=== PATIENT | male | born 1960 | race Caucasian/White ===

== ENCOUNTER 2016-10-21 21:00 | Inpatient (IN) ==
[2016-10-21] MEDS ORDERED: Ipratropium/Albuterol Neb 3 ML IH ONE (21:18)
[2016-10-21] MEDS ORDERED: methylPREDNISolone 125 MG/2 ML VIAL IVP ONE (21:18)
--- NOTE | 2016-10-21 21:21 | Emergency Department Note ---
Disposition Clinical Impression: Community acquired pneumonia, Hyponatremia, ARF (acute renal failure), Sepsis, Pleural effusion Disposition: Admitted As Inpatient Condition: Fair Time of Disposition: 22:21 SOB HPI - General Chief Complaint: ED Weakness Stated Complaint: "Needs Oxygen& Fluids" Time Seen by Provider: 10/21/16 21:10 Source: patient Mode of arrival: ambulatory Limitations: no limitations Nursing Notes Reviewed: Yes Vital Signs Reviewed: Yes - History of Present Illness Patient states he has been increasingly short of breath for the last 3 years. Patient states all month he has been having a cough and congestion. Patient states his chest hurts from coughing so much. Patient denies any measured fevers. Patient is a cigarette smoker. Patient states he does not wear any oxygen at home. Patient's not having any abdominal pain, vomiting, or diarrhea. Pt Subjective Complaint: shortness of breath, cough Onset (ago): month(s) - Related Data Allergies Allergy/AdvReac Type Severity Reaction Status Date / Time cefuroxime [From Ceftin] AdvReac Nausea Verified 10/21/16 21:08 All systems ED: reviewed and negative except as stated. Constitutional: Denies: fever, chills, weakness, weight change Eyes: Denies: eye pain, eye discharge, vision change ENT ED: Denies: ear pain, throat pain, dental pain, hearing loss, epistaxis, congestion, dysphagia Cardiovascular: Reports: chest pain. Denies: palpitations, dyspnea on exertion , edema, syncope Respiratory: Reports: cough, dyspnea, wheezes. Denies: hemoptysis, stridor Gastrointestinal: Denies: abdominal pain, nausea, vomiting, diarrhea, constipation, hematemesis, melena, hematochezia Genitourinary: Denies: urgency, dysuria, frequency, hematuria Musculoskeletal: Denies: back pain, neck pain, arthralgia, myalgia Integumentary: Denies: rash, abrasion, lesions Neurological: Denies: headache, weakness, numbness, paresthesias, confusion, abnormal gait, vertigo Psychiatric: Denies: anxiety, depression, suicidal thoughts, homicidal thoughts , auditory hallucinations, visual hallucinations Endocrine: Denies: fatigue Hematological/Lymphatic: Denies: easy bleeding, easy bruising Allergic/Immunologic: Denies: facial swelling, urticaria Past Medical History - Past Medical History Attestation: Yes The following information was validated with the patient. Source: patient Medical history: Reports: COPD Psychiatric history: Reports: anxiety, depression - Social History Smoking Status: Current every day smoker Alcohol use: Reports: none Drug use: Reports: none Physical Exam - General Limitations: no limitations General appearance: alert, in no apparent distress - Head Head exam: atraumatic, normocephalic, normal inspection - Eye Eye exam: Present: normal appearance, PERRL, EOMI - ENT ENT exam: normal exam, normal oropharynx, mucous membranes moist - Expanded ENT Exam External ear exam: Present: normal external inspection Mouth exam: Present: normal external inspection Teeth exam: Present: normal inspection Throat exam: Present: normal inspection - Neck Neck exam: Present: normal inspection, full ROM, trachea midline - Chest Chest inspection: Present: normal inspection, symmetric chest wall rise - Respiratory Respiratory exam: Present: wheezes, other (rhonchi) - Cardiovascular Cardiovascular exam: Present: normal rhythm, tachycardia, normal heart sounds - Abdominal Exam Abdominal exam: Present: soft, Non-Tender. Absent: tenderness, distention, guarding, rebound, rigidity - Extremities Exam Extremities exam: Present: normal inspection, full ROM. Absent: tenderness, pedal edema - Expanded Upper Extremity Exam Shoulder exam: Present: normal inspection, full ROM Arm exam: Present: normal inspection, full ROM Elbow exam: Present: normal inspection, full ROM Forearm/Wrist exam: Present: normal inspection, full ROM Hand exam: Present: normal inspection, full ROM Vascular exam: Normal: capillary refill, radial pulse - Expanded Lower Extremity Exam Hip/Pelvis exam: Present: normal inspection, full ROM Upper leg exam: Present: normal inspection, full ROM Knee exam: Present: normal inspection, full ROM Lower leg exam: Present: normal inspection, full ROM Ankle exam: Present: normal inspection, full ROM Foot/toe exam: Present: normal inspection, full ROM Neurovascular/Tendon exam: Absent: motor deficit, sensory deficit, tendon deficit - Back Exam Back exam: Present: normal inspection, full ROM. Absent: tenderness - Neurological Exam Neurological exam: Present: alert, oriented X3 - Expanded Neurological Exam Patient oriented to: Present: person, place, time Coma Scale Eye Opening: Spontaneous Coma Scale Motor Response: Obeys Commands Coma Scale Verbal Response: Oriented Coma Scale Total: 15 - Psychiatric Psychiatric exam: Present: normal affect, normal mood - Skin Skin exam: Present: warm, dry, intact, pallor, other (chase-pale color) Course - Consultations Consultation #1: Pt had an abnormal EKG we notified the interventionalist and we will fax the EKGs for his opinion as pt has diffuse ST elevation but no reciprocal changes. Time: 21:30 Consultation #2: I spoke with Dr. Devlin and he states this is more likely pericarditis. Time: 21:40 Consultation #3: I spoke with Dr. Agusto cast to admit to the ICU. Time: 22:20 Vital Signs Temperature 97.6 F 10/21/16 21:02 Pulse Rate 125 10/21/16 21:02 Respiratory Rate 24 10/21/16 21:02 Blood Pressure 94/68 10/21/16 21:02 O2 Sat by Pulse Oximetry 99 10/21/16 21:02 Temperature 97.6 F 10/21/16 21:02 Pulse Rate 125 10/21/16 21:02 Respiratory Rate 24 10/21/16 21:02 Blood Pressure 94/68 10/21/16 21:02 O2 Sat by Pulse Oximetry 99 10/21/16 21:02 Oxygen Delivery Oxygen Delivery Room Air Shortness of Breath/Dyspnea - Medical Records Medical records reviewed: Yes I reviewed the patient's medical records. - Lab Data Lab results reviewed: Yes I reviewed the patient's lab results. Result diagrams: 10/21/16 21:20 10/21/16 21:20 Lab Results 10/21/16 10/21/16 10/21/16 Range/Units 21:20 21:20 21:20 WBC 38.8 H* (4.3-11.1) K/mcL RBC 4.81 (4.19-5.50) M/mcL Hgb 14.1 (12.9-16.9) g/dL Hct 40.6 (37.5-50.1) % MCV 84.4 (83.0-100.0) fL MCH 29.3 (28.0-33.3) pg MCHC 34.7 (31.6-35.5) g/dL RDW 13.4 (11.5-14.5) % Plt Count 590 H (140-400) K/mcL MPV 10.2 (9.4-12.4) fL Immature Gran % Test Not Performed Seg Neutrophils % 86.0 % Band Neutrophils % 2.0 (0-4) % Lymphocytes % 4.0 % Monocytes % 8.0 % Eosinophils % Test Not Performed Basophils % Test Not Performed Neutrophils # 34.1 H (1.6-8.9) K/mcL Lymphocytes # 1.6 (0.6-4.6) K/mcL Monocytes # 3.1 H (0.0-1.3) K/mcL Eosinophils # Test Not Performed Basophils # Test Not Performed Platelet Estimate Increased H (Normal) Large Platelets Present A (Not Present) Anisocytosis 1+ A (Not Present) PT 14.6 H (9.4-12.1) Seconds INR 1.3 APTT 31.0 (26.0-36.0) Seconds D-Dimer 7345 H (0-500) ng/mLFEU Sodium 119 L* (136-145) mEq/L Potassium 4.5 (3.5-4.5) mEq/L Chloride 80 L (98-109) mEq/L Carbon Dioxide 19 (19-29) mEq/L BUN 52 H (8-26) mg/dL Creatinine 2.16 H (0.72-1.25) mg/dL Est GFR ( Amer) 39 L (> 60) Est GFR (Non-Af Amer) 32 L (> 60) BUN/Creatinine Ratio 24 (6-26) Glucose 137 H (70-99) mg/dL Calculated Osmolality 264 L (280-300) Lactic Acid (0.5-2.2) mmol/L Calcium 9.9 (8.6-10.8) mg/dL Troponin I (0-0.03) ng/mL B-Natriuretic Peptide (0-100) pg/mL 10/21/16 10/21/16 10/21/16 Range/Units 21:20 21:20 21:29 WBC (4.3-11.1) K/mcL RBC (4.19-5.50) M/mcL Hgb (12.9-16.9) g/dL Hct (37.5-50.1) % MCV (83.0-100.0) fL MCH (28.0-33.3) pg MCHC (31.6-35.5) g/dL RDW (11.5-14.5) % Plt Count (140-400) K/mcL MPV (9.4-12.4) fL Immature Gran % Seg Neutrophils % % Band Neutrophils % (0-4) % Lymphocytes % % Monocytes % % Eosinophils % Basophils % Neutrophils # (1.6-8.9) K/mcL Lymphocytes # (0.6-4.6) K/mcL Monocytes # (0.0-1.3) K/mcL Eosinophils # Basophils # Platelet Estimate (Normal) Large Platelets (Not Present) Anisocytosis (Not Present) PT (9.4-12.1) Seconds INR APTT (26.0-36.0) Seconds D-Dimer (0-500) ng/mLFEU Sodium (136-145) mEq/L Potassium (3.5-4.5) mEq/L Chloride (98-109) mEq/L Carbon Dioxide (19-29) mEq/L BUN (8-26) mg/dL Creatinine (0.72-1.25) mg/dL Est GFR ( Amer) (> 60) Est GFR (Non-Af Amer) (> 60) BUN/Creatinine Ratio (6-26) Glucose (70-99) mg/dL Calculated Osmolality (280-300) Lactic Acid 3.6 H (0.5-2.2) mmol/L Calcium (8.6-10.8) mg/dL Troponin I 0.02 (0-0.03) ng/mL B-Natriuretic Peptide 263 H (0-100) pg/mL - Radiology Data Radiology results reviewed: Yes I reviewed the patient's radiology results. - EKG Data EKG attestation: Yes I reviewed and interpreted this EKG. EKG shows normal: Reports: sinus rhythm Rate: Reports: tachycardia Rhythm: Reports: NSR Interpretation: Reports: pericarditis
[2016-10-21 21:27] LABS: Hematocrit 40.6 % (37.5-50.1); Hemoglobin 14.1 g/dL (12.9-16.9); Mean Corpuscular HGB Conc 34.7 g/dL (31.6-35.5); Mean Corpuscular Hemoglobin 29.3 pg (28.0-33.3); Mean Corpuscular Volume 84.4 fL (83.0-100.0); Mean Platelet Volume 10.2 fL (9.4-12.4); Platelet Count 590 K/mcL (140-400); Red Blood Count 4.81 M/mcL (4.19-5.50); Red Cell Distribution Width 13.4 % (11.5-14.5)
[2016-10-21 21:35] LABS: INR 1.3; Prothrombin Time 14.6 Seconds (9.4-12.1)
[2016-10-21 21:40] LABS: Calcium 9.9 mg/dL (8.6-10.8); Potassium 4.5 mEq/L (3.5-4.5)
[2016-10-21] MEDS: 0.9 % Sodium Chloride 1,000 ML IV SCH (21:43)
[2016-10-21] MEDS ORDERED: Levofloxacin 750 MG/150 ML 750 MG/150 ML BAG IVPB ONE (21:50)
[2016-10-21 21:58] LABS: Lymphocytes # 1.6 K/mcL (0.6-4.6); Monocytes # 3.1 K/mcL (0.0-1.3); Neutrophils # 34.1 K/mcL (1.6-8.9)
[2016-10-21 21:59] LABS: Anisocytosis 1+ (Not Present); Large Platelets Present (Not Present); Platelet Estimate Increased (Normal)
[2016-10-21] MEDS ORDERED: 0.9 % Sodium Chloride 1,000 ML IV SCH (22:00)
[2016-10-21] MEDS ORDERED: *HR* LORazepam 2 MG/ML VIAL IVP PRN (22:19)
[2016-10-21] MEDS ORDERED: Acetaminophen 650 MG RECTAL SUPP RC PRN (22:19)
[2016-10-21] MEDS ORDERED: Naloxone 0.4 MG/ML INJ IVP PRN (22:19)
[2016-10-21] MEDS ORDERED: Acetaminophen 325 MG TABLET PO PRN (22:19)
[2016-10-21] MEDS ORDERED: Ondansetron 4 MG/2 ML VIAL IVP PRN (22:19)
[2016-10-21] MEDS ORDERED: Lidocaine -MPF 1% 2 ML VIAL ID PRN (22:28)
[2016-10-21] MEDS ORDERED: Albuterol 2.5 MG/3 ML NEBULIZER IH PRN (22:28)
[2016-10-21] MEDS ORDERED: Vancomycin 1,000 MG in D5% in Water 250 ML IVPB SCH (23:00)
[2016-10-21 23:30] LABS: Ethanol < 10 mg/dL (0-10)
[2016-10-21 23:30] LABS: Phosphorous 7.2 mg/dL (2.3-4.7)
[2016-10-21 23:31] LABS: Ionized Calcium 0.93 mmol/L (1.15-1.35)
[2016-10-21] MEDS ORDERED: Calcium Gluconate 2,000 MG in D5% in Water 100 ML IVPB ONE (23:50)
[2016-10-21 23:54] LABS: Thyroid Stimulating Hormone 1.475 mcIU/mL (0.350-4.840)
[2016-10-22] MEDS: Piperacillin/Tazobactam 3.375 GM in D5% in Water (Mini-Bag+) 100 ML IVPB SCH ×4 (00:07→23:29)
[2016-10-22] MEDS: *HR* Morphine 2 MG/ML SYRINGE IVP PRN ×3 (00:07→10:04)
[2016-10-22] MEDS: Vancomycin 1,000 MG in D5% in Water 250 ML IVPB SCH ×2 (00:08→23:30)
--- NOTE | 2016-10-22 00:31 | Internal Med History&Physical ---
<Chinmay Sheppard - Last Filed: 10/22/16 02:12> Date of Encounter: 10/22/16 Time of Encounter: 00:00 Assessment and Plan (1) Severe sepsis Current visit: Yes Status: Acute The patient meets criteria for severe sepsis with elevated white count of 38.8, elevated heart rate of 125, and elevated respiratory rate of 24. Source of infection is community acquired pneumonia. The patient was hypotensive upon arrival with a blood pressure of 94/68. The patient's lactic acid is 3.6. The patient received 2 L of fluid in the emergency department and is receiving a 3rd leader currently at a rate of 100 mL per hour. The patient received a dose of Levaquin and a dose of Solu-Medrol on the emergency department. Additionally received one dose of vancomycin upon arrival to the ICU, will continue with pharmacy dosing. Continue course of vancomycin, Levaquin and Zosyn pending cultures. 2 sets of blood cultures have been drawn. Sputum cultures ordered. Legionella antigen, strep pneumoniae antigen, and respiratory infection panel ordered as well. (2) Pleural effusion Current visit: Yes Status: Acute Chronic and progressive on the right side. CT of the chest demonstrated a mass in the right infra-hilar region resulting in obstruction of the right lower lobe and right middle lobe bronchi with collapse of the right middle lobe and right lower lobes. The mass is difficult to measure, but approximately 4.2 cm. There is bulky mediastinal and sub carinal lymphadenopathy noted. Small right supraclavicular lymph nodes are noted. There is a large loculated right pleural effusion. There is moderate pericardial effusion. Consult to pulmonology. Chest x-ray demonstrated large right pleural effusion unassociated atelectasis which has increased in size since August. X-ray August had demonstrated a right pleural effusion which at that time had increased in size as well. (3) Community acquired pneumonia Current visit: Yes Status: Acute This patient meets severe sepsis criteria, and has a history of alcoholism with 10 drinks per day reported for the past 4 to 5 years. Will treat at this time with Levaquin, Zosyn, and vancomycin due to the patient' s clinical status. (4) ARF (acute renal failure) Current visit: Yes Status: Acute Acute kidney injury likely secondary to dehydration. Urinalysis ordered. Alarcon catheter ordered. Urinary tox screen Renal and bladder ultrasound to assess for urinary retention and kidney abnormalities. Will follow patients electrolytes closely as well. Qualifiers: Acute renal failure type: unspecified Qualified Code(s): N17.9 - Acute kidney failure, unspecified (5) Hyponatremia Current visit: Yes Status: Acute Patient is not exhibiting any signs of altered mental status despite having current sodium of 119. Will monitor the patient closely with slow repletion through normal saline. Consider SIADH. (6) COPD (chronic obstructive pulmonary disease) Current visit: Yes Status: Acute In acute exacerbation secondary to community acquired pneumonia. Patient will have continued doses antibiotics for community acquired pneumonia. Patient will receive continued doses of steroids and duo neb treatments. Qualifiers: COPD type: emphysema Emphysema type: unspecified Qualified Code(s): J43.9 - Emphysema, unspecified (7) Pericarditis Current visit: Yes Status: Acute Moderate pericardial effusion present, likely malignant effusion. Qualifiers: Pericarditis type: other type Chronicity: unspecified Qualified Code(s): I31.8 - Other specified diseases of pericardium (8) Alcohol abuse Current visit: Yes Status: Acute Patient reports no alcohol use in the past 2 weeks due to his recent illness. He does not appear to be exhibiting any symptoms of withdrawal at this time. Will continue to monitor. (9) DVT prophylaxis Current visit: Yes Status: Acute Patient will receive 5000 units SQ Heparin Q8HR (10) Tobacco abuse Current visit: Yes Status: Acute Internal Medicine - H&P: HPI Chief complaint: Difficulty in breathing Admitted From: Emergency Dept Plans for Post Hospital Care: Home History of present illness: Mr. Hill is a 56 year old male with past medical history is significant for COPD and asthma who presented to the emergency department with worsening shortness of breath. He states that he is been short of breath for the past 3 years which has been gradually increasing. He additionally has had a cough and congestion for the past month. He states that the cough has been intermittently productive of a whitish yellow sputum. He denies any hemoptysis. The patient is not on any home oxygen. The patient reports that his shortness of breath has been so severe in the last 2 days that he has stopped smoking. Prior to those 2 days he has smoked 1.5 to 2 packs for many years. He reports no alcohol use in the last 2 weeks, but prior to that was drinking 10 cans of beer per day for the past 4 to 5 years. Over the last week he has been having some chest pain that is substernal and radiates to both shoulders, this pain is worse with inspiration and radiates to the neck as well. The pain is worse with coughing. The patient reports that he is been having fevers, chills, night sweats. He has been experiencing nausea with vomiting from past Sunday to Saturday 10/20. The vomiting is described as being food contents without any red or green discoloration. The nausea was so severe that he states he was unable to keep down much fluids during that time. He notes decreased urination and a darkening of his urine, but no dysuria. The patient reports recent constipation that is so severe that straining was causing him to become nauseated. Additionally notes some lightheadedness and blurriness in his vision over the past week. He denies headache, sore throat, ear pain, abdominal pain, diarrhea, focal numbness and tingling. The patient receives a chest x-ray in early August which demonstrated a right pleural effusion was progressive and right lung atelectasis. Upon arrival today repeat x-ray demonstrates the right pleural effusion is continuing to increase in size with continued atelectasis. Past Med Surg Social Fam HX - Past Medical History Medical history: asthma, COPD Psychiatric history: anxiety, depression - Past Surgical History Surgical History: orthopedic, other (Lumbar spinal surgeries in 2001 and 2002) - Social History Smoking Status: Current every day smoker Alcohol use: recent (2 weeks ago the patient was drinking 10 beers per day for the past 4 to 5 years) Drug use: none - Family History Mother Living Status: Hx Family Cardiac Disorders: Yes (Vascular and heart disease) Father Living Status: Still Living Hx Family Respiratory Disorders: Yes (COPD) Internal Medicine - H&P: Meds Unable To Obtain [Unable to Obtain] 10/22/16 [History] Allergies cefuroxime [From Ceftin] Adverse Reaction (Verified 10/21/16 21:08) Nausea All Systems PM: A 10-system review of systems was performed and is negative for pertinent findings except as documented above in the HPI. - Constitutional Constitutional: chills, fatigue, fever(s), lethargy, night sweats, weakness - EENT Eyes: blurry vision, no loss of vision, no pain Ears: no ear discharge, no ear pain, no tinnitus Nose, mouth and throat: no dysphagia, no nasal discharge, no neck pain, no sore throat - Cardiovascular Cardiovascular ROS IM: chest pain, lightheadedness, no irregular heart rhythm, no palpitations, no syncope - Respiratory Respiratory: cough, dyspnea, chest congestion, pain with cough - Gastrointestinal Gastrointestinal: constipation, no abdominal pain, no diarrhea - Genitourinary Genitourinary ROS male: no urinary urgency Additional comments: Decreased urinary frequency and darkening of urine color. - Musculoskeletal Musculoskeletal ROS IM: no numbness, no tingling - Integumentary Integumentary IM: no rash, no unusual bruising - Constitutional Vitals: Temp Pulse Resp BP Pulse Ox 0 F L 125 22 115/88 99 10/21/16 22:51 10/21/16 21:02 10/21/16 22:51 10/21/16 22:51 10/21/16 21:02 General appearance: Present: disheveled, A&O X 3 Exam: Moderately distressed - Head Head exam: Present: atraumatic, normocephalic - Eye Eye exam: Present: PERRL, conjuntiva pink, sclera anicteric Pupils: Present: PERRL - Neck Neck exam general surgery: Present: supple, trachea midline - Respiratory Respiratory exam: Present: decreased breath sounds (Right middle and right lower lung dasilva), rales, tachypnea. Absent: accessory muscle use - Cardiovascular Cardiovascular exam: Present: +S1, +S2, tachycardia. Absent: diastolic murmur, gallop, rubs, systolic murmur - GI/Abdominal GI/Abdominal exam: Present: hepatomegaly, normal bowel sounds, soft, tenderness (In epigastric region and right upper quadrant). Absent: distended, guarding, hernia, rebound, rigid - Extremities Exam Extremities exam: Present: warm, radial pulses palpable and symetrical. Absent : calf tenderness, cyanotic, pedal edema - Neurological Exam Neurological exam: Present: CN II-XII intact, oriented X3, no focal deficits. Absent: pronater drift, facial droop, speech deficit - Skin Skin exam: Present: dry, intact Additional comments: Bruising over the left great toe Internal Med - H&P Results - Labs CBC & Chem 7: 10/21/16 21:20 10/21/16 21:20 Labs: Cardiac Enzymes 10/21/16 Range/Units 22:48 Troponin I 0.02 (0-0.03) ng/mL - Attending Attestation I examined this patient and my medical decision-making was reviewed with the ADDING MACHINE MECHANIC/PA/Advanced Practice Nurse/Resident Physician. I agree with the documented findings, disposition and treatment plan as described except to the extent set forth below. <Chavo Liz - Last Filed: 10/23/16 04:50> Date of Encounter: 10/22/16 Assessment and Plan (1) Acute on chronic respiratory failure with hypoxia and hypercapnia Current visit: Yes Status: Acute . (2) Systemic inflammatory response syndrome (SIRS) associated with organ dysfunction Current visit: Yes Status: Acute . (3) Severe sepsis with acute organ dysfunction Current visit: Yes Status: Acute . (4) Septic shock Current visit: Yes Status: Acute . (5) Hypovolemic shock Current visit: Yes Status: Acute . (6) Acute pericarditis Current visit: Yes Status: Acute . Qualifiers: Pericarditis type: unspecified type Qualified Code(s): I30.9 - Acute pericarditis, unspecified (7) Pericardial effusion with cardiac tamponade Current visit: Yes Status: Acute . (8) Paraneoplastic syndrome Current visit: Yes Status: Acute . (9) Sepsis with multi-organ dysfunction Current visit: Yes Status: Acute . (10) Chest pain, rule out acute myocardial infarction Current visit: Yes Status: Acute . (11) Chest pain with moderate risk of acute coronary syndrome Current visit: Yes Status: Acute . (12) Acute chest wall pain Current visit: Yes Status: Acute . (13) ARF (acute renal failure) Current visit: Yes Status: Acute Qualifiers: Acute renal failure type: unspecified Qualified Code(s): N17.9 - Acute kidney failure, unspecified (14) Alcohol abuse Current visit: Yes Status: Acute (15) COPD (chronic obstructive pulmonary disease) Current visit: Yes Status: Acute Qualifiers: COPD type: emphysema Emphysema type: unspecified Qualified Code(s): J43.9 - Emphysema, unspecified (16) Community acquired pneumonia Current visit: Yes Status: Acute (17) Hyponatremia with decreased serum osmolality Current visit: Yes Status: Acute . (18) Mass of right lung Current visit: Yes Status: Acute . (19) Pericardial effusion, acute Current visit: Yes Status: Acute . (20) Pericarditis Current visit: Yes Status: Acute Qualifiers: Pericarditis type: other type Chronicity: unspecified Qualified Code(s): I31.8 - Other specified diseases of pericardium (21) Pleural effusion Current visit: Yes Status: Acute (22) Pneumonia, organism unspecified Current visit: Yes Status: Acute . (23) Severe sepsis Current visit: Yes Status: Acute (24) Tobacco abuse Current visit: Yes Status: Chronic (25) Postobstructive pneumonia Current visit: Yes Status: Acute . (26) COPD exacerbation Current visit: Yes Status: Acute . Internal Medicine - H&P: HPI History of present illness: Mr. Hill is a 56 year old male The patient was visited and interviewed and examined. I examined this patient and my medical decision-making was reviewed with the Resident Physician. I agree with the documented findings, disposition and treatment plan as described except to the extent set forth below. Cumulative laboratory and radiographic data were reviewed and considered and discussed. Pertinent ancillary medical records including ECW and PCI documentation, when available, was reviewed and considered. Given the patient's presenting concerns, past medical history, clinical findings and symptoms, he is admitted at this time to undergo further evaluation and disposition. Orders were written as per the computerized physician order checker system. All Systems PM: A 10-system review of systems was performed and is negative for pertinent findings except as documented above in the HPI. - Constitutional Vitals: Temp Pulse Resp BP Pulse Ox 97.8 F 104 16 136/99 95 10/23/16 00:00 10/23/16 03:00 10/23/16 03:50 10/23/16 03:00 10/23/16 03:50 Internal Med - H&P Results - Labs CBC & Chem 7: 10/22/16 11:10 10/22/16 11:10 Labs: Short CBC 10/22/16 10/22/16 Range/Units 05:08 11:10 WBC 33.1 H* 34.0 H* (4.3-11.1) K/mcL Hgb 12.8 L 12.1 L (12.9-16.9) g/dL Hct 37.4 L 34.8 L (37.5-50.1) % Plt Count 532 H 500 H (140-400) K/mcL Neutrophils # 30.2 H 31.1 H (1.6-8.9) K/mcL BMP 10/22/16 11:10 Sodium 120 L* Potassium 3.8 Chloride 89 L Carbon Dioxide 15 L BUN 47 H Creatinine 1.65 H Glucose 287 H Calcium 8.9 Cardiac Enzymes 10/22/16 Range/Units 05:08 Troponin I 0.00 (0-0.03) ng/mL Liver Function 10/22/16 10/22/16 Range/Units 05:08 11:10 Total Bilirubin 0.5 0.4 (0.2-1.2) mg/dL Direct Bilirubin 0.4 0.3 (0.0-0.5) mg/dL AST 188 H 100 H (5-34) Units/L ALT 49 41 (0-55) Units/L Alkaline Phosphatase 165 H 151 H (38-126) Units/L Albumin 1.6 L 1.7 L (3.5-5.0) g/dL - ABG Interpretation ABG results: 10/22/16 00:55 ABG pH 7.43 ABG pCO2 28 L ABG pO2 111 H ABG HCO3 18.6 L ABG Total CO2 19.5 L ABG O2 Saturation 98 ABG Base Excess -4.4 L - Impressions Vital Signs Temp Pulse Resp BP Pulse Ox 10/23/16 03:50 16 95 10/23/16 03:00 104 15 136/99 96 10/23/16 02:00 94 16 103/78 96 10/23/16 01:00 104 12 129/96 98 10/23/16 00:00 97.8 F 105 19 117/88 96 10/22/16 23:00 106 19 130/92 96 10/22/16 22:37 16 97 10/22/16 22:00 95 19 97/82 97 10/22/16 21:00 96 19 96/71 97 10/22/16 20:00 112 20 118/99 96 10/22/16 19:00 97.6 F 95 20 111/82 97 10/22/16 18:00 98 20 105/77 96 10/22/16 17:00 107 20 150/110 97 10/22/16 16:22 97.7 F 10/22/16 16:00 110 20 129/93 95 10/22/16 15:32 20 97 10/22/16 15:00 113 22 150/103 95 10/22/16 14:00 112 19 143/95 98 10/22/16 13:00 114 21 135/98 97 10/22/16 12:27 96.7 F L 10/22/16 12:00 114 21 158/105 96 10/22/16 11:00 121 24 116/100 96 10/22/16 10:53 16 97 10/22/16 10:00 111 18 151/102 96 10/22/16 09:00 116 21 139/80 96 10/22/16 08:00 97.8 F 108 20 123/89 96 10/22/16 06:48 97.8 F 10/22/16 06:00 111 22 125/90 97 10/22/16 05:15 20 98 10/22/16 05:00 105 18 117/97 97 10/22/16 04:41 98.4 F Intake and Output 10/22/16 10/22/16 10/23/16 15:59 23:59 07:59 Intake Total 220 / 220 1500 / 1500 250 / 250 Output Total 500 / 500 1650 / 1650 825 / 825 Balance -280 / -280 -150 / -150 -575 / -575 Intake: IV Fluids 100 / 100 1400 / 1400 250 / 250 0.9 % Sodium Chloride 1, 1300 / 1300 000 ML @ 150 mls/hr IV CONT [facility] Rx#:[id number] Zosyn 3.375 GM In 100 / 100 100 / 100 Dextrose 5% (Minibag+) 100 ML 100 ML @ 25 mls/hr IVPB Q8HR [facility] Rx#: [id number] Vancocin 1,000 MG In 250 / 250 Dextrose 5% 250 ML @ 167 mls/hr IVPB Q24H [facility] Rx#: [id number] Oral 120 / 120 100 / 100 0 / 0 Output: Urine 500 / 500 1650 / 1650 825 / 825 Other: Meal Breakfast Weight 64.1 kg Short CBC 10/22/16 10/22/16 Range/Units 11:10 05:08 WBC 34.0 H* 33.1 H* (4.3-11.1) K/mcL Hgb 12.1 L 12.8 L (12.9-16.9) g/dL Hct 34.8 L 37.4 L (37.5-50.1) % Plt Count 500 H 532 H (140-400) K/mcL Neutrophils # 31.1 H 30.2 H (1.6-8.9) K/mcL BMP 10/22/16 Range/Units 11:10 Sodium 120 L* (136-145) mEq/L Potassium 3.8 (3.5-4.5) mEq/L Chloride 89 L (98-109) mEq/L Carbon Dioxide 15 L (19-29) mEq/L BUN 47 H (8-26) mg/dL Creatinine 1.65 H (0.72-1.25) mg/dL Glucose 287 H (70-99) mg/dL Calcium 8.9 (8.6-10.8) mg/dL Cardiac Enzymes 10/22/16 Range/Units 05:08 Troponin I 0.00 (0-0.03) ng/mL Liver Function 10/22/16 10/22/16 Range/Units 11:10 05:08 Total Bilirubin 0.4 0.5 (0.2-1.2) mg/dL Direct Bilirubin 0.3 0.4 (0.0-0.5) mg/dL AST 100 H 188 H (5-34) Units/L ALT 41 49 (0-55) Units/L Alkaline Phosphatase 151 H 165 H (38-126) Units/L Albumin 1.7 L 1.6 L (3.5-5.0) g/dL 10/22/16 00:55 ABG pH 7.43 ABG pCO2 28 L ABG pO2 111 H ABG HCO3 18.6 L ABG Total CO2 19.5 L ABG O2 Saturation 98 ABG Base Excess -4.4 L Abnormal lab results WBC 34.0 K/mcL (4.3-11.1) H* 10/22/16 11:10 RBC 4.11 M/mcL (4.19-5.50) L 10/22/16 11:10 Hgb 12.1 g/dL (12.9-16.9) L 10/22/16 11:10 Hct 34.8 % (37.5-50.1) L 10/22/16 11:10 Plt Count 500 K/mcL (140-400) H 10/22/16 11:10 Neutrophils # 31.1 K/mcL (1.6-8.9) H 10/22/16 11:10 Toxic Vacuolation Present (Not Present) A 10/22/16 11:10 Platelet Estimate Increased (Normal) H 10/22/16 11:10 Large Platelets Present (Not Present) A 10/21/16 21:20 Anisocytosis 1+ (Not Present) A 10/21/16 21:20 PT 15.6 Seconds (9.4-12.1) H 10/22/16 05:08 D-Dimer 7345 ng/mLFEU (0-500) H 10/21/16 21:20 ABG pCO2 28 mmHg (35-45) L 10/22/16 00:55 ABG pO2 111 mmHg (85-104) H 10/22/16 00:55 ABG HCO3 18.6 mEQ/L (21-27) L 10/22/16 00:55 ABG Total CO2 19.5 mEq/L (20-26) L 10/22/16 00:55 ABG Base Excess -4.4 mEq/L (-2.0 to 3.0) L 10/22/16 00:55 Sodium 120 mEq/L (136-145) L* 10/22/16 11:10 Chloride 89 mEq/L (98-109) L 10/22/16 11:10 Carbon Dioxide 15 mEq/L (19-29) L 10/22/16 11:10 BUN 47 mg/dL (8-26) H 10/22/16 11:10 Creatinine 1.65 mg/dL (0.72-1.25) H 10/22/16 11:10 Est GFR ( Amer) 53 (> 60) L 10/22/16 11:10 Est GFR (Non-Af Amer) 44 (> 60) L 10/22/16 11:10 BUN/Creatinine Ratio 28 (6-26) H 10/22/16 11:10 Glucose 287 mg/dL (70-99) H 10/22/16 11:10 POC Glucose 163 (58-89) H 10/21/16 23:17 Calculated Osmolality 273 (280-300) L 10/22/16 11:10 Lactic Acid 2.7 mmol/L (0.5-2.2) H 10/22/16 11:00 Ionized Calcium 0.93 mmol/L (1.15-1.35) L 10/21/16 22:55 Phosphorus 7.2 mg/dL (2.3-4.7) H 10/21/16 22:47 AST 100 Units/L (5-34) H 10/22/16 11:10 Alkaline Phosphatase 151 Units/L (38-126) H 10/22/16 11:10 B-Natriuretic Peptide 263 pg/mL (0-100) H 10/21/16 21:20 Serum Total Protein 5.7 g/dL (6.0-8.3) L 10/22/16 11:10 Albumin 1.7 g/dL (3.5-5.0) L 10/22/16 11:10 Globulin 4.0 g/dL (2.4-3.5) H 10/22/16 11:10 Albumin/Globulin Ratio 0.4 (1.1-2.2) L 10/22/16 11:10 Urine Clarity Cloudy (Clear) A 10/22/16 02:30 Ur Specific [place] 1.009 (1.010-1.025) L 10/22/16 02:30 Urine Microscopic RBC 5-15 per hpf (0-3) H 10/22/16 02:30 Urine Microscopic WBC 50-100 per hpf (0-3) H 10/22/16 02:30 Ur Squamous Epith Cells Many per lpf (None-Few) H 10/22/16 02:30 Hyaline Casts Moderate per lpf (None-Few) H 10/22/16 02:30 Urine Osmolality 234 mOsm/kg (300-1090) L 10/22/16 11:30 Protein/Creatinin Ratio < 0.24 mg/mg (0-0.20) H 10/22/16 11:30 Urine Opiates Screen Positive ng/mL (Pvavyg=812) H 10/22/16 06:34 Strep pneumoniae (PCR) DETECTED (Not Detect) A 10/21/16 21:25 Allergies Allergy/AdvReac Type Severity Reaction Status Date / Time cefuroxime [From Ceftin] AdvReac Nausea Verified 10/21/16 21:08 Laboratory Results WBC 34.0 K/mcL (4.3-11.1) H* 10/22/16 11:10 RBC 4.11 M/mcL (4.19-5.50) L 10/22/16 11:10 Hgb 12.1 g/dL (12.9-16.9) L 10/22/16 11:10 Hct 34.8 % (37.5-50.1) L 10/22/16 11:10 MCV 84.7 fL (83.0-100.0) 10/22/16 11:10 MCH 29.4 pg (28.0-33.3) 10/22/16 11:10 MCHC 34.8 g/dL (31.6-35.5) 10/22/16 11:10 RDW 13.4 % (11.5-14.5) 10/22/16 11:10 Plt Count 500 K/mcL (140-400) H 10/22/16 11:10 MPV 10.2 fL (9.4-12.4) 10/22/16 11:10 Immature Gran % 3.0 % (0-4) 10/22/16 11:10 Seg Neutrophils % 91.4 % 10/22/16 11:10 Band Neutrophils % 2.0 % (0-4) 10/21/16 21:20 Lymphocytes % 1.9 % 10/22/16 11:10 Monocytes % 3.2 % 10/22/16 11:10 Eosinophils % 0.0 % 10/22/16 11:10 Basophils % 0.5 % 10/22/16 11:10 Neutrophils # 31.1 K/mcL (1.6-8.9) H 10/22/16 11:10 Lymphocytes # 0.7 K/mcL (0.6-4.6) 10/22/16 11:10 Monocytes # 1.1 K/mcL (0.0-1.3) 10/22/16 11:10 Eosinophils # 0.0 K/mcL (0.0-0.6) 10/22/16 11:10 Basophils # 0.2 K/mcL (0.0-0.2) 10/22/16 11:10 Toxic Vacuolation Present (Not Present) A 10/22/16 11:10 Platelet Estimate Increased (Normal) H 10/22/16 11:10 Large Platelets Present (Not Present) A 10/21/16 21:20 Immature Plt Fraction 5.5 % (1.1-6.1) 10/22/16 11:10 Anisocytosis 1+ (Not Present) A 10/21/16 21:20 PT 15.6 Seconds (9.4-12.1) H 10/22/16 05:08 INR 1.4 10/22/16 05:08 APTT 29.4 Seconds (26.0-36.0) 10/22/16 11:10 D-Dimer 7345 ng/mLFEU (0-500) H 10/21/16 21:20 ABG pH 7.43 pH Units (7.32-7.45) 10/22/16 00:55 ABG pCO2 28 mmHg (35-45) L 10/22/16 00:55 ABG pO2 111 mmHg (85-104) H 10/22/16 00:55 ABG HCO3 18.6 mEQ/L (21-27) L 10/22/16 00:55 ABG Total CO2 19.5 mEq/L (20-26) L 10/22/16 00:55 ABG O2 Saturation 98 % (95-98) 10/22/16 00:55 ABG Base Excess -4.4 mEq/L (-2.0 to 3.0) L 10/22/16 00:55 Blood Gas Modality NC 10/22/16 00:55 Inspired O2 36 % 10/22/16 00:55 Sodium 120 mEq/L (136-145) L* 10/22/16 11:10 Potassium 3.8 mEq/L (3.5-4.5) 10/22/16 11:10 Chloride 89 mEq/L (98-109) L 10/22/16 11:10 Carbon Dioxide 15 mEq/L (19-29) L 10/22/16 11:10 BUN 47 mg/dL (8-26) H 10/22/16 11:10 Creatinine 1.65 mg/dL (0.72-1.25) H 10/22/16 11:10 Est GFR ( Amer) 53 (> 60) L 10/22/16 11:10 Est GFR (Non-Af Amer) 44 (> 60) L 10/22/16 11:10 BUN/Creatinine Ratio 28 (6-26) H 10/22/16 11:10 Glucose 287 mg/dL (70-99) H 10/22/16 11:10 POC Glucose 163 (58-89) H 10/21/16 23:17 Calculated Osmolality 273 (280-300) L 10/22/16 11:10 Lactic Acid 2.7 mmol/L (0.5-2.2) H 10/22/16 11:00 Calcium 8.9 mg/dL (8.6-10.8) 10/22/16 11:10 Ionized Calcium 0.93 mmol/L (1.15-1.35) L 10/21/16 22:55 Phosphorus 7.2 mg/dL (2.3-4.7) H 10/21/16 22:47 Magnesium 2.0 mg/dL (1.6-2.6) 10/21/16 22:47 Total Bilirubin 0.4 mg/dL (0.2-1.2) 10/22/16 11:10 Direct Bilirubin 0.3 mg/dL (0.0-0.5) 10/22/16 11:10 Indirect Bilirubin 0.1 mg/dL (0.0-1.2) 10/22/16 11:10 AST 100 Units/L (5-34) H 10/22/16 11:10 ALT 41 Units/L (0-55) 10/22/16 11:10 Alkaline Phosphatase 151 Units/L (38-126) H 10/22/16 11:10 Troponin I 0.00 ng/mL (0-0.03) 10/22/16 05:08 B-Natriuretic Peptide 263 pg/mL (0-100) H 10/21/16 21:20 Serum Total Protein 5.7 g/dL (6.0-8.3) L 10/22/16 11:10 Albumin 1.7 g/dL (3.5-5.0) L 10/22/16 11:10 Globulin 4.0 g/dL (2.4-3.5) H 10/22/16 11:10 Albumin/Globulin Ratio 0.4 (1.1-2.2) L 10/22/16 11:10 Amylase 34 Units/L (25-125) 10/22/16 05:08 Lipase 38 Units/L (8-78) 10/22/16 05:08 TSH 1.475 mcIU/mL (0.350-4.840) 10/21/16 22:55 Urine Color Yellow (Yellow) 10/22/16 02:30 Urine Clarity Cloudy (Clear) A 10/22/16 02:30 Urine pH 6.0 pH Units (5.0-8.0) 10/22/16 02:30 Ur Specific [place] 1.009 (1.010-1.025) L 10/22/16 02:30 Urine Protein Negative mg/dL (Neg-Trace) 10/22/16 02:30 Urine Glucose (UA) Normal mg/dL (Normal) 10/22/16 02:30 Urine Ketones Negative mg/dL (Negative) 10/22/16 02:30 Urine Blood Negative (Negative) 10/22/16 02:30 Urine Nitrite Negative (Negative) 10/22/16 02:30 Urine Bilirubin Negative (Negative) 10/22/16 02:30 Urine Urobilinogen Normal mg/dL (Normal) 10/22/16 02:30 Ur Leukocyte Esterase Negative (Negative) 10/22/16 02:30 Urine Microscopic RBC 5-15 per hpf (0-3) H 10/22/16 02:30 Urine Microscopic WBC 50-100 per hpf (0-3) H 10/22/16 02:30 Ur Squamous Epith Cells Many per lpf (None-Few) H 10/22/16 02:30 Urine Bacteria None Seen per hpf (None-Few) 10/22/16 02:30 Hyaline Casts Moderate per lpf (None-Few) H 10/22/16 02:30 Urine Osmolality 234 mOsm/kg (300-1090) L 10/22/16 11:30 Urine Creatinine 29 mg/dL 10/22/16 11:30 Protein/Creatinin Ratio < 0.24 mg/mg (0-0.20) H 10/22/16 11:30 Urine Sodium < 20.0 mEq/L 10/22/16 11:30 Urine Total Protein < 7 mg/dL (1-14) 10/22/16 11:30 Urine Opiates Screen Positive ng/mL (Ayhrtf=128) H 10/22/16 06:34 Ur Barbiturates Screen Negative ng/mL (Bduzdh=910) 10/22/16 06:34 Ur Phencyclidine Scrn Negative ng/mL (Cutoff=25) 10/22/16 06:34 Ur Amphetamines Screen Negative ng/mL (Umboxn=7490) 10/22/16 06:34 U Benzodiazepines Scrn Negative ng/mL (Jewmkw=[id number]) 10/22/16 06:34 Urine Cocaine Screen Negative ng/mL (Cutoff= 300) 10/22/16 06:34 U Marijuana (THC) Screen Negative ng/mL (Cutoff = 50) 10/22/16 06:34 Ethyl Alcohol < 10 mg/dL (0-10) 10/21/16 22:55 A. baumannii (TEM-PCR) Not Detected (Not Detect) 10/21/16 21:25 Chlamy pneumoniae PCR Not Detected (Not Detect) 10/22/16 06:08 Adenovirus (PCR) Not Detected (Not Detect) 10/22/16 06:08 B. pertussis DNA (PCR) Not Detected (Not Detect) 10/22/16 06:08 Ronda albicans (PCR) Not Detected (Not Detect) 10/21/16 21:25 C. glabrata (PCR) Not Detected (Not Detect) 10/21/16 21:25 C. krusei (PCR) Not Detected (Not Detect) 10/21/16 21:25 C. parapsilosis (PCR) Not Detected (Not Detect) 10/21/16 21:25 C. tropicalis (PCR) Not Detected (Not Detect) 10/21/16 21:25 Coronavirus OC43 (PCR) Not Detected (Not Detect) 10/22/16 06:08 Coronavirus HKU1 (PCR) Not Detected (Not Detect) 10/22/16 06:08 Coronavirus 229E (PCR) Not Detected (Not Detect) 10/22/16 06:08 Coronavirus NL63 (PCR) Not Detected (Not Detect) 10/22/16 06:08 Enterobacteriac sp PCR Not Detected (Not Detect) 10/21/16 21:25 E. cloacae complex PCR Not Detected (Not Detect) 10/21/16 21:25 Enterococcus sp PCR Not Detected (Not Detect) 10/21/16 21:25 E. coli (PCR) Not Detected (Not Detect) 10/21/16 21:25 H. influenzae DNA Not Detected (Not Detect) 10/21/16 21:25 Human Metapneumovirus Not Detected (Not Detect) 10/22/16 06:08 Influenza A (H1) PCR Not Detected (Not Detect) 10/22/16 06:08 Influ A (H1N1/09) PCR Not Detected (Not Detect) 10/22/16 06:08 Influenza A (H3) PCR Not Detected (Not Detect) 10/22/16 06:08 Influenza A Untype (PCR) Not Detected (Not Detect) 10/22/16 06:08 Influenza Type B (PCR) Not Detected (Not Detect) 10/22/16 06:08 Klebsiella oxytoca PCR Not Detected (Not Detect) 10/21/16 21:25 Klebsiella pneumoniae Not Detected (Not Detect) 10/21/16 21:25 Listeria (PCR) Not Detected (Not Detect) 10/21/16 21:25 M.pneumoniae DNA (PCR) Not Detected (Not Detect) 10/22/16 06:08 N. meningitidis (PCR) Not Detected (Not Detect) 10/21/16 21:25 Parainfluenza 1 (PCR) Not Detected (Not Detect) 10/22/16 06:08 Parainfluenza 2 (PCR) Not Detected (Not Detect) 10/22/16 06:08 Parainfluenza 3 (PCR) Not Detected (Not Detect) 10/22/16 06:08 Parainfluenza 4 (PCR) Not Detected (Not Detect) 10/22/16 06:08 Proteus species (PCR) Not Detected (Not Detect) 10/21/16 21:25 RSV (PCR) Not Detected (Not Detect) 10/22/16 06:08 Entero/Rhino (PCR) Not Detected (Not Detect) 10/22/16 06:08 Serratia marcescens PCR Not Detected (Not Detect) 10/21/16 21:25 Staphylococcus sp PCR Not Detected (Not Detect) 10/21/16 21:25 Staph aureus (PCR) Not Detected (Not Detect) 10/21/16 21:25 MRS (TEM-PCR) N/A (Not Detect) 10/21/16 21:25 Streptococcus sp PCR DETECTED (Not Detect) 10/21/16 21:25 Group A Strep DNA Not Detected (Not Detect) 10/21/16 21:25 Group B Strep (PCR) Not Detected (Not Detect) 10/21/16 21:25 Strep pneumoniae (PCR) DETECTED (Not Detect) A 10/21/16 21:25 P. aeruginosa (TEM-PCR) Not Detected (Not Detect) 10/21/16 21:25 VRE (PCR) N/A (Not Detect) 10/21/16 21:25 KPC (blaKPC) Detect PCR N/A (Not Detect) 10/21/16 21:25 Blood Type A NEGATIVE 10/21/16 22:48 Antibody Screen NEGATIVE 10/21/16 22:48 Crossmatch See Detail 10/21/16 22:48 Impressions Chest X-Ray 10/21/16 21:18 IMPRESSION: 1. Large right pleural effusion and associated atelectasis which has increased in size compared with previous exam. D/ / Andrews Hahn MD / Andrews Hahn MD Interpreting Provider: Andrews Hahn MD Chest CT 10/21/16 22:19 IMPRESSION: 1. There is a mass within the right infrahilar region resulting in obstruction of the right lower lobe and right middle lobe bronchi with collapse of the right middle lobe and right lower lobes. The mass is difficult to measure due to surrounding atelectasis, however proximally measures 4.2 cm. 2. Bulky mediastinal and subcarinal lymphadenopathy is noted. Small right supraclavicular lymph nodes are noted. 3. There is a large loculated right pleural effusion. 4. There is a moderate pericardial effusion. D/ / Isabelle Yañez MD / Isabelle Yañez MD Interpreting Provider: Isabelle Yañez MD
[2016-10-22] MEDS: Metoclopramide 10 MG/2 ML VIAL IVP SCH ×5 (00:40→23:29)
[2016-10-22] MEDS: 0.9 % Sodium Chloride 1,000 ML IV SCH ×4 (00:40→18:06)
[2016-10-22] MEDS: methylPREDNISolone 125 MG/2 ML VIAL IVP SCH ×5 (00:41→23:29)
[2016-10-22] MEDS: *HR* Heparin 5,000 UNIT/ML VIAL SQ SCH ×4 (00:41→23:29)
[2016-10-22] MEDS: 0.9 % Sodium Chloride 1,000 ML IVC SCH ×2 (00:42→00:44)
[2016-10-22] MEDS: Ipratropium/Albuterol Neb 3 ML IH SCH ×5 (00:50→22:37)
[2016-10-22] MEDS ORDERED: *HR* OxyCODONE Immed Rel 5 MG TABLET PO PRN (01:02)
[2016-10-22 01:06] LABS: ABG Base Excess -4.4 mEq/L (-2.0 to 3.0); ABG HCO3 18.6 mEQ/L (21-27); ABG Oxygen Saturation 98 % (95-98); ABG PCO2 28 mmHg (35-45); ABG PH 7.43 pH Units (7.32-7.45); ABG PO2 111 mmHg (85-104); ABG TCO2 19.5 mEq/L (20-26)
[2016-10-22 01:08] LABS: Blood Gas FiO2 36 %
[2016-10-22 02:40] LABS: Bilirubin,Urine Negative (Negative); Blood,Urine Negative (Negative); Clarity,Urine Cloudy (Clear); Color,Urine Yellow (Yellow); Glucose,Urine (UA) Normal (Normal); Ketones,Urine Negative (Negative); Leukocyte Esterase,Urine Negative (Negative); Nitrite,Urine Negative (Negative); Protein,Urine Negative (Neg-Trace); Specific Gravity,Urine 1.009 (1.010-1.025); Urobilinogen,Urine Normal (Normal)
[2016-10-22 02:41] LABS: Bacteria,Urine None Seen per hpf (None-Few); Squamous Epithelial Cell,Urine Many per lpf (None-Few); WBC,Urine 50-100 per hpf (0-3)
[2016-10-22 02:51] LABS: Hyaline Casts,Urine Moderate per lpf (None-Few)
[2016-10-22 05:34] LABS: INR 1.4; Monocytes % 2.5 %; Prothrombin Time 15.6 Seconds (9.4-12.1)
[2016-10-22 05:35] LABS: Basophils # 0.1 K/mcL (0.0-0.2); Basophils % 0.4 %; Hematocrit 37.4 % (37.5-50.1); Hemoglobin 12.8 g/dL (12.9-16.9); Immature Granulocytes % 3.8 % (0-4); Lymphocytes # 0.7 K/mcL (0.6-4.6); Lymphocytes % 2.2 %; Mean Corpuscular HGB Conc 34.2 g/dL (31.6-35.5); Mean Corpuscular Hemoglobin 29.1 pg (28.0-33.3); Mean Platelet Volume 10.3 fL (9.4-12.4); Monocytes # 0.8 K/mcL (0.0-1.3); Platelet Count 532 K/mcL (140-400); Red Cell Distribution Width 13.4 % (11.5-14.5); Segmented Neutrophils % 91.1 %
[2016-10-22 05:42] LABS: Albumin/Globulin Ratio 0.4 (1.1-2.2); Bilirubin,Direct 0.4 mg/dL (0.0-0.5); Bilirubin,Indirect 0.1 mg/dL (0.0-1.2); Bilirubin,Total 0.5 mg/dL (0.2-1.2); Globulin 4.2 g/dL (2.4-3.5); Total Protein 5.8 g/dL (6.0-8.3)
[2016-10-22 05:50] LABS: Albumin 1.6 g/dL (3.5-5.0)
[2016-10-22 05:55] LABS: Amylase 34 Units/L (25-125); Lipase 38 Units/L (8-78)
[2016-10-22] MEDS ORDERED: Famotidine 20 MG/2 ML VIAL IVP SCH (06:00)
[2016-10-22 06:16] LABS: Neutrophils # 30.2 K/mcL (1.6-8.9)
[2016-10-22 06:19] LABS: Platelet Estimate Increased (Normal)
[2016-10-22] MEDS ORDERED: *HR* LORazepam 2 MG/ML VIAL IVP PRN ×2 (06:24)
[2016-10-22] MEDS ORDERED: *HR* Promethazine 25 MG/ML VIAL IVP PRN (06:24)
[2016-10-22 06:57] LABS: Amphetamine Screen,Urine Negative ng/mL (Cutoff=1000); Barbiturate Screen,Urine Negative ng/mL (Cutoff=200); Benzodiazepines Screen,Urine Negative ng/mL (Cutoff=200); Cannabinoid Screen,Urine Negative ng/mL (Cutoff = 50); Cocaine Screen,Urine Negative ng/mL (Cutoff= 300); Opiate Screen,Urine Positive ng/mL (Cutoff=300); Phencyclidine Screen,Urine Negative ng/mL (Cutoff=25)
[2016-10-22 07:31] LABS: Adenovirus Not Detected (Not Detect); Bordetella Pertussis Not Detected (Not Detect); Chlamydophila pneumoniae Not Detected (Not Detect); Coronavirus 229E Not Detected (Not Detect); Coronavirus HKU1 Not Detected (Not Detect); Coronavirus NL63 Not Detected (Not Detect); Coronavirus OC43 Not Detected (Not Detect); Human Metapneumovirus Not Detected (Not Detect); Human Rhinovirus/Enterovirus Not Detected (Not Detect); Influenza A Subtype 2009 H1 Not Detected (Not Detect); Influenza A Untypeable Not Detected (Not Detect); Influenza B Not Detected (Not Detect); Mycoplasma pneumoniae Not Detected (Not Detect); Parainfluenza Virus 1 Not Detected (Not Detect); Parainfluenza Virus 2 Not Detected (Not Detect); Parainfluenza Virus 3 Not Detected (Not Detect); Parainfluenza Virus 4 Not Detected (Not Detect); Respiratory Syncytial Virus Not Detected (Not Detect)
[2016-10-22] MEDS ORDERED: Levofloxacin 750 MG/150 ML 750 MG/150 ML BAG IVPB SCH (09:00)
[2016-10-22] MEDS ORDERED: Aminoglycoside Consult 1 EACH MC ONE (09:02)
[2016-10-22] MEDS: Nystatin SUSP 5 ML UD.LIQ PO SCH ×4 (09:42→20:05)
[2016-10-22] MEDS: Folic Acid 1 MG TABLET PO SCH (09:42)
[2016-10-22] MEDS: Vitamin B Complex/Vit C/Vit E 1 EACH TABLET PO SCH (09:42)
[2016-10-22] MEDS: Thiamine (B-1) 100 MG TABLET PO SCH (09:42)
[2016-10-22] MEDS: Nicotine 21 MG PATCH.TD24 TD SCH (09:42)
--- NOTE | 2016-10-22 10:07 | Cardiothoracic Consult Note ---
Date of Encounter: 10/22/16 Time of Encounter: 10:05 Assessment and Plan (1) Pericarditis Current Visit: Yes Status: Acute The assessment and plan as outlined above was discussed with the patient and/or family members who expressed understanding and agreement. All questions were answered. The patient has a significant pericardial effusion which is most likely malignant. He also has a significant right pleural effusion that is associated with a hilar mass invading the mediastinum that is unresectable. He does have elevated white blood cell count and is on antibiotics for pneumonia. I feel this was best be treated in the OR with pericardial window with biopsy and right chest tube placement. The patient will also eventually need bronchoscopy with biopsy of the right hilar mass. I recommended that the patient have this today. However, the patient refused and wishes to wait until tomorrow to gain strength and feel less fatigue. He does have some risk of sudden and he realizes this and still wishes to wait. Risks of surgery include , infection, stroke, myocardial infarction, bleeding, recurrent pericardial or pleural effusion, lack of a diagnosis, DVT, pneumonia and pulmonary embolism. The patient has no questions and does wish to proceed, but wishes to wait until tomorrow Qualifiers: Pericarditis type: other type Chronicity: unspecified Qualified Code(s): I31.8 - Other specified diseases of pericardium - History of Present Illness History of present illness: Mr. Hill is a 56 year old male History of present illness. Patient is a 56-year-old gentleman who has a history of smoking 2 packs of cigarettes per day. He presented with fatigue, shortness of breath and mild hypotension. He responded well to IV fluids and was admitted and placed on antibiotics. CT scan of the chest and echocardiogram revealed a moderate pericardial effusion. He also has a large hilar mass that is invading the mediastinum and is clearly unresectable. He also has a large right pleural effusion. Past medical history is notable for lumbar spine surgery 2. He is on no medications at home. He is allergic to cephalosporins. Social history he lives in [place] with his son. He drinks 10-12 beers per day and is at high risk for DTs. He smokes 2 packs of cigarettes per day. Family history is noncontributory. Review of systems is negative. Past Med Surg Social Fam HX - Past Medical History Medical history: asthma, COPD Psychiatric history: anxiety, depression - Past Surgical History Surgical History: orthopedic, other (Lumbar spinal surgeries in 2001 and 2002) - Social History Smoking Status: Current every day smoker Alcohol use: recent (2 weeks ago the patient was drinking 10 beers per day for the past 4 to 5 years) Drug use: none - Family History Mother History Unknown: Yes Age: 66 Family Member Ethnicity: Non- Living Status: Cause of : Heart Disease Hx Family Cardiac Disorders: Yes (Vascular and heart disease) Father Living Status: Still Living Hx Family Respiratory Disorders: Yes (COPD) Medications and Allergies Allergies cefuroxime [From Ceftin] Adverse Reaction (Verified 10/21/16 21:08) Nausea All Systems Review: A 10-system review of systems was performed and is negative for pertinent findings except as documented above in the HPI. Physical Examination Vital Signs, Last 4 Hours Temp Pulse Resp BP Pulse Ox 10/22/16 09:00 116 21 139/80 96 10/22/16 08:00 97.8 F 108 20 123/89 96 10/22/16 06:48 97.8 F Pupils are equal, round and reactive to light and accommodation. He states that he has poor eyesight in both eyes. No oral lesions. Neck is supple. Trachea in the midline. No thyromegaly or carotid bruits. Mild to no jugular venous distention. Lungs have decreased breath sounds over the right lower lobe. This is associated with dullness to percussion. Heart is in a sinus tachycardia. Good heart tones. No murmurs, gallops or rubs. Mild pulses paradoxus of 5-10. Abdomen is benign. No tenderness, rebound or guarding. No hepatosplenomegaly or masses. Extremities without edema. 1+ pulses. Cranial nerves, motor and sensory intact. Results 10/22/16 05:08 10/21/16 21:20 Lab Results, Last 24 hours 10/21/16 10/21/16 10/21/16 22:47 22:48 22:55 WBC Hgb Hct Plt Count INR Magnesium 2.0 Total Bilirubin AST ALT Alkaline Phosphatase Troponin I 0.02 Amylase Lipase TSH 1.475 10/22/16 10/22/16 10/22/16 05:08 05:08 05:08 WBC 33.1 H* Hgb 12.8 L Hct 37.4 L Plt Count 532 H INR 1.4 Magnesium Total Bilirubin AST ALT Alkaline Phosphatase Troponin I 0.00 Amylase Lipase TSH 10/22/16 10/22/16 05:08 05:08 WBC Hgb Hct Plt Count INR Magnesium Total Bilirubin 0.5 AST 188 H ALT 49 Alkaline Phosphatase 165 H Troponin I Amylase 34 Lipase 38 TSH Consult Discharge Plan - Plan Referrals: Ernestina Armenta, RICHIE [Primary Care Provider] -
--- NOTE | 2016-10-22 10:23 | Pulmonology Consult Note ---
Date of Encounter: 10/22/16 Time of Encounter: 07:30 Assessment and Plan (1) Severe sepsis Current Visit: Yes Status: Acute Patient with evidence of organs dysfunction and blood pressure is stabilizing with the fluid. Source possibly pneumonia which I suspect postobstructive pneumonia and is on broad-spectrum antibiotics. Follow-up on the lactic acid level and increase fluid rate. (2) Pericardial effusion, acute Current Visit: Yes Status: Acute This is most likely malignant and discussed with the cardiothoracic as well as jackerman. I measured his Pulses paradoxicus at the bedside which was about 10 mmHg. Also reviewed his echocardiogram with Dr. Huynh. There is also evidence of volume depletion. Dr. Huynh offered him pericardial window, but patient declined at this time and he wants to wait until tomorrow. If his condition deteriorate nurse was instructed to contact Dr. Huynh immediately. Plan for pericardial window tomorrow. Thank you for the consult and patient needs to stay in the ICU for close monitoring since his condition could deteriorate. Critical care time 35 minutes. (3) COPD exacerbation Current Visit: Yes Status: Acute Patient has history of smoking and I will add Symbicort in addition to his antibiotics and systemic steroids. (4) Mass of right lung Current Visit: Yes Status: Acute I suspect this is malignant and offered him bronchoscopy but he declined. (5) Pneumonia, organism unspecified Current Visit: Yes Status: Acute (6) ARF (acute renal failure) Current Visit: Yes Status: Acute This is possibly from fluid depletion and continue resuscitation with fluid. Qualifiers: Acute renal failure type: unspecified Qualified Code(s): N17.9 - Acute kidney failure, unspecified (7) Pleural effusion Current Visit: Yes Status: Acute I suspect this is malignant and offered thoracentesis and he declined. Plan he will have a chest tube tomorrow with Dr. Huynh. Fluid can be sent for cytology. (8) Postobstructive pneumonia Current Visit: Yes Status: Suspected Again, offered him bronchoscopy but he declined we will continue current antibiotics. (9) Hyponatremia with decreased serum osmolality Current Visit: Yes Status: Acute I suspect this is from fluid depletion and also could be from SIADH. Urine will be sent for sodium and osmolality. (10) Tobacco abuse Current Visit: Yes Status: Chronic Advised patient to quit smoking. History of Present Illness Consult date: 10/22/16 Requesting physician: Chinmay Sheppard Reason for consult: dyspnea, pleural effusion Chief complaint: Shortness of breath History of present illness: This is a pleasant 56-year-old male with significant smoking history and history of COPD who presented to emergency room with worsening of his baseline shortness of breath and had CT chest with significant abnormalities including pericardial effusion, lung mass, and right-sided pleural effusion. Patient does not feel good and tired with poor appetite and lack of energy. He is not on oxygen. He still smokes tobacco about 2 packs per day for many years. He also has history of alcohol use and he has been experiencing some chest pain which radiated to both shoulders and worsen with taking deep breath and coughing. Patient denies any fever or chills and no night sweats. No history of TB in the past. He has history of wheezing and not sure how much weight he lost. He denies any hemoptysis. Past Med Surg Social Fam HX - Past Medical History Medical history: asthma, COPD Psychiatric history: anxiety, depression - Past Surgical History Surgical History: orthopedic, other (Lumbar spinal surgeries in 2001 and 2002) - Social History Smoking Status: Current every day smoker Alcohol use: recent (2 weeks ago the patient was drinking 10 beers per day for the past 4 to 5 years) Drug use: none - Family History Mother History Unknown: Yes Age: 66 Family Member Ethnicity: Non- Living Status: Cause of : Heart Disease Hx Family Cardiac Disorders: Yes (Vascular and heart disease) Father Living Status: Still Living Hx Family Respiratory Disorders: Yes (COPD) Medications and Allergies Allergies cefuroxime [From Ceftin] Adverse Reaction (Verified 10/21/16 21:08) Nausea All Systems: A 10-system review of systems was performed and is negative for pertinent findings except as documented above in the HPI. Physical Examination Vital Signs: Vital Signs, Last 4 Hours Temp Pulse Resp BP Pulse Ox 10/22/16 09:00 116 21 139/80 96 10/22/16 08:00 97.8 F 108 20 123/89 96 10/22/16 06:48 97.8 F General appearance: lethargic, appears uncomfortable Eyes: nonicteric ENT: oropharynx moist Mallampati (class): 2 Neck: supple Effort: mildly labored Inspection: normal Auscultation: left: rhonchi, right: diminished breath sounds Percussion: right: not dull Cardiovascular: regular rate and rhythm Gastrointestinal: normoactive bowel sounds, soft, tender Integumentary: normal Extremities: no cyanosis, no edema normal mental status, non-focal exam depressed Results - Laboratory Findings CBC and BMP: 10/22/16 05:08 10/21/16 21:20 ABG ABG pH 7.43 pH Units (7.32-7.45) 10/22/16 00:55 ABG pCO2 28 mmHg (35-45) L 10/22/16 00:55 ABG pO2 111 mmHg (85-104) H 10/22/16 00:55 ABG O2 Saturation 98 % (95-98) 10/22/16 00:55 PT/INR, D-dimer PT 15.6 Seconds (9.4-12.1) H 10/22/16 05:08 D-Dimer 7345 ng/mLFEU (0-500) H 10/21/16 21:20 Abnormal lab findings: Abnormal lab results WBC 33.1 K/mcL (4.3-11.1) H* 10/22/16 05:08 Hgb 12.8 g/dL (12.9-16.9) L 10/22/16 05:08 Hct 37.4 % (37.5-50.1) L 10/22/16 05:08 Plt Count 532 K/mcL (140-400) H 10/22/16 05:08 Neutrophils # 30.2 K/mcL (1.6-8.9) H 10/22/16 05:08 Platelet Estimate Increased (Normal) H 10/22/16 05:08 Large Platelets Present (Not Present) A 10/21/16 21:20 Anisocytosis 1+ (Not Present) A 10/21/16 21:20 PT 15.6 Seconds (9.4-12.1) H 10/22/16 05:08 D-Dimer 7345 ng/mLFEU (0-500) H 10/21/16 21:20 ABG pCO2 28 mmHg (35-45) L 10/22/16 00:55 ABG pO2 111 mmHg (85-104) H 10/22/16 00:55 ABG HCO3 18.6 mEQ/L (21-27) L 10/22/16 00:55 ABG Total CO2 19.5 mEq/L (20-26) L 10/22/16 00:55 ABG Base Excess -4.4 mEq/L (-2.0 to 3.0) L 10/22/16 00:55 Sodium 119 mEq/L (136-145) L* 10/21/16 21:20 Chloride 80 mEq/L (98-109) L 10/21/16 21:20 BUN 52 mg/dL (8-26) H 10/21/16 21:20 Creatinine 2.16 mg/dL (0.72-1.25) H 10/21/16 21:20 Est GFR ( Amer) 39 (> 60) L 10/21/16 21:20 Est GFR (Non-Af Amer) 32 (> 60) L 10/21/16 21:20 Glucose 137 mg/dL (70-99) H 10/21/16 21:20 POC Glucose 163 (58-89) H 10/21/16 23:17 Calculated Osmolality 264 (280-300) L 10/21/16 21:20 Lactic Acid 3.9 mmol/L (0.5-2.2) H 10/22/16 05:08 Ionized Calcium 0.93 mmol/L (1.15-1.35) L 10/21/16 22:55 Phosphorus 7.2 mg/dL (2.3-4.7) H 10/21/16 22:47 AST 188 Units/L (5-34) H 10/22/16 05:08 Alkaline Phosphatase 165 Units/L (38-126) H 10/22/16 05:08 B-Natriuretic Peptide 263 pg/mL (0-100) H 10/21/16 21:20 Serum Total Protein 5.8 g/dL (6.0-8.3) L 10/22/16 05:08 Albumin 1.6 g/dL (3.5-5.0) L 10/22/16 05:08 Globulin 4.2 g/dL (2.4-3.5) H 10/22/16 05:08 Albumin/Globulin Ratio 0.4 (1.1-2.2) L 10/22/16 05:08 Urine Clarity Cloudy (Clear) A 10/22/16 02:30 Ur Specific Letha 1.009 (1.010-1.025) L 10/22/16 02:30 Urine Microscopic RBC 5-15 per hpf (0-3) H 10/22/16 02:30 Urine Microscopic WBC 50-100 per hpf (0-3) H 10/22/16 02:30 Ur Squamous Epith Cells Many per lpf (None-Few) H 10/22/16 02:30 Hyaline Casts Moderate per lpf (None-Few) H 10/22/16 02:30 Urine Opiates Screen Positive ng/mL (Ybnfhf=764) H 10/22/16 06:34 - Microbiology Findings Microbiology Findings: Microbiology, Last 48 Hours 10/22/16 06:34 Legionella Antigen - Final Urine,Clean Catch Streptococcus pneumoniae Antigen (M - Final - Diagnostic Findings CT scan - chest: report reviewed, image reviewed - Clinical Findings Intake & Output: Intake & Output 10/21/16 10/22/16 10/22/16 23:59 07:59 15:59 Intake Total 1000 / 1000 2320 / 2320 120 / 120 Output Total 600 / 600 Balance 1000 / 1000 1720 / 1720 120 / 120 Consult Discharge Plan - Plan Referrals: Ernestina Armenta, [facility] [Primary Care Provider] -
[2016-10-22] MEDS ORDERED: 0.9 % Sodium Chloride 1,000 ML IV SCH (10:46)
--- NOTE | 2016-10-22 10:59 | ECHO - Doppler Report ---
Echocardiogram Name: Gallo Hill Date of Study: 10/22/2016 Date: 1960 Ht: Medical Record#: [id number] Age: 56 Wt: 132.0 lb Gender: Male BSA: Order #: [id number] Location: [facility] Room #: IC3 Reading Physician: Robert Talbert DO, KRISTIN CASPER FASNC Casino Gaming Inspector: Savana Arora Ordering Physician: Chavo Liz MD Primary Physician: Ernestina Armenta CNP Indications: Pericardial effusion/Pericarditis Impressions: Sinus tachycardia. LVEF 60%. Normal LV chamber size, wall thickness and function. Mild left ventricular diastolic dysfunction. Right ventriclular systolic appears normal in function. No significant valvular dysfunction. Unable to estimate RVSP due to lack of TR jet. There is a large pericardial effusion present, which is largest inferiorly and laterally. There is 2D evidence of tamponade with collapse of the RV in late diastole and collaspe of the RA in systole. Findings communicated to Drs. Chow and Lino. Left Ventricular Wall Motion: Rest Echo Findings All wall segments showed normal motion. Findings: Study Quality * Technically adequate exam. ECG Findings * Sinus tachycardia. Left Ventricle * LVEF 60%. * Normal LV chamber size, wall thickness and function. * Mild left ventricular diastolic dysfunction. Right Ventricle * Right ventricular systolic function appears normal in function. Left Atrium * Normal left atrial size. Right Atrium * Normal right atrial size. Interatrial Septum * No evidence of PFO by color Doppler. Aortic Valve * Aortic valve not well visualized. * Trileaflet aortic valve. * No aortic regurgitation. * No aortic stenosis. Mitral Valve * Normal mitral valve structure and function. * No mitral regurgitation. * No mitral stenosis. Tricuspid Valve * Normal tricuspid valve structure and function. * No tricuspid regurgitation. * Unable to estimate RVSP due to lack of TR jet. Pulmonic Valve * Pulmonic valve not well visualized. * No pulmonic regurgitation. Aorta * Normally sized aortic root. Pericardium * There is a large pericardial effusion present, which is largest inferiorly and laterally. * There is 2D evidence of tamponade with collapse of the RV in late diastole and collaspe of the RA in systole. IVC * Normal IVC dimensions with less than 50% collapse. History History of Smoking Years 43 Packs 2 Family History of CAD Measurements: BP: 125/ 90 2D Normal Values RVIDd: 2.70 cm <2.7 cm IVSd: 1.00 cm 0.6 - 1.0 cm LVIDd: 3.80 cm 3.7 - 5.6 cm LVPWd: 1.10 cm 0.6 - 1.1 cm LVIDs: 2.60 cm 1.5 - 3.6 cm LA: 3.60 cm 2.0 - 4.0cm LA volume: 23 Mitral Valve Peak E' Lat Elan:4.78 cm/s Peak E' Med Elan:5.85 cm/s E/E' Lat Ratio:12.9 E/E' Med Ratio:10.5 Updated by Robert Talbert DO, FACYanni, KRISTIN, KEVIN on 10/22/2016 10:49:43 AM electronically signed on 10/22/2016 10:53:36 AM with status of Final Wall Motion Owen: 1=Normal, 2=Hypokinesis, 3=Akinesis, 4=Dyskinesis, 5=Aneurysmal, 6=Hyperkinetic, X=Not Visualized (Blank)=Missing
[2016-10-22 11:19] LABS: Basophils # 0.2 K/mcL (0.0-0.2); Basophils % 0.5 %; Hematocrit 34.8 % (37.5-50.1); Hemoglobin 12.1 g/dL (12.9-16.9); Immature Platelets 5.5 % (1.1-6.1); Lymphocytes % 1.9 %; Mean Corpuscular HGB Conc 34.8 g/dL (31.6-35.5); Mean Corpuscular Hemoglobin 29.4 pg (28.0-33.3); Mean Corpuscular Volume 84.7 fL (83.0-100.0); Mean Platelet Volume 10.2 fL (9.4-12.4); Monocytes # 1.1 K/mcL (0.0-1.3); Monocytes % 3.2 %; Neutrophils # 31.1 K/mcL (1.6-8.9); Platelet Count 500 K/mcL (140-400); Red Blood Count 4.11 M/mcL (4.19-5.50); Red Cell Distribution Width 13.4 % (11.5-14.5); Segmented Neutrophils % 91.4 %
[2016-10-22 11:23] LABS: Lymphocytes # 0.7 K/mcL (0.6-4.6)
[2016-10-22 11:32] LABS: Albumin/Globulin Ratio 0.4 (1.1-2.2); Bilirubin,Direct 0.3 mg/dL (0.0-0.5); Bilirubin,Indirect 0.1 mg/dL (0.0-1.2); Bilirubin,Total 0.4 mg/dL (0.2-1.2); Calcium 8.9 mg/dL (8.6-10.8); Potassium 3.8 mEq/L (3.5-4.5); Total Protein 5.7 g/dL (6.0-8.3)
[2016-10-22 11:37] LABS: Albumin 1.7 g/dL (3.5-5.0)
[2016-10-22 11:51] LABS: Platelet Estimate Increased (Normal); Toxic Vacuolation Present (Not Present)
[2016-10-22 11:57] LABS: Creatinine,Urine 29 mg/dL
[2016-10-22 11:58] LABS: Protein/Creatinine Ratio,Urine < 0.24 mg/mg (0-0.20); Sodium, Urine < 20.0 mEq/L
[2016-10-22 12:09] LABS: Acinetobacter baumannii by PCR Not Detected (Not Detect); Candida albicans by PCR Not Detected (Not Detect); Candida glabrata by PCR Not Detected (Not Detect); Candida krusei by PCR Not Detected (Not Detect); Candida parapsilosis by PCR Not Detected (Not Detect); Candida tropicalis by PCR Not Detected (Not Detect); Enterococcus by PCR Not Detected (Not Detect); Escherichia coli by PCR Not Detected (Not Detect); Klebsiella oxytoca by PCR Not Detected (Not Detect); Klebsiella pneumoniae by PCR Not Detected (Not Detect); Pseudomonas aeruginosa by PCR Not Detected (Not Detect); Serratia marcescens by PCR Not Detected (Not Detect); Staphylococcus aureus by PCR Not Detected (Not Detect); Streptococcus agalactiae(B)PCR Not Detected (Not Detect); Streptococcus by PCR ***DETECTED*** (Not Detect); Streptococcus pneumoniae PCR ***DETECTED*** (Not Detect); Streptococcus pyogenes (A) PCR Not Detected (Not Detect)
[2016-10-22 13:27] LABS: Osmolality,Urine 234 mOsm/kg (300-1090)
[2016-10-22] MEDS: *HR* LORazepam 2 MG/ML VIAL IVP PRN (15:22)
[2016-10-22] MEDS: Famotidine 20 MG/2 ML VIAL IVP SCH (17:00)
[2016-10-22] MEDS ORDERED: Sennosides 8.6 MG TABLET PO SCH (21:00)
[2016-10-22] MEDS: Budesonide/Formoterol 160/4.5 MDI IH SCH (22:37)
[2016-10-23] MEDS: Ipratropium/Albuterol Neb 3 ML IH SCH ×6 (03:50→23:10)
[2016-10-23] MEDS: *HR* LORazepam 2 MG/ML VIAL IVP PRN (05:24)
[2016-10-23 05:36] LABS: Hematocrit 32.8 % (37.5-50.1); Hemoglobin 11.4 g/dL (12.9-16.9); Mean Corpuscular HGB Conc 34.8 g/dL (31.6-35.5); Mean Corpuscular Hemoglobin 29.5 pg (28.0-33.3); Mean Corpuscular Volume 84.8 fL (83.0-100.0); Mean Platelet Volume 9.9 fL (9.4-12.4); Platelet Count 454 K/mcL (140-400); Red Blood Count 3.87 M/mcL (4.19-5.50); Red Cell Distribution Width 13.7 % (11.5-14.5)
[2016-10-23] MEDS ORDERED: Amiodarone Premix 360 MG/200 ML BAG IVC STA (05:37)
[2016-10-23] MEDS ORDERED: Amiodarone Premix 150 MG/100 ML BAG IVPB STA (05:37)
[2016-10-23 05:40] LABS: INR 1.5; Prothrombin Time 16.3 Seconds (9.4-12.1)
[2016-10-23] MEDS ORDERED: Amiodarone Premix 150 MG/100 ML BAG IVPB ONE (05:45)
[2016-10-23 05:48] LABS: BUN/Creatinine Ratio 31 (6-26); Blood Urea Nitrogen 39 mg/dL (8-26); Calcium 9.2 mg/dL (8.6-10.8); Carbon Dioxide 16 mEq/L (19-29); Chloride 95 mEq/L (98-109); Glucose 237 mg/dL (70-99); Osmolality,Calculated 273 (280-300); Potassium 3.6 mEq/L (3.5-4.5); Sodium 123 mEq/L (136-145); eGFR For African Americans > 60 (> 60); eGFR For Non-African Americans > 60 (> 60)
[2016-10-23] MEDS ORDERED: Clindamycin 600 MG/50 ML 600 MG/50 ML IV.SOLN IVPB ONE ×2 (06:00→13:04)
[2016-10-23] MEDS ORDERED: Doxycycline 100 MG in 0.9 % Sodium Chloride Mini Bag 100 ML IVPB SCH (06:00)
[2016-10-23] MEDS: 0.9 % Sodium Chloride 1,000 ML IV SCH (06:11)
[2016-10-23 06:12] LABS: Large Platelets Present (Not Present); Lymphocytes # 1.3 K/mcL (0.6-4.6); Monocytes # 0.6 K/mcL (0.0-1.3); Neutrophils # 29.4 K/mcL (1.6-8.9)
[2016-10-23 06:13] LABS: Burr Cells 1+ (Not Present); Helmet Cells Present (Not Present)
[2016-10-23 06:15] LABS: Tear Drop Cells 1+ (Not Present)
[2016-10-23] MEDS: Famotidine 20 MG/2 ML VIAL IVP SCH (07:53)
[2016-10-23] MEDS: *HR* Heparin 5,000 UNIT/ML VIAL SQ SCH (07:53)
[2016-10-23] MEDS: Nystatin SUSP 5 ML UD.LIQ PO SCH ×4 (07:53→20:43)
[2016-10-23] MEDS: Piperacillin/Tazobactam 3.375 GM in D5% in Water (Mini-Bag+) 100 ML IVPB SCH (07:53)
[2016-10-23] MEDS: methylPREDNISolone 125 MG/2 ML VIAL IVP SCH ×3 (07:53→18:05)
[2016-10-23] MEDS: Folic Acid 1 MG TABLET PO SCH (07:54)
[2016-10-23] MEDS: Nicotine 21 MG PATCH.TD24 TD SCH (07:54)
[2016-10-23] MEDS: Thiamine (B-1) 100 MG TABLET PO SCH (07:55)
[2016-10-23] MEDS: Vitamin B Complex/Vit C/Vit E 1 EACH TABLET PO SCH (07:55)
[2016-10-23] MEDS ORDERED: Ipratropium/Albuterol Neb 3 ML IH PRN ×2 (08:02→16:25)
[2016-10-23] MEDS: Budesonide/Formoterol 160/4.5 MDI IH SCH ×2 (09:44→20:15)
[2016-10-23] MEDS ORDERED: *HR* Rocuronium Bromide 50 MG/5 ML VIAL ONE (09:47)
[2016-10-23] MEDS ORDERED: *HR* FentaNYL (PF) 250 MCG/5 ML VIAL ONE (09:48)
[2016-10-23] MEDS ORDERED: *HR* Etomidate 20 MG/10 ML AMPUL IVP ONE (09:48)
[2016-10-23] MEDS ORDERED: *HR* Midazolam HCl 5 MG/5 ML VIAL IVP ONE (09:48)
--- NOTE | 2016-10-23 09:59 | Pulmonology Progress Note ---
<MelanieBassam W - Last Filed: 10/23/16 13:06> Date of Encounter: 10/23/16 Objective PUL Vital signs: Last Vital Signs Temp 98.2 F 10/23/16 06:59 Pulse 144 10/23/16 09:00 Resp 22 10/23/16 09:46 BP 114/86 10/23/16 09:00 Pulse Ox 96 10/23/16 09:46 Results - Laboratory Findings CBC and BMP: 10/23/16 05:27 10/23/16 05:27 ABG ABG pH 7.43 pH Units (7.32-7.45) 10/22/16 00:55 ABG pCO2 28 mmHg (35-45) L 10/22/16 00:55 ABG pO2 111 mmHg (85-104) H 10/22/16 00:55 ABG O2 Saturation 98 % (95-98) 10/22/16 00:55 PT/INR, D-dimer PT 16.3 Seconds (9.4-12.1) H 10/23/16 05:27 D-Dimer 7345 ng/mLFEU (0-500) H 10/21/16 21:20 Abnormal lab findings: Abnormal lab results WBC 31.3 K/mcL (4.3-11.1) H* 10/23/16 05:27 RBC 3.87 M/mcL (4.19-5.50) L 10/23/16 05:27 Hgb 11.4 g/dL (12.9-16.9) L 10/23/16 05:27 Hct 32.8 % (37.5-50.1) L 10/23/16 05:27 Plt Count 454 K/mcL (140-400) H 10/23/16 05:27 Band Neutrophils % 18.0 % (0-4) H 10/23/16 05:27 Neutrophils # 29.4 K/mcL (1.6-8.9) H 10/23/16 05:27 Toxic Vacuolation Present (Not Present) A 10/22/16 11:10 Platelet Estimate Slight increase (Normal) H 10/23/16 05:27 Large Platelets Present (Not Present) A 10/23/16 05:27 Anisocytosis 1+ (Not Present) A 10/21/16 21:20 Tear Drop Cells 1+ (Not Present) A 10/23/16 05:27 Helmet Cells Present (Not Present) A 10/23/16 05:27 Rosetta Cells 1+ (Not Present) A 10/23/16 05:27 PT 16.3 Seconds (9.4-12.1) H 10/23/16 05:27 D-Dimer 7345 ng/mLFEU (0-500) H 10/21/16 21:20 ABG pCO2 28 mmHg (35-45) L 10/22/16 00:55 ABG pO2 111 mmHg (85-104) H 10/22/16 00:55 ABG HCO3 18.6 mEQ/L (21-27) L 10/22/16 00:55 ABG Total CO2 19.5 mEq/L (20-26) L 10/22/16 00:55 ABG Base Excess -4.4 mEq/L (-2.0 to 3.0) L 10/22/16 00:55 Sodium 123 mEq/L (136-145) L 10/23/16 05:27 Chloride 95 mEq/L (98-109) L 10/23/16 05:27 Carbon Dioxide 16 mEq/L (19-29) L 10/23/16 05:27 BUN 39 mg/dL (8-26) H 10/23/16 05:27 BUN/Creatinine Ratio 31 (6-26) H 10/23/16 05:27 Glucose 237 mg/dL (70-99) H 10/23/16 05:27 POC Glucose 163 (58-89) H 10/21/16 23:17 Calculated Osmolality 273 (280-300) L 10/23/16 05:27 Ionized Calcium 0.93 mmol/L (1.15-1.35) L 10/21/16 22:55 Phosphorus 7.2 mg/dL (2.3-4.7) H 10/21/16 22:47 AST 100 Units/L (5-34) H 10/22/16 11:10 Alkaline Phosphatase 151 Units/L (38-126) H 10/22/16 11:10 B-Natriuretic Peptide 263 pg/mL (0-100) H 10/21/16 21:20 Serum Total Protein 5.7 g/dL (6.0-8.3) L 10/22/16 11:10 Albumin 1.7 g/dL (3.5-5.0) L 10/22/16 11:10 Globulin 4.0 g/dL (2.4-3.5) H 10/22/16 11:10 Albumin/Globulin Ratio 0.4 (1.1-2.2) L 10/22/16 11:10 Urine Clarity Cloudy (Clear) A 10/22/16 02:30 Ur Specific [place] 1.009 (1.010-1.025) L 10/22/16 02:30 Urine Microscopic RBC 5-15 per hpf (0-3) H 10/22/16 02:30 Urine Microscopic WBC 50-100 per hpf (0-3) H 10/22/16 02:30 Ur Squamous Epith Cells Many per lpf (None-Few) H 10/22/16 02:30 Hyaline Casts Moderate per lpf (None-Few) H 10/22/16 02:30 Urine Osmolality 234 mOsm/kg (300-1090) L 10/22/16 11:30 Protein/Creatinin Ratio < 0.24 mg/mg (0-0.20) H 10/22/16 11:30 Urine Opiates Screen Positive ng/mL (Tpgcbw=975) H 10/22/16 06:34 Strep pneumoniae (PCR) DETECTED (Not Detect) A 10/21/16 21:25 - Microbiology Findings Microbiology Findings: Microbiology, Last 48 Hours 10/22/16 06:34 Legionella Antigen - Final Urine,Clean Catch Streptococcus pneumoniae Antigen (M - Final - Clinical Findings Intake & Output: Intake & Output 10/22/16 10/23/16 10/23/16 23:59 07:59 15:59 Intake Total 1500 / 1500 1600 / 1600 Output Total 1650 / 1650 825 / 825 150 / 150 Balance -150 / -150 775 / 775 -150 / -150 Weight 64.1 kg Consult Discharge Plan - Plan Referrals: Ernestina Armenta, BANKRUPTCY JUDGE [Primary Care Provider] - - Attending Attestation I examined this patient and my medical decision-making was reviewed with the HAIR CUTTER/PA/Advanced Practice Nurse/Resident Physician. I agree with the documented findings, disposition and treatment plan as described except to the extent set forth below. I spent 35minutes of Critical Care time with this patient. It involved decision making of high complexity to assess, manipulate, and support vital organ system failure and/or to prevent further life threatening deterioration of the patient's condition. The time involved in the performance of separately reportable procedures was not counted toward critical care time. Patient seen and examined at bedside Labs, radiology, chart personally reviewed. All lines examined without evidence of infection. Neuro: Awake and alert. history of EtOH abuse. Monitor for withdrawal using CIWA Pulm: excellent O2 sat% on 2LNC wean to keep Sat%>88% Likely Lung CA with right pleural effusion. CAP on abx. Likely underlying COPD cont bronchodilators Cards: Pericardial Effusion with tamponade physiology BP stable. Afib with RVR on Amiodarone. Plan for Pericardial window and chest tube today FEN-GI: NPO for now pending surgery. cont H2 maureen Renal: Hyponatremia (asymptomatic) likely acute hypovolemia (now post fluid resusciation) with chronic SIADH (lung malignancy) stop IV saline now goal even to slightly positive today prior to surgery. Will likely need fluid restriction after. ID: Strep Pneumo PNA on ABx transition to Ceftriaxone from Pip/Tazo. (allergy to Cephalopsporin was not true allergy). Severe sepsis treating underlying cause Heme/Onc: DVT prophylaxis with Heparin, Lung ca with mass may need bronch if fluid cytology negative Endo: Glucose monitored. cont SSI as needed for goal 140-180 Integ: skin care per CASH SPECIALIST protocol to prevent ulcers CODE: Full. Girlfriend, father and brother updated at bedside today. <Joel Bailey - Last Filed: 10/23/16 14:12> Date of Encounter: 10/23/16 Time of Encounter: 09:59 Assessment and Plan (1) Pericardial effusion, acute Current Visit: Yes Status: Acute Likely malignant, patient had initially refused surgery for pericardial window however his as agreeable today. CT surgery has been consulted, will take patient to surgery today. (2) Severe sepsis Current Visit: Yes Status: Acute Likely related to post obstructive pneumonia due to strep pneumoniae. Lactic Acid has normalized, continue IV fluids, abx. (3) ARF (acute renal failure) Current Visit: Yes Status: Acute Likely related to hypoperfusion. Renal function has improved with IV hydration. Good urine output. Will continue to monitor. Qualifiers: Acute renal failure type: unspecified Qualified Code(s): N17.9 - Acute kidney failure, unspecified (4) Hyponatremia with decreased serum osmolality Current Visit: Yes Status: Acute Fluid depletion and/or SIADH in the setting of possible lung CA. Improved slightly from last night. Continue to monitor (5) Mass of right lung Current Visit: Yes Status: Acute Concenring for malignancy. At this time patient is refusing bronchoscopy. Hopefully we will get a diagnosis from the pericardial fluid, if not we will likely suggest bronchoscopy (6) COPD exacerbation Current Visit: Yes Status: Acute Continue antibiotics, steroids, bronchodilators. (7) DVT prophylaxis Current Visit: Yes Status: Acute Heparin 5000u SQ q8h Subjective Principal diagnosis: Pericardial effusion Interval history: Patient seen and examined at bedside. Patient reports feeling somewhat better this morning, states his shortness of breath is slightly improved today. He denies fever, chills, chest pain, cough. Objective PUL Vital signs: Last Vital Signs Temp 98.2 F 10/23/16 06:59 Pulse 144 10/23/16 09:00 Resp 22 10/23/16 09:46 BP 114/86 10/23/16 09:00 Pulse Ox 96 10/23/16 09:46 General appearance: no acute distress ENT: oropharynx dry Auscultation: bilateral: diminished breath sounds Cardiovascular: irregular rhythm (distant heart sounds), other (distant) Gastrointestinal: normoactive bowel sounds, soft, non-tender, non-distended Extremities: no cyanosis, no edema, no clubbing normal mental status, non-focal exam anxious, depressed Results - Laboratory Findings CBC and BMP: 10/23/16 05:27 10/23/16 05:27 ABG ABG pH 7.43 pH Units (7.32-7.45) 10/22/16 00:55 ABG pCO2 28 mmHg (35-45) L 10/22/16 00:55 ABG pO2 111 mmHg (85-104) H 10/22/16 00:55 ABG O2 Saturation 98 % (95-98) 10/22/16 00:55 PT/INR, D-dimer PT 16.3 Seconds (9.4-12.1) H 10/23/16 05:27 D-Dimer 7345 ng/mLFEU (0-500) H 10/21/16 21:20 Abnormal lab findings: Abnormal lab results WBC 31.3 K/mcL (4.3-11.1) H* 10/23/16 05:27 RBC 3.87 M/mcL (4.19-5.50) L 10/23/16 05:27 Hgb 11.4 g/dL (12.9-16.9) L 10/23/16 05:27 Hct 32.8 % (37.5-50.1) L 10/23/16 05:27 Plt Count 454 K/mcL (140-400) H 10/23/16 05:27 Band Neutrophils % 18.0 % (0-4) H 10/23/16 05:27 Neutrophils # 29.4 K/mcL (1.6-8.9) H 10/23/16 05:27 Toxic Vacuolation Present (Not Present) A 10/22/16 11:10 Platelet Estimate Slight increase (Normal) H 10/23/16 05:27 Large Platelets Present (Not Present) A 10/23/16 05:27 Anisocytosis 1+ (Not Present) A 10/21/16 21:20 Tear Drop Cells 1+ (Not Present) A 10/23/16 05:27 Helmet Cells Present (Not Present) A 10/23/16 05:27 Rosetta Cells 1+ (Not Present) A 10/23/16 05:27 PT 16.3 Seconds (9.4-12.1) H 10/23/16 05:27 D-Dimer 7345 ng/mLFEU (0-500) H 10/21/16 21:20 ABG pCO2 28 mmHg (35-45) L 10/22/16 00:55 ABG pO2 111 mmHg (85-104) H 10/22/16 00:55 ABG HCO3 18.6 mEQ/L (21-27) L 10/22/16 00:55 ABG Total CO2 19.5 mEq/L (20-26) L 10/22/16 00:55 ABG Base Excess -4.4 mEq/L (-2.0 to 3.0) L 10/22/16 00:55 Sodium 123 mEq/L (136-145) L 10/23/16 05:27 Chloride 95 mEq/L (98-109) L 10/23/16 05:27 Carbon Dioxide 16 mEq/L (19-29) L 10/23/16 05:27 BUN 39 mg/dL (8-26) H 10/23/16 05:27 BUN/Creatinine Ratio 31 (6-26) H 10/23/16 05:27 Glucose 237 mg/dL (70-99) H 10/23/16 05:27 POC Glucose 163 (58-89) H 10/21/16 23:17 Calculated Osmolality 273 (280-300) L 10/23/16 05:27 Ionized Calcium 0.93 mmol/L (1.15-1.35) L 10/21/16 22:55 Phosphorus 7.2 mg/dL (2.3-4.7) H 10/21/16 22:47 AST 100 Units/L (5-34) H 10/22/16 11:10 Alkaline Phosphatase 151 Units/L (38-126) H 10/22/16 11:10 B-Natriuretic Peptide 263 pg/mL (0-100) H 10/21/16 21:20 Serum Total Protein 5.7 g/dL (6.0-8.3) L 10/22/16 11:10 Albumin 1.7 g/dL (3.5-5.0) L 10/22/16 11:10 Globulin 4.0 g/dL (2.4-3.5) H 10/22/16 11:10 Albumin/Globulin Ratio 0.4 (1.1-2.2) L 10/22/16 11:10 Urine Clarity Cloudy (Clear) A 10/22/16 02:30 Ur Specific [place] 1.009 (1.010-1.025) L 10/22/16 02:30 Urine Microscopic RBC 5-15 per hpf (0-3) H 10/22/16 02:30 Urine Microscopic WBC 50-100 per hpf (0-3) H 10/22/16 02:30 Ur Squamous Epith Cells Many per lpf (None-Few) H 10/22/16 02:30 Hyaline Casts Moderate per lpf (None-Few) H 10/22/16 02:30 Urine Osmolality 234 mOsm/kg (300-1090) L 10/22/16 11:30 Protein/Creatinin Ratio < 0.24 mg/mg (0-0.20) H 10/22/16 11:30 Urine Opiates Screen Positive ng/mL (Lctvhl=250) H 10/22/16 06:34 Strep pneumoniae (PCR) DETECTED (Not Detect) A 10/21/16 21:25 - Microbiology Findings Microbiology Findings: Microbiology, Last 48 Hours 10/22/16 06:34 Legionella Antigen - Final Urine,Clean Catch Streptococcus pneumoniae Antigen (M - Final - Clinical Findings Intake & Output: Intake & Output 10/22/16 10/23/16 10/23/16 23:59 07:59 15:59 Intake Total 1500 / 1500 1600 / 1600 Output Total 1650 / 1650 825 / 825 150 / 150 Balance -150 / -150 775 / 775 -150 / -150 Weight 64.1 kg
--- NOTE | 2016-10-23 10:09 | Anesthesia Evaluation PreOp ---
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: Other (depreesion and anxxiety) Other Medical History: Other (currently septic) Anesthesia History: No Prior Anesthetic Complications (history lumbar surgery) Alcohol Use: heavy (10-12 beers daily for 4-5 years), recent (2 weeks ago the patient was drinking 10 beers per day for the past 4 to 5 years) Drug use: none Medications and Allergies Acetaminophen [Tylenol] 650 mg PO Q6HR PRN #90 tablet 11/01/16 [Rx] Amiodarone [Cordarone] 200 mg PO BID #180 tablet 11/01/16 [Rx] Amlodipine [Norvasc] 10 mg PO DAILY #90 tablet 11/01/16 [Rx] Artificial Tears SOLN [Akwa Tears] 2 drop BOTH EYES QID #1 bottle 11/01/16 [Rx] Bisacodyl [Dulcolax] 5 mg PO DAILY PRN #30 tablet 11/01/16 [Rx] Budesonide/Formoterol 160/4.5 [Symbicort 160/4.5] 2 puff IH BIDR #1 inhaler 02/12 [Rx] Cephalexin [Keflex] 500 mg PO TID #30 capsule 11/01/16 [Rx] Cyanocobalamin (B-12) [Vitamin B12] 1,000 mcg PO DAILY #90 tablet 11/01/16 [Rx] Folic Acid 1 mg PO DAILY #90 tablet 11/01/16 [Rx] Ipratropium/Albuterol Neb [Duoneb] 3 ml IH TID #270 inhsol 11/01/16 [Rx] Lactobacillus [Culturelle] 1 each PO BID #30 cap.sprink 11/01/16 [Rx] Nicotine Patch [Nicoderm] 14 mg TD DAILY #30 patch.td24 11/01/16 [Rx] Omeprazole [PriLOSEC] 20 mg PO DAILY@0730 #30 capsule. 11/01/16 [Rx] OxyCODONE/APAP 5/325 [Percocet 5/325 MG] 1 each PO Q4HR PRN #40 tablet 11/01/16 [Rx] Polyethylene Glycol 3350 [MiraLAX] 17 gm PO DAILY PRN #30 powd.pack 11/01/16 [Rx ] PredniSONE 20 mg PO DAILY #11 tablet 11/01/16 [Rx] Vitamin B Complex/Vit C/Vit E [Stresstab] 1 each PO DAILY #90 tablet 11/01/16 [ Rx] Allergies cefuroxime [From Ceftin] Adverse Reaction (Verified 10/21/16 21:08) Nausea - Meds/Allergy Pre-op Review Medications Reviewed: Yes Allergies Reviewed: Yes Beta Blockers on Current Med List: No Anesthesia Results - Labs 10/31/16 05:42 10/31/16 05:42 - Imaging Additional studies: CT chest shows medistinal mass and large loculated right pleural effusion Echo shows EF60% without tamponade Anesthesia Exam Selected Entries 10/23/16 09:00 Pulse Rate 144 Respiratory Rate 20 Blood Pressure 114/86 O2 Sat by Pulse Oximetry 98 Oxygen Flow Rate (LPM) 2 NPO (# of Hours): 8 Pain Scale: 0 Pain Scale Used: Numeric (1 - 10) - Cardiac Rhythm: Irregular (afib) Murmur: None JVD: Yes (mild) - Pulmonary Breath Sounds: left Rhonchi (decresed RLL) Respiratory Effort: Symmetrical Anesthesia Assess/Plan ASA Score: 4 Modified Dilip Scale for Level of Consciousness: Cooperative, oriented, and tranquil Anesthetic Plan: General Monitoring Plan: Standard Monitors Recovery Plan: ICU ([place] maybe required based on clinical development. Discussed risk of GA and lines. Questions answered. Agrees to proceed.)
[2016-10-23] MEDS ORDERED: D5% in Water 1,000 ML IV PRN ×2 (11:10→16:25)
[2016-10-23] MEDS ORDERED: Dextrose Gel 15 GM PO PRN ×4 (11:10→16:25)
[2016-10-23] MEDS ORDERED: *HR* Dextrose 50 % in Water (Syg) 50 ML SYRINGE IVP PRN ×2 (11:10→16:25)
--- NOTE | 2016-10-23 11:38 | Electrocardiograph Report ---
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
[2016-10-23] MEDS: Amiodarone Premix 360 MG/200 ML BAG IVC STA ×2 (12:00→23:46)
[2016-10-23] MEDS ORDERED: Insulin LISPRO 300 UNITS/3 ML VIAL SQ SCH (12:00)
[2016-10-23] MEDS ORDERED: Dexamethasone 4 MG/ML VIAL ONE (13:42)
[2016-10-23] MEDS ORDERED: Ondansetron 4 MG/2 ML VIAL ONE (13:42)
--- NOTE | 2016-10-23 14:07 | Electrocardiograph Report ---
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
[2016-10-23] MEDS ORDERED: Lacri-Lube 3.5 GM TUBE BOTH EYES PRN ×2 (14:18→16:25)
[2016-10-23] MEDS ORDERED: Dexmedetomidine HCl 400 MCG/100 ML MLS IVC ONE (14:18)
--- NOTE | 2016-10-23 14:25 | Operative Note ---
Date of procedure: 10/23/16 Procedure in Detail: Preoperative diagnosis. Pericardial effusion and right pleural effusion. Postoperative diagnosis. Same. Surgery. Pericardial window with drainage of 250 mL of pussy fluid and pericardial biopsy. Right chest tube with drainage of 850 mL of purulent fluid. Surgeon. Dr. Nicolás Huynh. Anesthesia. Dr. Charles Hdz. Patient is a 56-year-old gentleman who presented with shortness of breath. Echocardiogram and CT scan revealed a large pericardial effusion with early tamponade. CT scan of the chest revealed a large right pleural effusion. He also appeared to have a right hilar mass invading the mediastinum. He did have a history of smoking 2 packs of cigarettes per day. He also drank 12 beers per day. I originally consulted on the patient yesterday and recommended pericardial window. However, the patient refused. He was brought to the operating room today where he underwent a general anesthetic. The chest was prepped and draped in standard fashion. A standard incision was made over the lower sternum over the xiphoid into the midline epigastrium. The xiphoid was grasped with a tonsil clamp and removed with the Bovie electric coagulation. A retractor was placed underneath the distal sternum and dissection began up to the pericardium. The pericardium was quite thickened. It was entered with a 15 blade. 250-300 mL of gross pus was obtained. This was cultured both aerobically and anaerobically. It was also cultured for TB and fungus. We also sent some fluid for cytology. 2 pericardial biopsies were taken by grasping the pericardium and removing with the Metzenbaum scissors. These were sent for permanent section. A single angled 32 chest tube was left in the pericardial well. The fascia was closed with a #1 Vicryl. Subcutaneous tissues with a 2-0 Vicryl. Skin was closed with a 3-0 Vicryl subcuticular stitch. A right chest tube was then inserted. An incision was made in the anterior axillary line. This was carried down above the rib into the intercostal space. A finger was inserted and there were no adhesions. Gross pus was obtained. This was cultured aerobically and anaerobically. We also sent fluid for cytology. A #32 chest tube was inserted and a total of 850 mL of gross pus was obtained. The chest tube was sewn to the skin with a 2-0 silk suture. The wounds were then dressed and the patient was returned to intensive care unit in critical condition.
[2016-10-23] MEDS ORDERED: FentaNYL (PF) 1,000 MCG in 0.9 % Sodium Chloride 80 ML IVC SCH (14:30)
[2016-10-23] MEDS ORDERED: Dexmedetomidine HCl 400 MCG/100 ML MLS IVC SCH (14:30)
[2016-10-23 14:39] LABS: ABG Base Excess -5.2 mEq/L (-2.0 to 3.0); ABG HCO3 20.6 mEQ/L (21-27); ABG Oxygen Saturation 100 % (95-98); ABG PCO2 40 mmHg (35-45); ABG PH 7.32 pH Units (7.32-7.45); ABG PO2 200 mmHg (85-104); ABG TCO2 21.8 mEq/L (20-26)
[2016-10-23 14:40] LABS: Blood Gas FiO2 50 %; Blood Gas PEEP 5 cm H2O; Blood Gas Respiration Rate 16; Blood Gas VT 450 cc
[2016-10-23] MEDS ORDERED: Lacri-Lube 3.5 GM TUBE BOTH EYES SCH (16:00)
[2016-10-23] MEDS ORDERED: 0.9 % Sodium Chloride 500 ML ONE (16:04)
[2016-10-23] MEDS ORDERED: *HR* Morphine 2 MG/ML SYRINGE IVP PRN (16:25)
[2016-10-23] MEDS ORDERED: *HR* OxyCODONE Immed Rel 5 MG TABLET PO PRN (16:25)
[2016-10-23] MEDS ORDERED: Acetaminophen 650 MG RECTAL SUPP RC PRN (16:25)
[2016-10-23] MEDS ORDERED: *HR* Promethazine 25 MG/ML VIAL IVP PRN (16:25)
[2016-10-23] MEDS ORDERED: Naloxone 0.4 MG/ML INJ IVP PRN ×2 (16:25)
[2016-10-23] MEDS ORDERED: Acetaminophen 325 MG TABLET PO PRN (16:25)
[2016-10-23] MEDS ORDERED: Lidocaine -MPF 1% 2 ML VIAL ID PRN (16:25)
[2016-10-23] MEDS ORDERED: *HR* LORazepam 2 MG/ML VIAL IVP PRN ×3 (16:25)
[2016-10-23] MEDS ORDERED: 0.9 % Sodium Chloride 500 ML IVC PRN (16:32)
[2016-10-23] MEDS: FentaNYL (PF) 1,000 MCG in 0.9 % Sodium Chloride 80 ML IVC SCH (16:37)
[2016-10-23] MEDS: Dexmedetomidine HCl 400 MCG/100 ML MLS IVC SCH (16:38)
[2016-10-23 17:15] LABS: Hematocrit 30.8 % (37.5-50.1); Hemoglobin 10.6 g/dL (12.9-16.9); Mean Corpuscular HGB Conc 34.4 g/dL (31.6-35.5); Mean Corpuscular Hemoglobin 29.4 pg (28.0-33.3); Mean Corpuscular Volume 85.3 fL (83.0-100.0); Nucleated Red Blood Cells 0.1 /100 WBC (0); Platelet Count 387 K/mcL (140-400); Red Blood Count 3.61 M/mcL (4.19-5.50); Red Cell Distribution Width 13.7 % (11.5-14.5)
[2016-10-23 17:30] LABS: Neutrophils # 23.9 K/mcL (1.6-8.9); Platelet Estimate Increased (Normal)
--- NOTE | 2016-10-23 17:48 | Electrocardiograph Report ---
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
--- NOTE | 2016-10-23 17:54 | Electrocardiograph Report ---
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
[2016-10-23] MEDS ORDERED: Famotidine 20 MG/2 ML VIAL IVP SCH (18:00)
[2016-10-23] MEDS: Insulin LISPRO 300 UNITS/3 ML VIAL SQ SCH (18:06)
[2016-10-23] MEDS: Albuterol 2.5 MG/3 ML NEBULIZER IH SCH ×3 (18:20→23:08)
[2016-10-23] MEDS: Sennosides 8.6 MG TABLET PO SCH (20:43)
[2016-10-23] MEDS: Clindamycin 900 MG/50 ML 900 MG/50 ML IV.SOLN IVPB SCH (20:47)
[2016-10-23] MEDS: Chlorhexidine Rinse 15 ML MOUTHWASH MM SCH (20:47)
[2016-10-23] MEDS: Lacri-Lube 3.5 GM TUBE BOTH EYES SCH (20:47)
[2016-10-23] MEDS ORDERED: Chlorhexidine Rinse 15 ML MOUTHWASH MM SCH (21:00)
[2016-10-24] MEDS: Clindamycin 900 MG/50 ML 900 MG/50 ML IV.SOLN IVPB SCH (00:30)
[2016-10-24] MEDS: Insulin LISPRO 300 UNITS/3 ML VIAL SQ SCH ×4 (00:30→18:06)
[2016-10-24] MEDS: *HR* Heparin 5,000 UNIT/ML VIAL SQ SCH ×3 (00:30→17:20)
[2016-10-24] MEDS: methylPREDNISolone 125 MG/2 ML VIAL IVP SCH ×4 (00:31→18:09)
[2016-10-24] MEDS: Dexmedetomidine HCl 400 MCG/100 ML MLS IVC SCH ×2 (00:31→14:07)
[2016-10-24] MEDS: Lacri-Lube 3.5 GM TUBE BOTH EYES SCH ×6 (01:30→21:25)
[2016-10-24] MEDS: FentaNYL (PF) 1,000 MCG in 0.9 % Sodium Chloride 80 ML IVC SCH (01:31)
[2016-10-24] MEDS: Albuterol 2.5 MG/3 ML NEBULIZER IH SCH ×6 (03:19→23:30)
[2016-10-24] MEDS: Ipratropium/Albuterol Neb 3 ML IH SCH ×2 (04:20→10:43)
[2016-10-24 04:29] LABS: Hematocrit 34.7 % (37.5-50.1); Hemoglobin 11.9 g/dL (12.9-16.9); Mean Corpuscular HGB Conc 34.3 g/dL (31.6-35.5); Mean Corpuscular Hemoglobin 29.4 pg (28.0-33.3); Mean Corpuscular Volume 85.7 fL (83.0-100.0); Platelet Count 344 K/mcL (140-400); Red Blood Count 4.05 M/mcL (4.19-5.50); Red Cell Distribution Width 13.8 % (11.5-14.5)
[2016-10-24 04:40] LABS: INR 1.5; Prothrombin Time 15.8 Seconds (9.4-12.1)
[2016-10-24 04:42] LABS: Alanine Aminotransferase 29 Units/L (0-55); Albumin/Globulin Ratio 0.4 (1.1-2.2); Alkaline Phosphatase 123 Units/L (38-126); Aspartate Amino Transferase 34 Units/L (5-34); BUN/Creatinine Ratio 33 (6-26); Bilirubin,Total 0.3 mg/dL (0.2-1.2); Blood Urea Nitrogen 39 mg/dL (8-26); Calcium 9.2 mg/dL (8.6-10.8); Carbon Dioxide 20 mEq/L (19-29); Chloride 99 mEq/L (98-109); Globulin 3.8 g/dL (2.4-3.5); Glucose 231 mg/dL (70-99); Magnesium 1.9 mg/dL (1.6-2.6); Osmolality,Calculated 283 (280-300); Potassium 3.4 mEq/L (3.5-4.5); Sodium 128 mEq/L (136-145); Total Protein 5.5 g/dL (6.0-8.3); eGFR For African Americans > 60 (> 60); eGFR For Non-African Americans > 60 (> 60)
[2016-10-24 04:43] LABS: Albumin 1.7 g/dL (3.5-5.0)
[2016-10-24 04:52] LABS: Ionized Calcium 1.27 mmol/L (1.15-1.35)
[2016-10-24 05:21] LABS: Large Platelets Present (Not Present); Lymphocytes # 0.4 K/mcL (0.6-4.6); Monocytes # 0.4 K/mcL (0.0-1.3); Neutrophils # 16.7 K/mcL (1.6-8.9); Platelet Estimate Normal (Normal)
[2016-10-24 06:18] LABS: ABG Base Excess -4.2 mEq/L (-2.0 to 3.0); ABG Oxygen Saturation 97 % (95-98); ABG PCO2 38 mmHg (35-45); ABG PH 7.35 pH Units (7.32-7.45); ABG PO2 95 mmHg (85-104); ABG TCO2 22.2 mEq/L (20-26)
[2016-10-24 06:19] LABS: Blood Gas FiO2 30 %
--- NOTE | 2016-10-24 06:46 | Pulmonology Progress Note ---
<Joel Bailey - Last Filed: 10/24/16 14:10> Date of Encounter: 10/24/16 Time of Encounter: 14:10 Assessment and Plan (1) Pericardial effusion, acute Current Visit: Yes Status: Acute Postop day 1 pericardial window. Mediastinal drainage tube is in place. Vinny pus was encountered in the pericardium. Fluid analysis is pending. Patient is hemodynamically stable. Further management per cardiothoracic surgery. (2) Severe sepsis Current Visit: Yes Status: Acute Likely related to post obstructive pneumonia due to strep pneumoniae. Lactic Acid has normalized, continue IV fluids, Rocephin. (3) ARF (acute renal failure) Current Visit: Yes Status: Acute Likely related to hypoperfusion. Renal function has normalized with IV hydration. Good urine output. Will continue to monitor. Qualifiers: Acute renal failure type: unspecified Qualified Code(s): N17.9 - Acute kidney failure, unspecified (4) Hyponatremia with decreased serum osmolality Current Visit: Yes Status: Acute Fluid depletion and/or SIADH in the setting of possible lung CA. Improved slightly from last night. Continue to monitor (5) Mass of right lung Current Visit: Yes Status: Acute Concenring for malignancy. Patient had bronchoscopy today. This was concerning for malignancy. Biopsies taken and been sent to pathology for analysis. (6) COPD exacerbation Current Visit: Yes Status: Acute Continue antibiotics, steroids, bronchodilators. (7) DVT prophylaxis Current Visit: Yes Status: Acute Heparin 5000u SQ q8h Subjective Principal diagnosis: Pericardial effusion Interval history: Patient seen and examined at bedside. Patient is intubated and sedated. He is minimally responsive to verbal stimuli and will follow commands. He does not appear to be in any acute distress. Objective PUL Vital signs: Last Vital Signs Temp 97.3 F L 10/24/16 04:00 Pulse 64 10/24/16 06:00 Resp 16 10/24/16 06:00 BP 105/79 10/24/16 06:00 Pulse Ox 97 10/24/16 06:00 General appearance: no acute distress ENT: oropharynx moist Auscultation: right: diminished breath sounds Cardiovascular: regular rate and rhythm Gastrointestinal: normoactive bowel sounds, soft, non-tender, non-distended Extremities: no cyanosis, no edema, no clubbing unable to assess due to mental status Ventilator Settings Ventilator Settings: Ventilator Settings, Last 8 Hours Ventilator Mode VC+ Ventilator Mode VC+ Ventilator Mode VC+ Ventilator Mode VC+ Ventilator Mode VC+ Ventilator Mode VC+ Ventilator Mode VC+ Ventilator Mode VC+ Ventilator Tidal Volume 450 Setting Ventilator Tidal Volume 450 Setting Ventilator Tidal Volume 450 Setting Ventilator Tidal Volume 450 Setting Ventilator Tidal Volume 450 Setting Ventilator Tidal Volume 450 Setting Ventilator Tidal Volume 450 Setting Ventilator Tidal Volume 450 Setting Ventilator Respiratory Rate 16 Setting Ventilator Respiratory Rate 16 Setting Ventilator Respiratory Rate 16 Setting Ventilator Respiratory Rate 16 Setting Ventilator Respiratory Rate 16 Setting Ventilator Respiratory Rate 16 Setting Ventilator Respiratory Rate 16 Setting Ventilator Respiratory Rate 16 Setting Actual Respiratory Rate 22 Actual Respiratory Rate 16 Actual Respiratory Rate 16 Actual Respiratory Rate 16 Actual Respiratory Rate 16 Positive End Expiratory 5 Pressure Positive End Expiratory 5 Pressure Positive End Expiratory 5 Pressure Positive End Expiratory 5 Pressure Positive End Expiratory 5 Pressure Positive End Expiratory 5 Pressure Positive End Expiratory 5 Pressure Positive End Expiratory 5 Pressure Peak Inspiratory Airway 31 Pressure Peak Inspiratory Airway 92 Pressure Peak Inspiratory Airway 23 Pressure Peak Inspiratory Airway 23 Pressure Peak Inspiratory Airway 23 Pressure Results - Laboratory Findings CBC and BMP: 10/24/16 04:20 10/24/16 04:20 ABG ABG pH 7.35 pH Units (7.32-7.45) 10/24/16 06:10 ABG pCO2 38 mmHg (35-45) 10/24/16 06:10 ABG pO2 95 mmHg (85-104) 10/24/16 06:10 ABG O2 Saturation 97 % (95-98) 10/24/16 06:10 PT/INR, D-dimer PT 15.8 Seconds (9.4-12.1) H 10/24/16 04:20 D-Dimer 7345 ng/mLFEU (0-500) H 10/21/16 21:20 Abnormal lab findings: Abnormal lab results WBC 17.8 K/mcL (4.3-11.1) H 10/24/16 04:20 RBC 4.05 M/mcL (4.19-5.50) L 10/24/16 04:20 Hgb 11.9 g/dL (12.9-16.9) L 10/24/16 04:20 Hct 34.7 % (37.5-50.1) L 10/24/16 04:20 Myelocytes % 2.0 % (0) H 10/24/16 04:20 Neutrophils # 16.7 K/mcL (1.6-8.9) H 10/24/16 04:20 Lymphocytes # 0.4 K/mcL (0.6-4.6) L 10/24/16 04:20 Nucleated RBCs/100 WBC 0.1 /100 WBC (0) H 10/23/16 17:07 Toxic Vacuolation Present (Not Present) A 10/22/16 11:10 Large Platelets Present (Not Present) A 10/24/16 04:20 Anisocytosis 1+ (Not Present) A 10/21/16 21:20 Tear Drop Cells 1+ (Not Present) A 10/23/16 05:27 Helmet Cells Present (Not Present) A 10/23/16 05:27 Spangler Cells 1+ (Not Present) A 10/23/16 05:27 PT 15.8 Seconds (9.4-12.1) H 10/24/16 04:20 D-Dimer 7345 ng/mLFEU (0-500) H 10/21/16 21:20 ABG Base Excess -4.2 mEq/L (-2.0 to 3.0) L 10/24/16 06:10 Sodium 128 mEq/L (136-145) L 10/24/16 04:20 Potassium 3.4 mEq/L (3.5-4.5) L 10/24/16 04:20 BUN 39 mg/dL (8-26) H 10/24/16 04:20 BUN/Creatinine Ratio 33 (6-26) H 10/24/16 04:20 Glucose 231 mg/dL (70-99) H 10/24/16 04:20 POC Glucose 213 (58-89) H 10/23/16 23:54 B-Natriuretic Peptide 263 pg/mL (0-100) H 10/21/16 21:20 Serum Total Protein 5.5 g/dL (6.0-8.3) L 10/24/16 04:20 Albumin 1.7 g/dL (3.5-5.0) L 10/24/16 04:20 Globulin 3.8 g/dL (2.4-3.5) H 10/24/16 04:20 Albumin/Globulin Ratio 0.4 (1.1-2.2) L 10/24/16 04:20 Urine Clarity Cloudy (Clear) A 10/22/16 02:30 Ur Specific [place] 1.009 (1.010-1.025) L 10/22/16 02:30 Urine Microscopic RBC 5-15 per hpf (0-3) H 10/22/16 02:30 Urine Microscopic WBC 50-100 per hpf (0-3) H 10/22/16 02:30 Ur Squamous Epith Cells Many per lpf (None-Few) H 10/22/16 02:30 Hyaline Casts Moderate per lpf (None-Few) H 10/22/16 02:30 Urine Osmolality 234 mOsm/kg (300-1090) L 10/22/16 11:30 Protein/Creatinin Ratio < 0.24 mg/mg (0-0.20) H 10/22/16 11:30 Urine Opiates Screen Positive ng/mL (Ktrgru=425) H 10/22/16 06:34 Strep pneumoniae (PCR) DETECTED (Not Detect) A 10/21/16 21:25 - Microbiology Findings Microbiology Findings: Microbiology, Last 48 Hours 10/22/16 11:10 Blood Culture - Preliminary Peripheral Venipuncture No growth. 10/22/16 11:10 Blood Culture - Preliminary Peripheral Venipuncture No growth. 10/23/16 13:20 Body Fluid Culture - Preliminary Pericardial Fluid 10/23/16 13:20 Body Fluid Culture - Preliminary Pleural Fluid 10/22/16 06:34 Legionella Antigen - Final Urine,Clean Catch Streptococcus pneumoniae Antigen (M - Final - Clinical Findings Intake & Output: Intake & Output 10/23/16 10/23/16 10/24/16 15:59 23:59 07:59 Intake Total 300 / 300 250 / 250 304 / 304 Output Total 200 / 200 870 / 870 600 / 600 Balance 100 / 100 -620 / -620 -296 / -296 Weight 64.1 kg - VTE Documentation of Mechanical Device: Intermittent pneumatic compression device Consult Discharge Plan - Plan Referrals: Ernestina Armenta, RICHIE [Primary Care Provider] - <Bassam Navarro - Last Filed: 10/24/16 19:30> Objective PUL Vital signs: Last Vital Signs Temp 96.3 F L 10/24/16 07:22 Pulse 57 10/24/16 09:00 Resp 16 10/24/16 09:25 BP 105/79 10/24/16 09:00 Pulse Ox 99 10/24/16 09:25 Ventilator Settings Ventilator Settings: Ventilator Settings, Last 8 Hours Ventilator Mode VC+ Ventilator Mode VC+ Ventilator Mode VC+ Ventilator Mode VC+ Ventilator Mode VC+ Ventilator Mode VC+ Ventilator Mode VC+ Ventilator Tidal Volume 450 Setting Ventilator Tidal Volume 450 Setting Ventilator Tidal Volume 450 Setting Ventilator Tidal Volume 450 Setting Ventilator Tidal Volume 450 Setting Ventilator Tidal Volume 450 Setting Ventilator Tidal Volume 450 Setting Ventilator Respiratory Rate 16 Setting Ventilator Respiratory Rate 16 Setting Ventilator Respiratory Rate 16 Setting Ventilator Respiratory Rate 16 Setting Ventilator Respiratory Rate 16 Setting Ventilator Respiratory Rate 16 Setting Ventilator Respiratory Rate 16 Setting Actual Respiratory Rate 16 Actual Respiratory Rate 27 Actual Respiratory Rate 22 Actual Respiratory Rate 16 Positive End Expiratory 5 Pressure Positive End Expiratory 5 Pressure Positive End Expiratory 5 Pressure Positive End Expiratory 5 Pressure Positive End Expiratory 5 Pressure Positive End Expiratory 5 Pressure Positive End Expiratory 5 Pressure Peak Inspiratory Airway 26 Pressure Peak Inspiratory Airway 25 Pressure Peak Inspiratory Airway 31 Pressure Peak Inspiratory Airway 92 Pressure Results - Laboratory Findings CBC and BMP: 10/24/16 04:20 10/24/16 04:20 ABG ABG pH 7.35 pH Units (7.32-7.45) 10/24/16 06:10 ABG pCO2 38 mmHg (35-45) 10/24/16 06:10 ABG pO2 95 mmHg (85-104) 10/24/16 06:10 ABG O2 Saturation 97 % (95-98) 10/24/16 06:10 PT/INR, D-dimer PT 15.8 Seconds (9.4-12.1) H 10/24/16 04:20 D-Dimer 7345 ng/mLFEU (0-500) H 10/21/16 21:20 Abnormal lab findings: Abnormal lab results WBC 17.8 K/mcL (4.3-11.1) H 10/24/16 04:20 RBC 4.05 M/mcL (4.19-5.50) L 10/24/16 04:20 Hgb 11.9 g/dL (12.9-16.9) L 10/24/16 04:20 Hct 34.7 % (37.5-50.1) L 10/24/16 04:20 Myelocytes % 2.0 % (0) H 10/24/16 04:20 Neutrophils # 16.7 K/mcL (1.6-8.9) H 10/24/16 04:20 Lymphocytes # 0.4 K/mcL (0.6-4.6) L 10/24/16 04:20 Nucleated RBCs/100 WBC 0.1 /100 WBC (0) H 10/23/16 17:07 Toxic Vacuolation Present (Not Present) A 10/22/16 11:10 Large Platelets Present (Not Present) A 10/24/16 04:20 Anisocytosis 1+ (Not Present) A 10/21/16 21:20 Tear Drop Cells 1+ (Not Present) A 10/23/16 05:27 Helmet Cells Present (Not Present) A 10/23/16 05:27 Spangler Cells 1+ (Not Present) A 10/23/16 05:27 PT 15.8 Seconds (9.4-12.1) H 10/24/16 04:20 D-Dimer 7345 ng/mLFEU (0-500) H 10/21/16 21:20 ABG Base Excess -4.2 mEq/L (-2.0 to 3.0) L 10/24/16 06:10 Sodium 128 mEq/L (136-145) L 10/24/16 04:20 Potassium 3.4 mEq/L (3.5-4.5) L 10/24/16 04:20 BUN 39 mg/dL (8-26) H 10/24/16 04:20 BUN/Creatinine Ratio 33 (6-26) H 10/24/16 04:20 Glucose 231 mg/dL (70-99) H 10/24/16 04:20 POC Glucose 213 (58-89) H 10/23/16 23:54 B-Natriuretic Peptide 263 pg/mL (0-100) H 10/21/16 21:20 Serum Total Protein 5.5 g/dL (6.0-8.3) L 10/24/16 04:20 Albumin 1.7 g/dL (3.5-5.0) L 10/24/16 04:20 Globulin 3.8 g/dL (2.4-3.5) H 10/24/16 04:20 Albumin/Globulin Ratio 0.4 (1.1-2.2) L 10/24/16 04:20 Urine Clarity Cloudy (Clear) A 10/22/16 02:30 Ur Specific [place] 1.009 (1.010-1.025) L 10/22/16 02:30 Urine Microscopic RBC 5-15 per hpf (0-3) H 10/22/16 02:30 Urine Microscopic WBC 50-100 per hpf (0-3) H 10/22/16 02:30 Ur Squamous Epith Cells Many per lpf (None-Few) H 10/22/16 02:30 Hyaline Casts Moderate per lpf (None-Few) H 10/22/16 02:30 Urine Osmolality 234 mOsm/kg (300-1090) L 10/22/16 11:30 Protein/Creatinin Ratio < 0.24 mg/mg (0-0.20) H 10/22/16 11:30 Urine Opiates Screen Positive ng/mL (Szylmg=848) H 10/22/16 06:34 Strep pneumoniae (PCR) DETECTED (Not Detect) A 10/21/16 21:25 - Microbiology Findings Microbiology Findings: Microbiology, Last 48 Hours 10/22/16 11:10 Blood Culture - Preliminary Peripheral Venipuncture No growth. 10/22/16 11:10 Blood Culture - Preliminary Peripheral Venipuncture No growth. 10/23/16 13:20 Body Fluid Culture - Preliminary Pericardial Fluid 10/23/16 13:20 Body Fluid Culture - Preliminary Pleural Fluid 10/22/16 06:34 Legionella Antigen - Final Urine,Clean Catch Streptococcus pneumoniae Antigen (M - Final - Clinical Findings Intake & Output: Intake & Output 10/23/16 10/24/16 10/24/16 23:59 07:59 15:59 Intake Total 250 / 250 304 / 304 Output Total 870 / 870 600 / 600 Balance -620 / -620 -296 / -296 - Attending Attestation I examined this patient and my medical decision-making was reviewed with the SOCIOLOGY TEACHER/PA/Advanced Practice Nurse/Resident Physician. I agree with the documented findings, disposition and treatment plan as described except to the extent set forth below. I spent 35 minutes of Critical Care time with this patient. It involved decision making of high complexity to assess, manipulate, and support vital organ system failure and/or to prevent further life threatening deterioration of the patient's condition. The time involved in the performance of separately reportable procedures was not counted toward critical care time. Patient seen and examined at bedside Labs, radiology, chart personally reviewed. All lines examined without evidence of infection. Neuro: Sedated on vent. history of EtOH abuse cont to monitor for withdrawal. Pulm: difficult to liberate post op. Remains intuated with acceptable oxygenation. Vinny pus (empyema) with right chest tube placed. Plan for for bronch today with mass biopsy likely extubation after. Cards: Pericardial Effusion with tamponade physiology BP stable. Sandy now converted on amiodarone transition to PO. PEricardial drain in place. CTS following FEN-GI: NPO for now. cont GI prophylaxis Renal: Hyponatremia (asymptomatic) improving likely acute hypovolemia (now post fluid resusciation) with chronic SIADH (lung malignancy) goal even to slightly positive today ID: Strep Pneumo PNA (jean sensitive) with empyema and pericardial infection.Ceftriaxone Severe sepsis treating underlying cause (overall improving on ABx) repeat CT scan in 48 hours Heme/Onc: DVT prophylaxis with Heparin, Possible lung mass (?lung ca in longtime smoker) bronch today for mass biopsy Endo: Glucose monitored. cont SSI as needed for goal 140-180 Integ: skin care per CLINICAL LABORATORY MEDICAL DIRECTOR protocol to prevent ulcers CODE: Full. Family updated at bedside. (Sons and Girlfriend)
[2016-10-24] MEDS ORDERED: Amiodarone Premix 360 MG/200 ML BAG IVC ONE ×2 (07:18→19:00)
--- NOTE | 2016-10-24 07:22 | Cardiothoracic Progress Note ---
Date of Encounter: 10/24/16 Time of Encounter: 07:20 - Assessment and plan (1) Pericarditis Current Visit: Yes Status: Acute Hopefully, the patient can be extubated today. He can switch to by mouth amiodarone once he is extubated and taking by mouth well. Qualifiers: Pericarditis type: other type Chronicity: unspecified Qualified Code(s): I31.8 - Other specified diseases of pericardium - Subjective Interval history: The patient is intubated and sedated. Vital Signs, Last 4 Hours Temp Pulse Resp BP Pulse Ox 10/24/16 06:00 64 16 105/79 97 10/24/16 05:38 22 108/74 98 10/24/16 05:00 62 10 108/74 98 10/24/16 04:00 97.3 F L 62 16 122/83 98 10/24/16 03:30 64 16 108/82 99 Oxgyen Flow Rate Oxygen Flow Rate (LPM) 2 Clinical Data, last 8 Hours Output, Chest Tube Drainage 30 Amount [Right Lateral Chest] Output, Chest Tube Drainage 30 Amount [Right Lateral Chest] Output, Chest Tube Drainage 5 Amount [Mediastinal #1] Output, Chest Tube Drainage 10 Amount [Mediastinal #1] Weight 10/22/16 10/23/16 10/24/16 23:59 23:59 23:59 Weight 64.1 kg 64.1 kg Lungs have improved breath sounds over the right lung. Heart is in a normal sinus rhythm on an amiodarone drip. Chest x-ray reveals improved aeration of the right lung field. - Labs 10/24/16 04:20 10/24/16 04:20 Lab Results, Last 24 hours 10/23/16 10/24/16 10/24/16 17:07 04:20 04:20 WBC 26.0 H 17.8 H Hgb 10.6 L 11.9 L Hct 30.8 L 34.7 L Plt Count 387 344 INR 1.5 Sodium Potassium Chloride Carbon Dioxide BUN Creatinine Glucose Calcium Magnesium Total Bilirubin AST ALT Alkaline Phosphatase 10/24/16 04:20 WBC Hgb Hct Plt Count INR Sodium 128 L Potassium 3.4 L Chloride 99 Carbon Dioxide 20 BUN 39 H Creatinine 1.18 Glucose 231 H Calcium 9.2 Magnesium 1.9 Total Bilirubin 0.3 AST 34 ALT 29 Alkaline Phosphatase 123 - VTE Documentation of Mechanical Device: Intermittent pneumatic compression device Consult Discharge Plan - Plan Referrals: Ernestina Armenta CNP [Primary Care Provider] -
[2016-10-24] MEDS: Budesonide/Formoterol 160/4.5 MDI IH SCH ×2 (07:47→20:10)
[2016-10-24] MEDS: Folic Acid 1 MG TABLET PO SCH (08:22)
[2016-10-24] MEDS: Pantoprazole 40 MG VIAL IVP SCH (08:30)
[2016-10-24] MEDS: Nystatin SUSP 5 ML UD.LIQ PO SCH ×4 (08:30→21:26)
[2016-10-24] MEDS: Chlorhexidine Rinse 15 ML MOUTHWASH MM SCH ×2 (08:30→21:26)
[2016-10-24] MEDS: Nicotine 21 MG PATCH.TD24 TD SCH (08:31)
[2016-10-24] MEDS ORDERED: Pantoprazole 40 MG VIAL IVP SCH (09:00)
[2016-10-24] MEDS ORDERED: Levofloxacin 750 MG/150 ML 750 MG/150 ML BAG IVPB SCH (09:00)
[2016-10-24] MEDS: Vitamin B Complex/Vit C/Vit E 1 EACH TABLET PO SCH (10:20)
[2016-10-24] MEDS: Thiamine (B-1) 100 MG TABLET PO SCH (10:21)
--- NOTE | 2016-10-24 11:29 | Anesthesia Evaluation Post Op ---
Date of Encounter: 10/24/16 Time of Encounter: :27 - Vital Signs Vital Signs: Selected Entries 10/24/16 11:00 10/24/16 11:12 Pulse Rate 54 Respiratory Rate 16 Blood Pressure 99/75 O2 Sat by Pulse Oximetry 99 Oxygen Delivery Method Mechanical Ventilation Fraction of Inspired Oxygen 30 Oxygen Flow Rate (LPM) 2 - Lungs Lungs: Rhonchi - Airway Airway: Intubated - Cardiovascular Regular Rate - Mental Status Mental Status: Sedated - Pain Pain Scale: 0 Pain Scale used: Numeric (1 - 10) - Nausea Vomiting Nausea Vomiting: Unable to assess - Hydration Hydration: NPO, Alarcon catheter (Patient will remain intubated until bronchoscopy is done later today. Still with collapse of 2 lobes of right lung.)
[2016-10-24] MEDS ORDERED: *HR* Midazolam HCl 5 MG/5 ML VIAL IVP ONE (13:28)
--- NOTE | 2016-10-24 13:48 | Pre-Sedation Evaluation ---
Pre-sedation evaluation - Pre-sedation checklist Date of procedure: 10/23/16 Procedure: bronch Recent Vitals: Last Vital Signs Temp 96.3 F L 10/24/16 07:22 Pulse 62 10/24/16 13:00 Resp 16 10/24/16 13:00 BP 125/89 10/24/16 13:00 Pulse Ox 99 10/24/16 13:00 H&P (including ROS) documented in medical record: Yes (currently intubated and sedated in ICU) Previous reaction to sedatives/anesthetics: No Dietary Status: No solid food in preceding 4 hrs and no liquid in preceding 2 hrs (currently intubated) Possible difficult airway: No ASA Classification *see protocol: CLASS III-Severe systemic disease Plan of Care: Pt appropriate candidate for procedure/moderate/conscious sedation , Risks/benefits of procedure/sedation discussed w/ patient/family (consent obtained from family )
[2016-10-24] MEDS ORDERED: *HR* EPINEPHrine 1 MG/10 ML SYRINGE INTRATRACH PRN (14:11)
[2016-10-24] MEDS: Sennosides 8.6 MG TABLET PO SCH (21:26)
[2016-10-25] MEDS: Lacri-Lube 3.5 GM TUBE BOTH EYES SCH ×4 (00:14→12:00)
[2016-10-25] MEDS: methylPREDNISolone 125 MG/2 ML VIAL IVP SCH ×4 (00:24→18:34)
[2016-10-25] MEDS: *HR* Heparin 5,000 UNIT/ML VIAL SQ SCH ×3 (00:25→16:14)
[2016-10-25] MEDS: Insulin LISPRO 300 UNITS/3 ML VIAL SQ SCH ×4 (00:29→22:21)
[2016-10-25 03:53] LABS: Hematocrit 39.5 % (37.5-50.1); Hemoglobin 12.9 g/dL (12.9-16.9); Mean Corpuscular HGB Conc 32.7 g/dL (31.6-35.5); Mean Corpuscular Hemoglobin 28.4 pg (28.0-33.3); Mean Platelet Volume 10.4 fL (9.4-12.4); Nucleated Red Blood Cells 0.1 /100 WBC (0); Platelet Count 363 K/mcL (140-400); Red Blood Count 4.54 M/mcL (4.19-5.50); Red Cell Distribution Width 13.9 % (11.5-14.5)
[2016-10-25 04:05] LABS: Alanine Aminotransferase 27 Units/L (0-55); Albumin/Globulin Ratio 0.5 (1.1-2.2); Alkaline Phosphatase 122 Units/L (38-126); Aspartate Amino Transferase 38 Units/L (5-34); BUN/Creatinine Ratio 37 (6-26); Bilirubin,Total 0.4 mg/dL (0.2-1.2); Blood Urea Nitrogen 36 mg/dL (8-26); Calcium 9.6 mg/dL (8.6-10.8); Carbon Dioxide 25 mEq/L (19-29); Chloride 99 mEq/L (98-109); Globulin 3.6 g/dL (2.4-3.5); Glucose 169 mg/dL (70-99); Osmolality,Calculated 286 (280-300); Potassium 3.2 mEq/L (3.5-4.5); Sodium 132 mEq/L (136-145); Total Protein 5.4 g/dL (6.0-8.3); eGFR For African Americans > 60 (> 60); eGFR For Non-African Americans > 60 (> 60)
[2016-10-25 04:10] LABS: Albumin 1.8 g/dL (3.5-5.0)
[2016-10-25] MEDS: Albuterol 2.5 MG/3 ML NEBULIZER IH SCH ×7 (04:29→23:59)
[2016-10-25 04:33] LABS: Lymphocytes # 2.5 K/mcL (0.6-4.6); Monocytes # 0.5 K/mcL (0.0-1.3); Neutrophils # 21.2 K/mcL (1.6-8.9)
[2016-10-25 04:34] LABS: Platelet Estimate Normal (Normal); Toxic Granulation Present (Not Present)
[2016-10-25 04:35] LABS: Polychromasia 1+ (Not Present); Tear Drop Cells 1+ (Not Present)
[2016-10-25 04:36] LABS: Large Platelets Present (Not Present); Macrocytosis Present (Not Present)
--- NOTE | 2016-10-25 07:15 | Cardiothoracic Progress Note ---
Date of Encounter: 10/25/16 Time of Encounter: 07:13 - Assessment and plan (1) Pericarditis Current Visit: Yes Status: Acute We will switch the patient from an amiodarone drip to by mouth amiodarone we will continue chest tube suction and await the results of yesterday's biopsies. Qualifiers: Pericarditis type: other type Chronicity: unspecified Qualified Code(s): I31.8 - Other specified diseases of pericardium - Subjective Interval history: The patient is extubated. He complains of generalized fatigue and weakness. Vital Signs, Last 4 Hours Temp Pulse Resp BP Pulse Ox 10/25/16 06:00 76 15 113/83 98 10/25/16 05:00 76 17 109/76 98 10/25/16 04:30 16 139/91 99 10/25/16 04:00 97.5 F L 87 16 139/91 99 Oxgyen Flow Rate Oxygen Flow Rate (LPM) 2 Clinical Data, last 8 Hours Output, Chest Tube Drainage 50 Amount [Right Lateral Chest] Output, Chest Tube Drainage 20 Amount [Right Lateral Chest] Output, Chest Tube Drainage 10 Amount [Mediastinal #1] Output, Chest Tube Drainage 16 Amount [Mediastinal #1] Output, Chest Tube Drainage 16 Amount [Mediastinal #1] Weight 10/23/16 10/24/16 10/25/16 23:59 23:59 23:59 Weight 64.1 kg Lungs are clear to percussion and auscultation. Heart is in a normal sinus rhythm on an amiodarone drip. All incisions are healing well without signs of infection. Chest tube drainage is minimal. - Labs 10/25/16 03:16 10/25/16 03:16 Lab Results, Last 24 hours 10/25/16 10/25/16 03:16 03:16 WBC 24.7 H Hgb 12.9 Hct 39.5 Plt Count 363 Sodium 132 L Potassium 3.2 L Chloride 99 Carbon Dioxide 25 BUN 36 H Creatinine 0.98 Glucose 169 H Calcium 9.6 Magnesium 2.0 Total Bilirubin 0.4 AST 38 H ALT 27 Alkaline Phosphatase 122 - VTE Documentation of Mechanical Device: Intermittent pneumatic compression device Consult Discharge Plan - Plan Referrals: Ernestina Armenta CNP [Primary Care Provider] -
[2016-10-25] MEDS: Budesonide/Formoterol 160/4.5 MDI IH SCH ×3 (07:57→19:32)
[2016-10-25] MEDS ORDERED: *HR* Amiodarone 200 MG TABLET PO SCH (09:00)
[2016-10-25] MEDS: Nystatin SUSP 5 ML UD.LIQ PO SCH ×4 (09:06→20:13)
[2016-10-25] MEDS: Pantoprazole 40 MG VIAL IVP SCH (09:06)
[2016-10-25] MEDS: Chlorhexidine Rinse 15 ML MOUTHWASH MM SCH (09:06)
[2016-10-25] MEDS: Folic Acid 1 MG TABLET PO SCH (09:07)
[2016-10-25] MEDS: Thiamine (B-1) 100 MG TABLET PO SCH (09:08)
[2016-10-25] MEDS: *HR* OxyCODONE/APAP 5/325 TABLET PO PRN ×2 (09:08→14:53)
[2016-10-25] MEDS: Vitamin B Complex/Vit C/Vit E 1 EACH TABLET PO SCH (09:09)
[2016-10-25] MEDS: Nicotine 21 MG PATCH.TD24 TD SCH (09:10)
[2016-10-25] MEDS ORDERED: Mag Hydrox/Al Hydrox/Simeth 30 ML UDC PO PRN ×2 (11:47→19:26)
--- NOTE | 2016-10-25 12:03 | Pulmonology Progress Note ---
Date of Encounter: 10/25/16 Time of Encounter: 12:01 Assessment and Plan (1) Acute on chronic respiratory failure with hypoxia and hypercapnia Current Visit: Yes Status: Acute wean Fio2 to keep O2 sats >89 to 92% currently requiring 2-3L NC02 (2) Alcohol abuse Current Visit: Yes Status: Acute heavy drinker monitor on CIWA for withdrawal (3) COPD (chronic obstructive pulmonary disease) Current Visit: Yes Status: Acute cont bronchodilators. no indication for steroids acutely f/u outpatient for PFTs smoking cessation Qualifiers: COPD type: emphysema Emphysema type: unspecified Qualified Code(s): J43.9 - Emphysema, unspecified (4) DVT prophylaxis Current Visit: Yes Status: Acute cont DVT prophylaxis with heparin (5) Mass of right lung Current Visit: Yes Status: Acute s/p bronch which showed significant tumor invasion into the RM and RLL lobe Biopsy + brushing + BAL obtained results pending (6) Pericardial effusion with cardiac tamponade Current Visit: Yes Status: Acute infected pericardial effsuion s/p chest tube drainage CTS managing drains (7) Postobstructive pneumonia Current Visit: Yes Status: Acute possible cause of Empyema and infected perdicardial sac. May be candidate for tumor dubulking if infection fails to clear. (8) Severe sepsis Current Visit: Yes Status: Acute improving on antibiotics white count slightly elevated from yesterday Cordero sensitive Strep PNa Cont Ceftriaxone (9) Tobacco abuse Current Visit: Yes Status: Chronic counselled on smoking cessation Subjective Principal diagnosis: Pericardial effusion Interval history: Liberated from vent yesterday after bronch no untoward effects s/t bronch c/o of heartburn today but otherwise pain controlled Objective PUL Vital signs: Last Vital Signs Temp 97.5 F L 10/25/16 07:54 Pulse 85 10/25/16 11:00 Resp 18 10/25/16 11:57 BP 139/88 10/25/16 11:00 Pulse Ox 96 10/25/16 11:57 General appearance: no acute distress ENT: oropharynx dry Neck: no lymphadenopathy Effort: normal Auscultation: right: diminished breath sounds (pericardial and pleural chest tube in satisfactory position ) Cardiovascular: regular rate and rhythm Gastrointestinal: normoactive bowel sounds Integumentary: normal Extremities: no edema normal mental status, non-focal exam mood appropriate Results - Laboratory Findings CBC and BMP: 10/25/16 03:16 10/25/16 03:16 ABG ABG pH 7.35 pH Units (7.32-7.45) 10/24/16 06:10 ABG pCO2 38 mmHg (35-45) 10/24/16 06:10 ABG pO2 95 mmHg (85-104) 10/24/16 06:10 ABG O2 Saturation 97 % (95-98) 10/24/16 06:10 PT/INR, D-dimer PT 15.8 Seconds (9.4-12.1) H 10/24/16 04:20 D-Dimer 7345 ng/mLFEU (0-500) H 10/21/16 21:20 Abnormal lab findings: Abnormal lab results WBC 24.7 K/mcL (4.3-11.1) H 10/25/16 03:16 Myelocytes % 2.0 % (0) H 10/25/16 03:16 Neutrophils # 21.2 K/mcL (1.6-8.9) H 10/25/16 03:16 Nucleated RBCs/100 WBC 0.1 /100 WBC (0) H 10/25/16 03:16 Toxic Granulation Present (Not Present) A 10/25/16 03:16 Toxic Vacuolation Present (Not Present) A 10/22/16 11:10 Large Platelets Present (Not Present) A 10/25/16 03:16 Polychromasia 1+ (Not Present) A 10/25/16 03:16 Anisocytosis 1+ (Not Present) A 10/21/16 21:20 Macrocytosis Present (Not Present) A 10/25/16 03:16 Tear Drop Cells 1+ (Not Present) A 10/25/16 03:16 Helmet Cells Present (Not Present) A 10/23/16 05:27 Rosetta Cells 1+ (Not Present) A 10/23/16 05:27 PT 15.8 Seconds (9.4-12.1) H 10/24/16 04:20 D-Dimer 7345 ng/mLFEU (0-500) H 10/21/16 21:20 ABG Base Excess -4.2 mEq/L (-2.0 to 3.0) L 10/24/16 06:10 Sodium 132 mEq/L (136-145) L 10/25/16 03:16 Potassium 3.2 mEq/L (3.5-4.5) L 10/25/16 03:16 BUN 36 mg/dL (8-26) H 10/25/16 03:16 BUN/Creatinine Ratio 37 (6-26) H 10/25/16 03:16 Glucose 169 mg/dL (70-99) H 10/25/16 03:16 POC Glucose 213 (58-89) H 10/25/16 00:17 AST 38 Units/L (5-34) H 10/25/16 03:16 B-Natriuretic Peptide 263 pg/mL (0-100) H 10/21/16 21:20 Serum Total Protein 5.4 g/dL (6.0-8.3) L 10/25/16 03:16 Albumin 1.8 g/dL (3.5-5.0) L 10/25/16 03:16 Globulin 3.6 g/dL (2.4-3.5) H 10/25/16 03:16 Albumin/Globulin Ratio 0.5 (1.1-2.2) L 10/25/16 03:16 Urine Clarity Cloudy (Clear) A 10/22/16 02:30 Ur Specific [place] 1.009 (1.010-1.025) L 10/22/16 02:30 Urine Microscopic RBC 5-15 per hpf (0-3) H 10/22/16 02:30 Urine Microscopic WBC 50-100 per hpf (0-3) H 10/22/16 02:30 Ur Squamous Epith Cells Many per lpf (None-Few) H 10/22/16 02:30 Hyaline Casts Moderate per lpf (None-Few) H 10/22/16 02:30 Urine Osmolality 234 mOsm/kg (300-1090) L 10/22/16 11:30 Protein/Creatinin Ratio < 0.24 mg/mg (0-0.20) H 10/22/16 11:30 Urine Opiates Screen Positive ng/mL (Nhquxy=162) H 10/22/16 06:34 Strep pneumoniae (PCR) DETECTED (Not Detect) A 10/21/16 21:25 - Microbiology Findings Microbiology Findings: Microbiology, Last 48 Hours 10/23/16 13:20 Body Fluid Culture - Preliminary Pericardial Fluid No growth. 10/23/16 13:20 Body Fluid Culture - Preliminary Pleural Fluid 10/23/16 13:20 Acid Fast Stain - Final Pericardial Fluid 10/22/16 11:10 Blood Culture - Preliminary Peripheral Venipuncture No growth. 10/22/16 11:10 Blood Culture - Preliminary Peripheral Venipuncture No growth. - Clinical Findings Intake & Output: Intake & Output 10/24/16 10/25/16 10/25/16 23:59 07:59 15:59 Intake Total 85 / 85 202 / 202 237 / 237 Output Total 432 / 432 762 / 762 Balance -347 / -347 -560 / -560 207 / 207 - VTE Documentation of Mechanical Device: Intermittent pneumatic compression device Consult Discharge Plan - Plan Referrals: Ernestina Armenta, RICHIE [Primary Care Provider] -
[2016-10-25] MEDS ORDERED: *HR* LORazepam 2 MG/ML VIAL IVP PRN (16:50)
[2016-10-25] MEDS ORDERED: Insulin LISPRO 300 UNITS/3 ML VIAL SQ SCH (17:00)
[2016-10-25] MEDS ORDERED: *HR* Dextrose 50 % in Water (Syg) 50 ML SYRINGE IVP PRN (19:26)
[2016-10-25] MEDS ORDERED: *HR* Promethazine 25 MG/ML VIAL IVP PRN (19:26)
[2016-10-25] MEDS ORDERED: 0.9 % Sodium Chloride 500 ML IVC PRN (19:26)
[2016-10-25] MEDS ORDERED: D5% in Water 1,000 ML IV PRN (19:26)
[2016-10-25] MEDS ORDERED: Ipratropium/Albuterol Neb 3 ML IH PRN (19:26)
[2016-10-25] MEDS ORDERED: Naloxone 0.4 MG/ML INJ IVP PRN (19:26)
[2016-10-25] MEDS ORDERED: Acetaminophen 325 MG TABLET PO PRN (19:26)
[2016-10-25] MEDS ORDERED: Dextrose Gel 15 GM PO PRN ×2 (19:26)
[2016-10-25] MEDS: *HR* OxyCODONE Immed Rel 5 MG TABLET PO PRN (20:12)
[2016-10-25] MEDS: Sennosides 8.6 MG TABLET PO SCH (20:12)
[2016-10-25] MEDS: *HR* Amiodarone 200 MG TABLET PO SCH (20:13)
[2016-10-25] MEDS: *HR* Morphine 2 MG/ML SYRINGE IVP PRN (22:49)
[2016-10-26] MEDS: *HR* LORazepam 2 MG/ML VIAL IVP PRN (00:16)
[2016-10-26] MEDS: *HR* Heparin 5,000 UNIT/ML VIAL SQ SCH ×4 (00:17→23:57)
[2016-10-26] MEDS: methylPREDNISolone 125 MG/2 ML VIAL IVP SCH ×2 (00:17→06:19)
[2016-10-26] MEDS: Albuterol 2.5 MG/3 ML NEBULIZER IH SCH ×5 (03:27→21:25)
[2016-10-26 03:53] LABS: Basophils % 0.1 %; Hematocrit 38.5 % (37.5-50.1); Hemoglobin 12.9 g/dL (12.9-16.9); Immature Granulocytes % 7.1 % (0-4); Lymphocytes # 0.6 K/mcL (0.6-4.6); Lymphocytes % 2.5 %; Mean Corpuscular HGB Conc 33.5 g/dL (31.6-35.5); Mean Corpuscular Hemoglobin 29.1 pg (28.0-33.3); Mean Corpuscular Volume 86.7 fL (83.0-100.0); Mean Platelet Volume 9.8 fL (9.4-12.4); Monocytes # 0.9 K/mcL (0.0-1.3); Monocytes % 3.6 %; Neutrophils # 21.1 K/mcL (1.6-8.9); Nucleated Red Blood Cells 0.1 /100 WBC (0); Platelet Count 277 K/mcL (140-400); Red Blood Count 4.44 M/mcL (4.19-5.50); Red Cell Distribution Width 14.2 % (11.5-14.5); Segmented Neutrophils % 86.7 %
[2016-10-26 04:10] LABS: BUN/Creatinine Ratio 34 (6-26); Blood Urea Nitrogen 30 mg/dL (8-26); Calcium 9.5 mg/dL (8.6-10.8); Carbon Dioxide 28 mEq/L (19-29); Chloride 101 mEq/L (98-109); Glucose 169 mg/dL (70-99); Magnesium 1.9 mg/dL (1.6-2.6); Osmolality,Calculated 288 (280-300); Potassium 3.9 mEq/L (3.5-4.5); Sodium 134 mEq/L (136-145); eGFR For African Americans > 60 (> 60); eGFR For Non-African Americans > 60 (> 60)
[2016-10-26 04:36] LABS: Large Platelets Present (Not Present); Macrocytosis Present (Not Present); Platelet Estimate Normal (Normal); Polychromasia 1+ (Not Present); Toxic Granulation Present (Not Present)
[2016-10-26] MEDS: Budesonide/Formoterol 160/4.5 MDI IH SCH ×2 (07:36→21:25)
[2016-10-26] MEDS: Nicotine 21 MG PATCH.TD24 TD SCH (08:17)
[2016-10-26] MEDS: Nystatin SUSP 5 ML UD.LIQ PO SCH ×4 (08:17→21:57)
[2016-10-26] MEDS: *HR* Amiodarone 200 MG TABLET PO SCH ×2 (08:19→21:57)
[2016-10-26] MEDS: Vitamin B Complex/Vit C/Vit E 1 EACH TABLET PO SCH (08:19)
[2016-10-26] MEDS: Folic Acid 1 MG TABLET PO SCH (08:19)
[2016-10-26] MEDS: Insulin LISPRO 300 UNITS/3 ML VIAL SQ SCH ×4 (08:20→21:58)
[2016-10-26] MEDS: *HR* OxyCODONE Immed Rel 5 MG TABLET PO PRN ×2 (08:37→22:03)
--- NOTE | 2016-10-26 08:49 | Cardiothoracic Progress Note ---
Date of Encounter: 10/26/16 Time of Encounter: 08:47 - Assessment and plan (1) Pericardial effusion with cardiac tamponade Current Visit: Yes Status: Acute The patient is recovering well from his subxiphoid pericardial window and right chest tube insertion performed for a pericardial effusion with early tamponade physiology and large right pleural effusion respectively. The patient underwent a fiberoptic bronchoscopy with biopsy of the right sided endobronchial lesion; however, the pathology is pending. The chest tubes will remain in place for several days it will allow for complete drainage of the pericardial effusion and right pleural effusion. The assessment and plan as outlined above was discussed with the patient and/or family members who expressed understanding and agreement. All questions were answered. - Subjective Procedure(s) Performed: POD#3 S/P Subxiphoid pericardial window, right chest tube insertion Interval history: The patient is sitting upright in his hospital bed. He has mild respiratory distress; however, his oxygen saturation is 93%. Vital Signs, Last 4 Hours Temp Pulse Resp BP Pulse Ox 10/26/16 07:38 14 93 L 10/26/16 07:23 97.6 F 10/26/16 07:20 97.5 F L 90 14 122/76 93 L 10/26/16 07:00 90 10/26/16 06:00 82 12 94/60 96 Oxgyen Flow Rate Oxygen Flow Rate (LPM) 2 Clinical Data, last 8 Hours Output, Chest Tube Drainage 0 Amount [Right Lateral Chest] Output, Chest Tube Drainage 0 Amount [Right Lateral Chest] Output, Chest Tube Drainage 0 Amount [Mediastinal #1] Output, Chest Tube Drainage 0 Amount [Mediastinal #1] Weight 10/24/16 10/25/16 10/26/16 23:59 23:59 23:59 Weight 63 kg - Physical Examination General: Conversant, No Apparent Distress Neck: No JVD, Normal carotid pulses Cardiac: Reg Rate and Rhythm, Normal S1 and S2, No Murmur Incision: No signs of infection, Dry/intact dressing Chest tubes: Minimal drainage, Other (No air leak.) Lungs: Normal Breath Sounds (Left lung dasilva.), Other (Wheezes and rhonchi in the right lung field.) Neuro: Alert and responsive, No focal deficits noted Vascular: Normal capillary refill Extremities: No Clubbing, No Cyanosis, No Edema - Labs 10/26/16 03:42 10/26/16 03:42 Lab Results, Last 24 hours 10/26/16 10/26/16 03:42 03:42 WBC 24.3 H Hgb 12.9 Hct 38.5 Plt Count 277 Sodium 134 L Potassium 3.9 Chloride 101 Carbon Dioxide 28 BUN 30 H Creatinine 0.87 Glucose 169 H Calcium 9.5 Magnesium 1.9 - VTE Documentation of Mechanical Device: Intermittent pneumatic compression device Consult Discharge Plan - Plan Referrals: Ernestina Armenta, [employer] [Primary Care Provider] -
[2016-10-26] MEDS ORDERED: Pantoprazole 40 MG VIAL IVP SCH (09:00)
[2016-10-26] MEDS ORDERED: Thiamine (B-1) 100 MG TABLET PO SCH (09:00)
--- NOTE | 2016-10-26 09:11 | Pulmonology Progress Note ---
Date of Encounter: 10/26/16 Time of Encounter: 09:08 Assessment and Plan (1) Acute on chronic respiratory failure with hypoxia and hypercapnia Current Visit: Yes Status: Acute wean Fio2 to keep O2 sats >89 to 92% currently requiring 2-3L NC02 (2) Alcohol abuse Current Visit: Yes Status: Acute heavy drinker monitor on CIWA for withdrawal (3) COPD (chronic obstructive pulmonary disease) Current Visit: Yes Status: Acute cont bronchodilators. more wheezing on exam today start steroids f/u outpatient for PFTs smoking cessation Qualifiers: COPD type: emphysema Emphysema type: unspecified Qualified Code(s): J43.9 - Emphysema, unspecified (4) DVT prophylaxis Current Visit: Yes Status: Acute cont DVT prophylaxis with heparin (5) Mass of right lung Current Visit: Yes Status: Acute s/p bronch which showed significant tumor invasion into the RM and RLL lobe Biopsy + brushing + BAL obtained results pending (6) Pericardial effusion with cardiac tamponade Current Visit: Yes Status: Acute infected pericardial effsuion s/p chest tube drainage CTS managing drains (7) Postobstructive pneumonia Current Visit: Yes Status: Acute possible cause of Empyema and infected perdicardial sac. May be candidate for tumor dubulking if infection fails to clear. Repeat CT today (8) Severe sepsis Current Visit: Yes Status: Acute improving on antibiotics white count slightly elevated from yesterday Cordero sensitive Strep PNa Cont Ceftriaxone (9) Tobacco abuse Current Visit: Yes Status: Chronic counselled on smoking cessation Subjective Principal diagnosis: Pericardial effusion Interval history: No acute events overnight heartburn is improving Good oxygen saturation on minimal O2 Minimal drainage from chest tubes Inadequately controlled took by mouth yesterday Objective PUL Vital signs: Last Vital Signs Temp 97.6 F 10/26/16 07:23 Pulse 90 10/26/16 07:20 Resp 14 10/26/16 07:38 BP 122/76 10/26/16 07:20 Pulse Ox 93 L 10/26/16 07:38 General appearance: no acute distress ENT: oropharynx moist Auscultation: right: wheezes, bilateral: diminished breath sounds (r>>L), other (chest tubes x 2 noted in satisfactory position ) Cardiovascular: regular rate and rhythm Integumentary: normal normal mental status, non-focal exam Results - Laboratory Findings CBC and BMP: 10/26/16 03:42 10/26/16 03:42 ABG ABG pH 7.35 pH Units (7.32-7.45) 10/24/16 06:10 ABG pCO2 38 mmHg (35-45) 10/24/16 06:10 ABG pO2 95 mmHg (85-104) 10/24/16 06:10 ABG O2 Saturation 97 % (95-98) 10/24/16 06:10 PT/INR, D-dimer PT 15.8 Seconds (9.4-12.1) H 10/24/16 04:20 D-Dimer 7345 ng/mLFEU (0-500) H 10/21/16 21:20 Abnormal lab findings: Abnormal lab results WBC 24.3 K/mcL (4.3-11.1) H 10/26/16 03:42 Immature Gran % 7.1 % (0-4) H 10/26/16 03:42 Myelocytes % 2.0 % (0) H 10/25/16 03:16 Neutrophils # 21.1 K/mcL (1.6-8.9) H 10/26/16 03:42 Nucleated RBCs/100 WBC 0.1 /100 WBC (0) H 10/26/16 03:42 Toxic Granulation Present (Not Present) A 10/26/16 03:42 Toxic Vacuolation Present (Not Present) A 10/22/16 11:10 Large Platelets Present (Not Present) A 10/26/16 03:42 Polychromasia 1+ (Not Present) A 10/26/16 03:42 Anisocytosis 1+ (Not Present) A 10/21/16 21:20 Macrocytosis Present (Not Present) A 10/26/16 03:42 Tear Drop Cells 1+ (Not Present) A 10/25/16 03:16 Helmet Cells Present (Not Present) A 10/23/16 05:27 Rosetta Cells 1+ (Not Present) A 10/23/16 05:27 PT 15.8 Seconds (9.4-12.1) H 10/24/16 04:20 D-Dimer 7345 ng/mLFEU (0-500) H 10/21/16 21:20 ABG Base Excess -4.2 mEq/L (-2.0 to 3.0) L 10/24/16 06:10 Sodium 134 mEq/L (136-145) L 10/26/16 03:42 BUN 30 mg/dL (8-26) H 10/26/16 03:42 BUN/Creatinine Ratio 34 (6-26) H 10/26/16 03:42 Glucose 169 mg/dL (70-99) H 10/26/16 03:42 POC Glucose 162 (58-89) H 10/25/16 22:17 AST 38 Units/L (5-34) H 10/25/16 03:16 B-Natriuretic Peptide 263 pg/mL (0-100) H 10/21/16 21:20 Serum Total Protein 5.4 g/dL (6.0-8.3) L 10/25/16 03:16 Albumin 1.8 g/dL (3.5-5.0) L 10/25/16 03:16 Globulin 3.6 g/dL (2.4-3.5) H 10/25/16 03:16 Albumin/Globulin Ratio 0.5 (1.1-2.2) L 10/25/16 03:16 Urine Clarity Cloudy (Clear) A 10/22/16 02:30 Ur Specific [place] 1.009 (1.010-1.025) L 10/22/16 02:30 Urine Microscopic RBC 5-15 per hpf (0-3) H 10/22/16 02:30 Urine Microscopic WBC 50-100 per hpf (0-3) H 10/22/16 02:30 Ur Squamous Epith Cells Many per lpf (None-Few) H 10/22/16 02:30 Hyaline Casts Moderate per lpf (None-Few) H 10/22/16 02:30 Urine Osmolality 234 mOsm/kg (300-1090) L 10/22/16 11:30 Protein/Creatinin Ratio < 0.24 mg/mg (0-0.20) H 10/22/16 11:30 Urine Opiates Screen Positive ng/mL (Udgqzp=864) H 10/22/16 06:34 Strep pneumoniae (PCR) DETECTED (Not Detect) A 10/21/16 21:25 - Microbiology Findings Microbiology Findings: Microbiology, Last 48 Hours 10/23/16 13:20 Body Fluid Culture - Preliminary Pleural Fluid Gram Positive Cocci 10/23/16 13:20 Body Fluid Culture - Final Pericardial Fluid No growth. 10/23/16 13:20 Acid Fast Stain - Final Pericardial Fluid 10/22/16 11:10 Blood Culture - Preliminary Peripheral Venipuncture No growth. 10/22/16 11:10 Blood Culture - Preliminary Peripheral Venipuncture No growth. - Clinical Findings Intake & Output: Intake & Output 10/25/16 10/26/16 10/26/16 23:59 07:59 15:59 Intake Total 360 / 360 50 / 50 Output Total 555 / 555 400 / 400 Balance -195 / -195 -350 / -350 Weight 63 kg - VTE Documentation of Mechanical Device: Intermittent pneumatic compression device Consult Discharge Plan - Plan Referrals: Ernestina Armenta, [employer] [Primary Care Provider] -
[2016-10-26] MEDS: *HR* Morphine 2 MG/ML SYRINGE IVP PRN (12:30)
[2016-10-26] MEDS: predniSONE 20 MG TABLET PO SCH (12:30)
[2016-10-26] MEDS: *HR* OxyCODONE/APAP 5/325 TABLET PO PRN ×2 (12:31→16:56)
--- NOTE | 2016-10-26 15:49 | Event Note ---
Date of Encounter: 10/26/16 Time of Encounter: 15:48 Signout was provided to the admitting hospitalist, Dr. Clark, who accepted the patient for transfer.
--- NOTE | 2016-10-26 18:40 | Oncology Inp Consult Note ---
Date of Encounter: 10/26/16 Time of Encounter: 18:32 - Data of Consult Patient: new to practice Consult date: 10/26/16 Requesting Physician: Melecio Goldsmith MD Primary Care Provider: Ernestina Armenta - Consult Narrative Reason for consult: Lung cancer History of present illness: Mr. Hill is a 56 gentleman seen in consultation regarding newly diagnosed right-sided lung cancer. Patient is somewhat of a poor historian and unable to give specific details of his clinical record. In any event, he presented 10/21/16 with progressive shortness of breath. Chest x-ray to evaluate his symptoms showed right-sided pleural effusion associated with atelectasis. Chest CT revealed: 4.2 cm right infrahilar mass with obstruction of the right lower lobe and middle lobe bronchi resulting in collapse of the middle and lower lobes. Bulky mediastinal and subcarinal lymphadenopathy. Small right supraclavicular lymph nodes noted. Past lobulated right-sided pleural effusion. Moderate pericardial effusion. He had a pericardial window placed 10/23/[address] Huynh with finding of 250 cc of purulent pericardial drainage. Pericardial biopsy showed reactive changes with no evidence of malignancy. Analysis of pleural fluid was similarly negative for malignancy. 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 Patient seen and examined the patient. Chart review for details of ongoing care by hospital team. The hospital team was kind enough to discuss patient's case with me at the time of requesting consultation regarding his clinical background. He was transferred out of the ICU earlier today following improvement in his overall clinical condition. He previously required intubation/mechanical ventilation for respiratory failure. He reports feeling somewhat better versus initial presentation. He still has percutaneous drain tubes from his pericardial window. He is not having any acute complaints. He denies any prior diagnosis of malignancy. He admits more than [id number] smoking history up until recent hospitalization. He is also regularly concerned about 10 beers a day for the last several years. Based on his disease extent, we obtain staging scans including CT abdomen and pelvis with contrast today which showed cortical destructive lytic lesion in the right anterior superior iliac spine suspicious for metastasis. Bone scan and brain MRI have been ordered and pending. Repeat chest CT 10/26/16 showed improvement in pleural and pericardial effusion. Progressive right upper lobe volume loss in associated airway obstruction. Poorly defined hypodense mass in the consolidated right lower lobe. Abscess versus neoplasm in the differential. Narrowing of left pleural effusion. Mild patchy dependent left lung airspace disease. Rest of past medical, surgical, family, social history detailed below and verified with patient today. Review of systems: 12 point review of systems performed with patient and positive findings noted in history of present illness. All other systems are negative: Physical exam: Vital Signs Temp 97.5 F L 10/26/16 16:21 Pulse 98 10/26/16 16:21 Resp 16 10/26/16 16:21 BP 135/97 10/26/16 16:21 Pulse Ox 95 10/26/16 16:21 GENERAL: * Alert and oriented, acutely ill appearing. * Mental Status: Affect appropriate for circumstances HEENT: * Sclerae anicteric. No mucositis or thrush. * No other oral or pharyngeal lesions or erythema. Skin: * No rashes or petechiae. * No evidence of skin malignancy Lymph nodes: * No cervical, supraclavicular, axillary, or inguinal adenopathy. Lungs: * Clear to auscultation bilaterally. * Clear to percussion bilaterally. Cardiovascular: * Regular rate and rhythm. * No gallops, murmurs, or rubs. Abdomen: * Soft, clean, dry dressing over epigastric/anterior abdominal wall inside a pericardial window. * No organomegaly or masses palpable. Extremities: * No edema. No calf swelling or tenderness. * No joint deformity. Neurologic: * Alert, * normal gait; * Globally weak appearing, no focal weakness or sensory abnormalities. Results: Laboratory Last Values WBC 24.3 K/mcL (4.3-11.1) H 10/26/16 03:42 RBC 4.44 M/mcL (4.19-5.50) 10/26/16 03:42 Hgb 12.9 g/dL (12.9-16.9) 10/26/16 03:42 Hct 38.5 % (37.5-50.1) 10/26/16 03:42 MCV 86.7 fL (83.0-100.0) 10/26/16 03:42 MCH 29.1 pg (28.0-33.3) 10/26/16 03:42 MCHC 33.5 g/dL (31.6-35.5) 10/26/16 03:42 RDW 14.2 % (11.5-14.5) 10/26/16 03:42 Plt Count 277 K/mcL (140-400) 10/26/16 03:42 MPV 9.8 fL (9.4-12.4) 10/26/16 03:42 Immature Gran % 7.1 % (0-4) H 10/26/16 03:42 Seg Neutrophils % 86.7 % 10/26/16 03:42 Band Neutrophils % 2.0 % (0-4) 10/25/16 03:16 Lymphocytes % 2.5 % 10/26/16 03:42 Monocytes % 3.6 % 10/26/16 03:42 Eosinophils % 0.0 % 10/26/16 03:42 Basophils % 0.1 % 10/26/16 03:42 Myelocytes % 2.0 % (0) H 10/25/16 03:16 Neutrophils # 21.1 K/mcL (1.6-8.9) H 10/26/16 03:42 Lymphocytes # 0.6 K/mcL (0.6-4.6) 10/26/16 03:42 Monocytes # 0.9 K/mcL (0.0-1.3) 10/26/16 03:42 Eosinophils # 0.0 K/mcL (0.0-0.6) 10/26/16 03:42 Basophils # 0.0 K/mcL (0.0-0.2) 10/26/16 03:42 Nucleated RBCs/100 WBC 0.1 /100 WBC (0) H 10/26/16 03:42 Toxic Granulation Present (Not Present) A 10/26/16 03:42 Toxic Vacuolation Present (Not Present) A 10/22/16 11:10 Platelet Estimate Normal (Normal) 10/26/16 03:42 Large Platelets Present (Not Present) A 10/26/16 03:42 Immature Plt Fraction 5.5 % (1.1-6.1) 10/22/16 11:10 Polychromasia 1+ (Not Present) A 10/26/16 03:42 Anisocytosis 1+ (Not Present) A 10/21/16 21:20 Macrocytosis Present (Not Present) A 10/26/16 03:42 Tear Drop Cells 1+ (Not Present) A 10/25/16 03:16 Helmet Cells Present (Not Present) A 10/23/16 05:27 Rosetta Cells 1+ (Not Present) A 10/23/16 05:27 PT 15.8 Seconds (9.4-12.1) H 10/24/16 04:20 INR 1.5 10/24/16 04:20 APTT 29.4 Seconds (26.0-36.0) 10/22/16 11:10 D-Dimer 7345 ng/mLFEU (0-500) H 10/21/16 21:20 ABG pH 7.35 pH Units (7.32-7.45) 10/24/16 06:10 ABG pCO2 38 mmHg (35-45) 10/24/16 06:10 ABG pO2 95 mmHg (85-104) 10/24/16 06:10 ABG HCO3 21.0 mEQ/L (21-27) 10/24/16 06:10 ABG Total CO2 22.2 mEq/L (20-26) 10/24/16 06:10 ABG O2 Saturation 97 % (95-98) 10/24/16 06:10 ABG Base Excess -4.2 mEq/L (-2.0 to 3.0) L 10/24/16 06:10 Respiration Rate 16 10/23/16 14:20 Blood Gas Modality VC+ 10/24/16 06:10 Inspired O2 30 % 10/24/16 06:10 Tidal Volume 450 cc 10/23/16 14:20 PEEP 5 cm H2O 10/23/16 14:20 Sodium 134 mEq/L (136-145) L 10/26/16 03:42 Potassium 3.9 mEq/L (3.5-4.5) 10/26/16 03:42 Chloride 101 mEq/L (98-109) 10/26/16 03:42 Carbon Dioxide 28 mEq/L (19-29) 10/26/16 03:42 BUN 30 mg/dL (8-26) H 10/26/16 03:42 Creatinine 0.87 mg/dL (0.72-1.25) 10/26/16 03:42 Est GFR ( Amer) > 60 (> 60) 10/26/16 03:42 Est GFR (Non-Af Amer) > 60 (> 60) 10/26/16 03:42 BUN/Creatinine Ratio 34 (6-26) H 10/26/16 03:42 Glucose 169 mg/dL (70-99) H 10/26/16 03:42 POC Glucose 182 (58-89) H 10/26/16 11:44 Calculated Osmolality 288 (280-300) 10/26/16 03:42 Lactic Acid 1.8 mmol/L (0.5-2.2) 10/24/16 04:20 Calcium 9.5 mg/dL (8.6-10.8) 10/26/16 03:42 Ionized Calcium 1.27 mmol/L (1.15-1.35) 10/24/16 04:20 Phosphorus 4.0 mg/dL (2.3-4.7) 10/26/16 03:42 Magnesium 1.9 mg/dL (1.6-2.6) 10/26/16 03:42 Total Bilirubin 0.4 mg/dL (0.2-1.2) 10/25/16 03:16 Direct Bilirubin 0.3 mg/dL (0.0-0.5) 10/22/16 11:10 Indirect Bilirubin 0.1 mg/dL (0.0-1.2) 10/22/16 11:10 AST 38 Units/L (5-34) H 10/25/16 03:16 ALT 27 Units/L (0-55) 10/25/16 03:16 Alkaline Phosphatase 122 Units/L (38-126) 10/25/16 03:16 Troponin I 0.00 ng/mL (0-0.03) 10/23/16 05:27 B-Natriuretic Peptide 263 pg/mL (0-100) H 10/21/16 21:20 Serum Total Protein 5.4 g/dL (6.0-8.3) L 10/25/16 03:16 Albumin 1.8 g/dL (3.5-5.0) L 10/25/16 03:16 Globulin 3.6 g/dL (2.4-3.5) H 10/25/16 03:16 Albumin/Globulin Ratio 0.5 (1.1-2.2) L 10/25/16 03:16 Amylase 34 Units/L (25-125) 10/22/16 05:08 Lipase 38 Units/L (8-78) 10/22/16 05:08 TSH 1.475 mcIU/mL (0.350-4.840) 10/21/16 22:55 Random Cortisol 7.1 mcg/dl 10/23/16 11:19 Urine Color Yellow (Yellow) 10/22/16 02:30 Urine Clarity Cloudy (Clear) A 10/22/16 02:30 Urine pH 6.0 pH Units (5.0-8.0) 10/22/16 02:30 Ur Specific [place] 1.009 (1.010-1.025) L 10/22/16 02:30 Urine Protein Negative mg/dL (Neg-Trace) 10/22/16 02:30 Urine Glucose (UA) Normal mg/dL (Normal) 10/22/16 02:30 Urine Ketones Negative mg/dL (Negative) 10/22/16 02:30 Urine Blood Negative (Negative) 10/22/16 02:30 Urine Nitrite Negative (Negative) 10/22/16 02:30 Urine Bilirubin Negative (Negative) 10/22/16 02:30 Urine Urobilinogen Normal mg/dL (Normal) 10/22/16 02:30 Ur Leukocyte Esterase Negative (Negative) 10/22/16 02:30 Urine Microscopic RBC 5-15 per hpf (0-3) H 10/22/16 02:30 Urine Microscopic WBC 50-100 per hpf (0-3) H 10/22/16 02:30 Ur Squamous Epith Cells Many per lpf (None-Few) H 10/22/16 02:30 Urine Bacteria None Seen per hpf (None-Few) 10/22/16 02:30 Hyaline Casts Moderate per lpf (None-Few) H 10/22/16 02:30 Urine Osmolality 234 mOsm/kg (300-1090) L 10/22/16 11:30 Urine Creatinine 29 mg/dL 10/22/16 11:30 Protein/Creatinin Ratio < 0.24 mg/mg (0-0.20) H 10/22/16 11:30 Urine Sodium < 20.0 mEq/L 10/22/16 11:30 Urine Total Protein < 7 mg/dL (1-14) 10/22/16 11:30 Urine Opiates Screen Positive ng/mL (Srnzcx=536) H 10/22/16 06:34 Ur Barbiturates Screen Negative ng/mL (Qsvhga=879) 10/22/16 06:34 Ur Phencyclidine Scrn Negative ng/mL (Cutoff=25) 10/22/16 06:34 Ur Amphetamines Screen Negative ng/mL (Embmuy=6354) 10/22/16 06:34 U Benzodiazepines Scrn Negative ng/mL (Shsvqv=015) 10/22/16 06:34 Urine Cocaine Screen Negative ng/mL (Cutoff= 300) 10/22/16 06:34 U Marijuana (THC) Screen Negative ng/mL (Cutoff = 50) 10/22/16 06:34 Ethyl Alcohol < 10 mg/dL (0-10) 10/21/16 22:55 A. baumannii (TEM-PCR) Not Detected (Not Detect) 10/21/16 21:25 Chlamy pneumoniae PCR Not Detected (Not Detect) 10/22/16 06:08 Adenovirus (PCR) Not Detected (Not Detect) 10/22/16 06:08 B. pertussis DNA (PCR) Not Detected (Not Detect) 10/22/16 06:08 Ronda albicans (PCR) Not Detected (Not Detect) 10/21/16 21:25 C. glabrata (PCR) Not Detected (Not Detect) 10/21/16 21:25 C. krusei (PCR) Not Detected (Not Detect) 10/21/16 21:25 C. parapsilosis (PCR) Not Detected (Not Detect) 10/21/16 21:25 C. tropicalis (PCR) Not Detected (Not Detect) 10/21/16 21:25 Coronavirus OC43 (PCR) Not Detected (Not Detect) 10/22/16 06:08 Coronavirus HKU1 (PCR) Not Detected (Not Detect) 10/22/16 06:08 Coronavirus 229E (PCR) Not Detected (Not Detect) 10/22/16 06:08 Coronavirus NL63 (PCR) Not Detected (Not Detect) 10/22/16 06:08 Enterobacteriac sp PCR Not Detected (Not Detect) 10/21/16 21:25 E. cloacae complex PCR Not Detected (Not Detect) 10/21/16 21:25 Enterococcus sp PCR Not Detected (Not Detect) 10/21/16 21:25 E. coli (PCR) Not Detected (Not Detect) 10/21/16 21:25 H. influenzae DNA Not Detected (Not Detect) 10/21/16 21:25 Human Metapneumovirus Not Detected (Not Detect) 10/22/16 06:08 Influenza A (H1) PCR Not Detected (Not Detect) 10/22/16 06:08 Influ A (H1N1/09) PCR Not Detected (Not Detect) 10/22/16 06:08 Influenza A (H3) PCR Not Detected (Not Detect) 10/22/16 06:08 Influenza A Untype (PCR) Not Detected (Not Detect) 10/22/16 06:08 Influenza Type B (PCR) Not Detected (Not Detect) 10/22/16 06:08 Klebsiella oxytoca PCR Not Detected (Not Detect) 10/21/16 21:25 Klebsiella pneumoniae Not Detected (Not Detect) 10/21/16 21:25 Listeria (PCR) Not Detected (Not Detect) 10/21/16 21:25 M.pneumoniae DNA (PCR) Not Detected (Not Detect) 10/22/16 06:08 N. meningitidis (PCR) Not Detected (Not Detect) 10/21/16 21:25 Parainfluenza 1 (PCR) Not Detected (Not Detect) 10/22/16 06:08 Parainfluenza 2 (PCR) Not Detected (Not Detect) 10/22/16 06:08 Parainfluenza 3 (PCR) Not Detected (Not Detect) 10/22/16 06:08 Parainfluenza 4 (PCR) Not Detected (Not Detect) 10/22/16 06:08 Proteus species (PCR) Not Detected (Not Detect) 10/21/16 21:25 RSV (PCR) Not Detected (Not Detect) 10/22/16 06:08 Entero/Rhino (PCR) Not Detected (Not Detect) 10/22/16 06:08 Serratia marcescens PCR Not Detected (Not Detect) 10/21/16 21:25 Staphylococcus sp PCR Not Detected (Not Detect) 10/21/16 21:25 Staph aureus (PCR) Not Detected (Not Detect) 10/21/16 21:25 MRS (TEM-PCR) N/A (Not Detect) 10/21/16 21:25 Streptococcus sp PCR DETECTED (Not Detect) 10/21/16 21:25 Group A Strep DNA Not Detected (Not Detect) 10/21/16 21:25 Group B Strep (PCR) Not Detected (Not Detect) 10/21/16 21:25 Strep pneumoniae (PCR) DETECTED (Not Detect) A 10/21/16 21:25 P. aeruginosa (TEM-PCR) Not Detected (Not Detect) 10/21/16 21:25 VRE (PCR) N/A (Not Detect) 10/21/16 21:25 KPC (blaKPC) Detect PCR N/A (Not Detect) 10/21/16 21:25 Blood Type A NEGATIVE 10/21/16 22:48 Antibody Screen NEGATIVE 10/21/16 22:48 Crossmatch See Detail 10/21/16 22:48 Radiographic studies: I personally reviewed and interpreted patient's most recent imaging studies dated 10/21-. I discussed the findings with the patient today. Retroperitoneum Ultrasound 10/23/16 09:30 IMPRESSION: Kidneys are normal in echogenicity. No hydronephrosis. Prostate is mildly enlarged. Small residual postvoid volume. Bladder wall appears thickened and somewhat nodular along the right. Findings may be postobstructive in etiology and represent diverticula however underlying lesion cannot be excluded. This can be better evaluated with cystoscopy or CT urogram with contrast. D/ / Vivian Weber MD / iVvian Weber MD Interpreting Provider: Vivian Weber MD Chest X-Ray 10/24/16 06:00 IMPRESSION: 1. Stable support lines and tubes. 2. Moderate right pleural effusion and right lower lung airspace disease have mildly improved since the prior examination. D/ : / 10/24/2016 07:28:12 Chivo Carmona MD / earnold Interpreting Provider: Chivo Carmona MD Chest CT 10/26/16 11:00 IMPRESSION: Pericardial and right pleural collection substantially decreased in size. Progressive right lower lobe volume loss and airway obstruction. Poorly defined hypodense mass in the consolidated right lower lobe, abscess or neoplasm. There is now a small layering left pleural effusion. Mild patchy dependent left lung airspace disease. D/ / Gaensh Steel MD / Ganesh Steel MD Interpreting Provider: Ganesh Steel MD Abdomen/Pelvis CT 10/26/16 13:54 IMPRESSION: No definite evidence of intra-abdominal/intrapelvic metastatic disease. No evidence of lymphadenopathy. Cortically destructive lytic lesion of the right anterior superior iliac spine likely representing a metastatic lesion from lung cancer. Nonspecific fluid in the dependent pelvis with mild inflammatory changes of the right retroperitoneum and right paracolic gutter of uncertain etiology. This may be sympathetic to the right lung base findings. Grade 2 anterolisthesis of L5 on S1 with prior posterior fusion of L4 through S1. Please see separate chest CT report for discussion of right lung base findings including an empyema and possible pulmonary abscess versus necrotic right lower lobe mass. Mediastinal drain with pneumomediastinum. Pericardial effusion. D/ / 10/26/2016 16:41:32 Andrés Pino MD / ander Interpreting Provider: Andrés Pino MD Impression/recommendations: Right-sided lung cancer: I had a detailed discussion with patient regarding that your history and we discussed NCCN guidelines for management of his newly diagnosed left lung cancer. There is concern about a right iliac wing cortical destructive lesion which likely malignant until proven otherwise. Bone scan and brain MRI is pending for complete staging We discussed the importance of definitive staging for treatment recommendation in prognostication. I offered to set up CT-guided biopsy by IR for his bone lesion but he wants to hold for now while he recovers from his more pressing acute problems. I think is reasonable. We discussed options for management of his lung cancer including: If he is determined to have metastatic disease, treatment intent becomes palliative. In spite of that, he would be an appropriate candidate for palliative systemic therapy with the possibility of good disease control and survival prolongation. If he is determined to have clinically localized on local regionally confined disease, he may be an appropriate candidate for potentially curative, multimodality therapy including definitive concurrent chemoradiation. I'm not certain if you be an appropriate surgical candidate due to his medical comorbidities and underlying COPD but a PFT may be helpful in determining. This will need to be done once patient recovers from his current acute problems and can be arranged as an outpatient. Lung abscess: Likely superimposed on his lung malignancy. He is making steady, incremental improvement. Most recent chest CT shows improvement with ongoing management. Once he is medically optimal, we will consider starting antineoplastic therapy patient desires. If he is making steady clinical progress, I do not believe we need with a complete resolution of his abscess prior to starting treatment. Respiratory failure: Multifactorial etiology with contribution from lung cancer, underlying COPD, lung abscess, right-sided pleural effusion. Pleural effusion cytologically negative for malignancy Fortunately, he is making steady, incremental improvement and he is doing well post extubation. We'll follow along with hospital team. Pericardial effusion: Cytology negative for malignancy on pericardial fluid and biopsy. He has a pericardial window in place. He is being followed by CT surgery. Appreciate their input and will follow along. We'll follow the patient along side you during this hospitalization but please do not hesitate to call regarding interval hematologic questions as they arise. Upon discharge, we'll arrange for outpatient follow-up with oncology for ongoing discussion regarding management of his lung cancer. Thank you for your excellent ongoing care for allowing us to see him while in- house. This report was created using voice recognition software and may contain errors. It was signed but not edited to expedite communication. Past Med Surg Social Fam HX - Past Medical History Medical history: asthma, COPD Psychiatric history: anxiety, depression - Past Surgical History Surgical History: orthopedic, other (Lumbar spinal surgeries in 2001 and 2002) - Social History Smoking Status: Current every day smoker Alcohol use: heavy (10-12 beers daily for 4-5 years), recent (2 weeks ago the patient was drinking 10 beers per day for the past 4 to 5 years) Drug use: none - Family History Mother History Unknown: Yes Age: 66 Family Member Ethnicity: Non- Living Status: Cause of : Heart Disease Hx Family Cardiac Disorders: Yes (Vascular and heart disease) Father Living Status: Still Living Hx Family Respiratory Disorders: Yes (COPD) Medications and Allergies No Known Home Drugs 10/23/16 [History] Allergies cefuroxime [From Ceftin] Adverse Reaction (Verified 10/21/16 21:08) Nausea Oncology - Exam - Constitutional Vitals: Temp Pulse Resp BP Pulse Ox 97.5 F L 98 16 135/97 95 10/26/16 16:21 10/26/16 16:21 10/26/16 16:21 10/26/16 16:21 10/26/16 16:21 Oncology - Results - Labs Labs: Short CBC 10/26/16 Range/Units 03:42 WBC 24.3 H (4.3-11.1) K/mcL Hgb 12.9 (12.9-16.9) g/dL Hct 38.5 (37.5-50.1) % Plt Count 277 (140-400) K/mcL Neutrophils # 21.1 H (1.6-8.9) K/mcL BMP 10/26/16 03:42 Sodium 134 L Potassium 3.9 Chloride 101 Carbon Dioxide 28 BUN 30 H Creatinine 0.87 Glucose 169 H Calcium 9.5 Consult Discharge Plan - Plan Referrals: Ernestina Armenta, RADIOLOGY RN [Primary Care Provider] -
[2016-10-26] MEDS: Sennosides 8.6 MG TABLET PO SCH (21:57)
[2016-10-27] MEDS: Albuterol 2.5 MG/3 ML NEBULIZER IH SCH ×7 (00:49→23:38)
[2016-10-27 03:25] LABS: Basophils % 0.7 %; Mean Corpuscular HGB Conc 32.7 g/dL (31.6-35.5)
[2016-10-27 03:27] LABS: Basophils # 0.2 K/mcL (0.0-0.2); Hematocrit 39.5 % (37.5-50.1); Hemoglobin 12.9 g/dL (12.9-16.9); Lymphocytes # 0.6 K/mcL (0.6-4.6); Lymphocytes % 2.4 %; Mean Corpuscular Hemoglobin 29.2 pg (28.0-33.3); Mean Corpuscular Volume 89.4 fL (83.0-100.0); Mean Platelet Volume 9.9 fL (9.4-12.4); Monocytes % 3.8 %; Neutrophils # 22.7 K/mcL (1.6-8.9); Platelet Count 222 K/mcL (140-400); Red Blood Count 4.42 M/mcL (4.19-5.50); Red Cell Distribution Width 14.5 % (11.5-14.5); Segmented Neutrophils % 88.1 %
[2016-10-27 03:30] LABS: BUN/Creatinine Ratio 33 (6-26); Blood Urea Nitrogen 28 mg/dL (8-26); Calcium 9.4 mg/dL (8.6-10.8); Carbon Dioxide 27 mEq/L (19-29); Chloride 101 mEq/L (98-109); Glucose 147 mg/dL (70-99); Osmolality,Calculated 282 (280-300); Potassium 4.7 mEq/L (3.5-4.5); Sodium 132 mEq/L (136-145); eGFR For African Americans > 60 (> 60); eGFR For Non-African Americans > 60 (> 60)
[2016-10-27 04:12] LABS: Platelet Estimate Normal (Normal)
--- NOTE | 2016-10-27 07:09 | Cardiothoracic Progress Note ---
Date of Encounter: 10/27/16 Time of Encounter: 07:07 - Assessment and plan (1) Pericardial effusion with cardiac tamponade Current Visit: Yes Status: Acute The patient is recovering well from his subxiphoid pericardial window and right chest tube insertion performed for a pericardial effusion with early tamponade physiology and large right pleural effusion respectively. The patient underwent a fiberoptic bronchoscopy with biopsy of the right sided endobronchial lesion. 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 The chest tubes will remain in place for several days it will allow for complete drainage of the pericardial effusion and right pleural effusion. The assessment and plan as outlined above was discussed with the patient and/or family members who expressed understanding and agreement. All questions were answered. - Subjective Procedure(s) Performed: POD#4 S/P Subxiphoid pericardial window, right chest tube insertion Interval history: The patient is resting comfortably in his hospital bed. He has mild respiratory distress; however, his oxygen saturation is 93%. Vital Signs, Last 4 Hours Resp Pulse Ox 10/27/16 03:58 18 92 L Oxgyen Flow Rate Oxygen Flow Rate (LPM) 2 Clinical Data, last 8 Hours Output, Chest Tube Drainage 20 Amount [Right Lateral Chest] Output, Chest Tube Drainage 0 Amount [Right Lateral Chest] Output, Chest Tube Drainage 20 Amount [Mediastinal #1] Output, Urine Amount 200 Output, Urine Amount 300 Weight 10/25/16 10/26/16 10/27/16 23:59 23:59 23:59 Weight 63 kg 63.5 kg - Physical Examination General: Conversant, No Apparent Distress Neck: No JVD, Normal carotid pulses Cardiac: Reg Rate and Rhythm, Normal S1 and S2, No Murmur Incision: No signs of infection, Dry/intact dressing Chest tubes: Minimal drainage, Other (No air leak in right chest tube.) Lungs: Normal Breath Sounds (Left lung dasilva.), Decreased breath sounds (Right lung dasilva.) Neuro: Alert and responsive, No focal deficits noted Vascular: Normal capillary refill Musculoskeletal: No Chest Wall Tenderness Extremities: No Clubbing, No Cyanosis, No Edema - Labs 10/27/16 03:02 10/27/16 03:02 Lab Results, Last 24 hours 10/27/16 10/27/16 03:02 03:02 WBC 25.8 H Hgb 12.9 Hct 39.5 Plt Count 222 Sodium 132 L Potassium 4.7 H Chloride 101 Carbon Dioxide 27 BUN 28 H Creatinine 0.86 Glucose 147 H Calcium 9.4 - Imaging Chest Xray: image reviewed (No pneumothorax. No change in right pleural effusion /atelectasis.) - VTE Documentation of Mechanical Device: Intermittent pneumatic compression device Consult Discharge Plan - Plan Referrals: Ernestina Armenta CNP [Primary Care Provider] -
--- NOTE | 2016-10-27 07:36 | Pulmonology Progress Note ---
Date of Encounter: 10/27/16 Time of Encounter: 07:36 Assessment and Plan (1) Acute on chronic respiratory failure with hypoxia and hypercapnia Current Visit: Yes Status: Acute wean Fio2 to keep O2 sats >89 to 92% currently requiring 2-3L NC02 (2) Alcohol abuse Current Visit: Yes Status: Acute heavy drinker monitor on CIWA for withdrawal (3) COPD (chronic obstructive pulmonary disease) Current Visit: Yes Status: Acute cont bronchodilators. cont steroids smoking cessation Qualifiers: COPD type: emphysema Emphysema type: unspecified Qualified Code(s): J43.9 - Emphysema, unspecified (4) DVT prophylaxis Current Visit: Yes Status: Acute cont DVT prophylaxis with heparin (5) Mass of right lung Current Visit: Yes Status: Acute + for Squamous Cell CA ONcology consulted (6) Pericardial effusion with cardiac tamponade Current Visit: Yes Status: Acute infected pericardial effsuion s/p chest tube drainage CTS managing drains (7) Postobstructive pneumonia Current Visit: Yes Status: Acute possible cause of Empyema and infected perdicardial sac. May be candidate for tumor dubulking if infection fails to clear. Repeat CT shows general overall improvement in empyema CTS managing chest tube removal Cont ABx (rocephin) (8) Severe sepsis Current Visit: Yes Status: Acute improving on antibiotics white count slightly elevated from yesterday [place] sensitive Strep PNa Cont Ceftriaxone (9) Tobacco abuse Current Visit: Yes Status: Chronic counselled on smoking cessation Subjective Principal diagnosis: Pericardial effusion Interval history: Transferred out of ICU yesterday to SDU for ongoing care sitting up in chair feels overall like he is improving denies significant cough appetite is improving pain is controlled. Objective PUL Vital signs: Last Vital Signs Temp 97.8 F 10/27/16 07:10 Pulse 86 10/27/16 07:10 Resp 16 10/27/16 07:10 BP 147/101 10/27/16 07:10 Pulse Ox 93 L 10/27/16 07:10 General appearance: no acute distress Auscultation: bilateral: diminished breath sounds Cardiovascular: regular rate and rhythm Gastrointestinal: normoactive bowel sounds normal mental status, non-focal exam Results - Laboratory Findings CBC and BMP: 10/27/16 03:02 10/27/16 03:02 ABG ABG pH 7.35 pH Units (7.32-7.45) 10/24/16 06:10 ABG pCO2 38 mmHg (35-45) 10/24/16 06:10 ABG pO2 95 mmHg (85-104) 10/24/16 06:10 ABG O2 Saturation 97 % (95-98) 10/24/16 06:10 PT/INR, D-dimer PT 15.8 Seconds (9.4-12.1) H 10/24/16 04:20 D-Dimer 7345 ng/mLFEU (0-500) H 10/21/16 21:20 Abnormal lab findings: Abnormal lab results WBC 25.8 K/mcL (4.3-11.1) H 10/27/16 03:02 Immature Gran % 5.0 % (0-4) H 10/27/16 03:02 Myelocytes % 2.0 % (0) H 10/25/16 03:16 Neutrophils # 22.7 K/mcL (1.6-8.9) H 10/27/16 03:02 Nucleated RBCs/100 WBC 0.1 /100 WBC (0) H 10/26/16 03:42 Toxic Granulation Present (Not Present) A 10/26/16 03:42 Toxic Vacuolation Present (Not Present) A 10/22/16 11:10 Large Platelets Present (Not Present) A 10/26/16 03:42 Polychromasia 1+ (Not Present) A 10/26/16 03:42 Anisocytosis 1+ (Not Present) A 10/21/16 21:20 Macrocytosis Present (Not Present) A 10/26/16 03:42 Tear Drop Cells 1+ (Not Present) A 10/25/16 03:16 Helmet Cells Present (Not Present) A 10/23/16 05:27 [place] Cells 1+ (Not Present) A 10/23/16 05:27 PT 15.8 Seconds (9.4-12.1) H 10/24/16 04:20 D-Dimer 7345 ng/mLFEU (0-500) H 10/21/16 21:20 ABG Base Excess -4.2 mEq/L (-2.0 to 3.0) L 10/24/16 06:10 Sodium 132 mEq/L (136-145) L 10/27/16 03:02 Potassium 4.7 mEq/L (3.5-4.5) H 10/27/16 03:02 BUN 28 mg/dL (8-26) H 10/27/16 03:02 BUN/Creatinine Ratio 33 (6-26) H 10/27/16 03:02 Glucose 147 mg/dL (70-99) H 10/27/16 03:02 POC Glucose 104 (58-89) H 10/26/16 19:40 AST 38 Units/L (5-34) H 10/25/16 03:16 B-Natriuretic Peptide 263 pg/mL (0-100) H 10/21/16 21:20 Serum Total Protein 5.4 g/dL (6.0-8.3) L 10/25/16 03:16 Albumin 1.8 g/dL (3.5-5.0) L 10/25/16 03:16 Globulin 3.6 g/dL (2.4-3.5) H 10/25/16 03:16 Albumin/Globulin Ratio 0.5 (1.1-2.2) L 10/25/16 03:16 Urine Clarity Cloudy (Clear) A 10/22/16 02:30 Ur Specific [place] 1.009 (1.010-1.025) L 10/22/16 02:30 Urine Microscopic RBC 5-15 per hpf (0-3) H 10/22/16 02:30 Urine Microscopic WBC 50-100 per hpf (0-3) H 10/22/16 02:30 Ur Squamous Epith Cells Many per lpf (None-Few) H 10/22/16 02:30 Hyaline Casts Moderate per lpf (None-Few) H 10/22/16 02:30 Urine Osmolality 234 mOsm/kg (300-1090) L 10/22/16 11:30 Protein/Creatinin Ratio < 0.24 mg/mg (0-0.20) H 10/22/16 11:30 Urine Opiates Screen Positive ng/mL (Xxtewb=002) H 10/22/16 06:34 Strep pneumoniae (PCR) DETECTED (Not Detect) A 10/21/16 21:25 - Microbiology Findings Microbiology Findings: Microbiology, Last 48 Hours 10/22/16 06:08 Respiratory Virus Culture - Preliminary Nasopharyngeal 10/23/16 13:20 Body Fluid Culture - Final Pleural Fluid Streptococcus pneumoniae 10/23/16 13:20 Anaerobic Culture - Preliminary Pericardial Fluid At this time, no anaerobic growth is present. The culture will be finalized after 5 days of incubation. 10/23/16 13:20 Anaerobic Culture - Preliminary Pleural Fluid At this time, no anaerobic growth is present. The culture will be finalized after 5 days of incubation. 10/23/16 13:20 Body Fluid Culture - Final Pericardial Fluid No growth. - Diagnostic Findings Chest x-ray: report reviewed, image reviewed - Clinical Findings Intake & Output: Intake & Output 10/26/16 10/26/16 10/27/16 15:59 23:59 07:59 Intake Total 340 / 340 240 / 240 120 / 120 Output Total 200 / 200 120 / 120 520 / 520 Balance 140 / 140 120 / 120 -400 / -400 Weight 63.5 kg - VTE Documentation of Mechanical Device: Intermittent pneumatic compression device Consult Discharge Plan - Plan Referrals: Ernestina Armenta, RICHIE [Primary Care Provider] - Dante Gonzalez MD [Partnered Physician] - 11/10/16 10:10 am
[2016-10-27] MEDS: Budesonide/Formoterol 160/4.5 MDI IH SCH ×2 (07:44→20:49)
[2016-10-27] MEDS: *HR* OxyCODONE/APAP 5/325 TABLET PO PRN ×3 (08:45→23:54)
[2016-10-27] MEDS: predniSONE 20 MG TABLET PO SCH (08:45)
[2016-10-27] MEDS: Vitamin B Complex/Vit C/Vit E 1 EACH TABLET PO SCH (08:45)
[2016-10-27] MEDS: Folic Acid 1 MG TABLET PO SCH (08:45)
[2016-10-27] MEDS: *HR* Amiodarone 200 MG TABLET PO SCH ×2 (08:45→21:16)
[2016-10-27] MEDS: Nystatin SUSP 5 ML UD.LIQ PO SCH ×4 (08:46→21:17)
[2016-10-27] MEDS: *HR* Heparin 5,000 UNIT/ML VIAL SQ SCH ×3 (08:46→23:54)
[2016-10-27] MEDS: Nicotine 21 MG PATCH.TD24 TD SCH (08:47)
[2016-10-27] MEDS: Insulin LISPRO 300 UNITS/3 ML VIAL SQ SCH ×4 (09:03→21:17)
[2016-10-27] MEDS: *HR* LORazepam 2 MG/ML VIAL IVP PRN ×2 (12:26→21:39)
[2016-10-27] MEDS: amLODIPine 5 MG TABLET PO SCH (12:32)
--- NOTE | 2016-10-27 16:05 | Internal Med Progress Note ---
Date of Encounter: 10/27/16 Time of Encounter: 11:10 - Assessment and plan (1) Squamous cell lung cancer Current Visit: Yes Status: Acute Assessment and plan: Recently diagnosed with bone mets to calvarium, sacrum Oncology has been consulted, will follow recommendations Qualifiers: Laterality: right Qualified Code(s): C34.91 - Malignant neoplasm of unspecified part of right bronchus or lung (2) Acute on chronic respiratory failure with hypoxia and hypercapnia Current Visit: Yes Status: Acute Assessment and plan: Improving, continue nasal O2 (3) Alcohol abuse Current Visit: Yes Status: Chronic (4) COPD exacerbation Current Visit: Yes Status: Acute Assessment and plan: Continue steroids, nebs already on ceftraixone for post-obstructive pnemonia, already received Vanco, Zosyn, Levoflox at time of admission Continue ceftriaxone (5) Pneumonia, organism unspecified Current Visit: Yes Status: Acute Assessment and plan: As above Empyema with Chest tube, CTS following (6) Pericardial effusion with cardiac tamponade Current Visit: Yes Status: Acute Assessment and plan: Being followed by CTS (7) Severe sepsis Current Visit: Yes Status: Acute Assessment and plan: Secondary to pneumonia, pleural fluid and blood culture with jean-sensitive strep pneumoniae Afebrile Leukocytosis possibly increased from yesterday from steroids Will continue to monitor (8) Hypertension Current Visit: Yes Status: Acute Assessment and plan: Trend in BP elevation noted May be secondary to steroids as patient denies prior hx of same Started on amlodipine 5mg Continue to monitor and titrate prn Qualifiers: Hypertension type: essential hypertension Qualified Code(s): I10 - Essential (primary) hypertension (9) Tobacco abuse Current Visit: Yes Status: Chronic - Subjective Interval history: 56 Y/O M admittd 10/21 for acute on chronic respiratory failure ,severe sepsis secondary to post-obstructive pneumonia with empyema and infected pericardial effusion Patient is s/p pericardiotomy with chest tube drainage, s/p fibreoptic bronchoscopy with pathology results of lung mass as Squamous cell CA Bone scan with scalp, spine and sacral mets Chronic medical conditions include alcohol abuse, tobacco abuse, COPD He is seen at bedside with family Reports being very anxious of his diagnoses Denies any new symptoms Brain MRI showed multiple focal areas of acute/early subacute right cerebellar and supratentorial lesiona, right frontal calvarial metastasis with extraosseus extension to incvove the dura overlying the right frontal lobe, there is no mass effect. Bone scan with suspicion for sacral mets. - Constitutional Vitals: Temp Pulse Resp BP Pulse Ox 97.5 F L 89 18 135/95 95 10/27/16 15:25 10/27/16 15:25 10/27/16 15:25 10/27/16 15:25 10/27/16 15:25 General appearance: Present: disheveled, A&O X 3 - Head Additional comments: Right frontal bone swelling - Eye Eye exam: Present: PERRL, conjuntiva pink, sclera anicteric - ENT ENT exam: Present: mucous membranes moist - Neck Neck exam general surgery: Present: normal inspection - Respiratory Additional comments: Chest wall with wound dressing, extending to the upper abdominal wall region. Wound dressing is clean and dry. Chest tube draining serosanguinous fluid Right side auscultation with diffuse rhonchi. Left lung clear to auscultation - Cardiovascular Cardiovascular exam: Present: +S1, +S2. Absent: rubs - GI/Abdominal GI/Abdominal exam: Present: soft, no peritoneal signs. Absent: tenderness - Extremities Exam Extremities exam: Present: warm, radial pulses palpable and symetrical. Absent : calf tenderness, cyanotic, pedal edema - Neurological Exam Neurological exam: Present: CN II-XII intact, oriented X3, no focal deficits. Absent: pronater drift, facial droop, speech deficit - Skin Skin exam: Present: dry, intact Internal Medicine: Result - Labs CBC & Chem 7: 10/27/16 03:02 10/27/16 03:02 Labs: Short CBC 10/27/16 Range/Units 03:02 WBC 25.8 H (4.3-11.1) K/mcL Hgb 12.9 (12.9-16.9) g/dL Hct 39.5 (37.5-50.1) % Plt Count 222 (140-400) K/mcL Neutrophils # 22.7 H (1.6-8.9) K/mcL BMP 10/27/16 03:02 Sodium 132 L Potassium 4.7 H Chloride 101 Carbon Dioxide 27 BUN 28 H Creatinine 0.86 Glucose 147 H Calcium 9.4 - ABG Interpretation ABG results: ABG ABG pH 7.35 pH Units (7.32-7.45) 10/24/16 06:10 ABG pCO2 38 mmHg (35-45) 10/24/16 06:10 ABG pO2 95 mmHg (85-104) 10/24/16 06:10 ABG O2 Saturation 97 % (95-98) 10/24/16 06:10 PT/INR, D-dimer PT 15.8 Seconds (9.4-12.1) H 10/24/16 04:20 D-Dimer 7345 ng/mLFEU (0-500) H 10/21/16 21:20 - Impressions Impressions Brain MRI 10/26/16 13:15 IMPRESSION: 1. Multiple focal areas of acute/early subacute infarction in the right cerebellum and supratentorial parenchyma bilaterally. Given bilaterality, findings are suspicious for thromboembolic phenomenon from a central source. No associated hemorrhage. 2. Right frontal calvarial metastasis with extraosseous extension to involve the dura overlying the right frontal lobe. Additionally, there is extraosseous extension to the right frontal scalp. No associated mass effect on the brain parenchyma or midline shift. 3. No evidence of brain parenchymal metastatic disease. The findings were sent to the Radiology Results Communication Center at 12:06 pm on 10/27/2016to be communicated to a licensed caregiver. D/ / 10/27/2016 12:15:15 Onur Casillas MD / debbi Interpreting Provider: Onur Casillas MD Abdomen/Pelvis CT 10/26/16 13:54 IMPRESSION: No definite evidence of intra-abdominal/intrapelvic metastatic disease. No evidence of lymphadenopathy. Cortically destructive lytic lesion of the right anterior superior iliac spine likely representing a metastatic lesion from lung cancer. Nonspecific fluid in the dependent pelvis with mild inflammatory changes of the right retroperitoneum and right paracolic gutter of uncertain etiology. This may be sympathetic to the right lung base findings. Grade 2 anterolisthesis of L5 on S1 with prior posterior fusion of L4 through S1. Please see separate chest CT report for discussion of right lung base findings including an empyema and possible pulmonary abscess versus necrotic right lower lobe mass. Mediastinal drain with pneumomediastinum. Pericardial effusion. D/ / 10/26/2016 16:41:32 Andrés Pino MD / ander Interpreting Provider: Andrés Pino MD Bone Scan Nuclear Medicine 10/27/16 06:00 IMPRESSION: Multifocal right frontal skull activity is seen, which in the absence of prior surgery, is suspicious for metastatic disease. Activity at the midline upper sacrum, compatible with focal degenerative change or metastatic focus. Multifocal degenerative changes are otherwise seen at the shoulders, elbows, left wrist. D/ / Wyatt Littlejohn MD / Wyatt Littlejohn MD Interpreting Provider: Wyatt Littlejohn MD Chest X-Ray 10/27/16 06:00 IMPRESSION: 1. Extubated. D/ / Cosmo Steward MD / Cosmo Steward MD Interpreting Provider: Cosmo Steward MD - VTE Documentation of Mechanical Device: Intermittent pneumatic compression device Consult Discharge Plan - Plan Referrals: Ernestina Armenta CNP [Primary Care Provider] - Dante Gonzalez MD [Partnered Physician] - 11/10/16 10:10 am
[2016-10-27] MEDS: Sennosides 8.6 MG TABLET PO SCH (21:16)
[2016-10-28] MEDS: *HR* OxyCODONE/APAP 5/325 TABLET PO PRN ×3 (04:14→22:11)
[2016-10-28] MEDS: *HR* LORazepam 2 MG/ML VIAL IVP PRN ×3 (04:15→22:10)
[2016-10-28 04:39] LABS: Basophils # 0.1 K/mcL (0.0-0.2); Basophils % 0.5 %; Hematocrit 39.6 % (37.5-50.1); Immature Granulocytes % 4.2 % (0-4); Lymphocytes # 0.6 K/mcL (0.6-4.6); Lymphocytes % 2.4 %; Mean Corpuscular HGB Conc 32.8 g/dL (31.6-35.5); Mean Corpuscular Hemoglobin 29.1 pg (28.0-33.3); Mean Corpuscular Volume 88.6 fL (83.0-100.0); Monocytes # 0.9 K/mcL (0.0-1.3); Monocytes % 3.7 %; Neutrophils # 21.1 K/mcL (1.6-8.9); Platelet Count 192 K/mcL (140-400); Red Blood Count 4.47 M/mcL (4.19-5.50); Red Cell Distribution Width 14.6 % (11.5-14.5); Segmented Neutrophils % 89.2 %
[2016-10-28] MEDS: Albuterol 2.5 MG/3 ML NEBULIZER IH SCH ×6 (04:39→23:03)
[2016-10-28 04:51] LABS: BUN/Creatinine Ratio 30 (6-26); Blood Urea Nitrogen 25 mg/dL (8-26); Carbon Dioxide 27 mEq/L (19-29); Chloride 100 mEq/L (98-109); Glucose 179 mg/dL (70-99); Osmolality,Calculated 287 (280-300); Potassium 4.7 mEq/L (3.5-4.5); Sodium 134 mEq/L (136-145); eGFR For African Americans > 60 (> 60); eGFR For Non-African Americans > 60 (> 60)
[2016-10-28 04:59] LABS: Platelet Estimate Normal (Normal)
[2016-10-28] MEDS: Insulin LISPRO 300 UNITS/3 ML VIAL SQ SCH ×4 (07:47→20:46)
[2016-10-28] MEDS: *HR* Heparin 5,000 UNIT/ML VIAL SQ SCH ×3 (07:47→22:10)
[2016-10-28] MEDS: Folic Acid 1 MG TABLET PO SCH (07:48)
[2016-10-28] MEDS: amLODIPine 5 MG TABLET PO SCH (07:48)
[2016-10-28] MEDS: predniSONE 20 MG TABLET PO SCH (07:48)
[2016-10-28] MEDS: *HR* Amiodarone 200 MG TABLET PO SCH ×2 (07:48→20:47)
[2016-10-28] MEDS: Nicotine 21 MG PATCH.TD24 TD SCH (07:48)
[2016-10-28] MEDS: Vitamin B Complex/Vit C/Vit E 1 EACH TABLET PO SCH (07:48)
[2016-10-28] MEDS: Nystatin SUSP 5 ML UD.LIQ PO SCH ×4 (07:49→20:47)
--- NOTE | 2016-10-28 08:31 | Cardiothoracic Progress Note ---
Date of Encounter: 10/28/16 Time of Encounter: 08:27 - Assessment and plan (1) Pericardial effusion with cardiac tamponade Current Visit: Yes Status: Acute The patient is recovering well from his subxiphoid pericardial window and right chest tube insertion performed for a pericardial effusion with early tamponade physiology and large right pleural effusion respectively. The chest tubes will remain in place for several days it will allow for complete drainage of the pericardial effusion and right pleural effusion. The patient underwent a fiberoptic bronchoscopy with biopsy of the right sided endobronchial lesion. 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 Further staging workup including bone scan and MRI reveal possible metastatic disease to the right anterior superior iliac spine and the right frontal lobe respectively. The patient is being followed by oncology at this point and they will direct further treatment. The assessment and plan as outlined above was discussed with the patient and/ or family members who expressed understanding and agreement. All questions were answered. - Subjective Procedure(s) Performed: POD#5 S/P Subxiphoid pericardial window, right chest tube insertion Interval history: The patient is resting comfortably in his hospital bed. He has no respiratory distress. Vital Signs, Last 4 Hours Temp Pulse Resp BP Pulse Ox 10/28/16 08:00 80 10/28/16 07:05 97.6 F 79 18 124/77 94 L Oxgyen Flow Rate Oxygen Flow Rate (LPM) 1 Clinical Data, last 8 Hours Output, Chest Tube Drainage 60 Amount [Right Lateral Chest] Output, Chest Tube Drainage 40 Amount [Right Lateral Chest] Output, Chest Tube Drainage 0 Amount [Mediastinal #1] Output, Chest Tube Drainage 0 Amount [Mediastinal #1] Weight 10/26/16 10/27/16 10/28/16 23:59 23:59 23:59 Weight 63 kg 63.5 kg 63.9 kg - Physical Examination General: Conversant, No Apparent Distress Neck: No JVD, Normal carotid pulses Cardiac: Reg Rate and Rhythm, Normal S1 and S2, No Murmur Incision: No signs of infection, Dry/intact dressing Chest tubes: Minimal drainage, Other (No air leak.) Lungs: Normal Breath Sounds (Left lung dasilva.), Decreased breath sounds (Right lung dasilva.) Neuro: Alert and responsive, No focal deficits noted Vascular: Normal capillary refill Extremities: No Clubbing, No Cyanosis, No Edema - Labs 10/28/16 04:20 10/28/16 04:20 Lab Results, Last 24 hours 10/28/16 10/28/16 04:20 04:20 WBC 23.7 H Hgb 13.0 Hct 39.6 Plt Count 192 Sodium 134 L Potassium 4.7 H Chloride 100 Carbon Dioxide 27 BUN 25 Creatinine 0.83 Glucose 179 H Calcium 9.0 - Imaging Chest Xray: image reviewed (Small right basilar pneumothorax. No change in right lower lung field atelectasis.) - VTE Documentation of Mechanical Device: Intermittent pneumatic compression device Consult Discharge Plan - Plan Referrals: Ernestina Armenta CNP [Primary Care Provider] - Dante Gonzalez MD [Partnered Physician] - 11/10/16 10:10 am
[2016-10-28] MEDS: Budesonide/Formoterol 160/4.5 MDI IH SCH ×2 (08:48→20:30)
[2016-10-28] MEDS: *HR* OxyCODONE Immed Rel 5 MG TABLET PO PRN (10:10)
--- NOTE | 2016-10-28 11:29 | Internal Med Progress Note ---
Date of Encounter: 10/28/16 Time of Encounter: 08:40 - Assessment and plan (1) Squamous cell lung cancer Current Visit: Yes Status: Acute Assessment and plan: Recently diagnosed with bone mets to calvarium, sacrum Oncology has been consulted and will follow up in office for definitive management Qualifiers: Laterality: right Qualified Code(s): C34.91 - Malignant neoplasm of unspecified part of right bronchus or lung (2) Acute on chronic respiratory failure with hypoxia and hypercapnia Current Visit: Yes Status: Acute Assessment and plan: Improving, continue nasal O2 (3) Alcohol abuse Current Visit: Yes Status: Chronic Assessment and plan: NO current signs of withdrawal, no history of withdrawal Monitor for withdrawal (4) COPD exacerbation Current Visit: Yes Status: Acute Assessment and plan: Continue steroids, nebs already on ceftriaxone for post-obstructive pneumonia, already received Vanco, Zosyn, Levoflox at time of admission Continue ceftriaxone (5) Pneumonia, organism unspecified Current Visit: Yes Status: Acute Assessment and plan: As above Empyema with Chest tube, CTS following (6) Pericardial effusion with cardiac tamponade Current Visit: Yes Status: Acute Assessment and plan: Being followed by CTS (7) Severe sepsis Current Visit: Yes Status: Acute Assessment and plan: Secondary to pneumonia, pleural fluid and blood culture with jean-sensitive strep pneumoniae Afebrile Leukocytosis improved, elevated possibly from steroids Will continue to monitor (8) Hypertension Current Visit: Yes Status: Acute Assessment and plan: Continue amlodipine Qualifiers: Hypertension type: essential hypertension Qualified Code(s): I10 - Essential (primary) hypertension (9) Tobacco abuse Current Visit: Yes Status: Chronic - Subjective Interval history: 56 Y/O M admitted 10/21 for acute on chronic respiratory failure ,severe sepsis secondary to post-obstructive pneumonia with empyema and infected pericardial effusion Patient is s/p pericardiotomy with chest tube drainage, s/p fibreoptic bronchoscopy with pathology results of lung mass as Squamous cell CA Bone scan with scalp, spine and sacral mets Chronic medical conditions include alcohol abuse, tobacco abuse, COPD He is seen at bedside with no new complains - Constitutional Vitals: Temp Pulse Resp BP Pulse Ox 97.4 F L 90 18 131/89 94 L 10/28/16 11:10 10/28/16 11:10 10/28/16 11:10 10/28/16 11:10 10/28/16 11:10 General appearance: Present: A&O X 3, pleasant, no acute distress - Head Head exam: Present: atraumatic, normocephalic - Eye Eye exam: Present: PERRL, conjuntiva pink, sclera anicteric Pupils: Present: PERRL - Neck Neck exam general surgery: Present: supple, trachea midline. Absent: lymphadenopathy - Respiratory Additional comments: Chest wall and abdominal wall wound dressings clean and dry Left lung dasilva are clear to auscultation Right lung field with rhonchi - Cardiovascular Cardiovascular exam: Present: RRR, +S1, +S2. Absent: diastolic murmur, gallop, rubs, systolic murmur - GI/Abdominal GI/Abdominal exam: Present: normal bowel sounds, soft, no peritoneal signs. Absent: distended, tenderness - Extremities Exam Extremities exam: Present: warm, radial pulses palpable and symetrical. Absent : calf tenderness, cyanotic, pedal edema - Neurological Exam Neurological exam: Present: alert, CN II-XII intact, oriented X3, no focal deficits. Absent: pronater drift, facial droop, speech deficit - Skin Skin exam: Present: dry, intact Internal Medicine: Result - Labs CBC & Chem 7: 10/28/16 04:20 10/28/16 04:20 Labs: Short CBC 10/28/16 Range/Units 04:20 WBC 23.7 H (4.3-11.1) K/mcL Hgb 13.0 (12.9-16.9) g/dL Hct 39.6 (37.5-50.1) % Plt Count 192 (140-400) K/mcL Neutrophils # 21.1 H (1.6-8.9) K/mcL BMP 10/28/16 04:20 Sodium 134 L Potassium 4.7 H Chloride 100 Carbon Dioxide 27 BUN 25 Creatinine 0.83 Glucose 179 H Calcium 9.0 - ABG Interpretation ABG results: ABG ABG pH 7.35 pH Units (7.32-7.45) 10/24/16 06:10 ABG pCO2 38 mmHg (35-45) 10/24/16 06:10 ABG pO2 95 mmHg (85-104) 10/24/16 06:10 ABG O2 Saturation 97 % (95-98) 10/24/16 06:10 PT/INR, D-dimer PT 15.8 Seconds (9.4-12.1) H 10/24/16 04:20 D-Dimer 7345 ng/mLFEU (0-500) H 10/21/16 21:20 - Impressions Impressions Brain MRI 10/26/16 13:15 IMPRESSION: 1. Multiple focal areas of acute/early subacute infarction in the right cerebellum and supratentorial parenchyma bilaterally. Given bilaterality, findings are suspicious for thromboembolic phenomenon from a central source. No associated hemorrhage. 2. Right frontal calvarial metastasis with extraosseous extension to involve the dura overlying the right frontal lobe. Additionally, there is extraosseous extension to the right frontal scalp. No associated mass effect on the brain parenchyma or midline shift. 3. No evidence of brain parenchymal metastatic disease. The findings were sent to the Radiology Results Communication Center at 12:06 pm on 10/27/2016to be communicated to a licensed caregiver. D/ / 10/27/2016 12:15:15 Onur Casillas MD / debbi Interpreting Provider: Onur Casillas MD Abdomen/Pelvis CT 10/26/16 13:54 IMPRESSION: No definite evidence of intra-abdominal/intrapelvic metastatic disease. No evidence of lymphadenopathy. Cortically destructive lytic lesion of the right anterior superior iliac spine likely representing a metastatic lesion from lung cancer. Nonspecific fluid in the dependent pelvis with mild inflammatory changes of the right retroperitoneum and right paracolic gutter of uncertain etiology. This may be sympathetic to the right lung base findings. Grade 2 anterolisthesis of L5 on S1 with prior posterior fusion of L4 through S1. Please see separate chest CT report for discussion of right lung base findings including an empyema and possible pulmonary abscess versus necrotic right lower lobe mass. Mediastinal drain with pneumomediastinum. Pericardial effusion. D/ / 10/26/2016 16:41:32 Andrés Pino MD / ander Interpreting Provider: Andrés Pino MD Chest X-Ray 10/28/16 06:00 IMPRESSION: Persistent right basilar atelectasis. New small right basilar pneumothorax D/ / Narinder Shen MD / Narinder Shen MD Interpreting Provider: Narinder Shen MD - VTE Documentation of Mechanical Device: Intermittent pneumatic compression device Consult Discharge Plan - Plan Referrals: Ernestina Armenta CNP [Primary Care Provider] - Dante Gonzalez MD [Partnered Physician] - 11/10/16 10:10 am
[2016-10-28] MEDS: Sennosides 8.6 MG TABLET PO SCH (20:47)
[2016-10-29] MEDS: Albuterol 2.5 MG/3 ML NEBULIZER IH SCH ×6 (03:45→23:15)
[2016-10-29 05:48] LABS: Basophils % 0.3 %
[2016-10-29 05:50] LABS: Basophils # 0.1 K/mcL (0.0-0.2); Hematocrit 40.1 % (37.5-50.1); Hemoglobin 13.1 g/dL (12.9-16.9); Immature Granulocytes % 3.5 % (0-4); Lymphocytes # 0.6 K/mcL (0.6-4.6); Lymphocytes % 2.3 %; Mean Corpuscular HGB Conc 32.7 g/dL (31.6-35.5); Mean Corpuscular Volume 88.9 fL (83.0-100.0); Monocytes # 1.1 K/mcL (0.0-1.3); Monocytes % 4.2 %; Neutrophils # 24.2 K/mcL (1.6-8.9); Platelet Count 193 K/mcL (140-400); Red Blood Count 4.51 M/mcL (4.19-5.50); Red Cell Distribution Width 14.6 % (11.5-14.5); Segmented Neutrophils % 89.7 %
[2016-10-29 06:03] LABS: BUN/Creatinine Ratio 29 (6-26); Blood Urea Nitrogen 22 mg/dL (8-26); Carbon Dioxide 26 mEq/L (19-29); Chloride 99 mEq/L (98-109); Glucose 184 mg/dL (70-99); Osmolality,Calculated 282 (280-300); Potassium 4.7 mEq/L (3.5-4.5); Sodium 132 mEq/L (136-145); eGFR For African Americans > 60 (> 60); eGFR For Non-African Americans > 60 (> 60)
[2016-10-29 06:21] LABS: Platelet Estimate Normal (Normal); Toxic Granulation Present (Not Present)
[2016-10-29] MEDS: *HR* Amiodarone 200 MG TABLET PO SCH ×2 (08:04→20:25)
[2016-10-29] MEDS: predniSONE 20 MG TABLET PO SCH (08:04)
[2016-10-29] MEDS: Folic Acid 1 MG TABLET PO SCH (08:04)
[2016-10-29] MEDS: Vitamin B Complex/Vit C/Vit E 1 EACH TABLET PO SCH (08:04)
[2016-10-29] MEDS: amLODIPine 5 MG TABLET PO SCH (08:04)
[2016-10-29] MEDS: *HR* Heparin 5,000 UNIT/ML VIAL SQ SCH ×3 (08:05→23:40)
[2016-10-29] MEDS: Nicotine 21 MG PATCH.TD24 TD SCH (08:05)
[2016-10-29] MEDS: Nystatin SUSP 5 ML UD.LIQ PO SCH ×4 (08:05→20:25)
[2016-10-29] MEDS: *HR* OxyCODONE/APAP 5/325 TABLET PO PRN ×2 (08:05→12:34)
[2016-10-29] MEDS: Insulin LISPRO 300 UNITS/3 ML VIAL SQ SCH ×4 (08:06→20:26)
[2016-10-29] MEDS: Budesonide/Formoterol 160/4.5 MDI IH SCH ×2 (10:19→19:47)
--- NOTE | 2016-10-29 11:38 | Cardiothoracic Progress Note ---
Date of Encounter: 10/29/16 Time of Encounter: 11:36 - Assessment and plan (1) Pericardial effusion with cardiac tamponade Current Visit: Yes Status: Acute The patient is recovering well from his subxiphoid pericardial window and right chest tube insertion performed for a pericardial effusion with early tamponade physiology and large right pleural effusion respectively. The chest tube drainage is minimal and the chest tubes were placed to waterseal. The patient underwent a fiberoptic bronchoscopy with biopsy of the right sided endobronchial lesion. 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 Further staging workup including bone scan and MRI reveal possible metastatic disease to the right anterior superior iliac spine and the right frontal lobe respectively. The patient is being followed by oncology at this point and they will direct further treatment. The assessment and plan as outlined above was discussed with the patient and/ or family members who expressed understanding and agreement. All questions were answered. - Subjective Procedure(s) Performed: POD#6 S/P Subxiphoid pericardial window, right chest tube insertion Interval history: The patient is resting comfortably in his hospital bed. He has no respiratory distress. Vital Signs, Last 4 Hours Temp Pulse Resp BP Pulse Ox 10/29/16 10:19 16 95 10/29/16 07:50 87 95 10/29/16 07:44 97.4 F L 87 16 141/88 94 L Oxgyen Flow Rate Oxygen Flow Rate (LPM) 1.5 Clinical Data, last 8 Hours Output, Chest Tube Drainage 30 Amount [Right Lateral Chest] Output, Chest Tube Drainage 90 Amount [Right Lateral Chest] Output, Chest Tube Drainage 10 Amount [Mediastinal #1] Output, Chest Tube Drainage 10 Amount [Mediastinal #1] Output, Urine Amount 275 Output, Urine Amount 200 Weight 10/27/16 10/28/16 10/29/16 23:59 23:59 23:59 Weight 63.5 kg 63.9 kg - Physical Examination General: Conversant, No Apparent Distress Neck: No JVD, Normal carotid pulses Cardiac: Reg Rate and Rhythm Incision: No signs of infection, Dry/intact dressing Chest tubes: Minimal drainage, Other (No air leak.) Lungs: Normal Breath Sounds (Left lung dasilva.), Decreased breath sounds (Right lung dasilva.) Neuro: Alert and responsive, No focal deficits noted Vascular: Normal capillary refill Musculoskeletal: No Chest Wall Tenderness Extremities: No Clubbing, No Cyanosis, No Edema - Labs 10/29/16 05:24 10/29/16 05:24 Lab Results, Last 24 hours 10/29/16 10/29/16 05:24 05:24 WBC 27.0 H Hgb 13.1 Hct 40.1 Plt Count 193 Sodium 132 L Potassium 4.7 H Chloride 99 Carbon Dioxide 26 BUN 22 Creatinine 0.77 Glucose 184 H Calcium 9.0 - Imaging Chest Xray: image reviewed (No change in right pneumothorax.) - VTE Documentation of Mechanical Device: Intermittent pneumatic compression device Consult Discharge Plan - Plan Referrals: Ernestina Armenta CNP [Primary Care Provider] - Dante Gonzalez MD [Partnered Physician] - 11/10/16 10:10 am
--- NOTE | 2016-10-29 14:13 | Internal Med Progress Note ---
Date of Encounter: 10/29/16 Time of Encounter: 09:10 - Assessment and plan (1) Squamous cell lung cancer Current Visit: Yes Status: Acute Assessment and plan: Recently diagnosed with bone mets to calvarium, sacrum Oncology has been consulted and will follow up in office for definitive management Qualifiers: Laterality: right Qualified Code(s): C34.91 - Malignant neoplasm of unspecified part of right bronchus or lung (2) Acute on chronic respiratory failure with hypoxia and hypercapnia Current Visit: Yes Status: Acute Assessment and plan: Improving, continue nasal O2 SW follow up needed for ECF placement (3) Alcohol abuse Current Visit: Yes Status: Chronic Assessment and plan: NO current signs of withdrawal, no history of withdrawal Monitor for withdrawal (4) COPD exacerbation Current Visit: Yes Status: Acute Assessment and plan: Continue steroids, nebs already on ceftriaxone for post-obstructive pneumonia, already received Vanco, Zosyn, Levoflox at time of admission Continue ceftriaxone-Day 5 (5) Pneumonia, organism unspecified Current Visit: Yes Status: Acute Assessment and plan: As above Empyema with Chest tube, CTS following (6) Pericardial effusion with cardiac tamponade Current Visit: Yes Status: Acute Assessment and plan: Being followed by CTS (7) Severe sepsis Current Visit: Yes Status: Acute Assessment and plan: Secondary to pneumonia, pleural fluid and blood culture with jean-sensitive strep pneumoniae Afebrile Leukocytosis improved, elevated possibly from steroids Will continue to monitor (8) Hypertension Current Visit: Yes Status: Acute Assessment and plan: Continue amlodipine Qualifiers: Hypertension type: essential hypertension Qualified Code(s): I10 - Essential (primary) hypertension (9) Tobacco abuse Current Visit: Yes Status: Chronic - Subjective Interval history: 56 Y/O M admitted 10/21 for acute on chronic respiratory failure ,severe sepsis secondary to post-obstructive pneumonia with empyema and infected pericardial effusion Patient is s/p pericardiotomy with chest tube drainage, s/p fibreoptic bronchoscopy with pathology results of lung mass as Squamous cell CA Bone scan with scalp, spine and sacral mets Chronic medical conditions include alcohol abuse, tobacco abuse, COPD He is seen at bedside this morning with no new complains - Constitutional Vitals: Temp Pulse Resp BP Pulse Ox 97.8 F 94 16 138/95 95 10/29/16 11:35 10/29/16 13:30 10/29/16 11:35 10/29/16 11:35 10/29/16 13:30 General appearance: Present: A&O X 3, pleasant, no acute distress - Head Head exam: Present: normocephalic Additional comments: Right frontal bone mass - Eye Eye exam: Present: PERRL, conjuntiva pink, sclera anicteric Pupils: Present: PERRL - Neck Neck exam general surgery: Present: supple, trachea midline. Absent: lymphadenopathy - Respiratory Additional comments: Chest tubes with minimal drainage Right lung zones with rhonchi and wheezng Left lung field is clear - Cardiovascular Cardiovascular exam: Present: RRR, +S1, +S2. Absent: diastolic murmur, gallop, rubs, systolic murmur - GI/Abdominal GI/Abdominal exam: Present: normal bowel sounds, soft, no peritoneal signs. Absent: distended, tenderness - Extremities Exam Extremities exam: Present: warm, radial pulses palpable and symetrical. Absent : calf tenderness, cyanotic, pedal edema - Neurological Exam Neurological exam: Present: CN II-XII intact, oriented X3, no focal deficits. Absent: pronater drift, facial droop, speech deficit - Skin Skin exam: Present: dry Internal Medicine: Result - Labs CBC & Chem 7: 10/29/16 05:24 10/29/16 05:24 Labs: Short CBC 10/29/16 Range/Units 05:24 WBC 27.0 H (4.3-11.1) K/mcL Hgb 13.1 (12.9-16.9) g/dL Hct 40.1 (37.5-50.1) % Plt Count 193 (140-400) K/mcL Neutrophils # 24.2 H (1.6-8.9) K/mcL BMP 10/29/16 05:24 Sodium 132 L Potassium 4.7 H Chloride 99 Carbon Dioxide 26 BUN 22 Creatinine 0.77 Glucose 184 H Calcium 9.0 - ABG Interpretation ABG results: ABG ABG pH 7.35 pH Units (7.32-7.45) 10/24/16 06:10 ABG pCO2 38 mmHg (35-45) 10/24/16 06:10 ABG pO2 95 mmHg (85-104) 10/24/16 06:10 ABG O2 Saturation 97 % (95-98) 10/24/16 06:10 PT/INR, D-dimer PT 15.8 Seconds (9.4-12.1) H 10/24/16 04:20 D-Dimer 7345 ng/mLFEU (0-500) H 10/21/16 21:20 - Impressions Impressions Chest X-Ray 10/29/16 06:00 IMPRESSION: No change. D/ / 10/29/2016 10:11:55 Sanchez Page MD / earnold Interpreting Provider: Sanchez Page MD - VTE Documentation of Mechanical Device: Intermittent pneumatic compression device Consult Discharge Plan - Plan Referrals: Ernestina Armenta CNP [Primary Care Provider] - Dante Gonzalez MD [Partnered Physician] - 11/10/16 10:10 am
[2016-10-29] MEDS: *HR* Morphine 2 MG/ML SYRINGE IVP PRN ×2 (15:50→20:25)
[2016-10-29] MEDS: Sennosides 8.6 MG TABLET PO SCH (20:25)
[2016-10-30] MEDS: Albuterol 2.5 MG/3 ML NEBULIZER IH SCH ×6 (04:41→23:00)
--- NOTE | 2016-10-30 07:14 | Cardiothoracic Progress Note ---
Date of Encounter: 10/30/16 Time of Encounter: 07:11 - Assessment and plan (1) Pericardial effusion with cardiac tamponade Current Visit: Yes Status: Acute The patient is recovering well from his subxiphoid pericardial window and right chest tube insertion performed for a pericardial effusion with early tamponade physiology and large right pleural effusion respectively. The chest tube drainage is minimal and the chest tubes were placed to waterseal. Unfortunately , the pleural effusion has not drained completely. I will speak with Dr. Chow today about possible thoracotomy and decortication, though this may not be the best approach since the right lower lobe and right middle lobe may not completely reexpand due to the endobronchial lesion. The patient underwent a fiberoptic bronchoscopy with biopsy of the right sided endobronchial lesion. 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 Further staging workup including bone scan and MRI reveal possible metastatic disease to the right anterior superior iliac spine and the right frontal lobe respectively. The patient is being followed by oncology at this point and they will direct further treatment. The assessment and plan as outlined above was discussed with the patient and/ or family members who expressed understanding and agreement. All questions were answered. - Subjective Procedure(s) Performed: POD#7 S/P Subxiphoid pericardial window, right chest tube insertion Interval history: The patient is resting comfortably in his hospital bed. He has no respiratory distress. Vital Signs, Last 4 Hours Temp Pulse Resp BP Pulse Ox 10/30/16 03:22 97.4 F L 86 16 134/88 95 Oxgyen Flow Rate Oxygen Flow Rate (LPM) 1.5 Clinical Data, last 8 Hours Output, Chest Tube Drainage 70 Amount [Right Lateral Chest] Output, Chest Tube Drainage 30 Amount [Right Lateral Chest] Output, Chest Tube Drainage 10 Amount [Mediastinal #1] Output, Chest Tube Drainage 10 Amount [Mediastinal #1] Output, Urine Amount 140 Output, Urine Amount 225 Output, Urine Amount 225 Weight 10/28/16 10/29/16 10/30/16 23:59 23:59 23:59 Weight 63.9 kg 64.6 kg - Physical Examination General: Conversant, No Apparent Distress Neck: No JVD, Normal carotid pulses Cardiac: Reg Rate and Rhythm, Normal S1 and S2, No Murmur Incision: No signs of infection, Dry/intact dressing Chest tubes: Minimal drainage, Other (Small air leak in right chest tube with cough.) Lungs: Normal Breath Sounds (Left lung dasilva.), Decreased breath sounds (Right lung dasilva.) Neuro: Alert and responsive, No focal deficits noted Vascular: Normal capillary refill Extremities: No Clubbing, No Cyanosis, No Edema - Labs 10/29/16 05:24 10/29/16 05:24 - Imaging Chest Xray: report reviewed (No significant change in right basal/lateral pneumothorax. No significant change in right pleural effusion.) - VTE Documentation of Mechanical Device: Intermittent pneumatic compression device Consult Discharge Plan - Plan Referrals: Ernestina Armenta CNP [Primary Care Provider] - Dante Gonzalez MD [Partnered Physician] - 11/10/16 10:10 am
[2016-10-30 07:18] LABS: BUN/Creatinine Ratio 23 (6-26); Blood Urea Nitrogen 18 mg/dL (8-26); Calcium 9.1 mg/dL (8.6-10.8); Carbon Dioxide 31 mEq/L (19-29); Chloride 94 mEq/L (98-109); Glucose 103 mg/dL (70-99); Osmolality,Calculated 274 (280-300); Potassium 5.1 mEq/L (3.5-4.5); Sodium 131 mEq/L (136-145); eGFR For African Americans > 60 (> 60); eGFR For Non-African Americans > 60 (> 60)
[2016-10-30] MEDS: *HR* OxyCODONE/APAP 5/325 TABLET PO PRN ×3 (07:52→17:55)
[2016-10-30] MEDS: Vitamin B Complex/Vit C/Vit E 1 EACH TABLET PO SCH (07:53)
[2016-10-30] MEDS: Folic Acid 1 MG TABLET PO SCH (07:53)
[2016-10-30] MEDS: Nicotine 14 MG PATCH.TD24 TD SCH (07:53)
[2016-10-30] MEDS: *HR* Amiodarone 200 MG TABLET PO SCH ×2 (07:54→21:09)
[2016-10-30] MEDS: predniSONE 20 MG TABLET PO SCH (07:54)
[2016-10-30] MEDS: *HR* Heparin 5,000 UNIT/ML VIAL SQ SCH ×2 (07:55→17:52)
[2016-10-30] MEDS: amLODIPine 5 MG TABLET PO SCH ×2 (07:55→15:58)
[2016-10-30] MEDS: Nystatin SUSP 5 ML UD.LIQ PO SCH ×4 (07:57→21:11)
[2016-10-30] MEDS: Artificial Tears SOLN 15 ML BOTTLE BOTH EYES SCH ×4 (07:59→21:11)
[2016-10-30 08:09] LABS: Basophils # 0.1 K/mcL (0.0-0.2); Basophils % 0.3 %; Eosinophils % 0.1 %; Hemoglobin 13.7 g/dL (12.9-16.9); Immature Granulocytes % 2.4 % (0-4); Lymphocytes # 0.7 K/mcL (0.6-4.6); Lymphocytes % 2.7 %; Mean Corpuscular HGB Conc 32.6 g/dL (31.6-35.5); Mean Corpuscular Hemoglobin 29.5 pg (28.0-33.3); Mean Corpuscular Volume 90.3 fL (83.0-100.0); Mean Platelet Volume 10.5 fL (9.4-12.4); Monocytes % 4.3 %; Neutrophils # 21.8 K/mcL (1.6-8.9); Platelet Count 203 K/mcL (140-400); Red Blood Count 4.65 M/mcL (4.19-5.50); Red Cell Distribution Width 14.8 % (11.5-14.5); Segmented Neutrophils % 90.2 %
[2016-10-30] MEDS: Budesonide/Formoterol 160/4.5 MDI IH SCH ×2 (08:26→20:41)
[2016-10-30 08:50] LABS: Platelet Estimate Normal (Normal)
--- NOTE | 2016-10-30 09:41 | Pulmonology Progress Note ---
Date of Encounter: 10/30/16 Time of Encounter: 07:40 Assessment and Plan (1) Squamous cell lung cancer Current Visit: Yes Status: Acute Patient has endobronchial lesion, discussed with Dr. Hensley, will repeat CT chest and explained to patient about de-bulking tumor. Oncology has seen patient. Will have further recommendations after CT chest. Qualifiers: Laterality: right Qualified Code(s): C34.91 - Malignant neoplasm of unspecified part of right bronchus or lung (2) Pericardial effusion, acute Current Visit: Yes Status: Acute (3) Mass of right lung Current Visit: Yes Status: Acute (4) Pleural effusion Current Visit: Yes Status: Acute (5) Postobstructive pneumonia Current Visit: Yes Status: Acute (6) Tobacco abuse Current Visit: Yes Status: Chronic (7) COPD (chronic obstructive pulmonary disease) Current Visit: Yes Status: Chronic Continue bronchodilators Qualifiers: COPD type: emphysema Emphysema type: unspecified Qualified Code(s): J43.9 - Emphysema, unspecified Subjective Principal diagnosis: Pericardial effusion Interval history: Patient has pain, but feel slightly better Objective PUL Vital signs: Last Vital Signs Temp 97.7 F 10/30/16 07:49 Pulse 88 10/30/16 08:11 Resp 18 10/30/16 08:26 BP 144/97 10/30/16 07:49 Pulse Ox 100 10/30/16 08:26 General appearance: appears uncomfortable Eyes: nonicteric ENT: oropharynx moist Neck: supple Effort: normal Auscultation: bilateral: rhonchi (chest tube) Cardiovascular: regular rate and rhythm Gastrointestinal: normoactive bowel sounds, soft Extremities: no cyanosis, edema normal mental status, non-focal exam depressed Results - Laboratory Findings CBC and BMP: 10/30/16 06:43 10/30/16 06:43 ABG ABG pH 7.35 pH Units (7.32-7.45) 10/24/16 06:10 ABG pCO2 38 mmHg (35-45) 10/24/16 06:10 ABG pO2 95 mmHg (85-104) 10/24/16 06:10 ABG O2 Saturation 97 % (95-98) 10/24/16 06:10 PT/INR, D-dimer PT 15.8 Seconds (9.4-12.1) H 10/24/16 04:20 D-Dimer 7345 ng/mLFEU (0-500) H 10/21/16 21:20 Abnormal lab findings: Abnormal lab results WBC 24.2 K/mcL (4.3-11.1) H 10/30/16 06:43 RDW 14.8 % (11.5-14.5) H 10/30/16 06:43 Myelocytes % 2.0 % (0) H 10/25/16 03:16 Neutrophils # 21.8 K/mcL (1.6-8.9) H 10/30/16 06:43 Nucleated RBCs/100 WBC 0.1 /100 WBC (0) H 10/26/16 03:42 Toxic Granulation Present (Not Present) A 10/29/16 05:24 Toxic Vacuolation Present (Not Present) A 10/22/16 11:10 Large Platelets Present (Not Present) A 10/26/16 03:42 Polychromasia 1+ (Not Present) A 10/26/16 03:42 Anisocytosis 1+ (Not Present) A 10/21/16 21:20 Macrocytosis Present (Not Present) A 10/26/16 03:42 Tear Drop Cells 1+ (Not Present) A 10/25/16 03:16 Helmet Cells Present (Not Present) A 10/23/16 05:27 Vernon Cells 1+ (Not Present) A 10/23/16 05:27 PT 15.8 Seconds (9.4-12.1) H 10/24/16 04:20 D-Dimer 7345 ng/mLFEU (0-500) H 10/21/16 21:20 ABG Base Excess -4.2 mEq/L (-2.0 to 3.0) L 10/24/16 06:10 Sodium 131 mEq/L (136-145) L 10/30/16 06:43 Potassium 5.1 mEq/L (3.5-4.5) H 10/30/16 06:43 Chloride 94 mEq/L (98-109) L 10/30/16 06:43 Carbon Dioxide 31 mEq/L (19-29) H 10/30/16 06:43 Glucose 103 mg/dL (70-99) H 10/30/16 06:43 POC Glucose 174 (58-89) H 10/29/16 20:23 Calculated Osmolality 274 (280-300) L 10/30/16 06:43 AST 38 Units/L (5-34) H 10/25/16 03:16 B-Natriuretic Peptide 263 pg/mL (0-100) H 10/21/16 21:20 Serum Total Protein 5.4 g/dL (6.0-8.3) L 10/25/16 03:16 Albumin 1.8 g/dL (3.5-5.0) L 10/25/16 03:16 Globulin 3.6 g/dL (2.4-3.5) H 10/25/16 03:16 Albumin/Globulin Ratio 0.5 (1.1-2.2) L 10/25/16 03:16 Urine Clarity Cloudy (Clear) A 10/22/16 02:30 Ur Specific Paia 1.009 (1.010-1.025) L 10/22/16 02:30 Urine Microscopic RBC 5-15 per hpf (0-3) H 10/22/16 02:30 Urine Microscopic WBC 50-100 per hpf (0-3) H 10/22/16 02:30 Ur Squamous Epith Cells Many per lpf (None-Few) H 10/22/16 02:30 Hyaline Casts Moderate per lpf (None-Few) H 10/22/16 02:30 Urine Osmolality 234 mOsm/kg (300-1090) L 10/22/16 11:30 Protein/Creatinin Ratio < 0.24 mg/mg (0-0.20) H 10/22/16 11:30 Urine Opiates Screen Positive ng/mL (Dmcqbm=120) H 10/22/16 06:34 Strep pneumoniae (PCR) DETECTED (Not Detect) A 10/21/16 21:25 - Microbiology Findings Microbiology Findings: Microbiology, Last 48 Hours 10/23/16 13:20 Anaerobic Culture - Final Pericardial Fluid No anaerobes were recovered. 10/23/16 13:20 Anaerobic Culture - Final Pleural Fluid No anaerobes were recovered. 10/22/16 11:10 Blood Culture - Final Peripheral Venipuncture No growth. 10/22/16 11:10 Blood Culture - Final Peripheral Venipuncture No growth. - Clinical Findings Intake & Output: Intake & Output 10/29/16 10/30/16 10/30/16 23:59 07:59 15:59 Intake Total 200 / 200 460 / 460 Output Total 415 / 415 445 / 445 Balance -215 / -215 Weight 64.6 kg - VTE Documentation of Mechanical Device: Intermittent pneumatic compression device Consult Discharge Plan - Plan Referrals: Ernestina Armenta CNP [Primary Care Provider] - Dante Gonzalez MD [Partnered Physician] - 11/10/16 10:10 am
[2016-10-30] MEDS: Insulin LISPRO 300 UNITS/3 ML VIAL SQ SCH ×3 (10:11→17:08)
--- NOTE | 2016-10-30 13:43 | Internal Med Progress Note ---
Date of Encounter: 10/30/16 Time of Encounter: 09:00 - Assessment and plan (1) Squamous cell lung cancer Current Visit: Yes Status: Acute Assessment and plan: Recently diagnosed with bone mets to calvarium, sacrum Oncology has been consulted and will follow up in office for definitive management Per [facility] ant CTS today, patient may need tumor debulking Will continue to follow Qualifiers: Laterality: right Qualified Code(s): C34.91 - Malignant neoplasm of unspecified part of right bronchus or lung (2) Acute on chronic respiratory failure with hypoxia and hypercapnia Current Visit: Yes Status: Acute Assessment and plan: Improving, continue nasal O2 SW follow up needed for ECF placement (3) Alcohol abuse Current Visit: Yes Status: Chronic Assessment and plan: NO current signs of withdrawal, no history of withdrawal Monitor for withdrawal (4) COPD exacerbation Current Visit: Yes Status: Acute Assessment and plan: Continue steroids, nebs already on ceftriaxone for post-obstructive pneumonia, already received Vanco, Zosyn, Levoflox at time of admission Continue ceftriaxone-Day 6 (5) Pneumonia, organism unspecified Current Visit: Yes Status: Acute Assessment and plan: As above Empyema with Chest tube, CTS following (6) Pericardial effusion with cardiac tamponade Current Visit: Yes Status: Acute Assessment and plan: Being followed by CTS (7) Severe sepsis Current Visit: Yes Status: Acute Assessment and plan: Secondary to pneumonia, pleural fluid and blood culture with jean-sensitive strep pneumoniae Afebrile Leukocytosis improved, elevated possibly from steroids Will continue to monitor (8) Hypertension Current Visit: Yes Status: Acute Assessment and plan: Continue amlodipine Qualifiers: Hypertension type: essential hypertension Qualified Code(s): I10 - Essential (primary) hypertension (9) Tobacco abuse Current Visit: Yes Status: Chronic - Subjective Interval history: 56 Y/O M admitted 10/21 for acute on chronic respiratory failure ,severe sepsis secondary to post-obstructive pneumonia with empyema and infected pericardial effusion Patient is s/p pericardiotomy with chest tube drainage, s/p fibreoptic bronchoscopy with pathology results of lung mass as Squamous cell CA Bone scan with scalp, spine and sacral mets Chronic medical conditions include alcohol abuse, tobacco abuse, COPD He is seen at bedside this morning with no new complains - Constitutional Vitals: Temp Pulse Resp BP Pulse Ox 98.6 F 91 18 142/89 95 10/30/16 11:14 01/02/17 11:49 10/30/16 11:58 10/30/16 11:14 10/30/16 11:58 General appearance: Present: A&O X 3, pleasant, no acute distress - Head Head exam: Present: atraumatic, normocephalic Additional comments: Right frontal bone swelling - Eye Eye exam: Present: PERRL, conjuntiva pink, sclera anicteric - ENT ENT exam: Present: mucous membranes moist - Neck Neck exam general surgery: Present: normal inspection - Respiratory Additional comments: Hayes wall and midline abdominal wall wound dressings clean and dry. Chest tubes not draining, connected to suction. No chest wall tenderness. Right breath sounds diminished Left breath sounds clear to auscultation - Cardiovascular Cardiovascular exam: Present: RRR, +S1, +S2. Absent: diastolic murmur, gallop, rubs, systolic murmur - GI/Abdominal GI/Abdominal exam: Present: normal bowel sounds, soft, no peritoneal signs. Absent: distended, tenderness - Extremities Exam Extremities exam: Present: warm, radial pulses palpable and symetrical. Absent : calf tenderness, cyanotic, pedal edema - Neurological Exam Neurological exam: Present: CN II-XII intact, oriented X3, no focal deficits. Absent: pronater drift, facial droop, speech deficit - Skin Skin exam: Present: dry, intact Internal Medicine: Result - Labs CBC & Chem 7: 10/30/16 06:43 10/30/16 06:43 Labs: Short CBC 10/30/16 Range/Units 06:43 WBC 24.2 H (4.3-11.1) K/mcL Hgb 13.7 (12.9-16.9) g/dL Hct 42.0 (37.5-50.1) % Plt Count 203 (140-400) K/mcL Neutrophils # 21.8 H (1.6-8.9) K/mcL BMP 10/30/16 06:43 Sodium 131 L Potassium 5.1 H Chloride 94 L Carbon Dioxide 31 H BUN 18 Creatinine 0.77 Glucose 103 H Calcium 9.1 - ABG Interpretation ABG results: ABG ABG pH 7.35 pH Units (7.32-7.45) 10/24/16 06:10 ABG pCO2 38 mmHg (35-45) 10/24/16 06:10 ABG pO2 95 mmHg (85-104) 10/24/16 06:10 ABG O2 Saturation 97 % (95-98) 10/24/16 06:10 PT/INR, D-dimer PT 15.8 Seconds (9.4-12.1) H 10/24/16 04:20 D-Dimer 7345 ng/mLFEU (0-500) H 10/21/16 21:20 - Impressions Impressions Chest X-Ray 10/30/16 06:00 IMPRESSION: Moderate right pleural effusion is unchanged. Right chest tube remains in place. D/ / Vikas Kirkland MD / Vikas Kirkland MD Interpreting Provider: Vikas Krikland MD Chest CT 10/30/16 10:00 IMPRESSION: Interval increased size of left-sided pleural effusion Decreased right pleural effusion with increased air in the right pleural space. There also appears to be a stable subpleural fluid collection. Hypodense mass at the right lung base grossly stable Stable mediastinal adenopathy and pericardial effusion D/ / Andrews Jin MD / Andrews Jin MD Interpreting Provider: Andrews Jin MD - VTE Documentation of Mechanical Device: Intermittent pneumatic compression device Consult Discharge Plan - Plan Referrals: Ernestina Armenta CNP [Primary Care Provider] - Dante Gonzalez MD [Partnered Physician] - 11/10/16 10:10 am
[2016-10-30] MEDS ORDERED: Insulin LISPRO 300 UNITS/3 ML VIAL SQ SCH (21:00)
[2016-10-30] MEDS: Sennosides 8.6 MG TABLET PO SCH (21:09)
[2016-10-30] MEDS: *HR* Morphine 2 MG/ML SYRINGE IVP PRN (22:12)
[2016-10-31] MEDS: *HR* Heparin 5,000 UNIT/ML VIAL SQ SCH ×4 (00:14→23:07)
[2016-10-31] MEDS: Albuterol 2.5 MG/3 ML NEBULIZER IH SCH ×5 (03:23→20:43)
[2016-10-31 06:09] LABS: Basophils # 0.1 K/mcL (0.0-0.2); Basophils % 0.2 %; Hematocrit 41.5 % (37.5-50.1); Lymphocytes % 4.4 %; Mean Corpuscular HGB Conc 33.7 g/dL (31.6-35.5); Mean Corpuscular Hemoglobin 29.8 pg (28.0-33.3); Mean Corpuscular Volume 88.3 fL (83.0-100.0); Mean Platelet Volume 11.1 fL (9.4-12.4); Monocytes # 1.3 K/mcL (0.0-1.3); Monocytes % 5.5 %; Neutrophils # 20.5 K/mcL (1.6-8.9); Platelet Count 176 K/mcL (140-400); Segmented Neutrophils % 87.9 %
[2016-10-31 06:30] LABS: Platelet Estimate Normal (Normal)
[2016-10-31 06:32] LABS: BUN/Creatinine Ratio 21 (6-26); Blood Urea Nitrogen 14 mg/dL (8-26); Calcium 9.4 mg/dL (8.6-10.8); Carbon Dioxide 30 mEq/L (19-29); Chloride 91 mEq/L (98-109); Glucose 65 mg/dL (70-99); Osmolality,Calculated 267 (280-300); Potassium 4.4 mEq/L (3.5-4.5); Sodium 129 mEq/L (136-145); eGFR For African Americans > 60 (> 60); eGFR For Non-African Americans > 60 (> 60)
[2016-10-31] MEDS: *HR* OxyCODONE Immed Rel 5 MG TABLET PO PRN (06:38)
--- NOTE | 2016-10-31 06:53 | Cardiothoracic Progress Note ---
Date of Encounter: 10/31/16 Time of Encounter: 06:51 - Assessment and plan (1) Pericardial effusion with cardiac tamponade Current Visit: Yes Status: Acute The patient is recovering well from his subxiphoid pericardial window and right chest tube insertion. The right lower lobe and right lower lobe atelectasis persist due to the endobronchial lesion. This has resulted in incomplete a solution of the right lateral pneumothorax. Is unlikely that this area will reexpand. The chest tubes will be removed. The assessment and plan as outlined above was discussed with the patient and/ or family members who expressed understanding and agreement. All questions were answered. - Subjective Procedure(s) Performed: POD#8 S/P Subxiphoid pericardial window, right chest tube insertion Interval history: The patient is resting comfortably in his hospital bed. He has no respiratory distress. Vital Signs, Last 4 Hours Temp Pulse Resp BP Pulse Ox 10/31/16 04:08 97.9 F 84 18 138/82 94 L Oxgyen Flow Rate Oxygen Flow Rate (LPM) 0 Clinical Data, last 8 Hours Output, Chest Tube Drainage 0 Amount [Right Lateral Chest] Output, Chest Tube Drainage 20 Amount [Right Lateral Chest] Output, Chest Tube Drainage 0 Amount [Mediastinal #1] Output, Chest Tube Drainage 0 Amount [Mediastinal #1] Output, Urine Amount 150 Output, Urine Amount 250 Weight 10/29/16 10/30/16 10/31/16 23:59 23:59 23:59 Weight 64.6 kg 59.534 kg - Physical Examination General: Conversant, No Apparent Distress Neck: No JVD, Normal carotid pulses Cardiac: Reg Rate and Rhythm, Normal S1 and S2, No Murmur Incision: No signs of infection, Dry/intact dressing Chest tubes: Minimal drainage, Other (No air leak.) Lungs: Normal Breath Sounds (Left lung dasilva.), Decreased breath sounds (Right base.) Neuro: Alert and responsive, No focal deficits noted Musculoskeletal: No Chest Wall Tenderness Extremities: No Clubbing, No Cyanosis, No Edema - Labs 10/31/16 05:42 10/31/16 05:42 Lab Results, Last 24 hours 10/30/16 10/30/16 10/31/16 06:43 06:43 05:42 WBC 24.2 H 23.3 H Hgb 13.7 14.0 Hct 42.0 41.5 Plt Count 203 176 Sodium 131 L Potassium 5.1 H Chloride 94 L Carbon Dioxide 31 H BUN 18 Creatinine 0.77 Glucose 103 H Calcium 9.1 10/31/16 05:42 WBC Hgb Hct Plt Count Sodium 129 L Potassium 4.4 Chloride 91 L Carbon Dioxide 30 H BUN 14 Creatinine 0.68 L Glucose 65 L Calcium 9.4 - Imaging Chest Xray: image reviewed (No change in right lateral pneumothorax.) - VTE Documentation of Mechanical Device: Intermittent pneumatic compression device Consult Discharge Plan - Plan Referrals: Ernestina Armenta CNP [Primary Care Provider] - Dante Gonzalez MD [Partnered Physician] - 11/10/16 10:10 am
[2016-10-31] MEDS: Budesonide/Formoterol 160/4.5 MDI IH SCH ×2 (07:33→20:42)
[2016-10-31] MEDS: Insulin LISPRO 300 UNITS/3 ML VIAL SQ SCH ×3 (07:40→17:17)
[2016-10-31] MEDS: Vitamin B Complex/Vit C/Vit E 1 EACH TABLET PO SCH (07:50)
[2016-10-31] MEDS: amLODIPine 5 MG TABLET PO SCH (07:50)
[2016-10-31] MEDS: Folic Acid 1 MG TABLET PO SCH (07:51)
[2016-10-31] MEDS: Nicotine 14 MG PATCH.TD24 TD SCH (07:51)
[2016-10-31] MEDS: *HR* Amiodarone 200 MG TABLET PO SCH ×2 (07:51→20:50)
[2016-10-31] MEDS: predniSONE 20 MG TABLET PO SCH (07:51)
[2016-10-31] MEDS: Nystatin SUSP 5 ML UD.LIQ PO SCH ×4 (07:52→20:49)
[2016-10-31] MEDS: Artificial Tears SOLN 15 ML BOTTLE BOTH EYES SCH ×4 (07:52→20:46)
[2016-10-31] MEDS: *HR* Morphine 2 MG/ML SYRINGE IVP PRN (07:59)
--- NOTE | 2016-10-31 09:41 | Internal Med Progress Note ---
Date of Encounter: 10/31/16 Time of Encounter: 08:30 - Assessment and plan (1) Lower extremity edema Current Visit: Yes Status: Acute Assessment and plan: Compression stockings lower extremities ambulate physical therapy counseling on nutrition. Check BNP, check albumin Qualifiers: Laterality: bilateral Qualified Code(s): R60.0 - Localized edema (2) Acute pericarditis Current Visit: Yes Status: Acute Assessment and plan: Chest removed today will monitor Qualifiers: Pericarditis type: infectious Infectious pericarditis etiology: unspecified Qualified Code(s): I30.1 - Infective pericarditis (3) COPD exacerbation Current Visit: Yes Assessment and plan: Continue steroids, change aerosol treatment every 4 hour , add Mucinex counseling on deep breathing (4) Squamous cell lung cancer Current Visit: Yes Status: Acute Assessment and plan: Recently diagnosed with bone mets to calvarium, sacrum,Oncology has been consulted and will follow up in office for definitive management , patient may need tumor debulking Per Senior Graduate Advisor and CTS today . Awaiting pulmonaryi nput Possible discharge in next 24 hour Qualifiers: Laterality: right Qualified Code(s): C34.91 - Malignant neoplasm of unspecified part of right bronchus or lung (5) Hypoglycemia Current Visit: Yes Status: Acute Assessment and plan: We will discontinue insulin covering at bedtime (6) Hyponatremia Current Visit: Yes Status: Acute Assessment and plan: Possible secondary to this siadh will check urine sodium and urine osmolarity - Subjective Interval history: Patient is still complaining of shortness of breath, she is to do removed it today, patient stated that when he coughs he feels some leak of fluid on the site of chest tube. ,C/O Lower extremity swelling - Constitutional Vitals: Temp Pulse Resp BP Pulse Ox 98.0 F 90 18 126/83 93 L 10/31/16 07:19 10/31/16 07:19 10/31/16 07:19 10/31/16 07:19 10/31/16 07:19 General appearance: Present: A&O X 3, pleasant, no acute distress - Head Head exam: Present: atraumatic, normocephalic - Respiratory Respiratory exam: Present: decreased breath sounds, rales, wheezes. Absent: accessory muscle use, rhonchi - Cardiovascular Cardiovascular exam: Present: RRR, +S1, +S2. Absent: diastolic murmur, gallop, rubs, systolic murmur - GI/Abdominal GI/Abdominal exam: Present: normal bowel sounds, soft, no peritoneal signs. Absent: distended, tenderness - Extremities Exam Extremities exam: Present: pedal edema (Positive 2-3 bilateral), warm, radial pulses palpable and symetrical. Absent: calf tenderness, cyanotic - Skin Skin exam: Present: dry, intact Internal Medicine: Result - Labs CBC & Chem 7: 10/31/16 05:42 10/31/16 05:42 Labs: Short CBC 10/31/16 Range/Units 05:42 WBC 23.3 H (4.3-11.1) K/mcL Hgb 14.0 (12.9-16.9) g/dL Hct 41.5 (37.5-50.1) % Plt Count 176 (140-400) K/mcL Neutrophils # 20.5 H (1.6-8.9) K/mcL BMP 10/31/16 05:42 Sodium 129 L Potassium 4.4 Chloride 91 L Carbon Dioxide 30 H BUN 14 Creatinine 0.68 L Glucose 65 L Calcium 9.4 - ABG Interpretation ABG results: ABG ABG pH 7.35 pH Units (7.32-7.45) 10/24/16 06:10 ABG pCO2 38 mmHg (35-45) 10/24/16 06:10 ABG pO2 95 mmHg (85-104) 10/24/16 06:10 ABG O2 Saturation 97 % (95-98) 10/24/16 06:10 PT/INR, D-dimer PT 15.8 Seconds (9.4-12.1) H 10/24/16 04:20 D-Dimer 7345 ng/mLFEU (0-500) H 10/21/16 21:20 - Impressions Impressions Chest CT 10/30/16 10:00 IMPRESSION: Interval increased size of left-sided pleural effusion Decreased right pleural effusion with increased air in the right pleural space. There also appears to be a stable subpleural fluid collection. Hypodense mass at the right lung base grossly stable Stable mediastinal adenopathy and pericardial effusion Chest X-Ray 10/31/16 06:00 IMPRESSION: Small residual pneumothorax at the right costophrenic angle. Decreased pleural effusion with improved aeration right lower lobe following 2nd chest tube placement. . - VTE Documentation of Mechanical Device: Intermittent pneumatic compression device Consult Discharge Plan - Plan Referrals: Ernestina Armenta CNP [Primary Care Provider] - Dante Gonzalez MD [Partnered Physician] - 11/10/16 10:10 am
[2016-10-31] MEDS ORDERED: GuaiFENesin/Pseudophedrine TABLET PO PRN (09:44)
[2016-10-31] MEDS: Ipratropium/Albuterol Neb 3 ML IH SCH ×3 (10:57→20:40)
[2016-10-31] MEDS: Sennosides 8.6 MG TABLET PO SCH (20:49)
[2016-11-01] MEDS: Albuterol 2.5 MG/3 ML NEBULIZER IH SCH ×6 (00:34→16:08)
[2016-11-01] MEDS: Ipratropium/Albuterol Neb 3 ML IH SCH ×5 (00:34→16:15)
[2016-11-01 05:58] LABS: Albumin 2.3 g/dL (3.5-5.0); Magnesium 1.6 mg/dL (1.6-2.6)
--- NOTE | 2016-11-01 07:35 | Cardiothoracic Progress Note ---
Date of Encounter: 11/01/16 Time of Encounter: 07:33 - Assessment and plan (1) Pericardial effusion with cardiac tamponade Current Visit: Yes Status: Acute The patient is recovering well from his subxiphoid pericardial window and right chest tube insertion. The right lower lobe and right lower lobe atelectasis persist due to the endobronchial lesion. This has resulted in incomplete a solution of the right lateral pneumothorax. Is unlikely that this area will reexpand. The chest tubes is removed yesterday and the effusion has filled the right lateral space. The assessment and plan as outlined above was discussed with the patient and/ or family members who expressed understanding and agreement. All questions were answered. - Subjective Procedure(s) Performed: POD#9 S/P Subxiphoid pericardial window, right chest tube insertion Interval history: The patient is resting comfortably in his hospital bed. He has no respiratory distress. Vital Signs, Last 4 Hours Temp Pulse Resp BP Pulse Ox 11/01/16 07:06 98.0 F 90 18 151/84 94 L 11/01/16 04:51 98.3 F 96 16 121/68 94 L 11/01/16 04:18 16 95 Oxgyen Flow Rate Oxygen Flow Rate (LPM) 2 Clinical Data, last 8 Hours Output, Urine Amount 325 Weight 10/30/16 10/31/16 11/01/16 23:59 23:59 23:59 Weight 64.6 kg 59.534 kg - Physical Examination General: Conversant, No Apparent Distress Neck: No JVD, Normal carotid pulses Cardiac: Reg Rate and Rhythm, Normal S1 and S2, No Murmur Incision: No signs of infection, Dry/intact dressing Lungs: Normal Breath Sounds (Lung dasilva.), Decreased breath sounds (Right base. ), No Wheeze, Rales, Rhonchi Neuro: Alert and responsive, No focal deficits noted Vascular: Normal capillary refill Musculoskeletal: No Chest Wall Tenderness Extremities: No Clubbing, No Cyanosis, No Edema - Labs 10/31/16 05:42 10/31/16 05:42 Lab Results, Last 24 hours 10/31/16 11/01/16 05:42 05:34 Magnesium 1.6 B-Natriuretic Peptide 64 - Imaging Chest Xray: image reviewed (No pneumothorax. Right lateral pleural effusion.) - VTE Documentation of Mechanical Device: Intermittent pneumatic compression device Consult Discharge Plan - Plan Referrals: Ernestina Armenta CNP [Primary Care Provider] - 11/09/16 10:00 am Dante Gonzalez MD [Partnered Physician] - 11/10/16 10:10 am
[2016-11-01] MEDS: *HR* Heparin 5,000 UNIT/ML VIAL SQ SCH (07:49)
[2016-11-01] MEDS: Nystatin SUSP 5 ML UD.LIQ PO SCH ×2 (07:49→12:51)
[2016-11-01] MEDS: predniSONE 20 MG TABLET PO SCH (07:50)
[2016-11-01] MEDS: amLODIPine 5 MG TABLET PO SCH (07:50)
[2016-11-01] MEDS: Vitamin B Complex/Vit C/Vit E 1 EACH TABLET PO SCH (07:50)
[2016-11-01] MEDS: *HR* Amiodarone 200 MG TABLET PO SCH (07:50)
[2016-11-01] MEDS: Nicotine 14 MG PATCH.TD24 TD SCH (07:51)
[2016-11-01] MEDS: Artificial Tears SOLN 15 ML BOTTLE BOTH EYES SCH ×2 (07:51→12:52)
[2016-11-01] MEDS: Insulin LISPRO 300 UNITS/3 ML VIAL SQ SCH ×2 (07:51→11:55)
[2016-11-01] MEDS: Folic Acid 1 MG TABLET PO SCH (07:51)
[2016-11-01] MEDS: Budesonide/Formoterol 160/4.5 MDI IH SCH (08:18)
[2016-11-01 11:33] VITALS: BP 116/75
--- NOTE | 2016-11-01 12:47 | Discharge Summary ---
Date of Encounter: 11/01/16 Time of Encounter: 12:31 - Discharge Diagnosis (1) Lower extremity edema Priority: Secondary Status: Acute Qualifiers: Laterality: bilateral Qualified Code(s): R60.0 - Localized edema (2) Acute pericarditis Priority: Primary Status: Acute Qualifiers: Pericarditis type: infectious Infectious pericarditis etiology: unspecified Qualified Code(s): I30.1 - Infective pericarditis (3) COPD exacerbation Priority: Primary (4) Squamous cell lung cancer Priority: Primary Status: Acute Qualifiers: Laterality: right Qualified Code(s): C34.91 - Malignant neoplasm of unspecified part of right bronchus or lung (5) Hypoglycemia Priority: Secondary Status: Acute (6) Hyponatremia Priority: Secondary Status: Acute (7) Acute on chronic respiratory failure with hypoxia and hypercapnia Priority: Primary Status: Acute (8) Pericardial effusion with cardiac tamponade Priority: Primary Status: Acute (9) Sepsis with multi-organ dysfunction Priority: Primary Status: Acute - Discharge Medications Prescriptions: OxyCODONE/APAP 5/325 [Percocet 5/325 MG] 1 each PO Q4HR PRN #40 tablet PRN Reason: Mild Pain Acetaminophen [Tylenol] 650 mg PO Q6HR PRN #90 tablet PRN Reason: Fever Greater Than 101.2 F Amiodarone [Cordarone] 200 mg PO BID #180 tablet Amlodipine [Norvasc] 10 mg PO DAILY #90 tablet Artificial Tears SOLN [Akwa Tears] 2 drop BOTH EYES QID #1 bottle Bisacodyl [Dulcolax] 5 mg PO DAILY PRN #30 tablet PRN Reason: Constipation Budesonide/Formoterol 160/4.5 [Symbicort 160/4.5] 2 puff IH BIDR #1 inhaler Cephalexin [Keflex] 500 mg PO TID #30 capsule Cyanocobalamin (B-12) [Vitamin B12] 1,000 mcg PO DAILY #90 tablet Folic Acid 1 mg PO DAILY #90 tablet Ipratropium/Albuterol Neb [Duoneb] 3 ml IH TID #270 inhsol Lactobacillus [Culturelle] 1 each PO BID #30 cap.sprink Nicotine Patch [Nicoderm] 14 mg TD DAILY #30 patch.td24 Omeprazole [PriLOSEC] 20 mg PO DAILY@0730 #30 capsule.dr Polyethylene Glycol 3350 [MiraLAX] 17 gm PO DAILY PRN #30 powd.pack PRN Reason: Constipation PredniSONE 20 mg PO DAILY #11 tablet Vitamin B Complex/Vit C/Vit E [Stresstab] 1 each PO DAILY #90 tablet Home Medications: Acetaminophen [Tylenol] 650 mg PO Q6HR PRN #90 tablet 11/01/16 [Rx] Amiodarone [Cordarone] 200 mg PO BID #180 tablet 11/01/16 [Rx] Amlodipine [Norvasc] 10 mg PO DAILY #90 tablet 11/01/16 [Rx] Artificial Tears SOLN [Akwa Tears] 2 drop BOTH EYES QID #1 bottle 11/01/16 [Rx] Bisacodyl [Dulcolax] 5 mg PO DAILY PRN #30 tablet 11/01/16 [Rx] Budesonide/Formoterol 160/4.5 [Symbicort 160/4.5] 2 puff IH BIDR #1 inhaler 02/12 [Rx] Cephalexin [Keflex] 500 mg PO TID #30 capsule 11/01/16 [Rx] Cyanocobalamin (B-12) [Vitamin B12] 1,000 mcg PO DAILY #90 tablet 11/01/16 [Rx] Folic Acid 1 mg PO DAILY #90 tablet 11/01/16 [Rx] Ipratropium/Albuterol Neb [Duoneb] 3 ml IH TID #270 inhsol 11/01/16 [Rx] Lactobacillus [Culturelle] 1 each PO BID #30 cap.sprink 11/01/16 [Rx] Nicotine Patch [Nicoderm] 14 mg TD DAILY #30 patch.td24 11/01/16 [Rx] Omeprazole [PriLOSEC] 20 mg PO DAILY@0730 #30 capsule. 11/01/16 [Rx] OxyCODONE/APAP 5/325 [Percocet 5/325 MG] 1 each PO Q4HR PRN #40 tablet 11/01/16 [Rx] Polyethylene Glycol 3350 [MiraLAX] 17 gm PO DAILY PRN #30 powd.pack 11/01/16 [Rx ] PredniSONE 20 mg PO DAILY #11 tablet 11/01/16 [Rx] Vitamin B Complex/Vit C/Vit E [Stresstab] 1 each PO DAILY #90 tablet 11/01/16 [ Rx] Allergies/Adverse Reactions: Allergies cefuroxime [From Ceftin] Adverse Reaction (Verified 10/21/16 21:08) Nausea Procedures/tests Complete & Pending: Procedures Performed prior 72 hours Category Date Time Status CT chest with contrast [CT chest w con] [CT] Routine Cat Scan 10/30/16 10:00 Completed Date of admission: 10/21/16 22:32 Primary care physician: Ernestina Armenta Consults: 10/22/16 06:24 Consult to Linux Security Administrator [CONS] Routine Reason for SW Consult: DC planning 10/22/16 07:00 Consult to Pulmonology [CONS] Routine Consulting Provider: [facility] Reason for Consult: Acute respiratory failure in patient with large right loculated pleural effusion and apparent perihilar mass lesion obstructing right bronchi with associated atelectasis. Worrisome for malignancy. Presents with associated pneumonia and sepsis. Please evaluate and advise. Time Notified: 01:06 Call Completed: No 10/22/16 09:19 Consult to Cardiothoracic Surgery [CONS] Stat Consulting Provider: Cardiothoracic Surgery [facility] Reason for Consult: Pericardial effusion Time Notified: 09:15 Call Completed: Yes 10/23/16 16:25 Consult to Linux Security Administrator [CONS] Routine Reason for SW Consult: pericardial tamponade 10/25/16 15:27 Consult to Physical Therapy [CONS] Routine Comment: Evaluate, develop and implement POC OT [Consult to Occupational Therapy] [CONS] Routine Comment: Evaluate, develop and implement POC 10/26/16 12:53 Consult to Oncology [CONS] Routine Consulting Provider: On[facility] Reason for Consult: Squamous cell lung CA Call Completed: Yes Discharging clinician: Milvia Qureshi - Patient Status Disposition: Home Health Service Condition: Fair Overall status at discharge: patient is progressing back to baseline - Discharge Instructions Instructions: Cephalexin (By mouth), Oxycodone/Acetaminophen (By mouth), Omeprazole (By mouth), Amiodarone (By mouth), Amlodipine (By mouth), Bisacodyl ( By mouth), Chronic Obstructive Pulmonary Disease (DC), Pneumonia (DC) Follow Up With: Ernestina Armenta CNP [Primary Care Provider] - 11/09/16 10:00 Dante May MD [Partnered Physician] - 11/10/16 10:10 am Additional Instructions: Please follow up with oncology and family doctor in 1 week - Diet and Activity Activity: ambulate only with your walker Diet: regular diet Interval History: Mr. Hill is a 56 year old male with past medical history is significant for COPD and asthma who presented to the emergency department with worsening shortness of breath. He stated that he has been short of breath for the past 3 years which has been getting worse to gradually . Patient comes in with productive cough with yellow sputum with worsening of his shortness of breath associated with fever chills and night sweats.His shortness of breath has been getting more worse over last 2 days. Current tobacco use 1-1/2-2 day pack a day. Patient was complaining of nausea, markedly diminished oral intake associated with markedly diminished urine output. The patient receives a chest x-ray in early August which demonstrated a right pleural effusion and right lung atelectasis. Upon arrival to ER repeat x-ray demonstrates the right pleural effusion is continuing to increase in size with continued atelectasis. CT chest with significant abnormalities including pericardial effusion, lung mass, and right-sided pleural effusion. The patient has significant pericardial effusion , based on cardiothoracic surgery and pulmonary most likely malignant. Cardiothoracic surgery recommendedfor him to have pericardial window with biopsy and right chest tube placement. The patient had bronchoscopy with biopsy of the right hilar mass.Pericardial window was done .Mediastinal drainage tube was in place. Vinny pus was encountered in the pericardium. Patient was intubated, Continue treatment of sepsis with empiric antibiotic in ICU. Once stable, the patient was extubated. Pathology report showed that patient had squamous cell carcinoma of the lung with the metastasis to Calvrum and sacrum ,oncology was consulted .He will follow-up with oncology as an outpatient, continuous monitoring for drainage from pericardium. Once improving chest tube was removed. Continue to monitor the patient and after chest tube removal. Patient condition continued to improve gradually. Cardiothoracic team agreed with discharge planning. I discussed with pulmonary team agreed was discharged to follow up with oncology as an outpatient. I had a long discussion with patient about nutrition. Discussed about home health care. Discussed with social service and treatment team,Theys stated patient had adequate social support. Discussed with physical therapy patient was givena walker. The documentation in the history of HPI and plan were at least partially created by [employer] recognition technology by Dr. Jean. Errors in grammar, wording or other phrases may exist. If errors are found after the documentation signed, they will be addressed individually in the addendum section of this document when appropriate. Hospital course: Mr. Hill is a 56 year old male - Time Spent with Patient Total time spent providing and/or coordinating discharge services: Greater than 30 minutes - Constitutional Vitals: Temp Pulse Resp BP Pulse Ox 98.1 F 97 16 116/75 98 11/01/16 11:27 11/01/16 11:27 11/01/16 11:42 11/01/16 11:27 11/01/16 11:42 General appearance: Present: A&O X 3, pleasant, no acute distress - VTE Documentation of Mechanical Device: Intermittent pneumatic compression device
--- NOTE | 2016-11-01 13:03 | Physician Discharge Referral ---
Home Health/Hosp Referral Info Provider in Charge Post Discharge: PCP - Diagnosis (1) Lower extremity edema Priority: Secondary Status: Acute (2) Acute pericarditis Priority: Primary Status: Acute (3) COPD exacerbation Priority: Primary (4) Squamous cell lung cancer Priority: Primary Status: Acute (5) Hypoglycemia Status: Acute (6) Hyponatremia Priority: Secondary Status: Acute (7) Acute on chronic respiratory failure with hypoxia and hypercapnia Priority: Primary Status: Acute (8) Pericardial effusion with cardiac tamponade Priority: Primary Status: Acute (9) Sepsis with multi-organ dysfunction Priority: Primary Status: Acute - Respiratory Orders Smoking Cessation: Smoking cessation has been advised. For more information, call the [place] Tobacco Quit Line at 0-332-MRPDNOW. - Diet/Nutrition Diet/Nutrition Orders: Regular - Activity Activity Orders: Walker - Services Needed Following services are medically necessary services: Nursing, Home Health Aide, Physical Therapy, Occupational Therapy - Transfer Medications Prescriptions: OxyCODONE/APAP 5/325 [Percocet 5/325 MG] 1 each PO Q4HR PRN #40 tablet PRN Reason: Mild Pain Acetaminophen [Tylenol] 650 mg PO Q6HR PRN #90 tablet PRN Reason: Fever Greater Than 101.2 F Amiodarone [Cordarone] 200 mg PO BID #180 tablet Amlodipine [Norvasc] 10 mg PO DAILY #90 tablet Artificial Tears SOLN [Akwa Tears] 2 drop BOTH EYES QID #1 bottle Bisacodyl [Dulcolax] 5 mg PO DAILY PRN #30 tablet PRN Reason: Constipation Budesonide/Formoterol 160/4.5 [Symbicort 160/4.5] 2 puff IH BIDR #1 inhaler Cephalexin [Keflex] 500 mg PO TID #30 capsule Cyanocobalamin (B-12) [Vitamin B12] 1,000 mcg PO DAILY #90 tablet Folic Acid 1 mg PO DAILY #90 tablet Ipratropium/Albuterol Neb [Duoneb] 3 ml IH TID #270 inhsol Lactobacillus [Culturelle] 1 each PO BID #30 cap.sprink Nicotine Patch [Nicoderm] 14 mg TD DAILY #30 patch.td24 Omeprazole [PriLOSEC] 20 mg PO DAILY@0730 #30 capsule. Polyethylene Glycol 3350 [MiraLAX] 17 gm PO DAILY PRN #30 powd.pack PRN Reason: Constipation PredniSONE 20 mg PO DAILY #11 tablet Vitamin B Complex/Vit C/Vit E [Stresstab] 1 each PO DAILY #90 tablet Home Medications: Acetaminophen [Tylenol] 650 mg PO Q6HR PRN #90 tablet 11/01/16 [Rx] Amiodarone [Cordarone] 200 mg PO BID #180 tablet 11/01/16 [Rx] Amlodipine [Norvasc] 10 mg PO DAILY #90 tablet 11/01/16 [Rx] Artificial Tears SOLN [Akwa Tears] 2 drop BOTH EYES QID #1 bottle 11/01/16 [Rx] Bisacodyl [Dulcolax] 5 mg PO DAILY PRN #30 tablet 11/01/16 [Rx] Budesonide/Formoterol 160/4.5 [Symbicort 160/4.5] 2 puff IH BIDR #1 inhaler 02/12 [Rx] Cephalexin [Keflex] 500 mg PO TID #30 capsule 11/01/16 [Rx] Cyanocobalamin (B-12) [Vitamin B12] 1,000 mcg PO DAILY #90 tablet 11/01/16 [Rx] Folic Acid 1 mg PO DAILY #90 tablet 11/01/16 [Rx] Ipratropium/Albuterol Neb [Duoneb] 3 ml IH TID #270 inhsol 11/01/16 [Rx] Lactobacillus [Culturelle] 1 each PO BID #30 cap.sprink 11/01/16 [Rx] Nicotine Patch [Nicoderm] 14 mg TD DAILY #30 patch.td24 11/01/16 [Rx] Omeprazole [PriLOSEC] 20 mg PO DAILY@0730 #30 capsule. 11/01/16 [Rx] OxyCODONE/APAP 5/325 [Percocet 5/325 MG] 1 each PO Q4HR PRN #40 tablet 11/01/16 [Rx] Polyethylene Glycol 3350 [MiraLAX] 17 gm PO DAILY PRN #30 powd.pack 11/01/16 [Rx ] PredniSONE 20 mg PO DAILY #11 tablet 11/01/16 [Rx] Vitamin B Complex/Vit C/Vit E [Stresstab] 1 each PO DAILY #90 tablet 11/01/16 [ Rx] Allergies/Adverse Reactions: Allergies cefuroxime [From Ceftin] Adverse Reaction (Verified 10/21/16 21:08) Nausea Certification: Further, I certify that my clinical findings support that this patient is homebound (i.e. absences from home require considerable and taxing effort and are for medical reasons or voodoo services or infrequently or short duration when for other reasons) because: Homebound Reason: Patient requires assistance of a person or device to safely leave home, Leaving home requires considerable and taxing effort due to condition, Severity of cardiac or pulmonary status limits activity tolerance Attestation: My signature below is to certify that this patient is under my care and that I, or nurse practitioner, or a physician's clinic assistant working with me, has a face-to -face encounter with this patient.
== END 2016-11-01 16:30 | disposition home health service (06) | DRG 853 ==
LOC: EMEROO 21:00 → ICNU 22:32 → SUATTDRO 22:32 → ICNU 22:58 → 2NNU 10-26 16:18
PROVIDERS: ADMIT Internal Medicine; ATTEND Internal Medicine
PROC: ENDOLBX (2016-10-24 13:30)

== ENCOUNTER 2016-11-16 21:38 | Inpatient (IN) ==
--- NOTE | 2016-11-16 22:46 | Internal Med History&Physical ---
Date of Encounter: 11/16/16 Time of Encounter: 23:09 Assessment and Plan (1) Acute and chronic respiratory failure ([id number]) Current visit: Yes Status: Acute Secondary to malignant right pleural effusion, reaccumulated. Responding to oxygen by nasal cannula, continue same ABG noted Interventional radiology for thoracentesis. Patient with history of right lung mass squamous cell carcinoma requiring pleural effusion is probably malignant patient may benefit from pig tail placement. Qualifiers: Respiratory failure complication: hypoxia Qualified Code(s): J96.21 - Acute and chronic respiratory failure with hypoxia (2) Bilateral cellulitis of lower leg Current visit: Yes Status: Acute Afebrile, however has leukocytosis. Hold clindamycin Start IV Unasyn. Doppler of both lower extremities to rule out DVT due to increased risk secondary to malignancy. (3) Pleural effusion Current visit: Yes Status: Acute Management as an acute on chronic hypoxic respiratory failure (4) Squamous cell lung cancer Current visit: Yes Status: Chronic Suspected stage IV squamous cell lung carcinoma , stage is pending, s/p bone biopsy Patient has follow-up appointments with oncology, and cardiology respectively We will consult oncology at this time May consult prn Qualifiers: Laterality: right Qualified Code(s): C34.91 - Malignant neoplasm of unspecified part of right bronchus or lung (5) Hypertension Current visit: Yes Status: Chronic Will hold Norvasc due to severe bilateral lower extremity edema. The patient is on Lasix 40 mg twice a day. Continue same Will add another medication as necessary. Qualifiers: Hypertension type: essential hypertension Qualified Code(s): I10 - Essential (primary) hypertension Internal Medicine - H&P: HPI Chief complaint: Shortness of breath Admitted From: Home Plans for Post Hospital Care: Home History of present illness: Mr. Hill is a 56 year old male recently discharged following a prolonged admission for pericardial effusion, right pleural effusion with postobstructive pneumonia, right lung squamous cell carcinoma Reports he was in his usual state of health until 5 days ago when his day feeling worsening shortness of breath. Shortness of breath initially started on exertion but he now has shortness of breath at rest. He denies fever or chills, he denies worsening cough, he denies new hemoptysis, he denies sick contacts. He has had bilateral lower extremity edema since discharge however reports this is getting worse right more than left with associated redness pain and swelling. He denies fever or chills. He has been on oral medications for treatment of bilateral lower extremity cellulitis He denies abdominal symptoms, genitourinary symptoms, or neurologic symptoms. Workup at Center showed leukocytosis with left shift, and chest x-ray which was a right pleural effusion. Hence he was referred here for thoracentesis. Patient is clinically stable at time of review Past Med Surg Social Fam HX - Past Medical History Medical history: asthma, COPD, other Psychiatric history: anxiety, depression, other - Past Surgical History Surgical History: orthopedic, other - Social History Smoking Status: Current every day smoker Smokeless Tobacco Status: No Alcohol use: none Drug use: marijuana - Family History Mother Family Member Ethnicity: Non- Living Status: Hx Family Cardiac Disorders: Yes (Vascular and heart disease) Father Living Status: Still Living Hx Family Respiratory Disorders: Yes (COPD) Internal Medicine - H&P: Meds Amiodarone [Cordarone] 200 mg PO BID #180 tablet 11/01/16 [Rx] Amlodipine [Norvasc] 10 mg PO DAILY #90 tablet 11/01/16 [Rx] Budesonide/Formoterol 160/4.5 [Symbicort 160/4.5] 2 puff IH BIDR #1 inhaler 02/12 [Rx] Folic Acid 1 mg PO DAILY #90 tablet 11/01/16 [Rx] Ipratropium/Albuterol Neb [Duoneb] 3 ml IH TID #270 inhsol 11/01/16 [Rx] Omeprazole [PriLOSEC] 20 mg PO DAILY@0730 #30 capsule. 11/01/16 [Rx] HYDROcodone/Acet 10/325 mg [[place] 10-325 mg] 1 tab PO Q6HR PRN #90 tab 11/10/16 [Rx] LORazepam [Ativan] 0.5 mg PO Q6H PRN #90 tablet 11/10/16 [Rx] Clindamycin [Cleocin] 300 mg PO Q8H #60 capsule 11/14/16 [Rx] Cyanocobalamin (Vitamin B-12) [Vitamin B12] 1,000 mcg PO DAILY 11/16/16 [History ] Furosemide [Lasix] 40 mg PO BID 11/16/16 [History] Allergies cefuroxime [From Ceftin] Adverse Reaction (Verified 11/10/16 16:58) Nausea All Systems PM: A 10-system review of systems was performed and is negative for pertinent findings except as documented above in the HPI. - Constitutional Constitutional: no chills, no fever(s), no night sweats - EENT Eyes: no change in vision, no discharge, no pain, no photophobia Ears: no ear discharge, no ear pain, no tinnitus Nose, mouth and throat: no dysphagia, no nasal discharge, no neck pain, no sore throat - Cardiovascular Cardiovascular ROS IM: as per HPI - Respiratory Respiratory: as per HPI - Gastrointestinal Gastrointestinal: as per HPI - Musculoskeletal Musculoskeletal ROS IM: no arthralgias, no myalgias - Integumentary Integumentary IM: as per HPI - Neurological Neurological ROS: as per HPI - Endocrine Endocrine IM: as per HPI - Hematologic/Lymphatic Hematologic/Lymphatic: as per HPI - Head Head exam: Present: atraumatic Additional comments: Right frontal scalp swelling, chronic - Eye Eye exam: Present: PERRL, conjuntiva pink, sclera anicteric Pupils: Present: PERRL - ENT ENT exam: Present: mucous membranes moist - Neck Neck exam general surgery: Present: normal inspection - Respiratory Additional comments: Diminished breath sounds on the right lung zone anteriorly No wheezing no rales - GI/Abdominal GI/Abdominal exam: Present: normal bowel sounds, soft, no peritoneal signs. Absent: tenderness - Extremities Exam Extremities exam: Present: pedal edema - Back Exam Additional comments: Sacral edema - Neurological Exam Neurological exam: Present: CN II-XII intact, oriented X3, no focal deficits. Absent: pronater drift, facial droop, speech deficit - Skin Skin exam: Present: dry, excoriation
[2016-11-16] MEDS ORDERED: Naloxone 0.4 MG/ML INJ IVP PRN (23:04)
[2016-11-16] MEDS ORDERED: MOM Conc 10 ML UD.LIQ PO PRN (23:04)
[2016-11-16] MEDS ORDERED: Ondansetron 4 MG/2 ML VIAL IVP PRN (23:04)
[2016-11-16] MEDS: Ampicillin/Sulbactam 3,000 MG in 0.9 % Sodium Chloride Mini Bag 100 ML IVPB SCH (23:56)
[2016-11-16] MEDS: *HR* LORazepam 0.5 MG TABLET PO PRN (23:56)
[2016-11-17] MEDS: Ipratropium/Albuterol Neb 3 ML IH SCH ×4 (01:45→22:35)
[2016-11-17 05:52] LABS: Basophils % 0.1 %; Eosinophils % 0.3 %; Hematocrit 28.3 % (37.5-50.1); Hemoglobin 9.5 g/dL (12.9-16.9); Immature Granulocytes % 1.1 % (0-4); Lymphocytes # 0.6 K/mcL (0.6-4.6); Lymphocytes % 5.8 %; Mean Corpuscular HGB Conc 33.6 g/dL (31.6-35.5); Mean Corpuscular Hemoglobin 29.6 pg (28.0-33.3); Mean Corpuscular Volume 88.2 fL (83.0-100.0); Mean Platelet Volume 9.2 fL (9.4-12.4); Monocytes # 0.9 K/mcL (0.0-1.3); Monocytes % 8.2 %; Neutrophils # 8.8 K/mcL (1.6-8.9); Platelet Count 361 K/mcL (140-400); Red Blood Count 3.21 M/mcL (4.19-5.50); Red Cell Distribution Width 15.7 % (11.5-14.5); Segmented Neutrophils % 84.5 %
[2016-11-17 05:56] LABS: INR 1.2; Prothrombin Time 12.9 Seconds (9.4-12.1)
[2016-11-17 05:58] LABS: Activated Partial Thrombo Time 28.2 Seconds (26.0-36.0)
[2016-11-17] MEDS ORDERED: *HR* Enoxaparin 60 MG/0.6 ML SYRINGE SQ SCH (06:00)
[2016-11-17] MEDS: Ampicillin/Sulbactam 3,000 MG in 0.9 % Sodium Chloride Mini Bag 100 ML IVPB SCH ×4 (06:11→23:56)
[2016-11-17 06:13] LABS: BUN/Creatinine Ratio 21 (6-26); Blood Urea Nitrogen 18 mg/dL (8-26); Calcium 9.3 mg/dL (8.6-10.8); Carbon Dioxide 28 mEq/L (19-29); Chloride 97 mEq/L (98-109); Glucose 119 mg/dL (70-99); Osmolality,Calculated 287 (280-300); Potassium 3.1 mEq/L (3.5-4.5); Sodium 137 mEq/L (136-145); eGFR For African Americans > 60 (> 60); eGFR For Non-African Americans > 60 (> 60)
[2016-11-17] MEDS: Budesonide/Formoterol 160/4.5 MDI IH SCH ×2 (10:09→22:35)
--- NOTE | 2016-11-17 11:01 | Internal Med Progress Note ---
Date of Encounter: 11/17/16 Time of Encounter: 10:58 - Assessment and plan (1) Pleural effusion Current Visit: Yes Status: Acute Assessment and plan: Recurrent right-sided pleural effusion, likely malignant. Plan for IR-guided thoracentesis today. Case discussed with interventional radiologist and decided the best plan for now is to perform thoracentesis versus Pleurx catheter as patient has not followed with oncology and no treatment plan has been initiated yet. Continue supplemental oxygen as needed. Send pleural fluid for cytology. (2) Cellulitis Current Visit: Yes Status: Acute Assessment and plan: Improving leukocytosis. No fever. Continue IV Unasyn and monitor for clinical improvement. Venous Doppler bilateral lower extremities negative for DVT. Start prophylactic anticoagulation with subcutaneous Lovenox. Qualifiers: Site of cellulitis: extremity Site of cellulitis of extremity: lower extremity Laterality: right Qualified Code(s): L03.115 - Cellulitis of right lower limb (3) Hypertension Current Visit: Yes Status: Chronic Qualifiers: Hypertension type: essential hypertension Qualified Code(s): I10 - Essential (primary) hypertension (4) Squamous cell lung cancer Current Visit: Yes Status: Chronic Assessment and plan: Has been diagnosed during his previous admission last month. Biopsy-proven right lung mass showing squamous cell cancer. Bone scan was done which showed likely metastasis. Pelvic bone biopsy shows metastatic squamous cell cancer. Findings were discussed with patient today and recommended to follow up with oncology to come up with the treatment plan, verbalized understanding. Qualifiers: Laterality: right Qualified Code(s): C34.91 - Malignant neoplasm of unspecified part of right bronchus or lung (5) COPD (chronic obstructive pulmonary disease) Current Visit: Yes Status: Chronic Assessment and plan: Not in acute exacerbation. Continue supplemental oxygen as needed and bronchodilators. Qualifiers: COPD type: emphysema Emphysema type: unspecified Qualified Code(s): J43.9 - Emphysema, unspecified (6) Tobacco abuse Current Visit: Yes Status: Chronic Assessment and plan: Discussed about Smoking cessation in light of his metastatic cancer and lung disease. Patient is determined to quit smoking at this time. Continue nicotine transdermal patch. (7) Hypokalemia Current Visit: Yes Status: Acute Assessment and plan: Supplement with oral potassium chloride. Likely due to poor oral intake. - Subjective Interval history: Reports some shortness of breath and cough; currently on face mask; very anxious about his health and diagnoses; irritable in general; no vomiting, fever , abdominal pain; also reports ongoing leg swelling since his previous hospitalization last month, currently infected on the right leg; awaiting thoracentensis today by IR; - Constitutional Vitals: Temp Pulse Resp BP Pulse Ox 98.1 F 83 16 110/69 95 11/17/16 03:57 11/17/16 03:57 11/17/16 03:57 11/17/16 03:57 11/17/16 03:57 General appearance: Present: mild distress, A&O X 3, answers questions appropriately - Head Head exam: Present: atraumatic, normocephalic - Neck Neck exam general surgery: Present: supple, trachea midline. Absent: lymphadenopathy - Respiratory Respiratory exam: Present: decreased breath sounds (Right base and mid axillary line), CTAB. Absent: accessory muscle use, rales, rhonchi, wheezes - Cardiovascular Cardiovascular exam: Present: RRR, +S1, +S2. Absent: diastolic murmur, gallop, rubs, systolic murmur - GI/Abdominal GI/Abdominal exam: Present: normal bowel sounds, soft, no peritoneal signs. Absent: distended, tenderness - Extremities Exam Extremities exam: Present: pedal edema (2+ pitting pedal edema with wrinkled skin suggestive of improving edema), warm, radial pulses palpable and symetrical. Absent: calf tenderness, cyanotic - Neurological Exam Neurological exam: Present: CN II-XII intact, oriented X3, no focal deficits. Absent: pronater drift, facial droop, speech deficit - Skin Skin exam: Present: dry, erythema (Right leg-anterolateral side of the distal leg with erythema, tenderness and warmth along with yellowish superficial ulcers , no discharge), intact Internal Medicine: Result - Labs CBC & Chem 7: 11/17/16 05:35 11/17/16 05:35 Labs: Short CBC 11/17/16 Range/Units 05:35 WBC 10.5 (4.3-11.1) K/mcL Hgb 9.5 L (12.9-16.9) g/dL Hct 28.3 L (37.5-50.1) % Plt Count 361 (140-400) K/mcL Neutrophils # 8.8 (1.6-8.9) K/mcL BMP 11/17/16 05:35 Sodium 137 Potassium 3.1 L Chloride 97 L Carbon Dioxide 28 BUN 18 Creatinine 0.85 Glucose 119 H Calcium 9.3 - ABG Interpretation ABG results: PT/INR, D-dimer PT 12.9 Seconds (9.4-12.1) H 11/17/16 05:35 Consult Discharge Plan - Plan Referrals: Ernestina Armenta CNP [Primary Care Provider] -
[2016-11-17] MEDS: Cyanocobalamin (B-12) 1,000 MCG TABLET PO SCH (11:10)
[2016-11-17] MEDS: *HR* Amiodarone 200 MG TABLET PO SCH ×2 (11:10→19:39)
[2016-11-17] MEDS: Furosemide 40 MG TABLET PO SCH ×2 (11:11→19:39)
[2016-11-17] MEDS: Folic Acid 1 MG TABLET PO SCH (11:11)
[2016-11-17] MEDS: Potassium Chloride Elixir 20 MEQ/15 ML UDC PO SCH ×2 (11:11→16:23)
--- NOTE | 2016-11-17 14:30 | IR Procedure Note ---
Date of procedure: 11/17/16 Consent Obtained: Verbal consent, Written consent Timeout: Correct patient and procedure verified, Correct site verified, Time out performed, Skin prep completed Local anesthetic: Lidocaine 1% Indications: Pleural effusions Procedure Performed: Right thoracentesis Site/Technique: Ultrasound guided right thoracentesis performed Results/Findings: Large pleural effusion Estimated blood loss (cc): 1 Complications: None; Tolerated procedure well Post Procedure Treatment Plan: CXR pending
--- NOTE | 2016-11-17 17:57 | Venous Imaging Report ---
LE Venous Duplex Patient Name:Gallo Hill Order Number:[id number] Procedure Date:11/17/2016 Date:2Age:56 yrs Gender:Male Location:[facility] Room #: Radio Script Writer:Amanda Schwab RDCS, RVT Referring MD:Amanda Solano CNP surgical specialist:Ernestina Armenta CNP Reading MD:Lasha Garces MD Primary Indications:Swelling, Redness Secondary Indications: Risk Factors Yes/No Hx of DVT No Hx of Chemotherapy Yes Anticoagulants Unknown Trauma to Veins No Impressions: Normal bilateral lower extremity deep and superficial venous exam. Recommendations: After imaging the patient returned to their room. Test completed on 11/17/2016 at 10:07:03 am. Findings Prior Study: No prior study available for comparison. Lower Extremity Venous Duplex Side Vein Compress Spontaneous Flow Augment Diameter (cm) Depth (cm) Right Distal Iliac Normal Yes Phasic Yes Right Common Femoral Normal Yes Phasic Yes Right Superficial Femoral Normal Yes Phasic Yes Right Popliteal Normal Yes Phasic Yes Right Posterior Tibial Normal Yes Phasic Yes Right Peroneal Normal Yes Phasic Yes Right Great Saphenous Normal Yes Phasic Yes Right Lesser Saphenous Normal Yes Phasic Yes Left Distal Iliac Normal Yes Phasic Yes Left Common Femoral Normal Yes Phasic Yes Left Superficial Femoral Normal Yes Phasic Yes Left Popliteal Normal Yes Phasic Yes Left Posterior Tibial Normal Yes Phasic Yes Left Peroneal Normal Yes Phasic Yes Left Great Saphenous Normal Yes Phasic Yes Left Lesser Saphenous Normal Yes Phasic Yes Updated by Lasha Garces MD on 11/17/2016 5:51:21 PM electronically signed on 11/17/2016 5:51:34 PM with status of Final
[2016-11-17] MEDS: *HR* HYDROcodone/Acet 10/325 mg TABLET PO PRN (19:38)
[2016-11-17] MEDS: *HR* LORazepam 0.5 MG TABLET PO PRN (19:39)
[2016-11-18] MEDS: Ipratropium/Albuterol Neb 3 ML IH SCH ×4 (03:55→22:06)
[2016-11-18 06:38] LABS: BUN/Creatinine Ratio 16 (6-26); Blood Urea Nitrogen 15 mg/dL (8-26); Calcium 9.9 mg/dL (8.6-10.8); Carbon Dioxide 28 mEq/L (19-29); Chloride 98 mEq/L (98-109); Glucose 134 mg/dL (70-99); Osmolality,Calculated 289 (280-300); Potassium 3.4 mEq/L (3.5-4.5); Sodium 138 mEq/L (136-145); eGFR For African Americans > 60 (> 60); eGFR For Non-African Americans > 60 (> 60)
[2016-11-18] MEDS: Acetaminophen 325 MG TABLET PO PRN ×3 (06:51→22:52)
[2016-11-18] MEDS: *HR* Enoxaparin 40 MG/0.4 ML SYRINGE SQ SCH (06:51)
[2016-11-18] MEDS: Ampicillin/Sulbactam 3,000 MG in 0.9 % Sodium Chloride Mini Bag 100 ML IVPB SCH ×3 (06:51→18:08)
[2016-11-18] MEDS: Folic Acid 1 MG TABLET PO SCH (08:59)
[2016-11-18] MEDS: Furosemide 40 MG TABLET PO SCH ×3 (08:59→22:51)
[2016-11-18] MEDS: *HR* Amiodarone 200 MG TABLET PO SCH ×3 (08:59→22:51)
[2016-11-18] MEDS: Cyanocobalamin (B-12) 1,000 MCG TABLET PO SCH (08:59)
[2016-11-18] MEDS: *HR* HYDROcodone/Acet 10/325 mg TABLET PO PRN ×3 (09:01→22:51)
[2016-11-18] MEDS: Budesonide/Formoterol 160/4.5 MDI IH SCH ×2 (10:47→22:06)
[2016-11-18] MEDS ORDERED: Potassium Chloride Elixir 20 MEQ/15 ML UDC PO ONE (12:31)
--- NOTE | 2016-11-18 14:29 | Cardiothoracic Consult Note ---
Date of Encounter: 11/18/16 Time of Encounter: 14:29 Assessment and Plan (1) Squamous cell lung cancer Current Visit: Yes Status: Chronic The patient is a 56-year-old man with stage IV moderately differentiated squamous cell carcinoma involving the right lung. The most recent chest CT shows a loculated right pleural effusion located inferiorly and posteriorly as well as in a large necrotic mass involving the right lower lobe. It is unlikely that a thoracentesis or chest tube to drain the residual fluid will improve the patient's shortness of breath given the extent of his disease and the obstruction of the bronchus intermedius. Drainage of the fluid will only result in a resultant airspace which will persists since the lung will not ventilate. If a chest tube is pursued; however, it will need to be placed in interventional radiology under either CT guidance or ultrasound guidance. The assessment and plan as outlined above was discussed with the patient and/or family members who expressed understanding and agreement. All questions were answered. Qualifiers: Laterality: right Qualified Code(s): C34.91 - Malignant neoplasm of unspecified part of right bronchus or lung - History of Present Illness Consult date: 11/18/16 Requesting physician: Radha Aparicio Consult reason: Right pleural effusion. Chief complaint: Shortness of breath History of present illness: Mr. Hill is a 56 year old man with stage IV moderately differentiated squamous cell carcinoma involving the right lung. The patient was admitted to [facility] in September 2016 with complaints of shortness of breath and dyspnea on exertion. That time the patient was found to have a large pericardial effusion as well as a large right pleural effusion. The patient underwent a subxiphoid pericardial window by Dr. Nicolás Huynh and right chest tube insertion. At the time of operation, the patient had large amount of pus within both the pericardial space and the right pleural space. The chest tubes remained in place for several days and were removed. The patient underwent fiberoptic bronchoscopy and biopsy of a bronchus intermedius lesion which was found to be consistent with a moderately differentiated squamous cell carcinoma. Staging studies revealed bulky paratracheal and subcarinal lymphadenopathy, intracranial lesion, and a pelvic lesion. The patient recently underwent a chest CT which revealed a large necrotic mass in the right lower lobe as well as bulky right hilar and subcarinal lymphadenopathy. The patient also had a loculated right pleural effusion, located inferiorly and posteriorly. A head CT revealed a large aggressive calvarial mass involving the right frontal and right parietal bones. He was readmitted yesterday with complaints of shortness of breath and dyspnea on exertion. A chest x-ray showed a persistent right pleural effusion and the patient underwent attempted therapeutic thoracentesis in interventional radiology. Unfortunately, only 400 mL of serosanguineous fluid could be withdrawn. I have been asked to evaluate the patient for possible chest tube insertion. Past Med Surg Social Fam HX - Past Medical History Medical history: asthma, cancer (Stage IV right lung moderately differentiated squamous cell carcinoma.), COPD, other Psychiatric history: anxiety, depression, other - Past Surgical History Surgical History: orthopedic, other, other (Subxiphoid pericardial window.) - Social History Smoking Status: Former smoker Packs per day: 1-2 Smokeless Tobacco Status: No Alcohol use: none Drug use: marijuana Occupational status: unemployed Current living situation: Home - Independent Activity Level: Mostly sedentary Recent Out of Country Travel Within the Last 8 Weeks: No Exposure or Possible Exposure to Illness During Travel: No - Family History Mother Family Member Ethnicity: Non- Living Status: Hx Family Cardiac Disorders: Yes (Vascular and heart disease) Father Living Status: Still Living Hx Family Respiratory Disorders: Yes (COPD) Medications and Allergies Amiodarone [Cordarone] 200 mg PO BID #180 tablet 11/01/16 [Rx] Amlodipine [Norvasc] 10 mg PO DAILY #90 tablet 11/01/16 [Rx] Budesonide/Formoterol 160/4.5 [Symbicort 160/4.5] 2 puff IH BIDR #1 inhaler 02/12 [Rx] Folic Acid 1 mg PO DAILY #90 tablet 11/01/16 [Rx] Ipratropium/Albuterol Neb [Duoneb] 3 ml IH TID #270 inhsol 11/01/16 [Rx] Omeprazole [PriLOSEC] 20 mg PO DAILY@0730 #30 capsule. 11/01/16 [Rx] HYDROcodone/Acet 10/325 mg [[place] 10-325 mg] 1 tab PO Q6HR PRN #90 tab 11/10/16 [Rx] LORazepam [Ativan] 0.5 mg PO Q6H PRN #90 tablet 11/10/16 [Rx] Clindamycin [Cleocin] 300 mg PO Q8H #60 capsule 11/14/16 [Rx] Cyanocobalamin (Vitamin B-12) [Vitamin B12] 1,000 mcg PO DAILY 11/16/16 [History ] Furosemide [Lasix] 40 mg PO BID 11/16/16 [History] Allergies cefuroxime [From Ceftin] Adverse Reaction (Verified 11/10/16 16:58) Nausea All Systems Review: A 10-system review of systems was performed and is negative for pertinent findings except as documented above in the HPI. Physical Examination Vital Signs, Last 4 Hours Temp Pulse Resp BP Pulse Ox 11/18/16 10:51 98.3 F 82 16 109/60 97 11/18/16 10:47 14 92 L General: Conversant, No Apparent Distress HEENT: Atraumatic, Normocephaly, Trachea midline Neck: No JVD, Normal carotid pulses Cardiac: Reg Rate and Rhythm, Normal S1 and S2, No Murmur Lungs: Normal Breath Sounds (Left lung dasilva.), Decreased breath sounds (Right lung dasilva.) Neuro: Alert and responsive, No focal deficits noted Vascular: Normal capillary refill Abdomen: Soft, Non-tender Extremities: No Clubbing, No Cyanosis, No Edema Results 11/17/16 05:35 11/18/16 05:56 Lab Results, Last 24 hours 11/18/16 05:56 Sodium 138 Potassium 3.4 L Chloride 98 Carbon Dioxide 28 BUN 15 Creatinine 0.91 Glucose 134 H Calcium 9.9 - Imaging Chest Xray: image reviewed Consult Discharge Plan - Plan Referrals: Ernestina Armenta CNP [Primary Care Provider] -
--- NOTE | 2016-11-18 18:05 | Internal Med Progress Note ---
Date of Encounter: 11/18/16 Time of Encounter: 11:00 - Assessment and plan (1) Pleural effusion Current Visit: Yes Status: Acute Assessment and plan: Recurrent right-sided pleural effusion, likely malignant. Patient could not tolerate IR- guided thoracentesis yesterday, could obtain only 400 mL of serosanguineous fluid. Cardiothoracic surgery consulted today for possible chest tube placement; after reviewing CT chest, patient appears to have an obstructing bronchial necrotic mass and chances of lung reexpansion even with fluid removal are minimal. She is to placement at this time has to be done under ultrasound or CT guidance by interventional radiology. Will discuss with oncology for further recommendations at this time. Continue supplemental oxygen and supportive care. High risk condition. (2) Cellulitis Current Visit: Yes Status: Acute Assessment and plan: Right leg cellulitis-Improved fever and leukocytosis but patient is noted to have persistent clinical evidence of cellulitis. Continue IV Unasyn and add IV clindamycin and monitor for clinical improvement. Venous Doppler bilateral lower extremities negative for DVT. Continue prophylactic anticoagulation with subcutaneous Lovenox. Qualifiers: Site of cellulitis: extremity Site of cellulitis of extremity: lower extremity Laterality: right Qualified Code(s): L03.115 - Cellulitis of right lower limb (3) Hypertension Current Visit: Yes Status: Chronic Qualifiers: Hypertension type: essential hypertension Qualified Code(s): I10 - Essential (primary) hypertension (4) Squamous cell lung cancer Current Visit: Yes Status: Chronic Assessment and plan: Has been diagnosed during his previous admission last month. Biopsy-proven right lung mass showing squamous cell cancer. Bone scan was done which showed likely metastasis. Pelvic bone biopsy shows metastatic squamous cell cancer. Will consult oncology for further recommendations. Qualifiers: Laterality: right Qualified Code(s): C34.91 - Malignant neoplasm of unspecified part of right bronchus or lung (5) COPD (chronic obstructive pulmonary disease) Current Visit: Yes Status: Chronic Assessment and plan: Not in acute exacerbation. Continue supplemental oxygen as needed and bronchodilators. Recent pulmonary function testing consistent with severe obstructive disease with decreased diffusion capacity. Qualifiers: COPD type: emphysema Emphysema type: unspecified Qualified Code(s): J43.9 - Emphysema, unspecified (6) Tobacco abuse Current Visit: Yes Status: Chronic Assessment and plan: Discussed about Smoking cessation in light of his metastatic cancer and lung disease. Patient is determined to quit smoking at this time. Continue nicotine transdermal patch. (7) Hypokalemia Current Visit: Yes Status: Acute Assessment and plan: Supplement with oral potassium chloride. Likely due to poor oral intake. (8) Acute respiratory failure with hypoxia Current Visit: Yes Status: Acute Assessment and plan: Secondary to pleural effusion and lung cancer. Plan as above. - Subjective Interval history: Patient continues to feel short of breath even at rest along with orthopnea. He is requiring 5-6 L of supplemental oxygen via nasal cannula along with intermittent simple facemask. He had limited right-sided thoracentesis yesterday as he could not tolerate complete fluid removal due to experiencing severe and sharp right-sided chest pain as if his lung was going to explode. No fever, chills, nausea or vomiting. - Constitutional Vitals: Temp Pulse Resp BP Pulse Ox 99.4 F 89 16 122/63 94 L 11/18/16 16:05 11/18/16 16:05 11/18/16 16:05 11/18/16 16:05 11/18/16 16:05 General appearance: Present: mild distress, A&O X 3, answers questions appropriately - Head Head exam: Present: atraumatic, normocephalic - Neck Neck exam general surgery: Present: supple, trachea midline. Absent: lymphadenopathy - Respiratory Respiratory exam: Present: decreased breath sounds (On the right side), wheezes (Scattered rhonchi on the left side). Absent: accessory muscle use, rales, rhonchi - Cardiovascular Cardiovascular exam: Present: RRR, +S1, +S2, tachycardia. Absent: diastolic murmur, gallop, rubs, systolic murmur - GI/Abdominal GI/Abdominal exam: Present: normal bowel sounds, soft, no peritoneal signs. Absent: distended, tenderness - Extremities Exam Extremities exam: Present: pedal edema (2+ pedal edema, improving.), warm, radial pulses palpable and symetrical. Absent: calf tenderness, cyanotic - Neurological Exam Neurological exam: Present: CN II-XII intact, oriented X3, no focal deficits. Absent: pronater drift, facial droop, speech deficit - Skin Skin exam: Present: dry, intact Additional comments: Right lower extremity-distal anterolateral area with persistent cellulitis- erythema, warmth, yellowish exudative area with no discharge. Internal Medicine: Result - Labs CBC & Chem 7: 11/17/16 05:35 11/18/16 05:56 Labs: BMP 11/18/16 05:56 Sodium 138 Potassium 3.4 L Chloride 98 Carbon Dioxide 28 BUN 15 Creatinine 0.91 Glucose 134 H Calcium 9.9 - ABG Interpretation ABG results: PT/INR, D-dimer PT 12.9 Seconds (9.4-12.1) H 11/17/16 05:35 Consult Discharge Plan - Plan Referrals: Ernestina Armneta CNP [Primary Care Provider] -
[2016-11-18] MEDS: *HR* LORazepam 0.5 MG TABLET PO PRN ×2 (19:57→22:51)
[2016-11-19] MEDS: Ampicillin/Sulbactam 3,000 MG in 0.9 % Sodium Chloride Mini Bag 100 ML IVPB SCH ×4 (01:13→17:46)
[2016-11-19] MEDS: Ipratropium/Albuterol Neb 3 ML IH SCH ×5 (04:43→21:33)
[2016-11-19 05:54] LABS: BUN/Creatinine Ratio 18 (6-26); Blood Urea Nitrogen 16 mg/dL (8-26); Calcium 9.5 mg/dL (8.6-10.8); Carbon Dioxide 31 mEq/L (19-29); Chloride 94 mEq/L (98-109); Glucose 137 mg/dL (70-99); Osmolality,Calculated 285 (280-300); Potassium 3.1 mEq/L (3.5-4.5); Sodium 136 mEq/L (136-145); eGFR For African Americans > 60 (> 60); eGFR For Non-African Americans > 60 (> 60)
[2016-11-19 06:27] LABS: Basophils % 0.2 %; Eosinophils % 0.3 %; Hematocrit 28.1 % (37.5-50.1); Hemoglobin 9.1 g/dL (12.9-16.9); Immature Granulocytes % 1.2 % (0-4); Lymphocytes # 0.7 K/mcL (0.6-4.6); Lymphocytes % 5.4 %; Mean Corpuscular HGB Conc 32.4 g/dL (31.6-35.5); Mean Corpuscular Hemoglobin 29.4 pg (28.0-33.3); Mean Corpuscular Volume 90.9 fL (83.0-100.0); Mean Platelet Volume 9.9 fL (9.4-12.4); Monocytes # 1.2 K/mcL (0.0-1.3); Monocytes % 8.9 %; Neutrophils # 10.8 K/mcL (1.6-8.9); Platelet Count 320 K/mcL (140-400); Red Blood Count 3.09 M/mcL (4.19-5.50); Red Cell Distribution Width 15.8 % (11.5-14.5)
[2016-11-19] MEDS: *HR* Enoxaparin 40 MG/0.4 ML SYRINGE SQ SCH (06:48)
[2016-11-19] MEDS: *HR* LORazepam 0.5 MG TABLET PO PRN (06:48)
[2016-11-19] MEDS: Cyanocobalamin (B-12) 1,000 MCG TABLET PO SCH (08:25)
[2016-11-19] MEDS: Furosemide 40 MG TABLET PO SCH ×2 (08:25→20:43)
[2016-11-19] MEDS: *HR* Amiodarone 200 MG TABLET PO SCH ×2 (08:25→20:43)
[2016-11-19] MEDS: Folic Acid 1 MG TABLET PO SCH (08:25)
--- NOTE | 2016-11-19 08:38 | Cardiothoracic Progress Note ---
Date of Encounter: 11/19/16 Time of Encounter: 08:35 - Assessment and plan (1) Squamous cell lung cancer Current Visit: Yes Status: Chronic The patient has some mild respiratory distress which is unchanged from yesterday. Currently, he is requiring high flow oxygen via facemask to maintain adequate oxygen saturations. Unfortunately do not believe that any therapeutic intervention will assist this patient's respiratory status given the large obstructing bronchus intermedius tumor. The assessment and plan as outlined above was discussed with the patient and/or family members who expressed understanding and agreement. All questions were answered. Qualifiers: Laterality: right Qualified Code(s): C34.91 - Malignant neoplasm of unspecified part of right bronchus or lung - Subjective Interval history: The patient is sitting upright in his hospital bed. He has some mild respiratory distress and is on high flow supplemental oxygen with saturations in the low 90s. Vital Signs, Last 4 Hours Temp Pulse Resp BP Pulse Ox 11/19/16 07:00 98.3 F 82 18 114/69 95 11/19/16 04:43 18 90 L Oxgyen Flow Rate Oxygen Flow Rate (LPM) 15 Clinical Data, last 8 Hours Output, Urine Amount 300 Weight 11/17/16 11/18/16 11/19/16 23:59 23:59 23:59 Weight 56.019 kg 56.5 kg 55.6 kg - Physical Examination General: Conversant, Other (Mild respiratory distress) Neck: No JVD, Normal carotid pulses Cardiac: Reg Rate and Rhythm, Normal S1 and S2, No Murmur Lungs: Decreased breath sounds (Right base.), Other (Wheezes bilaterally.) Neuro: Alert and responsive, No focal deficits noted Vascular: Normal capillary refill Extremities: No Clubbing, No Cyanosis, No Edema - Labs 11/19/16 04:43 11/19/16 04:43 Lab Results, Last 24 hours 11/19/16 11/19/16 04:43 04:43 WBC 12.9 H Hgb 9.1 L Hct 28.1 L Plt Count 320 Sodium 136 Potassium 3.1 L Chloride 94 L Carbon Dioxide 31 H BUN 16 Creatinine 0.91 Glucose 137 H Calcium 9.5 Consult Discharge Plan - Plan Referrals: Ernestina Armenta, RICHIE [Primary Care Provider] -
[2016-11-19] MEDS: *HR* HYDROcodone/Acet 10/325 mg TABLET PO PRN (10:09)
[2016-11-19] MEDS: Budesonide/Formoterol 160/4.5 MDI IH SCH ×2 (10:14→21:33)
[2016-11-19] MEDS ORDERED: *HR* LORazepam 0.5 MG TABLET PO SCH (10:15)
[2016-11-19] MEDS ORDERED: *HR* LORazepam 0.5 MG TABLET PO PRN (10:18)
[2016-11-19] MEDS ORDERED: *HR* Morphine 2 MG/ML SYRINGE IVP PRN (10:23)
--- NOTE | 2016-11-19 10:27 | Pulmonology Consult Note ---
Date of Encounter: 11/19/16 Time of Encounter: 10:25 Assessment and Plan (1) Acute and chronic respiratory failure ([id number]) Current Visit: Yes Status: Acute Multifactorial in etiology and do enlarge part to tumor burden from known metastatic squamous cell carcinoma of the lung. He also appears to have an acute exacerbation of COPD. * Continue supplemental oxygen, but he may be a candidate for BiPAP if his work of breathing does not improve with medical optimization. * There appears to be a large component of anxiety related to his breathlessness. He has scheduled by mouth Ativan, and I have added when necessary IV Ativan and when necessary IV morphine for palliation of the anxiety associated with his breathlessness. Qualifiers: Respiratory failure complication: hypoxia Qualified Code(s): J96.21 - Acute and chronic respiratory failure with hypoxia (2) COPD with acute exacerbation Current Visit: Yes Status: Acute I have added intravenous steroids to his medical regimen. Agree with scheduled bronchodilators plus when necessary. (3) Mass of right lung Current Visit: No Status: Acute Minimal therapeutic options available at this time. He has a very limited life expectancy, and I have consulted [facility] care medicine to assist with his medical regimen and further discuss goals of care. He is hospice appropriate. Pulmonary will continue to follow. Thank you for the consultation. History of Present Illness Consult date: 11/19/16 Requesting physician: Sapna Hensley Reason for consult: dyspnea Chief complaint: Dyspnea and anxiety History of present illness: 56-year-old white male with a medical history significant for metastatic lung cancer and recent empyema who presents with acute on chronic respiratory failure. Patient had a recent admission for chest tube placement and drainage of pericardial effusion, which was secondary to infectious etiology. Patient was discharged but has had recurrent admission for breathlessness. Patient denies fevers or chills. The dyspnea is at rest in any activity makes it worse. He does get some relief with bronchodilators and anxiolytics. No chest pain. Past Med Surg Social Fam HX - Past Medical History Medical history: asthma, cancer (Stage IV right lung moderately differentiated squamous cell carcinoma.), COPD, other Psychiatric history: anxiety, depression, other - Past Surgical History Surgical History: orthopedic, other, other (Subxiphoid pericardial window.) - Social History Smoking Status: Former smoker Packs per day: 1-2 Smokeless Tobacco Status: No Alcohol use: none Drug use: marijuana - Family History Mother Family Member Ethnicity: Non- Living Status: Hx Family Cardiac Disorders: Yes (Vascular and heart disease) Father Living Status: Still Living Hx Family Respiratory Disorders: Yes (COPD) Medications and Allergies Amiodarone [Cordarone] 200 mg PO BID #180 tablet 11/01/16 [Rx] Amlodipine [Norvasc] 10 mg PO DAILY #90 tablet 11/01/16 [Rx] Budesonide/Formoterol 160/4.5 [Symbicort 160/4.5] 2 puff IH BIDR #1 inhaler 02/12 [Rx] Folic Acid 1 mg PO DAILY #90 tablet 11/01/16 [Rx] Ipratropium/Albuterol Neb [Duoneb] 3 ml IH TID #270 inhsol 11/01/16 [Rx] Omeprazole [PriLOSEC] 20 mg PO DAILY@0730 #30 capsule. 11/01/16 [Rx] HYDROcodone/Acet 10/325 mg [[place] 10-325 mg] 1 tab PO Q6HR PRN #90 tab 11/10/16 [Rx] LORazepam [Ativan] 0.5 mg PO Q6H PRN #90 tablet 11/10/16 [Rx] Clindamycin [Cleocin] 300 mg PO Q8H #60 capsule 11/14/16 [Rx] Cyanocobalamin (Vitamin B-12) [Vitamin B12] 1,000 mcg PO DAILY 11/16/16 [History ] Furosemide [Lasix] 40 mg PO BID 11/16/16 [History] Allergies cefuroxime [From Ceftin] Adverse Reaction (Verified 11/10/16 16:58) Nausea All Systems: A 10-system review of systems was performed and is negative for pertinent findings except as documented above in the HPI. Physical Examination Vital Signs: Vital Signs, Last 4 Hours Temp Pulse Resp BP Pulse Ox 11/19/16 08:50 94 L 11/19/16 08:28 95 11/19/16 07:00 98.3 F 82 18 114/69 95 General: Increased work of breathing and accessory muscle use noted Eyes: nonicteric ENT: oropharynx moist Neck: supple, no lymphadenopathy Lungs: Bilateral expiratory wheezing noted Cardiovascular: regular rate and rhythm Gastrointestinal: normoactive bowel sounds, soft, non-tender, non-distended Integumentary: normal Extremities: no cyanosis, no edema Musculoskeletal: no deformities Neuro: normal mental status, non-focal exam Psych: Anxious appearing Results - Laboratory Findings CBC and BMP: 11/19/16 04:43 11/19/16 04:43 PT/INR, D-dimer PT 12.9 Seconds (9.4-12.1) H 11/17/16 05:35 Abnormal lab findings: Abnormal lab results WBC 12.9 K/mcL (4.3-11.1) H 11/19/16 04:43 RBC 3.09 M/mcL (4.19-5.50) L 11/19/16 04:43 Hgb 9.1 g/dL (12.9-16.9) L 11/19/16 04:43 Hct 28.1 % (37.5-50.1) L 11/19/16 04:43 RDW 15.8 % (11.5-14.5) H 11/19/16 04:43 Neutrophils # 10.8 K/mcL (1.6-8.9) H 11/19/16 04:43 PT 12.9 Seconds (9.4-12.1) H 11/17/16 05:35 Potassium 3.1 mEq/L (3.5-4.5) L 11/19/16 04:43 Chloride 94 mEq/L (98-109) L 11/19/16 04:43 Carbon Dioxide 31 mEq/L (19-29) H 11/19/16 04:43 Glucose 137 mg/dL (70-99) H 11/19/16 04:43 - Clinical Findings Intake & Output: Intake & Output 11/18/16 11/19/16 11/19/16 23:59 07:59 15:59 Intake Total 980 / 980 200 / 200 240 / 240 Output Total 550 / 550 550 / 550 Balance 430 / 430 200 / 200 -310 / -310 Weight 55.6 kg Consult Discharge Plan - Plan Referrals: Ernestina Armenta, RICHIE [Primary Care Provider] -
[2016-11-19] MEDS ORDERED: Ipratropium/Albuterol Neb 3 ML IH PRN (10:29)
[2016-11-19] MEDS ORDERED: Magnesium Sulfate 2 GM in D5% in Water 100 ML IVPB ONE (11:28)
[2016-11-19 11:48] LABS: Magnesium 1.5 mg/dL (1.6-2.6)
[2016-11-19] MEDS: MethylPREDNISolone 40 MG/ML VIAL IVP SCH ×2 (12:03→17:47)
--- NOTE | 2016-11-19 12:21 | Palliative - Consult Note ---
Date of Encounter: 11/19/16 Time of Encounter: 11:30 - Assessment and Plan (1) Anxiety Current Visit: Yes Status: Acute Assessment and plan: Patient with malignant pleural effusions and right lung mass confirmed to be squamous cell carcinoma. Patient with loculated right pleural effusion. Patient reports anxiety with SOB when he can't breath. Ativan ordered 0.5mg IV to relieve. Will evaluate. (2) Dyspnea Current Visit: Yes Status: Acute Assessment and plan: Patient with malignant loculated pleural effusion. Currently tolerating Venturi Mask. Continue O2, duonebs, and steroids added per pulmonary will continue to monitor. Continuous bedside SpO2 on sats 94%. HOB elevated. Qualifiers: Dyspnea type: shortness of breath Qualified Code(s): R06.02 - Shortness of breath (3) Goals of care, counseling/discussion Current Visit: Yes Status: Acute Assessment and plan: Discussed overall disease state related to right lung cancer. Discussed drafting advanced directives as patient has life partner Amee that he desires to make decisions for him if needed. His father Abram is at bedside for conversation. Patient has 2 sons as well. Plan is to draft DPOA papers tomorrow at 10am. Amee and Father will attend meeting. I discussed DNR wishes as well and patient not sure at this time of desires. He is Full Code for now until he can discuss further with Oncology and family. Bone scan discussed with patient by Dr. Rand and metastasis of cancer has occurred. Patient desires to know options from Oncology standpoint. We will continue to follow. Palliative-CN HPI - Data of Consult Patient: new to practice Consult date: 11/19/16 Requesting Physician: Nathaniel Box MD Primary Care Provider: Ernestina Armenta - Consult Narrative Palliative Care/Comfort Measures: Palliative care Reason for consult: Goals of Care History of present illness: Mr. Hill is a 56 year old male recently diagnosed in September 2016 with stage IV moderately differentiated squamous cell of the right lung. He is admitted with malignant pleural effusion. The most recent CT scan shows a loculated right pleural effusion located inferiorly and posteriorly as well as necrotic mass involving the right lower lobe. Patient underwent a thoracentesis on 11/17/16 but it was aborted due to the patients inability to tolerate the procedure. He has been evaluated by Cardiothoracic services for the possibility of a chest tube. The patient is to be seen by Interventional Radiology in the AM. Upon this consult the patient is in bed and his father Abram is at bedside. I reviewed the patients current POC. The patient reports having a life partner Amee. She currently resides 4 doors down from him as he is currently living with his son. I discussed his recent diagnosis and his follow-up with Oncology. Oncology services have been consulted and are planning to see the patient later today. This palliative care consult if for goals of care planning. CC: Radha Aparicio MD Past Med Surg Social Fam HX - Past Medical History Source: patient, old records reviewed Medical history: asthma, cancer (Stage IV right lung moderately differentiated squamous cell carcinoma.), COPD, other Psychiatric history: anxiety, depression, other - Past Surgical History Surgical History: orthopedic, other, other (Subxiphoid pericardial window.) - Social History Smoking Status: Former smoker Packs per day: 1-2 Smokeless Tobacco Status: No Alcohol use: none Drug use: marijuana Occupational status: unemployed Current living situation: Home, With Family Activity Level: Independent ambulation Recent Out of Country Travel Within the Last 8 Weeks: No Exposure or Possible Exposure to Illness During Travel: No - Family History Mother Family Member Ethnicity: Non- Living Status: Hx Family Cardiac Disorders: Yes (Vascular and heart disease) Father Living Status: Still Living Hx Family Respiratory Disorders: Yes (COPD) Medications and Allergies Amiodarone [Cordarone] 200 mg PO BID #180 tablet 11/01/16 [Rx] Amlodipine [Norvasc] 10 mg PO DAILY #90 tablet 11/01/16 [Rx] Budesonide/Formoterol 160/4.5 [Symbicort 160/4.5] 2 puff IH BIDR #1 inhaler 02/12 [Rx] Folic Acid 1 mg PO DAILY #90 tablet 11/01/16 [Rx] Ipratropium/Albuterol Neb [Duoneb] 3 ml IH TID #270 inhsol 11/01/16 [Rx] Omeprazole [PriLOSEC] 20 mg PO DAILY@0730 #30 capsule. 11/01/16 [Rx] HYDROcodone/Acet 10/325 mg [[place] 10-325 mg] 1 tab PO Q6HR PRN #90 tab 11/10/16 [Rx] LORazepam [Ativan] 0.5 mg PO Q6H PRN #90 tablet 11/10/16 [Rx] Clindamycin [Cleocin] 300 mg PO Q8H #60 capsule 11/14/16 [Rx] Cyanocobalamin (Vitamin B-12) [Vitamin B12] 1,000 mcg PO DAILY 11/16/16 [History ] Furosemide [Lasix] 40 mg PO BID 11/16/16 [History] Allergies cefuroxime [From Ceftin] Adverse Reaction (Verified 11/10/16 16:58) Nausea All systems: reviewed and no additional remarkable complaints except as stated ( SOB and anxiety) - Constitutional Constitutional ROS PAL: fatigue - EENT Eyes: requires corrective lenses - Cardiovascular Cardiovascular ROS: pedal edema (3+ pedal edema, pitting) - Respiratory Respiratory: dyspnea, dyspnea on exertion - Gastrointestinal Gastrointestinal: as per HPI - Genitourinary Additional comments: denies dysuria - Musculoskeletal Musculoskeletal ROS IM: arthralgias (lower lumbar pain), muscle weakness - Integumentary ROS Integumentary: skin ulcer (Right foot dressing, CDI) - Neurological Neurological ROS: weakness - Psychiatric Psychiatric general PM: anxiety Palliative Care-Exam - Constitutional Vitals: Temp Pulse Resp BP Pulse Ox 98.6 F 96 24 115/66 94 L 11/19/16 10:39 11/19/16 10:39 11/19/16 10:39 11/19/16 10:39 11/19/16 10:39 General appearance: Present: cooperative, no acute distress - Head Head Exam: Present: normal inspection - Eye Eye exam: Present: PERRL Pupils: Present: PERRL - ENT ENT exam: Present: mucous membranes moist - Neck Neck exam: Present: normal inspection - Respiratory Respiratory exam: Present: decreased breath sounds - Expanded Respiratory Exam Location: decreased breath sounds: Right, Upper, Lower, dullness to percussion: Right, Lower - Expanded Cardiovascular Exam Peripheral pulses: 1+: Femoral (L) PM, Femoral (R) PM, Posterior Tibialis (L), Posterior Tibialis (R), 2+: Carotid (L) PM, Carotid (R) PM, Radial (L), Radial ( R), Dorsalis Pedis (L) PM, Dorsalis Pedis (R) PM - GI/Abdominal Exam GI/Abdominal exam: Present: normal bowel sounds, soft - Rectal Rectal Exam: Present: deferred - Additional comments: voids per urinal - Extremities Exam Extremities exam: Present: full ROM - Expanded Upper Extremities Exam Shoulder exam: Present: full ROM Upper Arm exam: Present: full ROM Forearm wrist exam: Present: full ROM - Expanded Lower Extremities Exam Upper Leg exam: Present: full ROM Lower Leg exam: Present: full ROM - Back Exam Back exam: Present: vertebral tenderness - Neurological Exam Neurological exam: Present: alert, CN II-XII intact, oriented X3 - Psychiatric Psychiatric exam: Present: normal affect, normal mood - Skin Skin exam: Present: warm (dressing to right foot, CDI) Internal Medicine - CN: Reslt - Labs CBC & Chem 7: 11/19/16 04:43 11/19/16 04:43 Labs: Short CBC 11/19/16 Range/Units 04:43 WBC 12.9 H (4.3-11.1) K/mcL Hgb 9.1 L (12.9-16.9) g/dL Hct 28.1 L (37.5-50.1) % Plt Count 320 (140-400) K/mcL Neutrophils # 10.8 H (1.6-8.9) K/mcL BMP 11/19/16 04:43 Sodium 136 Potassium 3.1 L Chloride 94 L Carbon Dioxide 31 H BUN 16 Creatinine 0.91 Glucose 137 H Calcium 9.5 - ABG Interpretation ABG results: PT/INR, D-dimer PT 12.9 Seconds (9.4-12.1) H 11/17/16 05:35 Consult Discharge Plan - Plan Referrals: Ernestina Armenta CNP [Primary Care Provider] - Palliative Quality Palliative Quality: Screen for Code Status: Yes, Screen for Goals of Care: Yes, Screen for Pain: Yes, If Pain Regimen Started, Initiate Bowel Regimen: Yes, Screen for Nausea/Vomitting: Yes Code Status: 11/16/16 23:04 Resuscitation Status: Active [RES] Routine Comment: Resuscitation Status: Full Code
[2016-11-19] MEDS: Potassium Chloride Elixir 20 MEQ/15 ML UDC PO SCH ×2 (12:34→20:43)
--- NOTE | 2016-11-19 15:13 | Oncology Inp Consult Note ---
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 He did not tolerate drainage of pleural fluid and additional fluid was not able to be removed.CT placement likely not improve lung expansion/SOB. On Rx ac exacerbation of COPD, re-attempt thoracentesis for symptom relief, alternatively catheter drainage. Pulmonary is following patient. We discussed biopsy findings with him showing metastatic carcinoma of lung. Though not curable, he has systemic treatment options that could be beneficial if he would tolerate such therapy. Pain control with morphine. Ativan prn for anxiety. Palliative care discussing with patient goals of care. Will follow to address any concerns, family questions. Qualifiers: Laterality: right Qualified Code(s): C34.91 - Malignant neoplasm of unspecified part of right bronchus or lung - Data of Consult Requesting Physician: Radha Aparicio MD Primary Care Provider: Ernestina Armenta - Consult Narrative Reason for consult: lung cancer History of present illness: Mr. Hill is a 56 year old male with history significant for tobacco abuse, COPD, asthma, nerve disorder, hypertension, recent diagnosis of squamous cell carcinoma of the lung status post bronchoscopy biopsy in September 2016 when he presented with a 4 cm right lower lobe lung mass. Imaging also showed bony lesions in the pelvis as well as right calvarial frontal lobe lesion, bulky 8 right hilar and subcarinal lymphadenopathy large necrotic mass in the right lower lobe.. He had undergone biopsy of the pelvic lytic lesion which was positive for carcinoma. Patient underwent a pericardial window in September 2016 as well as diagnostic thoracentesis which was negative for malignancy. He is scheduled to follow up for treatment but has been hospitalized with acute worsening shortness of breath. Patient has baseline shortness of breath which were progressively worse over the last week Chest x-ray shows right large effusion, known right lower lobe mass. Patient was seen by cardiothoracic surgery without right lower lobe mass and bronchial obstruction chest tube drainage would be unlikely to improve his shortness of breath. Patient is on oxygen by mask, short of breath while communicating. He denies any headaches he has chronic back pain, denies any leg swelling nausea or vomiting or other symptoms. Past Med Surg Social Fam HX - Past Medical History Medical history: asthma, cancer (Stage IV right lung moderately differentiated squamous cell carcinoma.), COPD, other Psychiatric history: anxiety, depression, other - Past Surgical History Surgical History: orthopedic, other, other (Subxiphoid pericardial window.) - Social History Smoking Status: Former smoker Packs per day: 1-2 Smokeless Tobacco Status: No Alcohol use: none Drug use: marijuana - Family History Mother Family Member Ethnicity: Non- Living Status: Hx Family Cardiac Disorders: Yes (Vascular and heart disease) Father Living Status: Still Living Hx Family Respiratory Disorders: Yes (COPD) Medications and Allergies Amiodarone [Cordarone] 200 mg PO BID #180 tablet 11/01/16 [Rx] Amlodipine [Norvasc] 10 mg PO DAILY #90 tablet 11/01/16 [Rx] Budesonide/Formoterol 160/4.5 [Symbicort 160/4.5] 2 puff IH BIDR #1 inhaler 02/12 [Rx] Folic Acid 1 mg PO DAILY #90 tablet 11/01/16 [Rx] Ipratropium/Albuterol Neb [Duoneb] 3 ml IH TID #270 inhsol 11/01/16 [Rx] Omeprazole [PriLOSEC] 20 mg PO DAILY@0730 #30 capsule. 11/01/16 [Rx] HYDROcodone/Acet 10/325 mg [[place] 10-325 mg] 1 tab PO Q6HR PRN #90 tab 11/10/16 [Rx] LORazepam [Ativan] 0.5 mg PO Q6H PRN #90 tablet 11/10/16 [Rx] Clindamycin [Cleocin] 300 mg PO Q8H #60 capsule 11/14/16 [Rx] Cyanocobalamin (Vitamin B-12) [Vitamin B12] 1,000 mcg PO DAILY 11/16/16 [History ] Furosemide [Lasix] 40 mg PO BID 11/16/16 [History] Allergies cefuroxime [From Ceftin] Adverse Reaction (Verified 11/10/16 16:58) Nausea Review of systems: as n HPI Oncology - Exam - Constitutional Vitals: Temp Pulse Resp BP Pulse Ox 98.6 F 96 24 115/66 94 L 11/19/16 10:39 11/19/16 10:39 11/19/16 10:39 11/19/16 10:39 11/19/16 10:39 General appearance: mild distress, thin - Head Head exam: Present: atraumatic, normal inspection - Eye Eye exam: Present: sclera anicteric - ENT Additional comments: oxygen buy mask, using accessory muscles - Neck Neck exam: Present: full ROM - Respiratory Respiratory exam: Present: CTAB Additional comments: Decreased ae marcus - Cardiovascular Cardiovascular exam: Present: +S1, +S2 - GI/Abdominal GI/Abdominal exam: Present: normal bowel sounds, soft - Extremities Exam Extremities exam: Present: normal inspection - Neurological Exam Neurological exam: Present: alert, CN II-XII intact, oriented X3 - Psychiatric Psychiatric exam: Present: normal affect Oncology - Results - Labs Labs: Short CBC 11/19/16 Range/Units 04:43 WBC 12.9 H (4.3-11.1) K/mcL Hgb 9.1 L (12.9-16.9) g/dL Hct 28.1 L (37.5-50.1) % Plt Count 320 (140-400) K/mcL Neutrophils # 10.8 H (1.6-8.9) K/mcL BMP 11/19/16 04:43 Sodium 136 Potassium 3.1 L Chloride 94 L Carbon Dioxide 31 H BUN 16 Creatinine 0.91 Glucose 137 H Calcium 9.5 Consult Discharge Plan - Plan Referrals: Ernestina Armenta, DONKEY ENGINE FIRER/FIREMAN [Primary Care Provider] -
--- NOTE | 2016-11-19 15:56 | Internal Med Progress Note ---
Date of Encounter: 11/19/16 Time of Encounter: 12:15 - Assessment and plan (1) Pleural effusion Current Visit: Yes Status: Acute Assessment and plan: Recurrent right-sided pleural effusion, likely malignant. Patient could not tolerate IR- guided thoracentesis, could obtain only 400 mL of serosanguineous fluid. Cardiothoracic surgery consulted for possible chest tube placement; after reviewing CT chest, patient appears to have an obstructing bronchial necrotic mass and chances of lung reexpansion even with fluid removal, are minimal. Chest tube placement at this time has to be done under ultrasound or CT guidance by interventional radiology. Consulted oncology, agree with chest tube placement versus Pleurx catheter placement depending on patient's decision regarding CODE STATUS and long-term goals of care. Needs outpatient oncology follow-up for systemic treatment for metastatic lung cancer. Continue supplemental oxygen and supportive care. High risk condition. (2) Cellulitis Current Visit: Yes Status: Acute Assessment and plan: Right leg cellulitis-Improved fever and leukocytosis but patient is noted to have persistent clinical evidence of cellulitis. Continue IV Unasyn and IV clindamycin and monitor for clinical improvement. Wound care consult. Venous Doppler bilateral lower extremities negative for DVT. Continue prophylactic anticoagulation with subcutaneous Lovenox. Qualifiers: Site of cellulitis: extremity Site of cellulitis of extremity: lower extremity Laterality: right Qualified Code(s): L03.115 - Cellulitis of right lower limb (3) Hypertension Current Visit: Yes Status: Chronic Qualifiers: Hypertension type: essential hypertension Qualified Code(s): I10 - Essential (primary) hypertension (4) Squamous cell lung cancer Current Visit: Yes Status: Chronic Assessment and plan: Has been diagnosed during his previous admission last month. Biopsy-proven right lung mass showing squamous cell cancer. Bone scan was done which showed likely metastasis. Pelvic bone biopsy shows metastatic squamous cell cancer. Oncology consult noted, cancer is not curable but may opt for systemic therapy. We will continue to follow. Palliative care consult appreciated. Patient has been explained in detail regarding his current diagnosis and grave prognosis. He is about to have a family meeting tonight to decide regarding his long-term goals of care and CODE STATUS. We will continue to follow up. Qualifiers: Laterality: right Qualified Code(s): C34.91 - Malignant neoplasm of unspecified part of right bronchus or lung (5) COPD (chronic obstructive pulmonary disease) Current Visit: Yes Status: Chronic Assessment and plan: Not in acute exacerbation. Continue supplemental oxygen as needed and bronchodilators. Recent pulmonary function testing consistent with severe obstructive disease with decreased diffusion capacity. Pulmonary consult appreciated, recommend IV steroids along with inhaled corticosteroids for underlying COPD. Agree with Remaining treatment. Recommended palliative care consult. Qualifiers: COPD type: emphysema Emphysema type: unspecified Qualified Code(s): J43.9 - Emphysema, unspecified (6) Tobacco abuse Current Visit: Yes Status: Chronic Assessment and plan: Discussed about Smoking cessation in light of his metastatic cancer and lung disease. Patient is determined to quit smoking at this time. Continue nicotine transdermal patch. (7) Hypokalemia Current Visit: Yes Status: Acute (8) Acute respiratory failure with hypoxia Current Visit: Yes Status: Acute Assessment and plan: Secondary to pleural effusion and lung cancer. Plan as above. Continue oral and IV Ativan when necessary for extreme anxiety resulting in dyspnea and worsening hypoxia. - Subjective Interval history: Feels very short of breath on the slightest exertion like trying to eat. Requiring nasal cannula with intermittent simple facemask to maintain oxygen saturation at this time. Has been seen by pulmonary, palliative care and oncology today. Patient is to discuss with his significant other, his father and his 2 sons and make a decision regarding his further course of care and CODE STATUS. He is trying to come to terms with his grave prognosis at this time, feeling hopeful and depressed alternately. Also noted to have anxiety attacks. - Constitutional Vitals: Temp Pulse Resp BP Pulse Ox 98.6 F 96 24 115/66 94 L 11/19/16 10:39 11/19/16 10:39 11/19/16 10:39 11/19/16 10:39 11/19/16 10:39 General appearance: Present: mild distress, A&O X 3, answers questions appropriately - Respiratory Respiratory exam: Present: decreased breath sounds (On the right side), CTAB. Absent: accessory muscle use, rales, rhonchi, wheezes - Cardiovascular Cardiovascular exam: Present: RRR, +S1, +S2, tachycardia. Absent: diastolic murmur, gallop, rubs, systolic murmur - GI/Abdominal GI/Abdominal exam: Present: normal bowel sounds, soft, no peritoneal signs. Absent: distended, tenderness Internal Medicine: Result - Labs CBC & Chem 7: 11/19/16 04:43 11/19/16 04:43 Labs: Short CBC 11/19/16 Range/Units 04:43 WBC 12.9 H (4.3-11.1) K/mcL Hgb 9.1 L (12.9-16.9) g/dL Hct 28.1 L (37.5-50.1) % Plt Count 320 (140-400) K/mcL Neutrophils # 10.8 H (1.6-8.9) K/mcL BMP 11/19/16 04:43 Sodium 136 Potassium 3.1 L Chloride 94 L Carbon Dioxide 31 H BUN 16 Creatinine 0.91 Glucose 137 H Calcium 9.5 - ABG Interpretation ABG results: PT/INR, D-dimer PT 12.9 Seconds (9.4-12.1) H 11/17/16 05:35 Consult Discharge Plan - Plan Referrals: Ernestina Armenta, LAMINATOR PREFORMS [Primary Care Provider] -
[2016-11-19] MEDS: Nicotine 14 MG PATCH.TD24 TD SCH (16:05)
[2016-11-19] MEDS: *HR* LORazepam 1 MG TABLET PO PRN (16:05)
[2016-11-19] MEDS: Eucerin Cream 57 GM TUBE TP SCH (19:24)
[2016-11-20] MEDS: Ampicillin/Sulbactam 3,000 MG in 0.9 % Sodium Chloride Mini Bag 100 ML IVPB SCH ×4 (00:30→17:05)
[2016-11-20] MEDS: MethylPREDNISolone 40 MG/ML VIAL IVP SCH ×4 (00:30→17:05)
[2016-11-20 05:14] LABS: BUN/Creatinine Ratio 21 (6-26); Blood Urea Nitrogen 18 mg/dL (8-26); Calcium 9.8 mg/dL (8.6-10.8); Carbon Dioxide 27 mEq/L (19-29); Chloride 97 mEq/L (98-109); Glucose 158 mg/dL (70-99); Magnesium 1.9 mg/dL (1.6-2.6); Osmolality,Calculated 289 (280-300); Phosphorous 4.1 mg/dL (2.3-4.7); Sodium 137 mEq/L (136-145); eGFR For African Americans > 60 (> 60); eGFR For Non-African Americans > 60 (> 60)
[2016-11-20] MEDS: *HR* Enoxaparin 40 MG/0.4 ML SYRINGE SQ SCH (06:30)
[2016-11-20] MEDS: Ipratropium/Albuterol Neb 3 ML IH SCH ×4 (07:39→20:46)
--- NOTE | 2016-11-20 07:39 | Cardiothoracic Progress Note ---
Date of Encounter: 11/20/16 Time of Encounter: 07:37 - Assessment and plan (1) Squamous cell lung cancer Current Visit: Yes Status: Chronic The patient has some mild respiratory distress which is unchanged from yesterday. Currently, he is requiring high flow oxygen via facemask to maintain adequate oxygen saturations. The assessment and plan as outlined above was discussed with the patient and/or family members who expressed understanding and agreement. All questions were answered. Qualifiers: Laterality: right Qualified Code(s): C34.91 - Malignant neoplasm of unspecified part of right bronchus or lung - Subjective Interval history: The patient is resting comfortably in his hospital bed. He has some mild respiratory distress and is on high flow supplemental oxygen with saturations in the low 90s. Vital Signs, Last 4 Hours Temp Pulse Resp BP Pulse Ox 11/20/16 07:12 97.5 F L 86 16 107/65 94 L 11/20/16 04:37 97.8 F 75 18 101/64 93 L Oxgyen Flow Rate Oxygen Flow Rate (LPM) 15 Clinical Data, last 8 Hours Output, Urine Amount 400 Weight 11/18/16 11/19/16 11/20/16 23:59 23:59 23:59 Weight 56.5 kg 55.6 kg 54.9 kg - Physical Examination General: Conversant, No Apparent Distress Neck: No JVD, Normal carotid pulses Cardiac: Reg Rate and Rhythm, Normal S1 and S2, No Murmur Lungs: Normal Breath Sounds (Left lung adsilva.), Decreased breath sounds (Right lung dasilva.) Neuro: Alert and responsive, No focal deficits noted Vascular: Normal capillary refill Extremities: No Clubbing, No Cyanosis, No Edema - Labs 11/19/16 04:43 11/20/16 04:32 Lab Results, Last 24 hours 11/19/16 11/20/16 04:43 04:32 Sodium 136 137 Potassium 3.1 L 4.0 Chloride 94 L 97 L Carbon Dioxide 31 H 27 BUN 16 18 Creatinine 0.91 0.85 Glucose 137 H 158 H Calcium 9.5 9.8 Magnesium 1.5 L 1.9 Consult Discharge Plan - Plan Referrals: Ernestina Armenta, RICHIE [Primary Care Provider] -
[2016-11-20] MEDS: Budesonide/Formoterol 160/4.5 MDI IH SCH ×2 (07:40→20:49)
--- NOTE | 2016-11-20 08:25 | Pulmonology Progress Note ---
Date of Encounter: 11/20/16 Time of Encounter: 08:23 Assessment and Plan (1) Acute respiratory failure with hypoxia Current Visit: Yes Status: Acute Acute respiratory failure with hypoxia in this particular individual is due to COPD, bronchial obstruction by well-established non-small cell lung cancer, prior streptococcal empyema and persistent right pleural effusion. I agree with current medical therapies which include supplemental oxygen, scheduled inhaled bronchodilators, systemic corticosteroids and antibiotics. The patient may be a candidate for endobronchial debulking of the bronchus intermedius via APC. I will review this with Dr. Padgett. Code(s): J96.01 - Acute respiratory failure with hypoxia SNOMED Code(s): 45126641, 302967914 Subjective Principal diagnosis: Acute respiratory failure with hypoxia, advanced stage non- small cell lung Interval history: The patient reports modest improvement of his respiratory status. He continues to expectorate secretions and notes chest congestion. This morning, patient requires supplemental oxygen via anterior mass (40% FiO2). Objective PUL Vital signs: Last Vital Signs Temp 97.5 F L 11/20/16 07:12 Pulse 86 11/20/16 07:12 Resp 16 11/20/16 07:12 BP 107/65 11/20/16 07:12 Pulse Ox 94 L 11/20/16 07:52 General appearance: no acute distress Eyes: nonicteric ENT: oropharynx moist Auscultation: right: diminished breath sounds, bilateral: wheezes Cardiovascular: regular rate and rhythm Gastrointestinal: normoactive bowel sounds, non-distended Integumentary: normal Extremities: no cyanosis Musculoskeletal: no deformities normal mental status, non-focal exam mood appropriate Results - Laboratory Findings CBC and BMP: 11/19/16 04:43 11/20/16 04:32 PT/INR, D-dimer PT 12.9 Seconds (9.4-12.1) H 11/17/16 05:35 Abnormal lab findings: Abnormal lab results WBC 12.9 K/mcL (4.3-11.1) H 11/19/16 04:43 RBC 3.09 M/mcL (4.19-5.50) L 11/19/16 04:43 Hgb 9.1 g/dL (12.9-16.9) L 11/19/16 04:43 Hct 28.1 % (37.5-50.1) L 11/19/16 04:43 RDW 15.8 % (11.5-14.5) H 11/19/16 04:43 Neutrophils # 10.8 K/mcL (1.6-8.9) H 11/19/16 04:43 PT 12.9 Seconds (9.4-12.1) H 11/17/16 05:35 Chloride 97 mEq/L (98-109) L 11/20/16 04:32 Glucose 158 mg/dL (70-99) H 11/20/16 04:32 - Clinical Findings Intake & Output: Intake & Output 11/19/16 11/20/16 11/20/16 23:59 07:59 15:59 Intake Total 704 / 704 500 / 500 Output Total 350 / 350 400 / 400 Balance 354 / 354 100 / 100 Weight 54.9 kg Consult Discharge Plan - Plan Referrals: Ernestina Armenta, LABORATORY CHEMIST [Primary Care Provider] -
[2016-11-20] MEDS: Nicotine 14 MG PATCH.TD24 TD SCH (09:00)
[2016-11-20] MEDS: *HR* Amiodarone 200 MG TABLET PO SCH ×2 (09:00→20:25)
[2016-11-20] MEDS: Folic Acid 1 MG TABLET PO SCH (09:00)
[2016-11-20] MEDS: Cyanocobalamin (B-12) 1,000 MCG TABLET PO SCH (09:00)
[2016-11-20] MEDS: Furosemide 40 MG TABLET PO SCH ×2 (09:00→20:25)
[2016-11-20] MEDS: Eucerin Cream 57 GM TUBE TP SCH ×2 (09:01→23:43)
[2016-11-20] MEDS: Potassium Chloride Elixir 20 MEQ/15 ML UDC PO SCH (09:01)
--- NOTE | 2016-11-20 10:57 | Palliative Progress Note ---
Date of Encounter: 11/20/16 Time of Encounter: 10:50 - Assessment and plan (1) Anxiety Current Visit: Yes Status: Acute Assessment and plan: Patient states that Ativan has been very helpful. Has utilized x1 last 24 hours. Continue and monitor (2) Dyspnea Current Visit: Yes Status: Acute Assessment and plan: He is comfortable currently, but still requiring ventimask. Continues with steroids, bronchodilators, atb. Reviewed pulmonary notes, Dr. Ribeiro to review with Dr. Chow regarding debulking procedure. Monitor. He does have IV Morphine if needed for severe dyspnea Qualifiers: Dyspnea type: shortness of breath Qualified Code(s): R06.02 - Shortness of breath (3) Goals of care, counseling/discussion Current Visit: Yes Status: Acute Assessment and plan: Met with pt, significant other, Amee, and pt father Gallo. Patient completed healthcare power of assembly instructions writer designating Amee as primary POA and father as alternate. Copies completed and provided to family, as well as placed on medical record. Code status discussion - he desires to remain full code at this time, but would not want fci life support. States he has already discussed this with family. He is hoping that procedures can be performed to improved his breathing, and at this point, planning on proceding with treatment. Will continue to follow. He will need qualified for home oxygen closer to discharge. - Time Spent With Patient Total time spent is greater than 50% in coordination of care (as documented) at patient's floor/unit and/or counseling patient: 25 - 35 minutes - Constitutional Vitals: Abnormal lab results WBC 12.9 K/mcL (4.3-11.1) H 11/19/16 04:43 RBC 3.09 M/mcL (4.19-5.50) L 11/19/16 04:43 Hgb 9.1 g/dL (12.9-16.9) L 11/19/16 04:43 Hct 28.1 % (37.5-50.1) L 11/19/16 04:43 RDW 15.8 % (11.5-14.5) H 11/19/16 04:43 Neutrophils # 10.8 K/mcL (1.6-8.9) H 11/19/16 04:43 PT 12.9 Seconds (9.4-12.1) H 11/17/16 05:35 Chloride 97 mEq/L (98-109) L 11/20/16 04:32 Glucose 158 mg/dL (70-99) H 11/20/16 04:32 General appearance: Present: no acute distress - Respiratory Respiratory exam: Present: decreased breath sounds, CTAB Additional comments: Ventimask currently at 50% - Cardiovascular Cardiovascular exam: Present: +S1, +S2 - GI/Abdominal GI/Abdominal exam: Present: normal bowel sounds, soft - Extremities Exam Additional comments: Rt heel with dressing dry and intact - Neurological Exam Neurological exam: Present: alert, oriented X3, strengths equal and symetr throughout - Skin Skin exam: Present: dry, pallor, warm Palliative Quality Palliative Quality: Screen for Code Status: Yes, Screen for Goals of Care: Yes, Screen for Pain: Yes, If Pain Regimen Started, Initiate Bowel Regimen: Yes, Screen for Nausea/Vomitting: Yes Code Status: 11/16/16 23:04 Resuscitation Status: Active [RES] Routine Comment: Resuscitation Status: Full Code - Labs CBC & Chem 7: 11/19/16 04:43 11/20/16 04:32 Labs: Laboratory Results - last 24 hr 11/19/16 11/20/16 04:43 04:32 Sodium 136 137 Potassium 3.1 L 4.0 Chloride 94 L 97 L Carbon Dioxide 31 H 27 BUN 16 18 Creatinine 0.91 0.85 Est GFR ( Amer) > 60 > 60 Est GFR (Non-Af Amer) > 60 > 60 BUN/Creatinine Ratio 18 21 Glucose 137 H 158 H Calculated Osmolality 285 289 Calcium 9.5 9.8 Phosphorus 4.1 Magnesium 1.5 L 1.9 - ABG Interpretation ABG results: PT/INR, D-dimer PT 12.9 Seconds (9.4-12.1) H 11/17/16 05:35 Consult Discharge Plan - Plan Referrals: Ernestina Armenta, RN ORTHOPAEDIC [Primary Care Provider] -
[2016-11-20] MEDS ORDERED: *HR* HYDROcodone/Acet 5/325 mg TABLET PO PRN (12:58)
--- NOTE | 2016-11-20 14:49 | Internal Med Progress Note ---
Date of Encounter: 11/20/16 Time of Encounter: 11:20 - Assessment and plan (1) Acute respiratory failure with hypoxia Current Visit: Yes Status: Acute Assessment and plan: Secondary to pleural effusion and lung cancer. Plan as above. Continue oral and IV Ativan when necessary for extreme anxiety resulting in dyspnea and worsening hypoxia. Home oxygen evaluation prior to discharge. (2) Pleural effusion Current Visit: Yes Status: Acute Assessment and plan: Recurrent right-sided pleural effusion, likely malignant. Patient could not tolerate IR- guided thoracentesis, could obtain only 400 mL of serosanguineous fluid. Cardiothoracic surgery consulted for possible chest tube placement; after reviewing CT chest, patient appears to have an obstructing bronchial necrotic mass and chances of lung reexpansion even with fluid removal, are minimal. Chest tube placement at this time has to be done under ultrasound or CT guidance by interventional radiology. Pulmonary evaluation appreciated. Patient's condition may not improve with chest tube placement as he may not have lung reexpansion, decision regarding endobronchial debulking of his bronchial tumor is pending. We will continue to follow. Needs outpatient oncology follow-up for systemic treatment for metastatic lung cancer. Continue supplemental oxygen and supportive care. High risk condition with grave prognosis. (3) Cellulitis Current Visit: Yes Status: Acute Assessment and plan: Right leg improving clinically. Continue IV Unasyn. Wound care consult pending. Venous Doppler bilateral lower extremities negative for DVT. Continue prophylactic anticoagulation with subcutaneous Lovenox. Qualifiers: Site of cellulitis: extremity Site of cellulitis of extremity: lower extremity Laterality: right Qualified Code(s): L03.115 - Cellulitis of right lower limb (4) Hypertension Current Visit: Yes Status: Chronic Qualifiers: Hypertension type: essential hypertension Qualified Code(s): I10 - Essential (primary) hypertension (5) Squamous cell lung cancer Current Visit: Yes Status: Chronic Assessment and plan: Has been diagnosed during his previous admission last month. Biopsy-proven right lung mass showing squamous cell cancer. Bone scan was done which showed likely metastasis. Pelvic bone biopsy shows metastatic squamous cell cancer. Follow-up right pleural fluid cytology. Oncology consult noted, cancer is not curable but may opt for systemic therapy. We will continue to follow. Palliative care team on board. Qualifiers: Laterality: right Qualified Code(s): C34.91 - Malignant neoplasm of unspecified part of right bronchus or lung (6) COPD (chronic obstructive pulmonary disease) Current Visit: Yes Status: Chronic Assessment and plan: Not in acute exacerbation. Continue supplemental oxygen as needed and bronchodilators. Recent pulmonary function testing consistent with severe obstructive disease with decreased diffusion capacity. Pulmonary f/up appreciated, recommend IV steroids along with inhaled corticosteroids for underlying COPD. Agree with Remaining treatment. Qualifiers: COPD type: emphysema Emphysema type: unspecified Qualified Code(s): J43.9 - Emphysema, unspecified (7) Tobacco abuse Current Visit: Yes Status: Chronic Assessment and plan: Discussed about Smoking cessation in light of his metastatic cancer and lung disease. Patient is determined to quit smoking at this time. Continue nicotine transdermal patch. (8) Hypokalemia Current Visit: Yes Status: Acute - Subjective Interval history: No significant change in clinical status. Continues to have shortness of breath , requiring Venti mask almost all the time. Uses nasal cannula while eating. Family meeting held this morning with his significant other Amee and his father Gallo with palliative care team. 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 - Constitutional Vitals: Temp Pulse Resp BP Pulse Ox 97.8 F 83 18 107/65 96 11/20/16 11:30 11/20/16 11:30 11/20/16 11:30 11/20/16 07:12 11/20/16 11:30 General appearance: Present: A&O X 3 (On Ventimask), answers questions appropriately - Respiratory Respiratory exam: Present: decreased breath sounds (On the right side), CTAB. Absent: accessory muscle use, rales, rhonchi, wheezes - Cardiovascular Cardiovascular exam: Present: RRR, +S1, +S2. Absent: diastolic murmur, gallop, rubs, systolic murmur - GI/Abdominal GI/Abdominal exam: Present: normal bowel sounds, soft, no peritoneal signs. Absent: distended, tenderness - Extremities Exam Extremities exam: Present: joint swelling, normal inspection (Right leg with significant improvement in anterolateral cellulitis of the distal leg. Improved erythema, induration and tenderness.), pedal edema (Improving), warm, radial pulses palpable and symetrical. Absent: calf tenderness, cyanotic Internal Medicine: Result - Labs CBC & Chem 7: 11/19/16 04:43 11/20/16 04:32 Labs: BMP 11/20/16 04:32 Sodium 137 Potassium 4.0 Chloride 97 L Carbon Dioxide 27 BUN 18 Creatinine 0.85 Glucose 158 H Calcium 9.8 - ABG Interpretation ABG results: PT/INR, D-dimer PT 12.9 Seconds (9.4-12.1) H 11/17/16 05:35 Consult Discharge Plan - Plan Referrals: Ernestina Armenta, RICHIE [Primary Care Provider] -
[2016-11-20] MEDS: *HR* LORazepam 1 MG TABLET PO PRN ×2 (15:17→20:36)
--- NOTE | 2016-11-20 16:40 | Oncology Inp Progress Note ---
<Julisa Kemp E - Last Filed: 11/20/16 16:49> Date of Encounter: 11/20/16 Time of Encounter: 03:30 (1) Metastatic lung cancer (metastasis from lung to other site) Current Visit: Yes Status: Acute Assessment and plan: At the time of biopsy visit today the patient stated that he had decided he did not want to receive any type of cancer treatment. He will be seen later this afternoon or early evening by Dr. Gonzalez for further discussion. Qualifiers: Laterality: right Qualified Code(s): C34.91 - Malignant neoplasm of unspecified part of right bronchus or lung Oncology: Subj Interval history: Patient remained short of breath. Remains on O2 per Ventimask 15 L/m. He states he really does not feel any better than he did upon admission. He denies pain. He does have a decreased appetite. He states the cellulitis in his lower legs is getting better and most of the swelling has decreased. The patient states he was seen by pulmonary today and he has now decided that he does not want to have any type of treatment he knows the treatment will not cure his disease nor extend his life. Therefore he wishes only to have comfort care. He states that he does not want to be on a ventilator however a few minutes later he said that if he had to be on a ventilator until he was able to pay off a mortgage that he might consider doing that but he really did not proceed with further treatment at this time. - Constitutional Vitals: Vital Signs Temp Pulse Resp BP Pulse Ox 11/20/16 16:34 97.5 F L 82 20 114/70 96 11/20/16 15:14 97.6 F 81 21 116/74 95 11/20/16 11:30 97.8 F 83 18 96 11/20/16 11:07 18 97 11/20/16 07:52 94 L 11/20/16 07:40 18 95 11/20/16 07:12 97.5 F L 86 16 107/65 94 L 11/20/16 04:37 97.8 F 75 18 101/64 93 L 11/20/16 00:14 97.9 F 77 18 104/69 94 L 11/19/16 21:33 18 92 L 11/19/16 20:48 92 L 11/19/16 20:35 97.5 F L 77 17 100/61 93 L Intake and Output 11/20/16 11/20/16 11/20/16 07:59 15:59 23:59 Intake Total 500 / 500 480 / 480 Output Total 400 / 400 400 / 400 Balance 100 / 100 80 / 80 Intake: IV Fluids 200 / 200 Unasyn 3,000 MG In 0.9 % 200 / 200 Sodium Chloride (Mini-Bag +) 100 ML @ 200 mls/hr IVPB Q6HR [facility] Rx#: [id number] Oral 300 / 300 480 / 480 Output: Urine 400 / 400 400 / 400 Other: Meal Breakfast Percent of Meal Consumed 0% Stool Size Small Stool Consistency formed Stool Characteristics Normal for Patient Stool Color Brown # Voids 2 Weight 54.9 kg Patient Weight 11/20/16 23:59 Weight 54.9 kg General appearance: cooperative, mild distress - Head Head exam: Present: normocephalic - Respiratory Respiratory exam: Present: accessory muscle use, decreased breath sounds (O2 on per Ventimask 15 L/m), wheezes (Greater in left and right) - Cardiovascular Cardiovascular exam: Present: RRR - GI/Abdominal GI/Abdominal exam: Present: soft (Nontender) - Extremities Exam Extremities exam: Present: pedal edema (Cellulitis on lower extremities resolving) - Back Exam Back exam: Present: normal inspection (Nontender) - Psychiatric Psychiatric exam: Present: depressed Oncology: Obj Data - Labs CBC & Chem 7: 11/19/16 04:43 11/20/16 04:32 Labs: Laboratory Results - last 24 hr 11/20/16 04:32 Sodium 137 Potassium 4.0 Chloride 97 L Carbon Dioxide 27 BUN 18 Creatinine 0.85 Est GFR ( Amer) > 60 Est GFR (Non-Af Amer) > 60 BUN/Creatinine Ratio 21 Glucose 158 H Calculated Osmolality 289 Calcium 9.8 Phosphorus 4.1 Magnesium 1.9 - ABG Interpretation ABG results: PT/INR, D-dimer PT 12.9 Seconds (9.4-12.1) H 11/17/16 05:35 Consult Discharge Plan - Plan Referrals: Dante Gonzalez MD [Partnered Physician] - 12/01/16 9:50 am (At the [facility] ) <Dante Gonzalez - Last Filed: 11/21/16 12:13> - Constitutional Vitals: Vital Signs Temp Pulse Resp BP Pulse Ox 11/21/16 09:24 95 11/21/16 08:33 18 95 11/21/16 08:17 97.4 F L 80 18 124/79 95 11/21/16 05:17 97.4 F L 74 18 132/73 93 L 11/21/16 01:16 97.6 F 76 18 117/65 90 L 11/20/16 16:34 97.5 F L 82 20 114/70 96 11/20/16 16:01 18 94 L 11/20/16 15:14 97.6 F 81 21 116/74 95 Intake and Output 11/21/16 11/21/16 11/21/16 00:59 08:59 16:59 Intake Total 200 / 200 0 / 0 0 / 0 Output Total 675 / 675 0 / 0 Balance -475 / -475 0 / 0 0 / 0 Intake: IV Fluids 200 / 200 Unasyn 3,000 MG In 0.9 % 200 / 200 Sodium Chloride (Mini-Bag +) 100 ML @ 200 mls/hr IVPB Q6HR [facility] Rx#: [id number] Oral 0 / 0 0 / 0 0 / 0 Output: Urine 675 / 675 0 / 0 Other: Meal Dinner Percent of Meal Consumed 0% Weight 57.5 kg Patient Weight 11/22/16 00:59 Weight 57.5 kg Oncology: Obj Data - Labs CBC & Chem 7: 11/19/16 04:43 11/20/16 04:32 - ABG Interpretation ABG results: PT/INR, D-dimer PT 12.9 Seconds (9.4-12.1) H 11/17/16 05:35 Attestation Statement - Attestation Attestation: I saw and personally examined Mr. Hill at his bedside today and reviewed the chart for details of ongoing care by hospital team. I verified/agree with the history and physical exam findings documented by Trisha Kemp EDGE TRIMMER above. 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 Confirmation of bone metastases is new since the last saw him in the office. Patient is currently lives with acute hypoxemic respiratory failure associated with recurrent pleural effusion. He had thoracentesis with some improvement in his symptoms and pathology is pending. I reviewed consultation report from CT surgery and pulmonary and appreciate the input. Palliative care is also been following along and is helping consultation regarding treatment goals and future direction. Overall, he appears to be doing fairly well and is relatively stable. He is maintaining stable vital signs and good oxygen saturation on supplemental , high flow oxygen. I had an extensive discussion with the patient today regarding his current presentation and we again reviewed the natural history and management of his underlying now metastatic lung cancer. He understands that he clearly has an incurable malignancy and we also discussed that expectancy associated with metastatic lung cancer. Based on the incurable nature of his malignancy, consideration for hospice/ palliative care is not unreasonable. From an oncologic standpoint, we discussed that we may be able to offer him palliative radiotherapy to be symptomatic lung disease as well as pelvic and skull metastases. We also discussed options for systemic therapy for his metastatic lung cancer including a low intensity chemotherapy (single agent regimens) versus immunotherapy. I expect him to be able to tolerate either of these options and there is a possibility of disease control and survival prolongation. He is undecided about treatment direction at this time and informed him of the availability of home palliative care as a bridge to hospice while he contemplates his treatment options. He appears to be leaning towards home palliative care at this time which I think is reasonable. He previously had an appointment for oncologic follow-up today to discuss results of recent biopsy. We'll make him a follow-up appointment in the next week or so for follow-up. I have also recommended that he explore local treatment options for symptom palliation and he is agreeable. We'll make him an appointment with radiation oncology to discuss role of radiotherapy in his overall management. We will follow along with you during this hospitalization and will be available to answer interval oncologic questions that may arise. Thanks for involving us in his care.
[2016-11-20] MEDS: Miconazole 2% ointment 114 GM TUBE TP SCH (17:15)
[2016-11-20] MEDS: *HR* LORazepam 2 MG/ML VIAL IVP PRN (18:10)
[2016-11-21] MEDS: MethylPREDNISolone 40 MG/ML VIAL IVP SCH ×4 (00:01→17:26)
[2016-11-21] MEDS: *HR* HYDROcodone/Acet 10/325 mg TABLET PO PRN (00:01)
[2016-11-21] MEDS: *HR* LORazepam 1 MG TABLET PO PRN ×2 (00:02→14:06)
[2016-11-21] MEDS: Ampicillin/Sulbactam 3,000 MG in 0.9 % Sodium Chloride Mini Bag 100 ML IVPB SCH ×4 (06:14→17:27)
[2016-11-21] MEDS: *HR* Enoxaparin 40 MG/0.4 ML SYRINGE SQ SCH (06:14)
[2016-11-21] MEDS: Ipratropium/Albuterol Neb 3 ML IH SCH ×4 (08:30→20:07)
[2016-11-21] MEDS: Budesonide/Formoterol 160/4.5 MDI IH SCH ×2 (08:30→20:08)
[2016-11-21] MEDS: Nicotine 14 MG PATCH.TD24 TD SCH (08:59)
[2016-11-21] MEDS: Furosemide 40 MG TABLET PO SCH ×2 (08:59→22:10)
[2016-11-21] MEDS: *HR* Amiodarone 200 MG TABLET PO SCH ×2 (08:59→22:10)
[2016-11-21] MEDS: Folic Acid 1 MG TABLET PO SCH (08:59)
[2016-11-21] MEDS: Cyanocobalamin (B-12) 1,000 MCG TABLET PO SCH (08:59)
[2016-11-21] MEDS: Miconazole 2% ointment 114 GM TUBE TP SCH (09:01)
[2016-11-21] MEDS: Eucerin Cream 57 GM TUBE TP SCH (09:01)
--- NOTE | 2016-11-21 10:34 | Palliative Progress Note ---
Date of Encounter: 11/21/16 Time of Encounter: 10:25 - Assessment and plan (1) Anxiety Current Visit: Yes Status: Acute Assessment and plan: Continue with low dose Ativan which has been helpful. Continue and monitor (2) Dyspnea Current Visit: Yes Status: Acute Assessment and plan: Remains about the same. Continues on iV atb/ steroids/bronchodilators. He will need home oxygen setup. Qualifiers: Dyspnea type: shortness of breath Qualified Code(s): R06.02 - Shortness of breath (3) Goals of care, counseling/discussion Current Visit: Yes Status: Acute Assessment and plan: Patient states after speaking with oncology, he desires to go home with [facility] Palliative care - as he is still interested in any treatment options available. Will d/w social welfare research worker, as he will need oxygen setup as well. Will meet with pt when POA arrives - will re-discuss code status as he is re- considering. (4) Acute and chronic respiratory failure ([id number]) Current Visit: Yes Status: Acute Qualifiers: Respiratory failure complication: hypoxia Qualified Code(s): J96.21 - Acute and chronic respiratory failure with hypoxia (5) COPD with acute exacerbation Current Visit: Yes Status: Acute (6) Metastatic lung cancer (metastasis from lung to other site) Current Visit: Yes Status: Acute Qualifiers: Laterality: right Qualified Code(s): C34.91 - Malignant neoplasm of unspecified part of right bronchus or lung - Time Spent With Patient Total time spent is greater than 50% in coordination of care (as documented) at patient's floor/unit and/or counseling patient: - Subjective Interval history: Patient sitting up in bed - finished breakfast. States did rest better last night. Dyspnea remains. Is able to tolerate cannula while eating and having conversation, then uses facemask. Denies pain at present. States he has spoke with Dr. Gonzalez and Dr. Ribeiro. States that Dr. Ribeiro does not think that bronch will benefit him. - Constitutional Vitals: Abnormal lab results WBC 12.9 K/mcL (4.3-11.1) H 11/19/16 04:43 RBC 3.09 M/mcL (4.19-5.50) L 11/19/16 04:43 Hgb 9.1 g/dL (12.9-16.9) L 11/19/16 04:43 Hct 28.1 % (37.5-50.1) L 11/19/16 04:43 RDW 15.8 % (11.5-14.5) H 11/19/16 04:43 Neutrophils # 10.8 K/mcL (1.6-8.9) H 11/19/16 04:43 PT 12.9 Seconds (9.4-12.1) H 11/17/16 05:35 Chloride 97 mEq/L (98-109) L 11/20/16 04:32 Glucose 158 mg/dL (70-99) H 11/20/16 04:32 General appearance: Present: no acute distress - Respiratory Respiratory exam: Present: decreased breath sounds, CTAB - Cardiovascular Cardiovascular exam: Present: +S1, +S2 - GI/Abdominal GI/Abdominal exam: Present: normal bowel sounds, soft - Extremities Exam Additional comments: Lower extremities with 2+ edema. Skin dry and scaly. Dressing to right heel D/ I - Neurological Exam Neurological exam: Present: alert, oriented X3, strengths equal and symetr throughout - Skin Skin exam: Present: dry, pallor, warm Palliative Quality Palliative Quality: Screen for Code Status: Yes, Screen for Goals of Care: Yes, Screen for Pain: Yes, If Pain Regimen Started, Initiate Bowel Regimen: Yes, Screen for Nausea/Vomitting: Yes Code Status: 11/16/16 23:04 Resuscitation Status: Active [RES] Routine Comment: Resuscitation Status: Full Code - Labs CBC & Chem 7: 11/19/16 04:43 11/20/16 04:32 - ABG Interpretation ABG results: PT/INR, D-dimer PT 12.9 Seconds (9.4-12.1) H 11/17/16 05:35 Consult Discharge Plan - Plan Referrals: Ernestina Armenta CNP [Primary Care Provider] - Dante Gonzalez MD [Partnered Physician] - 12/01/16 9:50 am (At the [facility] )
[2016-11-21] MEDS ORDERED: Water for inj. (sterile) 10 ML IV ONE (15:13)
[2016-11-21] MEDS: *HR* LORazepam 2 MG/ML VIAL IVP PRN (15:15)
--- NOTE | 2016-11-21 15:46 | Discharge Summary ---
Date of Encounter: 11/21/16 Time of Encounter: 11:50 - Discharge Diagnosis (1) Acute and chronic respiratory failure ([id number]) Priority: Primary Status: Acute Qualifiers: Respiratory failure complication: hypoxia Qualified Code(s): J96.21 - Acute and chronic respiratory failure with hypoxia (2) Bilateral cellulitis of lower leg Priority: Primary Status: Resolved (3) Pleural effusion Priority: Primary Status: Acute (4) Squamous cell lung cancer Priority: Secondary Status: Chronic Qualifiers: Laterality: right Qualified Code(s): C34.91 - Malignant neoplasm of unspecified part of right bronchus or lung (5) Hypertension Priority: Secondary Status: Chronic Qualifiers: Hypertension type: essential hypertension Qualified Code(s): I10 - Essential (primary) hypertension (6) COPD with acute exacerbation Priority: Secondary Status: Acute (7) Tobacco abuse Priority: Secondary Status: Chronic - Discharge Medications Prescriptions: LORazepam [Ativan] 1 mg PO Q4HR #30 tablet Morphine Oral CONC [Roxanol] 5 mg PO Q4HR PRN #30 oral.syg PRN Reason: Pain Amoxicillin/Clavulanate [Augmentin] 875 mg PO BIDWM #6 tablet Docusate [Colace] 100 mg PO BID PRN #60 capsule PRN Reason: Constipation Enoxaparin [Lovenox] 90 mg SQ DAILY #30 syr Eucerin Creme 1 appl TP BID #1 tube GuaiFENesin ER [Mucinex] 600 mg PO BID #12 tbbp.12hr HYDROcodone/Acet 5/325 mg [[place] 5-325 mg] 1 tab PO Q4H PRN #30 tab PRN Reason: Mild Pain Miconazole 2% ointment [Aloe [place] Antifungal Ointment] 1 appl TP DAILY #1 tube Nicotine Patch [Nicoderm] 14 mg TD DAILY #30 patch.td24 Nystatin [Nystatin Suspension] 100,000 unit PO QID #75 oral.susp Potassium Chloride 10 meq PO BIDWM #60 tab.er.prt Home Medications: Amiodarone [Cordarone] 200 mg PO BID #180 tablet 11/01/16 [Rx] Amlodipine [Norvasc] 10 mg PO DAILY #90 tablet 11/01/16 [Rx] Budesonide/Formoterol 160/4.5 [Symbicort 160/4.5] 2 puff IH BIDR #1 inhaler 02/12 [Rx] Folic Acid 1 mg PO DAILY #90 tablet 11/01/16 [Rx] Ipratropium/Albuterol Neb [Duoneb] 3 ml IH TID #270 inhsol 11/01/16 [Rx] Omeprazole [PriLOSEC] 20 mg PO DAILY@0730 #30 capsule.dr 11/01/16 [Rx] HYDROcodone/Acet 10/325 mg [[place] 10-325 mg] 1 tab PO Q6HR PRN #90 tab 11/10/16 [Rx] LORazepam [Ativan] 0.5 mg PO Q6H PRN #90 tablet 11/10/16 [Rx] Cyanocobalamin (Vitamin B-12) [Vitamin B12] 1,000 mcg PO DAILY 11/16/16 [History ] Furosemide [Lasix] 40 mg PO BID 11/16/16 [History] Acetaminophen [Tylenol] 650 mg PO Q6HR PRN #0 tablet 11/21/16 [Rx] Amoxicillin/Clavulanate [Augmentin] 875 mg PO BIDWM #6 tablet 11/21/16 [Rx] Docusate [Colace] 100 mg PO BID PRN #60 capsule 11/21/16 [Rx] Eucerin Creme 1 appl TP BID #1 tube 11/21/16 [Rx] GuaiFENesin ER [Mucinex] 600 mg PO BID #12 tbbp.12hr 11/21/16 [Rx] Miconazole 2% ointment [Aloe [place] Antifungal Ointment] 1 appl TP DAILY #1 tube 11/21/16 [Rx] Nicotine Patch [Nicoderm] 14 mg TD DAILY #30 patch.td24 11/21/16 [Rx] Potassium Chloride 10 meq PO BIDWM #60 tab.er.prt 11/21/16 [Rx] Enoxaparin [Lovenox] 90 mg SQ DAILY #30 syr 11/23/16 [Rx] HYDROcodone/Acet 5/325 mg [[place] 5-325 mg] 1 tab PO Q4H PRN #30 tab 11/23/16 [Rx ] LORazepam [Ativan] 1 mg PO Q4HR #30 tablet 11/23/16 [Rx] Morphine Oral CONC [Roxanol] 5 mg PO Q4HR PRN #30 oral.syg 11/23/16 [Rx] Nystatin [Nystatin Suspension] 100,000 unit PO QID #75 oral.susp 11/23/16 [Rx] Allergies/Adverse Reactions: Allergies cefuroxime [From Ceftin] Adverse Reaction (Verified 11/10/16 16:58) Nausea Date of admission: 11/17/16 11:02 Primary care physician: Ernestina Armenta Consults: 11/16/16 23:02 Consult to Interventional Radiology [CONS] Routine Consulting Provider: Radiology Interventional [facility] Reason for Consult: R pleural effusion Time Notified: 23:02 Call Completed: No 11/17/16 12:05 Consult to Logging Equipment Mechanic [CONS] Routine Reason for SW Consult: [facility] vs pt/ot 11/18/16 13:18 Consult to Cardiothoracic Surgery [CONS] Routine Consulting Provider: Cardiothoracic Surgery [facility] Reason for Consult: Right recurrent pleural effusion Call Completed: Yes 11/19/16 08:57 Consult to Pulmonology [CONS] Routine Consulting Provider: [facility] Reason for Consult: SOB, wheezing Time Notified: 08:58 Call Completed: Yes 11/19/16 10:28 Consult to Oncology [CONS] Routine Consulting Provider: [facility]cology [facility] Reason for Consult: Right lung cancer with recurrent pleural effusion Call Completed: Yes 11/19/16 10:36 Consult to Palliative Care [CONS] Routine Comment: Assist with goals of care, medical regimen Consulting Provider: Palliative Care [facility] 11/19/16 12:08 Consult to Wound Care [CONS] Routine Reason for Consult: Leg Wound Time Notified: 12:09 Call Completed: No Discharging clinician: Melecio Goldsmith Anticipated date of discharge: 11/23/16 - Patient Status Disposition: Hospice - Home Condition: Serious Functional capacity at discharge: wheelchair bound Overall status at discharge: patient is progressing back to baseline - Discharge Instructions Follow Up With: Ernestina Armenta CNP [Primary Care Provider] - 11/29/16 10:15 am Dante Gonzalez MD [Partnered Physician] - 12/01/16 9:50 am (At the [facility] ) - Diet and Activity Activity: wear oxygen at all times Diet: advance to your usual diet Interval History: See below Hospital course: Mr. 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 It was decided between Pulmonology, and Thoracic surgery that placement of a chest tube will not likely result n lung re-expansion due to the obstructive nature of his cancer. It is also decided that he is not a good candidate for tumor debulking. Patient subsequently decided to be placed on home hospice and kept comfortable Repeat Chest CT showed marked progression of his right malignant pleural effusion and a new left pleural effusion, he also has a new R IJ and innominate DVT. Oncology, Thoracic surgery have had an extensive meeting with the patient and he will benefit from home hospice. He is also hypoxic, requiring high flow of oxygen, at the time of discharge , requiring 8L of oxygen by nasal cannula Patient will be discharged home with hospice. Plan of care discussed, verbalizes understanding. Time spent discussing smoking cessation with patient: 3 to 10 minutes (5 minutes spent discussing tobacco cessaton) - Time Spent with Patient Total time spent providing and/or coordinating discharge services: Greater than 30 minutes (~45 minutes spent on face to face [facility] patient and planning discharge care.) - Constitutional Vitals: Temp Pulse Resp BP Pulse Ox 97.4 F L 80 16 124/79 96 11/21/16 08:17 11/21/16 08:17 11/21/16 12:10 11/21/16 08:17 11/21/16 12:10 General appearance: Present: A&O X 3 (On Ventimask), pleasant, no acute distress , answers questions appropriately - Head Additional comments: Right frontal mass - Eye Eye exam: Present: PERRL, conjuntiva pink, sclera anicteric Pupils: Present: PERRL - Neck Neck exam general surgery: Present: supple, trachea midline. Absent: lymphadenopathy - Respiratory Additional comments: Diminished breath sounds on the right, clean lung filed, minimal wheezing - Cardiovascular Cardiovascular exam: Present: RRR, +S1, +S2. Absent: diastolic murmur, gallop, rubs, systolic murmur - GI/Abdominal GI/Abdominal exam: Present: normal bowel sounds, soft, no peritoneal signs. Absent: distended, tenderness - Extremities Exam Extremities exam: Present: pedal edema, warm, radial pulses palpable and symetrical. Absent: calf tenderness, cyanotic - Neurological Exam Neurological exam: Present: CN II-XII intact, oriented X3, no focal deficits. Absent: pronater drift, facial droop, speech deficit - Skin Skin exam: Present: dry
--- NOTE | 2016-11-21 15:48 | Physician Discharge Referral ---
Home Health/Hosp Referral Info Transfer to: Home Health (Home palliative care) Provider in Charge Post Discharge: PCP - Diagnosis (1) Acute and chronic respiratory failure ([id number]) Priority: Primary Status: Acute (2) Bilateral cellulitis of lower leg Priority: Primary Status: Acute (3) Pleural effusion Priority: Primary Status: Acute (4) Squamous cell lung cancer Priority: Secondary Status: Chronic (5) Hypertension Priority: Secondary Status: Chronic - Respiratory Orders Oxygen / L per min (8L/minute, patient is hypoxic without oxygen) Smoking Cessation: Smoking cessation has been advised. For more information, call the [place] Tobacco Quit Line at 8-523-BDQA-NOW. - Diet/Nutrition Diet/Nutrition Orders: Cardiac - Activity Activity Orders: Bedrest - Services Needed Following services are medically necessary services: Home Health Aide - Transfer Medications Prescriptions: Amoxicillin/Clavulanate [Augmentin] 875 mg PO BIDWM #6 tablet Docusate [Colace] 100 mg PO BID PRN #60 capsule PRN Reason: Constipation Eucerin Creme 1 appl TP BID #1 tube GuaiFENesin ER [Mucinex] 600 mg PO BID #12 tbbp.12hr Miconazole 2% ointment [Aloe [place] Antifungal Ointment] 1 appl TP DAILY #1 tube Nicotine Patch [Nicoderm] 14 mg TD DAILY #30 patch.td24 Potassium Chloride 10 meq PO BIDWM #60 tab.er.prt Home Medications: Amiodarone [Cordarone] 200 mg PO BID #180 tablet 11/01/16 [Rx] Amlodipine [Norvasc] 10 mg PO DAILY #90 tablet 11/01/16 [Rx] Budesonide/Formoterol 160/4.5 [Symbicort 160/4.5] 2 puff IH BIDR #1 inhaler 02/12 [Rx] Folic Acid 1 mg PO DAILY #90 tablet 11/01/16 [Rx] Ipratropium/Albuterol Neb [Duoneb] 3 ml IH TID #270 inhsol 11/01/16 [Rx] Omeprazole [PriLOSEC] 20 mg PO DAILY@0730 #30 capsule. 11/01/16 [Rx] HYDROcodone/Acet 10/325 mg [[place] 10-325 mg] 1 tab PO Q6HR PRN #90 tab 11/10/16 [Rx] LORazepam [Ativan] 0.5 mg PO Q6H PRN #90 tablet 11/10/16 [Rx] Cyanocobalamin (Vitamin B-12) [Vitamin B12] 1,000 mcg PO DAILY 11/16/16 [History ] Furosemide [Lasix] 40 mg PO BID 11/16/16 [History] Acetaminophen [Tylenol] 650 mg PO Q6HR PRN #0 tablet 11/21/16 [Rx] Amoxicillin/Clavulanate [Augmentin] 875 mg PO BIDWM #6 tablet 11/21/16 [Rx] Docusate [Colace] 100 mg PO BID PRN #60 capsule 11/21/16 [Rx] Eucerin Creme 1 appl TP BID #1 tube 11/21/16 [Rx] GuaiFENesin ER [Mucinex] 600 mg PO BID #12 tbbp.12hr 11/21/16 [Rx] Miconazole 2% ointment [Aloe [place] Antifungal Ointment] 1 appl TP DAILY #1 tube 11/21/16 [Rx] Nicotine Patch [Nicoderm] 14 mg TD DAILY #30 patch.td24 11/21/16 [Rx] Potassium Chloride 10 meq PO BIDWM #60 tab.er.prt 11/21/16 [Rx] Allergies/Adverse Reactions: Allergies cefuroxime [From Ceftin] Adverse Reaction (Verified 11/10/16 16:58) Nausea Certification: Further, I certify that my clinical findings support that this patient is homebound (i.e. absences from home require considerable and taxing effort and are for medical reasons or jainism services or infrequently or short duration when for other reasons) because: Homebound Reason: Patient requires assistance of a person or device to safely leave home, Leaving home requires considerable and taxing effort due to condition, Severity of cardiac or pulmonary status limits activity tolerance Attestation: My signature below is to certify that this patient is under my care and that I, or nurse practitioner, or a physician's administrative library assistant working with me, has a face-to -face encounter with this patient.
[2016-11-22] MEDS: MethylPREDNISolone 40 MG/ML VIAL IVP SCH ×5 (00:49→23:49)
[2016-11-22] MEDS: Ampicillin/Sulbactam 3,000 MG in 0.9 % Sodium Chloride Mini Bag 100 ML IVPB SCH ×5 (00:49→23:49)
[2016-11-22] MEDS: *HR* Enoxaparin 40 MG/0.4 ML SYRINGE SQ SCH (06:58)
[2016-11-22] MEDS: Ipratropium/Albuterol Neb 3 ML IH SCH ×4 (07:51→20:35)
[2016-11-22] MEDS: Budesonide/Formoterol 160/4.5 MDI IH SCH ×2 (07:51→20:35)
[2016-11-22] MEDS: Eucerin Cream 57 GM TUBE TP SCH ×3 (09:10→20:12)
[2016-11-22] MEDS: Cyanocobalamin (B-12) 1,000 MCG TABLET PO SCH (09:16)
[2016-11-22] MEDS: Furosemide 40 MG TABLET PO SCH ×2 (09:17→19:58)
[2016-11-22] MEDS: Folic Acid 1 MG TABLET PO SCH (09:17)
[2016-11-22] MEDS: *HR* Amiodarone 200 MG TABLET PO SCH ×2 (09:17→19:58)
[2016-11-22] MEDS: Nicotine 14 MG PATCH.TD24 TD SCH (09:17)
[2016-11-22] MEDS: Miconazole 2% ointment 114 GM TUBE TP SCH (09:26)
--- NOTE | 2016-11-22 10:30 | Palliative Progress Note ---
Date of Encounter: 11/22/16 Time of Encounter: 10:25 - Assessment and plan (1) Anxiety Current Visit: Yes Status: Acute Assessment and plan: Continues with Ativan and states this has been very helpful (2) Dyspnea Current Visit: Yes Status: Acute Assessment and plan: Continues on high-flow oxygen and still utilizing ventimask. Monitor Qualifiers: Dyspnea type: shortness of breath Qualified Code(s): R06.02 - Shortness of breath (3) Goals of care, counseling/discussion Current Visit: Yes Status: Acute Assessment and plan: Plan upon discharge will be referral to [place] Palliative home care and oxygen setup through [facility]. Significant other having surgery today in [place] and his son will not be able to stay with him r/t work. Anticipate discharge tomorrow. (4) Acute and chronic respiratory failure ([id number]) Current Visit: Yes Status: Acute Qualifiers: Respiratory failure complication: hypoxia Qualified Code(s): J96.21 - Acute and chronic respiratory failure with hypoxia (5) COPD with acute exacerbation Current Visit: Yes Status: Acute (6) Metastatic lung cancer (metastasis from lung to other site) Current Visit: Yes Status: Acute Qualifiers: Laterality: right Qualified Code(s): C34.91 - Malignant neoplasm of unspecified part of right bronchus or lung - Time Spent With Patient Total time spent is greater than 50% in coordination of care (as documented) at patient's floor/unit and/or counseling patient: 25 - 35 minutes - Subjective Interval history: Patient sitting up in bed watching tv. States that he slept well last night. Breathing somewhat better. Denies any pain or discomfort. Eating well. - Constitutional Vitals: Abnormal lab results WBC 12.9 K/mcL (4.3-11.1) H 11/19/16 04:43 RBC 3.09 M/mcL (4.19-5.50) L 11/19/16 04:43 Hgb 9.1 g/dL (12.9-16.9) L 11/19/16 04:43 Hct 28.1 % (37.5-50.1) L 11/19/16 04:43 RDW 15.8 % (11.5-14.5) H 11/19/16 04:43 Neutrophils # 10.8 K/mcL (1.6-8.9) H 11/19/16 04:43 PT 12.9 Seconds (9.4-12.1) H 11/17/16 05:35 Chloride 97 mEq/L (98-109) L 11/20/16 04:32 Glucose 158 mg/dL (70-99) H 11/20/16 04:32 General appearance: Present: no acute distress - Expanded Respiratory Exam Location: decreased breath sounds: Right, Lower - Cardiovascular Cardiovascular exam: Present: +S1, +S2 - GI/Abdominal GI/Abdominal exam: Present: normal bowel sounds, soft - Extremities Exam Additional comments: 2+ edema to bilateral lower extremities - Neurological Exam Neurological exam: Present: alert, oriented X3, strengths equal and symetr throughout - Skin Skin exam: Present: dry, pallor, warm Palliative Quality Palliative Quality: Screen for Code Status: Yes, Screen for Goals of Care: Yes, Screen for Pain: Yes, If Pain Regimen Started, Initiate Bowel Regimen: Yes, Screen for Nausea/Vomitting: Yes Code Status: 11/16/16 23:04 Resuscitation Status: Active [RES] Routine Comment: Resuscitation Status: Full Code - Labs CBC & Chem 7: 11/19/16 04:43 11/20/16 04:32 - ABG Interpretation ABG results: PT/INR, D-dimer PT 12.9 Seconds (9.4-12.1) H 11/17/16 05:35 Consult Discharge Plan - Plan Referrals: Dante Gonzalez MD [Partnered Physician] - 12/01/16 9:50 am (At the [facility] ) Prescriptions: Amoxicillin/Clavulanate [Augmentin] 875 mg PO BIDWM #6 tablet Docusate [Colace] 100 mg PO BID PRN #60 capsule PRN Reason: Constipation Eucerin Creme 1 appl TP BID #1 tube GuaiFENesin ER [Mucinex] 600 mg PO BID #12 tbbp.12hr Miconazole 2% ointment [Aloe [place] Antifungal Ointment] 1 appl TP DAILY #1 tube Nicotine Patch [Nicoderm] 14 mg TD DAILY #30 patch.td24 Potassium Chloride 10 meq PO BIDWM #60 tab.er.prt
--- NOTE | 2016-11-22 17:02 | Internal Med Progress Note ---
Date of Encounter: 11/22/16 Time of Encounter: 11:00 - Assessment and plan (1) Acute and chronic respiratory failure ([id number]) Current Visit: Yes Status: Acute Assessment and plan: Continue O2 Qualifiers: Respiratory failure complication: hypoxia Qualified Code(s): J96.21 - Acute and chronic respiratory failure with hypoxia (2) Bilateral cellulitis of lower leg Current Visit: Yes Status: Inactive Assessment and plan: Improved. has received 6 days of Unasyn D/C antibiotics a.m (3) Pleural effusion Current Visit: Yes Status: Acute Assessment and plan: Recurrent right-sided pleural effusion, likely malignant. Patient could not tolerate IR- guided thoracentesis, could obtain only 400 mL of serosanguineous fluid. Cardiothoracic surgery consulted for possible chest tube placement; after reviewing CT chest, patient appears to have an obstructing bronchial necrotic mass and chances of lung reexpansion even with fluid removal, are minimal. Pulmonary evaluation appreciated. Patient's condition may not improve with chest tube placement as he may not have lung reexpansion, decision regarding endobronchial debulking of his bronchial tumor is pending. We will continue to follow. Needs outpatient oncology follow-up for systemic treatment for metastatic lung cancer. Continue supplemental oxygen and supportive care. High risk condition with grave prognosis. (4) Squamous cell lung cancer Current Visit: Yes Status: Chronic Assessment and plan: Has been diagnosed during his previous admission last month. Biopsy-proven right lung mass showing squamous cell cancer with bone mets Follow-up right pleural fluid cytology. Oncology consult noted, cancer is not curable but may opt for systemic therapy. We will continue to follow. Palliative care team on board. Qualifiers: Laterality: right Qualified Code(s): C34.91 - Malignant neoplasm of unspecified part of right bronchus or lung (5) Hypertension Current Visit: Yes Status: Chronic Qualifiers: Hypertension type: essential hypertension Qualified Code(s): I10 - Essential (primary) hypertension (6) COPD with acute exacerbation Current Visit: Yes Status: Acute (7) Tobacco abuse Current Visit: Yes Status: Chronic Assessment and plan: Discussed about Smoking cessation in light of his metastatic cancer and lung disease. Patient is determined to quit smoking at this time. Continue nicotine transdermal patch. - Subjective Interval history: 56 Y/O M with RLL Squamous cell CA with mets and malignant pleural effusion, Bilateral lower extremity cellulitis Patient in this hospital stay has been needing high flow O2 and is currently pending home O2 delivery He is also receiving IV antibiotics for cellulitis He is seen at bedside today with no new complains - Constitutional Vitals: Temp Pulse Resp BP Pulse Ox 98.0 F 76 16 127/71 93 L 11/22/16 15:56 11/22/16 15:56 11/22/16 15:56 11/22/16 15:56 11/22/16 15:56 General appearance: Present: A&O X 3 (On Ventimask), pleasant, no acute distress , answers questions appropriately - Head Head exam: Present: atraumatic, normocephalic Additional comments: Right forehead mass - Eye Eye exam: Present: PERRL, conjuntiva pink, sclera anicteric Pupils: Present: PERRL - Neck Neck exam general surgery: Present: supple, trachea midline. Absent: lymphadenopathy - Respiratory Respiratory exam: Present: rhonchi, wheezes - Cardiovascular Cardiovascular exam: Present: RRR, +S1, +S2. Absent: diastolic murmur, gallop, rubs, systolic murmur - GI/Abdominal GI/Abdominal exam: Present: normal bowel sounds, soft, no peritoneal signs. Absent: distended, tenderness - Extremities Exam Additional comments: Significant improvement in erythema and swelling of lower extremities - Neurological Exam Neurological exam: Present: CN II-XII intact, oriented X3, no focal deficits. Absent: pronater drift, facial droop, speech deficit - Skin Skin exam: Present: dry Internal Medicine: Result - Labs CBC & Chem 7: 11/19/16 04:43 11/20/16 04:32 - ABG Interpretation ABG results: PT/INR, D-dimer PT 12.9 Seconds (9.4-12.1) H 11/17/16 05:35 Consult Discharge Plan - Plan Referrals: Dante Gonzalez MD [Partnered Physician] - 12/01/16 9:50 am (At the [facility] ) Prescriptions: Amoxicillin/Clavulanate [Augmentin] 875 mg PO BIDWM #6 tablet Docusate [Colace] 100 mg PO BID PRN #60 capsule PRN Reason: Constipation Eucerin Creme 1 appl TP BID #1 tube GuaiFENesin ER [Mucinex] 600 mg PO BID #12 tbbp.12hr Miconazole 2% ointment [Aloe [place] Antifungal Ointment] 1 appl TP DAILY #1 tube Nicotine Patch [Nicoderm] 14 mg TD DAILY #30 patch.td24 Potassium Chloride 10 meq PO BIDWM #60 tab.er.prt
--- NOTE | 2016-11-22 17:14 | Event Note ---
Date of Encounter: 11/22/16 Time of Encounter: 17:10 After discussion in oncology this afternoon, medical oncologists would like to obtain another CT scan of chest with contrast and compare to 11/14/16 series. We would like to assess currrent state of effusion, consolidation or changes. We are concerned about his desaturation and ability to tolerate radiation or immunotherapy due to functional status and high concentration of oxygen needs. I have placed order for CT scan. We would like it for this evening if possible. We will discuss in our tumor board tomorrow morning, or Sunday11/24/16 at 730 am. We will see patient once CT and result is obtained for further treatment planning. Dr Winkler business continuity strategy director if any questions.
[2016-11-22] MEDS: *HR* LORazepam 1 MG TABLET PO PRN (19:58)
[2016-11-22] MEDS: *HR* LORazepam 2 MG/ML VIAL IVP PRN (21:19)
[2016-11-22] MEDS: *HR* HYDROcodone/Acet 10/325 mg TABLET PO PRN (22:10)
[2016-11-22] MEDS ORDERED: *HR* LORazepam 1 MG TABLET PO ONE (23:42)
[2016-11-23] MEDS: *HR* LORazepam 2 MG/ML VIAL IVP PRN (01:13)
[2016-11-23] MEDS: MethylPREDNISolone 40 MG/ML VIAL IVP SCH (06:25)
[2016-11-23] MEDS: Ampicillin/Sulbactam 3,000 MG in 0.9 % Sodium Chloride Mini Bag 100 ML IVPB SCH (06:27)
[2016-11-23] MEDS: Budesonide/Formoterol 160/4.5 MDI IH SCH (07:47)
[2016-11-23] MEDS: Ipratropium/Albuterol Neb 3 ML IH SCH ×2 (07:47→11:13)
[2016-11-23] MEDS ORDERED: *HR* Enoxaparin 40 MG/0.4 ML SYRINGE SQ ONE (09:35)
[2016-11-23] MEDS: Furosemide 40 MG TABLET PO SCH (09:40)
[2016-11-23] MEDS: *HR* Amiodarone 200 MG TABLET PO SCH (09:40)
[2016-11-23] MEDS: Cyanocobalamin (B-12) 1,000 MCG TABLET PO SCH (09:40)
[2016-11-23] MEDS: Folic Acid 1 MG TABLET PO SCH (09:40)
[2016-11-23] MEDS: Nicotine 14 MG PATCH.TD24 TD SCH (09:40)
[2016-11-23] MEDS: *HR* Enoxaparin 40 MG/0.4 ML SYRINGE SQ SCH (09:41)
[2016-11-23] MEDS: Eucerin Cream 57 GM TUBE TP SCH (09:41)
[2016-11-23] MEDS: Miconazole 2% ointment 114 GM TUBE TP SCH (09:41)
[2016-11-23 11:31] VITALS: BP 144/72
[2016-11-23] MEDS ORDERED: *HR* Enoxaparin 30 MG/0.3 ML SYRINGE SQ ONE (11:52)
--- NOTE | 2016-11-23 11:53 | Event Note ---
Date of Encounter: 11/23/16 Time of Encounter: 11:53 Patient seen at bedside No new complains Result of chest CT with Right IJ and innominate vein thrombosis and worsening, advanced lung CA with bilateral pleural effusions have been discussed Vital signs are stable at baseline, requiring high doses of oxygen Patient will be discharged home today to home hospice Rest of details as in discharge summary
[2016-11-23] MEDS: *HR* HYDROcodone/Acet 10/325 mg TABLET PO PRN (12:36)
[2016-11-23] MEDS: *HR* LORazepam 1 MG TABLET PO PRN (12:36)
--- NOTE | 2016-11-23 14:35 | Physician Discharge Referral ---
Home Health/Hosp Referral Info Transfer to: Hospice Attending Provider: Rupal Provider in Charge Post Discharge: Drug Enforcement Administration Agent - Diagnosis (1) Acute and chronic respiratory failure ([id number]) Priority: Primary Status: Acute (2) Bilateral cellulitis of lower leg Priority: Primary Status: Resolved (3) Pleural effusion Priority: Primary Status: Acute (4) Squamous cell lung cancer Priority: Secondary Status: Chronic (5) Hypertension Priority: Secondary Status: Chronic (6) COPD with acute exacerbation Priority: Primary Status: Acute (7) Tobacco abuse Priority: Secondary Status: Chronic - Respiratory Orders Oxygen / L per min (8L/minute) Smoking Cessation: Smoking cessation has been advised. For more information, call the [place] Quit Line at 5-058-WOAZ-NOW. - Diet/Nutrition Diet/Nutrition Orders: Cardiac - Activity Activity Orders: Chair - Services Needed Following services are medically necessary services: Nursing, Home Health Aide, Physical Therapy - Transfer Medications Prescriptions: LORazepam [Ativan] 1 mg PO Q4HR #30 tablet Morphine Oral CONC [Roxanol] 5 mg PO Q4HR PRN #30 oral.syg PRN Reason: Pain Amoxicillin/Clavulanate [Augmentin] 875 mg PO BIDWM #6 tablet Docusate [Colace] 100 mg PO BID PRN #60 capsule PRN Reason: Constipation Enoxaparin [Lovenox] 90 mg SQ DAILY #30 syr Eucerin Creme 1 appl TP BID #1 tube GuaiFENesin ER [Mucinex] 600 mg PO BID #12 tbbp.12hr HYDROcodone/Acet 5/325 mg [[place] 5-325 mg] 1 tab PO Q4H PRN #30 tab PRN Reason: Mild Pain Miconazole 2% ointment [Aloe [place] Antifungal Ointment] 1 appl TP DAILY #1 tube Nicotine Patch [Nicoderm] 14 mg TD DAILY #30 patch.td24 Nystatin [Nystatin Suspension] 100,000 unit PO QID #75 oral.susp Potassium Chloride 10 meq PO BIDWM #60 tab.er.prt Home Medications: Amiodarone [Cordarone] 200 mg PO BID #180 tablet 11/01/16 [Rx] Amlodipine [Norvasc] 10 mg PO DAILY #90 tablet 11/01/16 [Rx] Budesonide/Formoterol 160/4.5 [Symbicort 160/4.5] 2 puff IH BIDR #1 inhaler 02/12 [Rx] Folic Acid 1 mg PO DAILY #90 tablet 11/01/16 [Rx] Ipratropium/Albuterol Neb [Duoneb] 3 ml IH TID #270 inhsol 11/01/16 [Rx] Omeprazole [PriLOSEC] 20 mg PO DAILY@0730 #30 capsule. 11/01/16 [Rx] HYDROcodone/Acet 10/325 mg [[place] 10-325 mg] 1 tab PO Q6HR PRN #90 tab 11/10/16 [Rx] LORazepam [Ativan] 0.5 mg PO Q6H PRN #90 tablet 11/10/16 [Rx] Cyanocobalamin (Vitamin B-12) [Vitamin B12] 1,000 mcg PO DAILY 11/16/16 [History ] Furosemide [Lasix] 40 mg PO BID 11/16/16 [History] Acetaminophen [Tylenol] 650 mg PO Q6HR PRN #0 tablet 11/21/16 [Rx] Amoxicillin/Clavulanate [Augmentin] 875 mg PO BIDWM #6 tablet 11/21/16 [Rx] Docusate [Colace] 100 mg PO BID PRN #60 capsule 11/21/16 [Rx] Eucerin Creme 1 appl TP BID #1 tube 11/21/16 [Rx] GuaiFENesin ER [Mucinex] 600 mg PO BID #12 tbbp.12hr 11/21/16 [Rx] Miconazole 2% ointment [Aloe [place] Antifungal Ointment] 1 appl TP DAILY #1 tube 11/21/16 [Rx] Nicotine Patch [Nicoderm] 14 mg TD DAILY #30 patch.td24 11/21/16 [Rx] Potassium Chloride 10 meq PO BIDWM #60 tab.er.prt 11/21/16 [Rx] Enoxaparin [Lovenox] 90 mg SQ DAILY #30 syr 11/23/16 [Rx] HYDROcodone/Acet 5/325 mg [[place] 5-325 mg] 1 tab PO Q4H PRN #30 tab 11/23/16 [Rx ] LORazepam [Ativan] 1 mg PO Q4HR #30 tablet 11/23/16 [Rx] Morphine Oral CONC [Roxanol] 5 mg PO Q4HR PRN #30 oral.syg 11/23/16 [Rx] Nystatin [Nystatin Suspension] 100,000 unit PO QID #75 oral.susp 11/23/16 [Rx] Allergies/Adverse Reactions: Allergies cefuroxime [From Ceftin] Adverse Reaction (Verified 11/10/16 16:58) Nausea Certification: Further, I certify that my clinical findings support that this patient is homebound (i.e. absences from home require considerable and taxing effort and are for medical reasons or anabaptist services or infrequently or short duration when for other reasons) because: Homebound Reason: Patient requires assistance of a person or device to safely leave home, Severity of cardiac or pulmonary status limits activity tolerance Attestation: My signature below is to certify that this patient is under my care and that I, or nurse practitioner, or a physician's chef assistant working with me, has a face-to -face encounter with this patient.
--- NOTE | 2016-11-23 16:20 | Oncology Inp Progress Note ---
Date of Encounter: 11/23/16 Time of Encounter: 10:40 (1) Metastatic lung cancer (metastasis from lung to other site) Status: Acute Assessment and plan: Long discussion with the patient and friend at bedside today. Randell Longo and Kaela Sampson bedside with me for discussion of patient's CT results from yesterday evening. I ordered CT scan of her chest to compare to 11/14/2016. This showed worsening condition. He had increasing moderate left pleural effusion, using right pleural effusion, increasing interstitial air space disease of the lungs bilaterally with interlobular septal thickening. This likely was related to worsening pulmonary edema or interstitial pneumonitis. 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 So she was soft tissue edema seen in the right axillary region and chest wall related to developing poor venous outflow. Our biggest concern was the patient's quick desaturation without high liter oxygen needs. We discussed this with the patient, as well as the above CT scan results. We believe the patient would not be a good candidate for chemotherapy or radiation due to his worsening condition, and increasing oxygen needs. The patient made the decision to go to hospice care, and did not want to seek any further treatment. The friend at his bedside was in agreement with this as well. The patient just wants quality of life, not quantity of life. He wants to at home. Case was discussed with Dr. Machado, since Dr. Gonzalez out of the office. He is in agreement with above plan based on new CT images. Palliative Care team handling all discharge instructions with hospitalist. I did speak to the hospitalist and we were all in agreement with the above plan. Discharge plan for 1 PM today. Qualifiers: Laterality: right Qualified Code(s): C34.91 - Malignant neoplasm of unspecified part of right bronchus or lung (2) Encounter for hospice care discussion Status: Acute Oncology: Subj Interval history: The patient at bedside with friend. He still has shortness of breath and struggles to breathe, he is on high oxygen concentration with O2 saturations at 90%. He denies any type of significant pain. - Constitutional Vitals: Vital Signs Temp Pulse Resp BP Pulse Ox 11/23/16 11:30 97.8 F 81 20 144/72 98 11/23/16 11:13 16 94 L 11/23/16 07:47 18 93 L 11/23/16 07:29 97.7 F 75 18 130/69 93 L 11/23/16 04:33 97.9 F 71 16 116/69 93 L 11/22/16 23:52 97.7 F 79 16 126/69 94 L 11/22/16 20:35 18 95 11/22/16 20:15 97.6 F 74 16 123/74 93 L Intake and Output 11/23/16 11/23/16 11/23/16 07:59 15:59 23:59 Intake Total 100 / 100 Output Total 540 / 540 Balance -440 / -440 Intake: IV Fluids 100 / 100 Unasyn 3,000 MG In 0.9 % 100 / 100 Sodium Chloride (Mini-Bag +) 100 ML @ 200 mls/hr IVPB Q6HR [facility] Rx#: [id number] Output: Urine 540 / 540 Other: Meal Breakfast Percent of Meal Consumed 100% Weight 59 kg Patient Weight 11/23/16 23:59 Weight 59 kg General appearance: average body habitus, no acute distress - Head Head exam: Present: atraumatic, normal inspection - Eye Eye exam: Present: normal appearance, PERRL - ENT ENT exam: Present: mucous membranes moist - Neck Neck exam: Present: full ROM, normal inspection - Respiratory Respiratory exam: Present: decreased breath sounds, rhonchi - Cardiovascular Cardiovascular exam: Present: RRR - GI/Abdominal GI/Abdominal exam: Present: soft - Extremities Exam Extremities exam: Present: full ROM, normal inspection - Neurological Exam Neurological exam: Present: alert, CN II-XII intact, oriented X3, no focal deficits - Psychiatric Psychiatric exam: Present: normal affect, normal mood - Skin Skin exam: Present: dry, intact Oncology: Obj Data - Labs CBC & Chem 7: 11/19/16 04:43 11/20/16 04:32 - Impressions Impressions Chest CT 11/22/16 17:15 IMPRESSION: Similar appearing obstructive mass in the right perihilar region, with mediastinal necrotic lymphadenopathy and a 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 The right-sided pleural effusion has increased mildly in size. Increased left pleural effusion, moderate in size on today's examination. Increasing interstitial airspace disease throughout the lungs bilaterally, with interlobular septal thickening. Changes may be related to worsening pulmonary edema and/or interstitial pneumonitis. The previously identified right internal jugular venous thrombus is again noted, now extending into the right innominate vein, and central aspect of the right subclavian vein, axial image 19/109. There is soft tissue edema seen in the right axillary region and chest wall which may be related to developing poor venous outflow. Other findings are similar to the previous study on 11/14/2016. D/ / 11/22/2016 19:59:18 Gallo Santillan MD / debbi Interpreting Provider: Gallo Santillan MD - ABG Interpretation ABG results: PT/INR, D-dimer PT 12.9 Seconds (9.4-12.1) H 11/17/16 05:35 Consult Discharge Plan - Plan Referrals: Ernestina Armenta CNP [Primary Care Provider] - 11/29/16 10:15 am Dante Gonzalez MD [Partnered Physician] - 12/01/16 9:50 am (At the [facility] ) Prescriptions: LORazepam [Ativan] 1 mg PO Q4HR #30 tablet Morphine Oral CONC [Roxanol] 5 mg PO Q4HR PRN #30 oral.syg PRN Reason: Pain Amoxicillin/Clavulanate [Augmentin] 875 mg PO BIDWM #6 tablet Docusate [Colace] 100 mg PO BID PRN #60 capsule PRN Reason: Constipation Enoxaparin [Lovenox] 90 mg SQ DAILY #30 syr Eucerin Creme 1 appl TP BID #1 tube GuaiFENesin ER [Mucinex] 600 mg PO BID #12 tbbp.12hr HYDROcodone/Acet 5/325 mg [[place] 5-325 mg] 1 tab PO Q4H PRN #30 tab PRN Reason: Mild Pain Miconazole 2% ointment [Aloe [place] Antifungal Ointment] 1 appl TP DAILY #1 tube Nicotine Patch [Nicoderm] 14 mg TD DAILY #30 patch.td24 Nystatin [Nystatin Suspension] 100,000 unit PO QID #75 oral.susp Potassium Chloride 10 meq PO BIDWM #60 tab.er.prt - Attending Attestation I examined this patient and my medical decision-making was reviewed with the MID LEVEL NET DEVELOPER/PA/Advanced Practice Nurse/Resident Physician. I agree with the documented findings, disposition and treatment plan as described except to the extent set forth below.
[2016-11-23] MEDS ORDERED: *HR* Enoxaparin 60 MG/0.6 ML SYRINGE SQ SCH (18:00)
== END 2016-11-23 13:21 | disposition hospice, home (50) | DRG 180 ==
LOC: 2ANU → SUATTDRO 11-17 11:02
PROVIDERS: ADMIT Internal Medicine; ATTEND Internal Medicine